=== PATIENT | male | born 1950 | race Caucasian/White ===

== ENCOUNTER 2019-04-15 11:25 | Emergency (ER) | payer OTHER, MEDICARE ==
--- NOTE | 2019-04-15 12:22 | RAD REPORT ---
EXAM DESCRIPTION: RAD - Chest Single View - 04/15/2019 12:14 pm CLINICAL HISTORY: Dyspnea, shortness of breath COMPARISON: August 2017 TECHNIQUE: AP portable chest image was obtained 1212 hours . FINDINGS: No focal lung parenchymal process. Interstitial pattern matches the comparison. No failure or volume overload. Heart and vasculature are normal. No measurable pleural effusion and no pneumoth orax. No acute bony abnormality seen. No acute aortic findings suspected. IMPRESSION: No acute cardiopulmonary process. No significant interval change.
[2019-04-15 12:37] LABS: Absolute Lymphocytes (CBC) 2.1 K/uL (0.7-4.9); Absolute Monocytes 0.7 K/uL (0.1-1.3); Absolute Neutrophil 4.1 K/uL (1.8-8.0); Basophils % 0.4 % (0-1.3); Eosinophils % 0.9 % (0-4.4); Hematocrit 43.1 % (39.6-49.0); Lymphocytes % 30.1 % (15.3-44.8); MPV 8.1 fL (7.6-11.3); Monocytes % 9.6 % (3.3-12.3); RBC Red Blood Cell Count 4.88 M/uL (4.33-5.43)
[2019-04-15 12:50] LABS: Bilirubin Direct 0.2 mg/dL (0-0.2); Bilirubin Total 0.7 mg/dL (0.2-1.0); Potassium 4.1 mmol/L (3.5-5.1); Protein, Total 7.5 g/dL (6.4-8.2)
--- OUTSIDE RECORDS SUMMARY | 2019-04-15 13:13 | XMS REPORT ---
:1950 [facility] Address [address] [place] [address] Dr. Lopez [address] [place] [address] Care Team Providers Name Role Phone Unavailable Unavailable Unavailable Problems This patient has no known problems. Allergies, Adverse Reactions, Alerts This patient has no known allergies or adverse reactions. Medications This patient has no known medications.
--- OUTSIDE RECORDS SUMMARY | 2019-04-15 13:13 | XMS REPORT | Clinical Summary ---
:1950 Author Organization [facility] Address [address] [place] [address] Care Team Providers Name Role Phone Pierre Shea DO Primary Care Provider Allergies No Known Allergies Medications Medication Sig Dispensed Refills Start Date End Date Status omeprazole Take 40 mg by 0 11/12/2017 Active (PriLOSEC) 40 MG mouth daily. capsule meloxicam (MOBIC) Take 15 mg by 0 12/07/2017 Active 15 mg tablet mouth as needed. fish oil-dha-epa Take 1 tablet 0 Active 1,200-144-216 mg by mouth capsule daily. aspirin (ECOTRIN) Take 1 tablet 90 tablet 3 12/31/2017 Active 81 MG enteric (81 mg total) coated tablet by mouth daily. metoprolol Take 1 tablet 180 tablet 3 12/03/2018 Active tartrate (50 mg total) (LOPRESSOR) 50 mg by mouth 2 tablet (two) times a day. losartan-hydrochlo Take 1 tablet 90 tablet 3 12/03/2018 Active rothiazide by mouth (HYZAAR) 50-12.5 daily. mg per tablet clopidogrel Take 1 tablet 90 tablet 3 12/03/2018 Active (PLAVIX) 75 mg (75 mg total) tablet by mouth daily. pravastatin Take 1 tablet 90 tablet 3 01/07/2019 Active (PRAVACHOL) 40 MG (40 mg total) tabletIndications: by mouth Coronary artery daily. disease involving [place] heart with angina pectoris, unspecified vessel or lesion type (HCC), Carotid artery disease, unspecified laterality, unspecified type (HCC) pravastatin Take 40 mg by 0 12/16/2017 09/23/2018 Discontinued (PRAVACHOL) 40 MG mouth daily. tablet metoprolol Take 1 tablet 180 tablet 3 12/31/2017 12/03/2018 Discontinued tartrate (50 mg total) (LOPRESSOR) 50 mg by mouth 2 tablet (two) times a day. losartan-hydrochlo Take 1 tablet 90 tablet 3 12/31/2017 12/03/2018 Discontinued rothiazide by mouth (HYZAAR) 50-12.5 daily. mg per tablet clopidogrel Take 1 tablet 90 tablet 3 12/31/2017 12/03/2018 Discontinued (PLAVIX) 75 mg (75 mg total) tablet by mouth daily. pravastatin Take 1 tablet 90 tablet 3 09/23/2018 01/07/2019 Discontinued (PRAVACHOL) 40 MG (40 mg total) tabletIndications: by mouth Coronary artery daily. disease involving [place] heart with angina pectoris, unspecified vessel or lesion type (HCC), Carotid artery disease, unspecified laterality, unspecified type (HCC) pravastatin Take 1 tablet 90 tablet 3 01/07/2019 01/07/2019 Discontinued (PRAVACHOL) 40 MG (40 mg total) tabletIndications: by mouth Coronary artery daily. disease involving [place] heart with angina pectoris, unspecified vessel or lesion type (HCC), Carotid artery disease, unspecified laterality, unspecified type (HCC) Active Problems Problem Noted Date Coronary artery disease involving [place] coronary artery of [place] heart 09/23 without angina pectoris Abnormal stress test 02/18/2018 Essential hypertension 12/31/2017 SOB (shortness of breath) 12/31/2017 Abnormal ECG 12/31/2017 Carotid artery disease 12/31/2017 Transient cerebral ischemia 12/31/2017 Encounters Date Type Specialty Care Team Description 03/06/2019 Telephone Cardiology Gilmar Valle MA cardiac clearance question 02/20/2019 Office Visit Cardiology Carlos Kemp MD Occlusion of left carotid artery (Primary Dx); Essential hypertension; Transient cerebral ischemia, unspecified type; Coronary artery disease involving [place] coronary artery of [place] heart without angina pectoris 01/07/2019 Refill Cardiology Catie Johnson MA Med Refill 01/07/2019 Orders Only Cardiology Gilmar Valle MA 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 with angina pectoris, unspecified vessel or lesion type ( HCC); Carotid artery disease, unspecified laterality, unspecified type (HCC) 12/03/2018 Orders Only Cardiology Gilmar Valle MA 09/23/2018 Office Visit Cardiology Carlos Kemp MD 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 with angina pectoris, unspecified vessel or lesion type (HCC) (Primary Dx); Carotid artery disease, unspecified laterality, unspecified type (HCC) 05/08/2018 Orders Only Cardiology Gilmar Valle MA after 04/14/2018 Family History Medical History Relation Name Comments Hyperlipidemia Brother Heart attack Father Hyperlipidemia Father Hyperlipidemia Mother Relation Name Status Comments Brother Father Mother Social History Tobacco Use Types Packs/Day Years Used Date Former Smoker Smokeless Tobacco: Former User Alcohol Use Drinks/Week oz/Week Comments Yes Occasional Sex Assigned at Date Recorded Not on file Job Start Date Occupation Industry Not on file Not on file Not on file Travel History Travel Start Travel End No recent travel history available. Last Filed Vital Signs Vital Sign Reading Time Taken Blood Pressure 137/81 02/20/2019 9:54 AM CDT Pulse 62 02/20/2019 9:54 AM CDT Temperature - - Respiratory Rate - - Oxygen Saturation - - Inhaled Oxygen Concentration - - Weight 93.9 kg (207 lb) 02/20/2019 9:52 AM CDT Height 180.3 cm (5' 11") 02/20/2019 9:52 AM CDT Body Mass Index 28.87 02/20/2019 9:52 AM CDT Plan of Treatment Health Maintenance Due Date Last Done Comments COLON CANCER SCREENING 1999 SHINGLES VACCINES (#1) 1999 65+ PNEUMOCOCCAL VACCINE (1 of 2 - PCV13) 2014 PNEUMOCOCCAL POLYSACCHARIDE VACCINE AGE 65 AND OVER 2014 INFLUENZA VACCINE 06/25/2019 Procedures Procedure Name Priority Date/Time Associated Diagnosis Comments COPY RECEIVED FROM: Routine 02/25/2019 7:19 Results for this AM CDT procedure are in the results section. NON HDL CHOLESTEROL Routine 02/25/2019 7:19 Results for this ([facility]) AM CDT procedure are in the results section. CHOL/HDLC RATIO Routine 02/25/2019 7:19 Results for this ([facility]) AM CDT procedure are in the results section. LDL-CHOLESTEROL Routine 02/25/2019 7:19 Results for this ([facility]) AM CDT procedure are in the results section. TRIGLYCERIDES Routine 02/25/2019 7:19 Results for this AM CDT procedure are in the results section. HDL CHOLESTEROL Routine 02/25/2019 7:19 Results for this AM CDT procedure are in the results section. CHOLESTEROL Routine 02/25/2019 7:19 Results for this AM CDT procedure are in the results section. COPY(IES) SENT TO: Routine 02/25/2019 7:19 Results for this AM CDT procedure are in the results section. AST (SGOT) Routine 02/25/2019 7:19 Coronary artery Results for this AM CDT disease involving procedure are in [place] heart with the results angina pectoris, section. unspecified vessel or lesion type (HCC) Carotid artery disease, unspecified laterality, unspecified type (HCC) LIPID PANEL Routine 02/25/2019 7:19 Coronary artery Results for this AM CDT disease involving procedure are in [place] heart with the results angina pectoris, section. unspecified vessel or lesion type (HCC) Carotid artery disease, unspecified laterality, unspecified type (HCC) ECG 12-LEAD Routine 02/20/2019 9:48 Essential Results for this AM CDT hypertension procedure are in the results section. after 04/14/2018 Results NON HDL CHOLESTEROL ([facility]) (02/25/2019 7:19 AM CDT) Non-HDL cholesterol 134 (H) <130 mg/dL [facility] Comment: (calc) [facility] For patients with diabetes plus 1 major ASCVD risk factor, treating to a non-HDL-C goal of <100 mg/dL (LDL-C of <70 mg/dL) is considered a therapeutic option. Specimen Narrative Performed At FASTING:YES [facility] FASTING: YES Resulting Agency Comment Performing Organization Information: Site ID: [id number] Name: [facility] Address: [address] [place] [phone] Director: Renetta Flores Performing Organization Address City/State/[facility] [place] Phone Number [facility] [address] [address] CHOL/HDLC RATIO ([facility]LEX [facility]) (02/25/2019 7:19 AM CDT) Cholesterol/HDL ratio 3.1 <5.0 (calc) [facility] Specimen Narrative Performed At FASTING:YES [facility] FASTING: YES Resulting Agency Comment Performing Organization Information: Site ID: [id number] Name: [facility] Address: [address] [place] [phone] Director: Renetta Flores Performing Organization Address City/[facility]/Zipcode Phone Number [facility] [address] [place] [address] COPY RECEIVED FROM: (02/25/2019 7:19 AM CDT) Copy received from: [facility] Comment: [facility] [place] [address] Specimen Narrative Performed At FASTING:YES [facility] FASTING: YES Performing Organization Address [facility] Phone Number [facility] LDL-CHOLESTEROL ([facility]) (02/25/2019 7:19 AM CDT) LDL cholesterol 110 (H) mg/dL (calc) [facility] calculated Comment: SILVIS Reference range: <100 Desirable range <100 mg/dL for primary prevention; <70 mg/dL for patients with CHD or diabetic patients with > or=2 CHD risk factors. LDL-C is now calculated using the Suhas calculation, which is a validated novel method providing better accuracy than the Friedewald equation in the estimation of LDL-C. Tony SS et al. LIZBETH. 2013;310(19): 1934-5084 (http://education.[employer]/faq/JYO453) Specimen Narrative Performed At FASTING:YES [facility] FASTING: YES Resulting Agency Comment Performing Organization Information: Site ID: [id number] Name: [facility] Address: [address] [place] [address] Director: Renetta Flores Performing Organization Address [facility] Phone Number [facility] [address] [place] [address] COPY(IES) SENT TO: (02/25/2019 7:19 AM CDT) Copies/mL [facility] Comment: ERIN [facility]OW[facility] [facility] [address] [place] [address] Specimen Narrative Performed At FASTING:YES [facility] FASTING: YES Performing Organization Address City/[facility] Phone Number [facility] Triglycerides (02/25/2019 7:19 AM CDT) Triglycerides 129 <150 mg/dL [facility] Specimen Narrative Performed At FASTING:YES [facility] FASTING: YES Resulting Agency Comment Performing Organization Information: Site ID: [id number] Name: [facility] Address: [address] [place] [phone] Director: Renetta Flores Performing Organization Address City/[facility] Phone Number [facility] [place] [phone] AST (SGOT) (02/25/2019 7:19 AM CDT) AST 17 10 - 35 U/L [facility] Specimen Blood Narrative Performed At FASTING:YES [facility] FASTING: YES Resulting Agency Comment Performing Organization Information: Site ID: [id number] Name: [facility] Address: [address] [place] [phone] Director: Renetta Flores Performing Organization Address City/[facility] [place] [address] HDL cholesterol (02/25/2019 7:19 AM CDT) Pathologist [facility] HDL cholesterol 64 >40 mg/dL [facility] Specimen Narrative Performed At FASTING:YES [facility] FASTING: YES Resulting Agency Comment Performing Organization Information: Site ID: [id number] Name: [facility] Address: [address] [place] [phone] Director: Renetta Flores Performing Organization Address [facility] [place] [address] Cholesterol (02/25/2019 7:19 AM CDT) Cholesterol, total 198 <200 mg/dL [facility] Specimen Narrative Performed At FASTING:YES [facility] FASTING: YES Resulting Agency Comment Performing Organization Information: Site ID: [id number] Name: [facility] Address: [address] [place] [phone] Director: Renetta Flores Performing Organization Address [facility] Phone Number [facility] [address] [address] Lipid panel (02/25/2019 7:19 AM CDT) Cholesterol, total 198 <200 mg/dL [facility] HDL cholesterol 64 >40 mg/dL [facility] Triglycerides 129 <150 mg/dL [facility] LDL cholesterol 110 (H) mg/dL (calc) [facility] calculated Comment: SILVIS Reference range: <100 Desirable range <100 mg/dL for primary prevention; <70 mg/dL for patients with CHD or diabetic patients with > or=2 CHD risk factors. LDL-C is now calculated using the Suhas calculation, which is a validated novel method providing better accuracy than the Friedewald equation in the estimation of LDL-C. Tony TERNA et al. LIZBETH. 2013;310(19): 5846-1412 (http://education.[employer]/faq/VZV135) Cholesterol/HDL 3.1 <5.0 (calc) [facility] Non-HDL cholesterol 134 (H) <130 mg/dL [facility] Comment: (calc) [facility] For patients with diabetes plus 1 major ASCVD risk factor, treating to a non-HDL-C goal of <100 mg/dL (LDL-C of <70 mg/dL) is considered a therapeutic option. Specimen Blood Narrative Performed At FASTING:YES [facility] FASTING: YES Resulting Agency Comment Performing Organization Information: Site ID: [id number] Name: [facility] Address: [address] [place] [phone] Director: Renetta Flores Performing Organization Address City/State/[facility] [place] [address] ECG 12 lead (02/20/2019 9:48 AM CDT) Ventricular rate 63 [facility] Atrial rate 63 [facility] CA interval 180 [facility] QRSD interval 128 [facility] QT interval 434 [facility] QTC interval 444 [facility] P axis 1 58 [facility] QRS axis 1 -44 [facility] T wave axis 44 [facility] EKG impression Normal sinus rhythm-Left axis deviation-Left ventricular hypertrophy with QRS widening-T wave abnormality, consider lateral ischemia- Abnormal ECG-In automated comparison with ECG of 20-FEB-2018 11:03,-N [facility] onspecific T wave abnormality has replaced inverted T waves in Inferior leads-T wave inversion now evident in Lateral leads- Specimen Narrative Performed At Performing Organization Address City/State/Zipcode Phone Number [facility] [address] [place] [address] after 04/14/2018 Insurance Payer Benefit Plan / Subscriber ID Effective Dates Phone Address Type Group UHC MEDICARE [employer] xxxxxxxxx 2018-Present [facility] [place] AARP AARP SUPPLEMENT xxxxxxxxx-xx 2014-[employer] t Advance Directives Patient has advance care planning documents on file. For more information, please contact:Marty [address] [place] [address]
[2019-04-15 13:49] LABS: Urine Bacteria NONE SEEN /HPF (NONE SEEN); Urine RBC <5 /HPF (NONE SEEN)
[2019-04-15 13:50] LABS: Urine Culture Reflex Order NOT NEEDED
[2019-04-15 14:12] LABS: Urine Blood NEGATIVE (NEG); Urine Glucose NEGATIVE (NEG); Urine Protein NEGATIVE (NEG)
--- NOTE | 2019-04-15 14:26 | RAD REPORT ---
EXAM DESCRIPTION: CT - Abdomen Pelvis W Contrast - 04/15/2019 2:02 pm CLINICAL HISTORY: Epigastric pain, weight loss, anorexia, patient detailed history of urinary urgenc y and frequency COMPARISON: None. TECHNIQUE: Biphasic, helical CT imaging of the abdomen and pelvis was performed following 100 ml non -ionic IV contrast. Oral contrast was given. All CT scans are performed using dose optimization technique as appropriate and may include automated exposure control or mA/KV adjustment according to patient size. FINDINGS: No suspicious findings in the lung bases. No pericardial thickening or effusion. The liver, spleen, and pancreas show no suspicious findings. Gallbladder and biliary tree are also wi thout suspicious finding. Symmetric renal function is seen with no hydronephrosis or suspicious renal mass. No pyelonephritis o r acute parenchymal process. Cortical and peripelvic cysts are present in the kidneys. No suspicious characteristics. No perinephric stranding seen. No adrenal abnormality identified. Urinary bladder sh ows no suspicious finding. Prostate gland and seminal vesicles within normal limits. No gastric dilatation or wall thickening. A moderate hiatal hernia is present. No acute large or smal l bowel finding seen. No appendicitis. Minimal diverticulosis without diverticulitis. No free air, free fluid or inflammatory stranding. No mass or bulky lymphadenopathy. Bilateral fat filled inguinal hernias are present. Small fat only umbilical hernia is present. Disc and bony degenerative changes are present. No acute or destructive bone process. IMPRESSION: Contrast enhanced CT abdomen and pelvis showing no acute or emergent finding. Nonacute findings detailed in the body of the report.
--- NOTE | 2019-04-15 14:53 | EKG ---
Test Date: 2019-04-15 Test Time: 12:28:55 [facility] Executive Director: YOEL MEASUREMENT RESULTS: Intervals: Rate: 72 DC: 168 QRSD: 116 QT: 416 QTc: 455 [place]: P: 64 DC: 168 QRS: -17 T: 59 INTERPRETIVE STATEMENTS: Normal sinus rhythm Left ventricular hypertrophy with QRS widening Abnormal ECG Compared to ECG 08/25/2017 23:03:43 Sinus bradycardia no longer present Electronically Signed On 04-15-19 14:52:51 CDT by Ovsaldo Galdamez
--- NOTE | 2019-04-15 15:03 | ER ---
Nurse's Notes [facility] Name: Solis Gagnon Age: 68 yrs Sex: Male : 1950 Arrival Date: 04/15/2019 Time: 11:28 Bed 18 Private MD: Pierre Shea H Diagnosis: Adjustment disorder with depressed mood Presentation: 04/15 11:37 Presenting complaint: SOB, nausea, and urinary urgency and frequency x 2-3 days. Pt hb stated "I just don't feel right." Denies cough/fever. Pt had right knee replacement 5 weeks ago, site is reddened and hot to touch. Transition of care: patient was not received from another setting of care. Onset of symptoms was April 13, 2019. Risk Assessment: Do you want to hurt yourself or someone else? Patient reports no desire to harm self or others. Care prior to arrival: None. 11:37 Method Of Arrival: Ambulatory hb 11:37 Acuity: LALO 3 hb 15:38 Initial Sepsis Screen: Does the patient meet any 2 criteria? No. Patient's initial aj1 sepsis screen is negative. Does the patient have a suspected source of infection? No. Patient's initial sepsis screen is negative. Historical: - Allergies: 11:40 No Known Allergies; hb - Home Meds: 11:40 aspirin 81 mg Oral TbEC 1 tab once daily [Active]; meloxicam Oral [Active]; Metoprolol hb Tartrate Oral [Active]; omeprazole 40 mg Oral cpDR 1 cap once daily [Active]; pravastatin Oral [Active]; - PMHx: 11:40 Hyperlipidemia; Hypertension; TIA; hb - Immunization history:: Adult Immunizations. - Social history:: Smoking status: Patient/guardian denies using tobacco. - Family history:: not pertinent. - Ebola Screening: : Patient denies travel to an Ebola-affected area in the 21 days before illness onset. - Hospitalizations: : No recent hospitalization is reported. Screenin:54 Abuse screen: Denies threats or abuse. Denies injuries from another. Nutritional aj1 screening: No deficits noted. Tuberculosis screening: No symptoms or risk factors identified. 15:38 Fall Risk None identified. aj1 Assessment: 11:54 General: Appears in no apparent distress. uncomfortable, Behavior is calm, cooperative, aj1 appropriate for age. Pain: Complains of pain in abdomen Pain currently is 2 out of 10 on a pain scale. Quality of pain is described as Patient describes as "discomfort" rather than pain, "Just doesn't feel right". Neuro: Level of Consciousness is awake, alert, obeys commands. Cardiovascular: Heart tones S1 S2 present Patient's skin is warm and dry. Rhythm is regular. Respiratory: Reports shortness of breath at rest Airway is patent Respiratory effort is even, unlabored, Respiratory pattern is regular, symmetrical, Breath sounds are clear bilaterally. GI: Abdomen is non-distended, Bowel sounds present X 4 quads. Abd is soft and non tender X 4 quads. Reports nausea, poor appetite, weight loss Patient currently denies diarrhea, vomiting. : No signs and/or symptoms were reported regarding the genitourinary system. EENT: No signs and/or symptoms were reported regarding the EENT system. Derm: No signs and/or symptoms reported regarding the dermatologic system. Skin is pale. Musculoskeletal: No signs and/or symptoms reported regarding the musculoskeletal system. Circulation, motion, and sensation intact. 12:25 Reassessment: Notified CT that patient has finished his contrast. aj1 13:05 Reassessment: Patient appears in no apparent distress at this time. No changes from aj1 previously documented assessment. Patient and/or family updated on plan of care and expected duration. Pain level reassessed. Patient is alert, oriented x 3, equal unlabored respirations, skin warm/dry/pink. 14:05 Reassessment: Patient appears in no apparent distress at this time. No changes from aj1 previously documented assessment. Patient and/or family updated on plan of care and expected duration. Pain level reassessed. Patient is alert, oriented x 3, equal unlabored respirations, skin warm/dry/pink. 14:42 Reassessment: Dr. Gomez at bedside. aj1 15:38 Reassessment: Patient appears in no apparent distress at this time. No changes from aj1 previously documented assessment. Patient and/or family updated on plan of care and expected duration. Pain level reassessed. Patient is alert, oriented x 3, equal unlabored respirations, skin warm/dry/pink. Vital Signs: 11:36 BP 140 / 96; Pulse 69; Resp 20; Temp 97.3(TE); Pain 3/10; hb 11:42 Weight 83.91 kg; Height 5 ft. 10 in. (177.80 cm); hb 12:28 BP 123 / 89; Pulse 74; Resp 18; Temp 97.8(TE); Pulse Ox 100% ; mh5 13:25 BP 132 / 86; Pulse 62; Resp 20; Pulse Ox 98% ; mh5 14:21 BP 118 / 80; Pulse 67; Resp 18; Temp 97.8(TE); Pulse Ox 96% on R/A; mh5 11:42 Body Mass Index 26.54 (83.91 kg, 177.80 cm) hb ED Course: 11:28 Patient arrived in ED. mr 11:28 Pierre Shea DO is Private Physician. mr 11:38 Francis Gomez MD is Attending Physician. rn 11:39 Triage completed. hb 11:40 Mary Jane Irizarry, RN is Primary Nurse. aj1 11:41 Arm band placed on. hb 11:54 Patient has correct armband on for positive identification. Bed in low position. Call aj1 light in reach. Side rails up X 1. 11:54 No provider procedures requiring assistance completed. aj1 12:14 XRAY Chest (1 view) In Process Unspecified. EDMS 12:22 Initial lab(s) drawn, by la, sent to lab. Inserted saline lock: 18 gauge in right aj1 antecubital area, using aseptic technique. Blood collected. 13:32 EKG done, by optical coating technician. reviewed by Francis Gomez MD. at1 13:33 Urine collected: clean catch specimen, clear. mh5 13:34 Urine Culture Sent. mh5 13:34 Urine Microscopic Only Sent. mh5 14:02 CT Abd/Pelvis - W/Contrast In Process Unspecified. EDMS 15:38 IV discontinued, intact, bleeding controlled, No redness/swelling at site. Pressure aj1 dressing applied. Administered Medications: No medications were administered Outcome: 15:02 Discharge ordered by . rn 15:38 Discharged to home ambulatory, with walker aj1 15:38 Condition: good 15:38 Discharge instructions given to patient, Instructed on discharge instructions, follow up and referral plans. Demonstrated understanding of instructions, follow-up care. 15:39 Patient left the ED. aj1 Signatures: Dispatcher [employer] EDMS Mary Jane Irizarry, RN RN aj1 Omid, Valerie Sims, RosemarieFrancis Forrester MD MD rn Litzy Boss, accounting analyst EKG Tat1 Erica Couch, NICOLETTE RN Mary Nance [facility] Corrections: (The following items were deleted from the chart) 12:55 12:55 Radiology exam delayed due to lab results not completed at this time. sj (BUN/Creatinine) IV insertion attempt and/or patient not having appropriate IV at this time. sj
--- NOTE | 2019-04-15 15:03 | EDPHYS ---
Physician Documentation [facility] Name: Solis Gagnon Age: 68 yrs Sex: Male : 1950 Arrival Date: 04/15/2019 Time: 11:28 Bed 18 Private MD: Pierre Shea H ED Physician Francis Gomez HPI: 04/15 14:54 This 68 yrs old Male presents to ER via Ambulatory with complaints of rn Breathing Difficulty, fatigue, Urinary Problem. 14:54 REports generalized weakness, vague abd discomfort, weight loss, decreased appetite, rn increased urination, all happening and getting worse over last 5 weeks or so. Had knee replacement 5 weeks ago, has been staying indoors, was previously active and strong, now using walker. . Onset: The symptoms/episode began/occurred 5 week(s) ago. Severity of symptoms: At their worst the symptoms were moderate in the emergency department the symptoms are unchanged. The patient has not experienced similar symptoms in the past. The patient has not recently seen a physician. Historical: - Allergies: 11:40 No Known Allergies; hb - Home Meds: 11:40 aspirin 81 mg Oral TbEC 1 tab once daily [Active]; meloxicam Oral [Active]; Metoprolol hb Tartrate Oral [Active]; omeprazole 40 mg Oral cpDR 1 cap once daily [Active]; pravastatin Oral [Active]; - PMHx: 11:40 Hyperlipidemia; Hypertension; TIA; hb - Immunization history:: Adult Immunizations. - Social history:: Smoking status: Patient/guardian denies using tobacco. - Family history:: not pertinent. - Ebola Screening: : Patient denies travel to an Ebola-affected area in the 21 days before illness onset. - Hospitalizations: : No recent hospitalization is reported. ROS: 14:54 Constitutional: Negative for fever, chills, + weight loss Eyes: Negative for injury, rn pain, redness, and discharge, ENT: Negative for injury, pain, and discharge, Neck: Negative for injury, pain, and swelling, Cardiovascular: Negative for chest pain, palpitations, and edema, Respiratory: Negative for cough, wheezing, and pleuritic chest pain, Abdomen/GI: Negative for vomiting, diarrhea, and constipation, Back: Negative for injury and pain, : Negative for injury, bleeding, discharge, and swelling, MS/Extremity: Negative for injury and deformity, Skin: Negative for injury, rash, and discoloration, Neuro: Negative for headache, numbness, tingling, and seizure. Exam: 14:54 Constitutional: This is a well developed, well nourished patient who is awake, alert, rn and in no acute distress. Flat affect. Head/Face: Normocephalic, atraumatic. ENT: MMM Cardiovascular: Regular rate and rhythm with a normal S1 and S2. No gallops, murmurs, or rubs. Normal PMI, no JVD. No pulse deficits. Respiratory: Lungs have equal breath sounds bilaterally, clear to auscultation and percussion. No rales, rhonchi or wheezes noted. No increased work of breathing, no retractions or nasal flaring. Abdomen/GI: soft, non-tender, no masses Skin: Warm, dry with normal turgor. Normal color with no rashes, no lesions, and no evidence of cellulitis. MS/ Extremity: Pulses equal, no cyanosis. Neurovascular intact. Full, normal range of motion. Equal circumference. Left knee wound c/d/i, mild erythema but no warmth or tenderness Neuro: Awake and alert, GCS 15, oriented to person, place, time, and situation. Cranial nerves II-XII grossly intact. Motor strength 5/5 in all extremities. Sensory grossly intact. Vital Signs: 11:36 BP 140 / 96; Pulse 69; Resp 20; Temp 97.3(TE); Pain 3/10; hb 11:42 Weight 83.91 kg; Height 5 ft. 10 in. (177.80 cm); hb 12:28 BP 123 / 89; Pulse 74; Resp 18; Temp 97.8(TE); Pulse Ox 100% ; mh5 13:25 BP 132 / 86; Pulse 62; Resp 20; Pulse Ox 98% ; mh5 14:21 BP 118 / 80; Pulse 67; Resp 18; Temp 97.8(TE); Pulse Ox 96% on R/A; mh5 11:42 Body Mass Index 26.54 (83.91 kg, 177.80 cm) hb MDM: 11:38 Patient medically screened. rn 14:54 Differential Diagnosis blood work/cxr/ct abd all normal, no acute findings, normal rn vitals, spoke at length with patient, I feel like vague constellation of symptoms and change in physical ability has resulted in depressive episode. Will dc home with pcp and psychiatric f/u/eval. Data reviewed: vital signs, nurses notes, lab test result(s), EKG, radiologic studies, CT scan, plain films, and as a result, I will discharge patient. Counseling: I had a detailed discussion with the patient and/or guardian regarding: the historical points, exam findings, and any diagnostic results supporting the discharge/admit diagnosis, lab results, radiology results, the need for outpatient follow up, to return to the emergency department if symptoms worsen or persist or if there are any questions or concerns that arise at home. Special discussion: I discussed with the patient/guardian in detail that at this point there is no indication for admission to the hospital. It is understood, however, that if the symptoms persist or worsen the patient needs to return immediately for re-evaluation. Based on the history and exam findings, there is no indication for further emergent testing or inpatient evaluation. I discussed with the patient/guardian the need to see the primary care provider for further evaluation of the symptoms. I discussed with the patient/guardian the need to see the psychiatrist for further evaluation of the symptoms. 04/15 11:54 Order name: Basic Metabolic Panel; Complete Time: 13:04/15 11:54 Order name: CBC with Diff; Complete Time: 13:04/15 11:54 Order name: Hepatic Function; Complete Time: 13:04/15 11:54 Order name: Lipase; Complete Time: 13:04/15 11:59 Order name: Troponin (emerg Dept Use Only); Complete Time: 13:04/15 11:59 Order name: Urine Culture 04/15 11:54 Order name: IV Saline Lock; Complete Time: 12:04/15 11:54 Order name: Labs collected and sent; Complete Time: 12:04/15 11:59 Order name: EKG; Complete Time: 12:00 04/15 11:59 Order name: EKG - Nurse/Tech; Complete Time: 13:10 rn 04/15 11:59 Order name: XRAY Chest (1 view); Complete Time: 13:04/15 11:59 Order name: CT Abd/Pelvis - W/Contrast; Complete Time: 14:37 rn 04/15 11:59 Order name: Urine Microscopic Only; Complete Time: 14:37 rn 04/15 13:50 Order name: Urine Dipstick--Ancillary (enter results); Complete Time: 14:37 em1 04/15 11:59 Order name: Urine Dipstick-Ancillary (obtain specimen); Complete Time: 13:31 rn Administered Medications: No medications were administered Disposition: 04/15/19 15:02 Discharged to Home. Impression: Adjustment disorder with depressed mood. - Condition is Stable. - Discharge Instructions: Adjustment Disorder, Adult, Major Depressive Disorder. - Medication Reconciliation Form, Thank You Letter, Antibiotic Education, Prescription Opioid Use form. - Follow up: Private Physician; When: As needed; Reason: Recheck today's complaints, Re-evaluation by your physician. - Problem is an ongoing problem. - Symptoms are unchanged. Signatures: Dispatcher [employer] EDMary Jane Cook RN RN aj1 Francis Gomez MD MD rn Baxter, Heather, RN RN Corrections: (The following items were deleted from the chart) 15:39 15:02 04/15/2019 15:02 Discharged to Home. Impression: Adjustment disorder with aj1 depressed mood. Condition is Stable. Forms are Medication Reconciliation Form, Thank You Letter, Antibiotic Education, Prescription Opioid Use. Follow up: Private Physician; When: As needed; Reason: Recheck today's complaints, Re-evaluation by your physician. Problem is an ongoing problem. Symptoms are unchanged. rn
[2019-04-15 17:58] VITALS: TEMP 97.8
[2019-04-15 18:00] VITALS: BP 118/80; O2SAT 96
== END 2019-04-15 15:39 | disposition home or self-care (01) ==
LOC: ER 11:25
DX: F43.21 Adjustment disorder with depressed mood (principal); I10 Essential (primary) hypertension; E78.5 Hyperlipidemia, unspecified; Z79.82 Long term (current) use of aspirin
CPT/HCPCS: 93005; 87088; 85025; 87086; 80048; 36415; 80076; 84484; 83690; 74177; 71045; Q9967; 81003; 81015; 99284

== ENCOUNTER 2021-03-14 21:20 | Emergency (ER) | payer OTHER ==
--- OUTSIDE RECORDS SUMMARY | 2021-03-14 21:22 | XMS REPORT | Continuity of Care Document ---
:1950 Author Organization [facility] t Address [address] [place] [address] Dr. [address] [place] [address] Care Team Providers Name Role Phone Braxton Shea DO Primary Care Physician Justino AHUJA, R. Attending Clinician Lab, Fam Pob I Attending Clinician Unavailable Alex MARRERO Attending Clinician Unavailable Tori MARRERO Attending Clinician Unavailable Doctor Unassigned, Name Attending Clinician Unavailable Mechelle AHUJA, L Attending Clinician Payers Payer Name Policy Type Policy Effective Date Expiration Date Sour ce Number UHC MEDICAREUHC [id number] 2018 [place] MEDICARE 00:00:00 [facility] [id number]/[id number] O Problems Condition Condition Condition Status Onset Resolution Last Treating Co mments Source Name Details Category Date Date Treatment Clinician Date CAD in CAD in Disease Active 2017-11 [facility] 0-30 [facility] artery artery 00:00: st 00 Abnormal Abnormal Disease Active [place] stress stress 3-27 [facility] test test 00:00: st 00 Essential Essential Disease Active [facility] hypertensi hypertensi 2-06 [facility]: st 00 SOB SOB Disease Active [employer] (shortness (shortness 2-06 [facility] of breath) of breath) 00:00: st 00 Abnormal Abnormal Disease Active [place] ECG ECG 2-06 [facility] 00:00: st 00 Carotid Carotid Disease Active [employer] artery artery 12-31 [facility] disease disease 00:00: st 00 Transient Transient Disease Active [facility] charltonn cerebral cerebral 12-31 [facility] i ischemia ischemia 00:00: st 00 Allergies, Adverse Reactions, Alerts Allergy Allergy Status Severity Reaction(s) Onset Inactive Treating Comm ents Source Name Type Date Date Clinician Dionte Diego Active Other (See "SILK Ho ashkan ty to Comments) 4-18 TAPE" - Metho di adverse 00:00: SKIN st reaction 00 PEELING s to drug Family History Family Member Diagnosis Comments Start Date Stop Date Source Natural brother Hyperlipidemia [place] [facility] Natural father Heart attack [facility] Natural father Hyperlipidemia [place] [facility] Natural mother Hyperlipidemia [place] [facility] Social History Social Habit Start Date Stop Date Quantity Comments Source History of tobacco Current smoker Alex luther use [facility] Cigarettes smoked 2020-12-06 2020-12-06 [employer] current (pack per 00:00:00 00:00:00 [facility] ) - Reported Cigarette 2020-12-06 2020-12-06 [employer] pack-years 00:00:00 00:00:00 [facility] Tobacco use and 2020-12-06 2020-12-06 Never used [facility] exposure 00:00:00 00:00:00 [facility] Alcohol intake 2020-12-06 2020-12-06 Current drinker Annelise on 00:00:00 00:00:00 of alcohol [facility] (finding) Alcohol Comment 2017-12-31 2017-12-31 Occasional [employer] 00:00:00 00:00:00 [facility] Sex [birth year] [employer] 00:00:00 00:00:00 [facility] Smoking Status Start Date Stop Date Source Former smoker 2020-12-06 00:00:00 2020-12-06 00:00:00 [employer] [facility] Medications Ordered Filled Start Stop Current Ordering Indication Dosage Frequency Signature Comments Components Source Medication Medication Date Date Medication? Clinician (SIG) Name Name fish Yes 1{tbl} QD Take 1 [facility] oil-dha-epa 1-12 tablet by Met alejandre 1,200-144-2 14:17: mouth st 16 mg 47 daily. capsule pravastatin Yes Carotid 40mg QD Take 1 [place] (PRAVACHOL) 1-12 artery tablet (40 [facility] 40 mg 00:00: disease, mg total) st tablet 00 unspecified by mouth laterality, daily. unspecified type (HCC) metoprolol Yes 50mg Q.5D Take 1 [place] tartrate 1-12 tablet (50 Metho di (LOPRESSOR) 00:00: mg total) s t 50 mg 00 by mouth 2 tablet (two) times a day. losartan- Yes 1{tbl} QD Take 1 [place] drochloroth 1-12 tablet by Met hodi iazide 00:00: mouth st (HYZAAR) 00 daily. 50-12.5 mg per tablet clopidogreL Yes 75mg QD Take 1 [place] (PLAVIX) 75 1-12 tablet (75 [facility] mg tablet 00:00: mg total) st 00 by mouth daily. pravastatin 2019-11 Yes Carotid TAKE 1 [place] (PRAVACHOL) 2-22 artery TABLET BY M ethodi 40 mg 00:00: disease, MOUTH st tablet 00 unspecified DAILY laterality, unspecified type (HCC) metoprolol 2019-11- No TAKE 1 [place] tartrate 2-02 -12 TABLET BY Metho di (LOPRESSOR) 00:00: 00:[address] 50 mg 00 :00 TIMES tablet DAILY clopidogreL 2019-11- No TAKE 1 [facility] (PLAVIX) 75 2-02 -12 TABLET BY Me [facility] mg tablet 00:00: 00:[address] 00 :00 DAILY losartan- 2019-11- No 1{tbl} QD Take 1 [place] drochloroth 0-21 01-12 tablet by Me [facility] iazide 00:00: 00:[address] (HYZAAR) 00 :00 daily. 50-12.5 mg per tablet losartan- 2019-11 2020- No 1{tbl} QD Take 1 [place] drochloroth 0-20 10-21 tablet by Me th[facility] iazide 00:00: 00:[address] (HYZAAR) 00 :00 daily. 50-12.5 mg per tablet losartan- 2019-11- No 1{tbl} QD Take 1 [place] drochloroth 0-15 10-20 tablet by Me th[facility] iazide 00:00: 00:[address] (HYZAAR) 00 :00 daily. 50-12.5 mg per tablet pravastatin 2018-11- Carotid TAKE 1 [employer] (PRAVACHOL) 12-31 artery TABLET BY [facility] 40 MG 00:00: 00:00 disease, MOUTH st tablet 00 :00 unspecified DAILY laterality, unspecified type (HCC) metoprolol 2018-11- No TAKE 1 [place] tartrate 12-31 TABLET BY Metho di (LOPRESSOR) 00:00: 00:[address] 50 mg 00 :00 TIMES tablet DAILY clopidogrel 2018-11- No TAKE 1 [facility] (PLAVIX) 75 12-31 TABLET BY Tx thodi mg tablet 00:00: 00:[address] 00 :00 DAILY losartan-hy 2018-11 1{tbl} QD Take 1 [place] drochloroth 0-21 10-15 tablet by Tx thodi iazide 00:00: 00:[address] (HYZAAR) 00 :00 daily. 50-12.5 mg per tablet pravastatin 2020- No Carotid 40mg QD Take 1 [employer] (PRAVACHOL) 01-07 artery tablet (40 [facility] 40 MG 00:00: 00:00 disease, mg total) st tablet 00 :00 unspecified by mouth laterality, daily. unspecified type (HCC) aspirin Yes 81mg QD Take 1 [employer] (ECOTRIN) 12-31 tablet (81 Meth mickey 81 MG 00:00: mg total) st enteric 00 by mouth coated daily. tablet omeprazole 2016-11 Yes 40mg QD Take 40 mg [facility] (PriLOSEC) 2- by mouth Metho di 40 MG 00:00: daily. st capsule 00 Vital Signs Vital Name Observation Time Observation Value Comments Source Systolic blood 2020-05-31 15:20:00 125 mm[Hg] Leonardo stevenson [facility] pressure Diastolic blood 2020-05-31 15:20:00 75 mm[Hg] Annelise nguyen [facility] pressure Heart rate 2020-05-31 15:20:00 53 /min [facility] Card Body height 2020-05-31 15:20:00 180.3 cm [facility] Body weight 2020-05-31 15:20:00 97.07 kg Marty Card BMI 2020-05-31 15:20:00 29.85 kg/m2 [facility] Procedures Procedure Date / Time Performed Performing Clinician Sourc e US CAROTID DUPLEX 2020-12-06 14:50:59 Franklyn Kemp [facility] BILATERAL US CAROTID DUPLEX 2020-05-31 15:02:43 Franklyn Kemp [facility] BILATERAL ECG 12-LEAD 2020-05-31 14:15:59 Franklyn Kemp Meth odist Plan of Care Planned Activity Planned Date Details Comments Source Future Scheduled 2021-06-25 INFLUENZA VACCINE [place] [facility] Test 00:00:00 [code = INFLUENZA VACCINE] Future Scheduled 1999 COLONOSCOPY SCREENING [place] [facility] Test 00:00:00 [code = COLONOSCOPY SCREENING] Future Scheduled 1999 SHINGLES VACCINES (#1) [place] [facility] Test 00:00:00 [code = SHINGLES VACCINES (#1)] Future Scheduled 1967 Hepatitis C screening [place] [facility] Test 00:00:00 (procedure) [code = 269774450] Future Scheduled 1965 COVID-19 VACCINE (1) [facility] Test 00:00:00 [code = COVID-19 VACCINE (1)] Future Scheduled 1955 65+ PNEUMOCOCCAL [facility] Test 00:00:00 VACCINE (1 of 2 - PPSV23) [code = 65+ PNEUMOCOCCAL VACCINE (1 of 2 - PPSV23)] Encounters Start End Encounter Admission Attending Care Care Encounter Source Date/Time Date/Time Type Type Clinicians Facility Department ID 2020-12-06 2020-12-06 Outpatient [facility] [id number] 00:00:00 00:00:00 [place] [address] 2020-12-06 2020-12-06 Outpatient [facility] [id number] [facility] 00:00:00 00:00:00 [place] [address] 2020-10-15 2020-10-15 Laboratory Lab, Adc [facility] [id number] 11:27:35 11:47:35 Only Fam Pob I Health [id number] [place] [id number] Professio [phone] nal [address] 2020-08-18 2020-08-18 Orders Doctor MICHELLE [id number] 00:00:00 00:00:00 Only Unassigned, CRISTOFER [id number] [facility] [id number] 009 2020-08-09 2020-08-09 Orders Doctor MICHELLE [id number] 00:00:00 00:00:00 Only Unassigned, CRISTOFER [id number] [facility] [id number] [id number] 2020-07-29 2020-07-29 Orders Doctor MICHELLE [id number] 00:00:00 00:00:00 Only Unassigned, CRISTOFER [id number] [facility] [id number] [id number] 2020-07-14 2020-07-14 Orders Doctor MARTINEZ [id number] 00:00:00 00:00:00 Only Unassigned, CRISTOFER [id number] [place] [facility] [id number] 009 2020-07-07 2020-07-07 Telephone [facility] [id number] 00:00:00 00:00:00 Denis Kruger [facility] [id number] Surgical [id number] Specialti [phone] es 198 [place] 2020-07-04 2020-07-04 Telephone [facility] [id number] 00:00:00 00:00:00 Denis [facility] [id number] Surgical [id number] Specialti [id number] es 198 [place] 2020-06-27 2020-06-27 [facility] [id number] 15:11:28 23:59:00 Encounter Denis [facility] [id number] Surgical [id number] Specialti [id number] es 809 [place] 2020-06-27 2020-06-27 [facility] [id number] 14:33:33 15:19:44 Visit [facility] [id number] Surgical [id number] Specialti [id number] es 198 [place] 2020-06-27 2020-06-27 [facility] 1.2.840.114 [id number] 14:47:25 15:10:00 Encounter [facility] [id number] Surgical [id number] Specialti [id number] es 809 [place] 2020-05-31 2020-05-31 Outpatient [facility] [id number] [employer] 00:00:00 00:00:[address] 2020-05-31 2020-05-31 Outpatient JUSTINO [facility] [id number] [employer] 00:00:00 00:00:00 [place] [address] Results Test Description Test Time Test Comments Results Result Comments Source ECG 12 lead 2020-05-31 15:31:51 Test Item Value Reference Range Interpretation Comme nts Ventricular rate (test code = 253) 52 Atrial rate (test code = 255) 52 WI interval (test code = 266) 180 QRSD interval (test code = 260) 114 QT interval (test code = 264) 442 QTC interval (test code = 265) 411 P axis 1 (test code = 267) 70 QRS axis 1 (test code = 268) -34 T wave axis (test code = 270) -9 EKG impression (test code = 273) Sinus bradycardia-Left axis deviation-Nonspecific T wave abnormality-Abnormal ECG-In automated comparison with ECG of 20-FEB-2019 09:48,-Inverted T waves have replaced nonspecific T wave abnormality in Inferior leads-T wave inversion no longer evident in Lateral leads- Marty Card
[2021-03-15 00:50] LABS: Urine Blood Negative (Negative); Urine Glucose Negative (Negative); Urine Protein Negative (Negative); Urine Specific Gravity 1.025 (1.005-1.030); Urine pH 5.5 (5.0-7.0)
[2021-03-15 01:04] LABS: ALT/SGPT 24 U/L (12-78); AST/SGOT 18 U/L (15-37); Albumin 3.9 g/dL (3.4-5.0); Alkaline Phosphatase 68 U/L (45-117); BUN Blood Urea Nitrogen 10 mg/dL (7-18); Bicarbonate 27 mmol/L (21-32); Bilirubin Direct < 0.1 mg/dL (0-0.2); Bilirubin Total 0.3 mg/dL (0.2-1.0); Glucose Level 128 mg/dL (74-106); Lipase 119 U/L (73-393); Potassium 3.7 mmol/L (3.5-5.1); Protein, Total 7.3 g/dL (6.4-8.2); Sodium Level 140 mmol/L (136-145)
[2021-03-15] MEDS ORDERED: MORPHINE 4 MG/ML SYR ONE (01:13)
[2021-03-15] MEDS ORDERED: ONDANSETRON 4 MG/2 ML VIAL ONE (01:14)
--- NOTE | 2021-03-15 02:58 | EDPHYS ---
Physician Documentation [facility] Name: Solis Gagnon Age: 70 yrs Sex: Male : 1950 Arrival Date: 03/14/2021 Time: 21:22 Bed 15 Private MD: ED Physician Mario Delgado HPI: 03/15 00:32 This 70 yrs old Male presents to ER via Ambulatory with complaints of Back manish Pain. 00:32 The patient presents with pain that is acute, with no known mechanism of injury. The manish symptoms are located in the right mid back and right low back. Onset: The symptoms/episode began/occurred 6 day(s) ago. The pain does not radiate. Associated signs and symptoms: The patient has no apparent associated signs or symptoms. The problem was sustained from unknown cause. Modifying factors: The patient symptoms are alleviated by nothing, the patient symptoms are aggravated by nothing. Severity of symptoms: At their worst the symptoms were moderate, in the emergency department the symptoms are unchanged. The patient has not experienced similar symptoms in the past. Historical: - Allergies: 03/14 21:50 No Known Allergies; bb - Home Meds: 21:50 aspirin 81 mg Oral TbEC 1 tab once daily [Active]; metoprolol tartrate 50 mg oral tab 1 bb tab 2 times per day [Active]; clopidogrel 75 mg oral tab 1 tab once daily [Active]; pantoprazole 40 mg oral TbEC 1 tab once daily [Active]; losartan-hydrochlorothiazide 50-12.5 mg oral tab 1 tab once daily [Active]; pravastatin 40 mg oral tab 1 tab once daily [Active]; zolpidem 10 mg Oral tab 1 tab once daily [Active]; Iron CR 65 mg daily Oral [Active]; - PMHx: 21:50 Hyperlipidemia; Hypertension; TIA; bb - PSHx: 21:50 Knee surgery; bb - Immunization history:: Adult Immunizations up to date, Client reports receiving the 1st dose of the Covid vaccine. - Social history:: Smoking status: Patient denies any tobacco usage or history of. - Family history:: not pertinent. ROS: 03/15 00:32 Constitutional: Negative for fever, chills, and weight loss, Eyes: Negative for injury, manish pain, redness, and discharge, ENT: Negative for injury, pain, and discharge, Neck: Negative for injury, pain, and swelling, Cardiovascular: Negative for chest pain, palpitations, and edema, Respiratory: Negative for shortness of breath, cough, wheezing, and pleuritic chest pain, Abdomen/GI: Negative for abdominal pain, nausea, vomiting, diarrhea, and constipation, : Negative for injury, bleeding, discharge, and swelling, MS/Extremity: Negative for injury and deformity, Skin: Negative for injury, rash, and discoloration, Neuro: Negative for headache, weakness, numbness, tingling, and seizure, Psych: Negative for depression, anxiety, suicide ideation, homicidal ideation, and hallucinations, Allergy/Immunology: Negative for hives, rash, and allergies, Endocrine: Negative for neck swelling, polydipsia, polyuria, polyphagia, and marked weight changes, Hematologic/Lymphatic: Negative for swollen nodes, abnormal bleeding, and unusual bruising. Back: Positive for flank pain, on the right. Exam: 00:32 Constitutional: This is a well developed, well nourished patient who is awake, alert, manish and in no acute distress. Head/Face: Normocephalic, atraumatic. Eyes: Pupils equal round and reactive to light, extra-ocular motions intact. Lids and lashes normal. Conjunctiva and sclera are non-icteric and not injected. Cornea within normal limits. Periorbital areas with no swelling, redness, or edema. ENT: Nares patent. No nasal discharge, no septal abnormalities noted. Tympanic membranes are normal and external auditory canals are clear. Oropharynx with no redness, swelling, or masses, exudates, or evidence of obstruction, uvula midline. Mucous membranes moist. Neck: Trachea midline, no thyromegaly or masses palpated, and no cervical lymphadenopathy. Supple, full range of motion without nuchal rigidity, or vertebral point tenderness. No Meningismus. Chest/axilla: Normal chest wall appearance and motion. Nontender with no deformity. No lesions are appreciated. Cardiovascular: Regular rate and rhythm with a normal S1 and S2. No gallops, murmurs, or rubs. Normal PMI, no JVD. No pulse deficits. Respiratory: Lungs have equal breath sounds bilaterally, clear to auscultation and percussion. No rales, rhonchi or wheezes noted. No increased work of breathing, no retractions or nasal flaring. Abdomen/GI: Soft, non-tender, with normal bowel sounds. No distension or tympany. No guarding or rebound. No evidence of tenderness throughout. Back: No spinal tenderness. No costovertebral tenderness. Full range of motion. Male : Normal genitalia with no discharge or lesions. Skin: Warm, dry with normal turgor. Normal color with no rashes, no lesions, and no evidence of cellulitis. MS/ Extremity: Pulses equal, no cyanosis. Neurovascular intact. Full, normal range of motion. Neuro: Awake and alert, GCS 15, oriented to person, place, time, and situation. Cranial nerves II-XII grossly intact. Motor strength 5/5 in all extremities. Sensory grossly intact. Cerebellar exam normal. Normal gait. Psych: Awake, alert, with orientation to person, place and time. Behavior, mood, and affect are within normal limits. Vital Signs: 03/14 21:45 BP 122 / 86; Pulse 68; Resp 16 S; Temp 98.2(O); Pulse Ox 96% on R/A; Weight 89.81 kg bb (R); Height 5 ft. 11 in. (180.34 cm) (R); Pain 7/10; 03/15 00:02 BP 127 / 92 Sitting (/reg); Pulse 65; Resp 14; Temp 97.5; Pulse Ox 94% ; Pain 6/10; jb5 01:21 BP 121 / 78; Pulse 58; Resp 16 S; Pulse Ox 96% on R/A; Pain 3/10; bb 02:31 BP 111 / 65; Pulse 58; Resp 14 S; Pulse Ox 92% on R/A; bb 03:12 BP 135 / 95; Pulse 62; Resp 16 S; Temp 98.3(O); Pulse Ox 96% on R/A; bb 03/14 21:45 Body Mass Index 27.62 (89.81 kg, 180.34 cm) MDM: 00:16 Patient medically screened. manish 00:34 Differential diagnosis: Abdominal Aortic Aneurysm Cholelithiasis Pyelonephritis manish ruptured disc, sprain, Ureterolithiasis. Data reviewed: vital signs, nurses notes, lab test result(s), radiologic studies, CT scan. Data interpreted: resource management planner: rate is 66 beats/min, rhythm is regular, Pulse oximetry: on room air is 94 %. Test interpretation: by ED physician or midlevel provider: plain radiologic studies. Counseling: I had a detailed discussion with the patient and/or guardian regarding: the historical points, exam findings, and any diagnostic results supporting the discharge/admit diagnosis, lab results, radiology results, the need for outpatient follow up. 03/15 00:31 Order name: Basic Metabolic Panel; Complete Time: 01:25 [facility] 03/15 00:31 Order name: CBC with Diff [facility] 03/15 00: Order name: Hepatic Function; Complete Time: : [facility] 03/15 00:31 Order name: Lipase; Complete Time: : [facility] 03/15 00:31 Order name: Urine Culture [facility] 03/15 00:50 Order name: Urine Dipstick-Ancillary; Complete Time: : [facility] 03/15 00:31 Order name: IV Saline Lock; Complete Time: 00:51 [facility] 03/15 00:31 Order name: Chest Single View XRAY [facility] 03/15 00:31 Order name: CT Abd/Pelvis - IV Contrast Only [facility] 03/15 00:31 Order name: Labs collected and sent; Complete Time: 00:51 [facility] 03/15 00:31 Order name: Urine Dipstick-Ancillary (obtain specimen); Complete Time: 01:20 [facility] Administered Medications: 01:05 Drug: morphine 4 mg Route: IVP; Site: left antecubital; 01:20 Follow up: Response: No adverse reaction; Pain is decreased; RASS: Alert and Calm (0) 01:06 Drug: Zofran (Ondansetron) 4 mg Route: IVP; Site: left antecubital; bb 01:20 Follow up: Response: No adverse reaction bb 02:52 CANCELLED (Duplicate Order): Rocephin - (cefTRIAXone) 1 grams IVPB once over 30 mins; manish (mix in 50 mL NS) 02:55 CANCELLED (Duplicate Order): Rocephin - (cefTRIAXone) 1 grams IVPB once over 30 mins; manish (mix in 50 mL NS) 03:04 Drug: Rocephin (cefTRIAXone) 1 grams Route: IV; Rate: per protocol; Site: left bb antecubital; 03:10 Follow up: IV Status: Completed infusion; IV Intake: 10ml bb Disposition: 03/15/21 02:56 Discharged to Home. Impression: Congenital multiple renal cysts, Strain of muscle and tendon of back wall of thorax. - Condition is Stable. - Discharge Instructions: Back Pain, Adult, Back Pain, Adult, [id number]. - Prescriptions for Tylenol- Codeine #3 300-30 mg Oral Tablet - take 2 tablets by ORAL route every 4-6 hours As needed; 24 tablet. Cipro 500 mg Oral Tablet - take 1 tablet by ORAL route every 12 hours for 7 days; 14 tablet. - Medication Reconciliation Form, Thank You Letter, Antibiotic Education, Prescription Opioid Use form. - Follow up: Private Physician; When: 2 - 3 days; Reason: Recheck today's complaints, Re-evaluation by your physician. Follow up: Lseter Raymond MD; When: 2 - 3 days; Reason: Recheck today's complaints, Re-evaluation by your physician. - Problem is new. - Symptoms have improved. Signatures: Dispatcher [employer] EDMario Golden MD MD cha Ballard, Brenda RN RN bb Corrections: (The following items were deleted from the chart) 02:52 02:49 Rocephin - (cefTRIAXone) 1 grams IVPB once over 30 mins; (mix in 50 mL NS) manish ordered. manish 02:55 02:52 Rocephin - (cefTRIAXone) 1 grams IVPB once over 30 mins; (mix in 50 mL NS) manish ordered. manish 03:13 02:56 03/15/2021 02:56 Discharged to Home. Impression: Congenital multiple renal cysts; bb Strain of muscle and tendon of back wall of thorax. Condition is Stable. Forms are Medication Reconciliation Form, Thank You Letter, Antibiotic Education, Prescription Opioid Use. Follow up: Private Physician; When: 2 - 3 days; Reason: Recheck today's complaints, Re-evaluation by your physician. Follow up: Lester Raymond; When: 2 - 3 days; Reason: Recheck today's complaints, Re-evaluation by your physician. Problem is new. Symptoms have improved. manish
--- NOTE | 2021-03-15 02:58 | ER ---
Nurse's Notes [facility] Name: Solis Gagnon Age: 70 yrs Sex: Male : 1950 Arrival Date: 03/14/2021 Time: 21:22 Bed 15 Private MD: Diagnosis: Congenital multiple renal cysts;Strain of muscle and tendon of back wall of thorax Presentation: 03/14 21:45 Chief complaint: Patient states: he started having right sided mid-back pain bb or Saturday the pain does not radiate and is constant the pain is getting worse currently 06/03. Pt states he received the [employer] COVID vaccine 2 weeks ago. Coronavirus screen: At this time, the client does not indicate any symptoms associated with coronavirus-19. Ebola Screen: No symptoms or risks identified at this time. Initial Sepsis Screen: Does the patient meet any 2 criteria? No. Patient's initial sepsis screen is negative. Does the patient have a suspected source of infection? No. Patient's initial sepsis screen is negative. Risk Assessment: Do you want to hurt yourself or someone else? Patient reports no desire to harm self or others. Onset of symptoms was March 10, 2021. 21:45 Method Of Arrival: Ambulatory bb 21:45 Acuity: LALO 3 bb Triage Assessment: 21:50 General: Appears in no apparent distress. uncomfortable, Behavior is calm, cooperative. bb Pain: Complains of pain in back Pain does not radiate. Pain currently is 7 out of 10 on a pain scale. Is continuous. Neuro: Level of Consciousness is awake, alert, obeys commands, Oriented to person, place, time, situation. Respiratory: Respiratory effort is even, unlabored, Respiratory pattern is regular. Musculoskeletal: Circulation, motion, and sensation intact. Reports pain in back. Historical: - Allergies: 21:50 No Known Allergies; bb - Home Meds: 21:50 aspirin 81 mg Oral TbEC 1 tab once daily [Active]; metoprolol tartrate 50 mg oral tab 1 bb tab 2 times per day [Active]; clopidogrel 75 mg oral tab 1 tab once daily [Active]; pantoprazole 40 mg oral TbEC 1 tab once daily [Active]; losartan-hydrochlorothiazide 50-12.5 mg oral tab 1 tab once daily [Active]; pravastatin 40 mg oral tab 1 tab once daily [Active]; zolpidem 10 mg Oral tab 1 tab once daily [Active]; Iron CR 65 mg daily Oral [Active]; - PMHx: 21:50 Hyperlipidemia; Hypertension; TIA; bb - PSHx: 21:50 Knee surgery; bb - Immunization history:: Adult Immunizations up to date, Client reports receiving the 1st dose of the Covid vaccine. - Social history:: Smoking status: Patient denies any tobacco usage or history of. - Family history:: not pertinent. Screenin/21 00:00 Abuse screen: Denies threats or abuse. Nutritional screening: No deficits noted. bb Tuberculosis screening: No symptoms or risk factors identified. Fall Risk None identified. Assessment: 00:00 Reassessment: No changes from previously documented assessment. Patient is alert, bb oriented x 3, equal unlabored respirations, skin warm/dry/pink. see triage assessment. 01:07 Reassessment: Patient is alert, oriented x 3, equal unlabored respirations, skin bb warm/dry/pink. Patient states feeling better. 01:20 Reassessment: Patient is alert, oriented x 3, equal unlabored respirations, skin bb warm/dry/pink. pt states pain has improved now 3/10 Patient states feeling better. 02:30 Reassessment: Patient is alert, oriented x 3, equal unlabored respirations, skin bb warm/dry/pink. pt resting quietly, awaiting results of CT scan. 03:11 Reassessment: Dr Delgado at bedside for discussion of findings and recommendations pt bb verbalized understanding of and agrees to plan of care discharge instructions given pt ambulated with steady gait to exit. Vital Signs: 03/14 21:45 BP 122 / 86; Pulse 68; Resp 16 S; Temp 98.2(O); Pulse Ox 96% on R/A; Weight 89.81 kg bb (R); Height 5 ft. 11 in. (180.34 cm) (R); Pain 7/10; 03/15 00:02 BP 127 / 92 Sitting (/reg); Pulse 65; Resp 14; Temp 97.5; Pulse Ox 94% ; Pain 6/10; jb5 01:21 BP 121 / 78; Pulse 58; Resp 16 S; Pulse Ox 96% on R/A; Pain 3/10; bb 02:31 BP 111 / 65; Pulse 58; Resp 14 S; Pulse Ox 92% on R/A; bb 03:12 BP 135 / 95; Pulse 62; Resp 16 S; Temp 98.3(O); Pulse Ox 96% on R/A; bb 03/14 21:45 Body Mass Index 27.62 (89.81 kg, 180.34 cm) bb ED Course: 03/14 21:22 Patient arrived in ED. cl3 21:47 Triage completed. bb 21:50 Arm band placed on Patient placed in waiting room, Patient notified of wait time. bb 03/15 00:00 Patient has correct armband on for positive identification. Placed in gown. Bed in low bb position. Pulse ox on. NIBP on. 00:15 Mario Delgado MD is Attending Physician. manish 00:49 Inserted saline lock: 20 gauge in left antecubital area, using aseptic technique. Blood jb5 collected. 00:50 Chest Single View XRAY In Process Unspecified. EDMS 00:51 Urine Culture Sent. jb5 00:51 Basic Metabolic Panel Sent. jb5 00:51 CBC with Diff Sent. jb5 00:51 Hepatic Function Sent. jb5 00:51 Lipase Sent. jb5 01:05 Esperanza Jackson, RN is Primary Nurse. bb 02:55 Lester Raymond MD is Referral Physician. manish 03:12 IV discontinued, intact, bleeding controlled, No redness/swelling at site. Pressure bb dressing applied. 03:12 No provider procedures requiring assistance completed. bb 05:48 CT Abd/Pelvis - IV Contrast Only In Process Unspecified. EDMS Administered Medications: 01:05 Drug: morphine 4 mg Route: IVP; Site: left antecubital; bb 01:20 Follow up: Response: No adverse reaction; Pain is decreased; RASS: Alert and Calm (0) bb 01:06 Drug: Zofran (Ondansetron) 4 mg Route: IVP; Site: left antecubital; bb 01:20 Follow up: Response: No adverse reaction bb 02:52 CANCELLED (Duplicate Order): Rocephin - (cefTRIAXone) 1 grams IVPB once over 30 mins; manish (mix in 50 mL NS) 02:55 CANCELLED (Duplicate Order): Rocephin - (cefTRIAXone) 1 grams IVPB once over 30 mins; manish (mix in 50 mL NS) 03:04 Drug: Rocephin (cefTRIAXone) 1 grams Route: IV; Rate: per protocol; Site: left bb antecubital; 03:10 Follow up: IV Status: Completed infusion; IV Intake: 10ml bb Intake: 03:10 IV: 10ml; Total: 10ml. bb Outcome: 02:56 Discharge ordered by . manish 03:13 Discharged to home ambulatory. bb 03:13 Condition: stable 03:13 Discharge instructions given to patient, Instructed on discharge instructions, follow up and referral plans. no driving heavy equipment, medication usage, Demonstrated understanding of instructions, follow-up care, medications, Prescriptions given X 2. 03:13 Patient left the ED. bb Signatures: Dispatcher [employer] EDMS Mario Delgado MD MD cha Ballard, Brenda, RN RN Latoya Lau Charde cl3
[2021-03-15] MEDS ORDERED: CEFTRIAXONE/SWI 1gm 1 GM/10 ML SYR ONE (03:14)
[2021-03-15 05:19] LABS: Basophils % 0.5 % (0-1.3); Lymphocytes % 42.5 % (15.3-44.8); MPV 8.7 fL (7.6-11.3); RBC Red Blood Cell Count 5.02 M/uL (4.33-5.43)
[2021-03-15 05:32] VITALS: BP 135/95; TEMP 98.3; O2SAT 96
--- NOTE | 2021-03-15 08:40 | RAD REPORT ---
EXAM DESCRIPTION: RAD - Chest Single View - 03/15/2021 12:50 am CLINICAL HISTORY: COUGH Chest pain. COMPARISON: Chest Single View dated 04/15/2019; Chest Single View dated 08/25/2017; Chest Single View dated 11/12/2016; CHEST SINGLE VIEW dated 06/18/2010 FINDINGS: Portable technique limits examination quality. The lungs are grossly clear. The heart is normal in size. No displaced fractures.Tortuous thoracic ao rta. IMPRESSION: No acute intrathoracic process suspected.
--- NOTE | 2021-03-15 11:49 | RAD REPORT ---
EXAM DESCRIPTION: CT Abdomen and Pelvis With Intravenous Contrast CLINICAL HISTORY: The patient is 70 years old and is Male; ABDOMEN PAIN; FLANK PAIN TECHNIQUE: Axial computed tomography images of the abdomen and pelvis with intravenous contrast. S agittal and coronal reformatted images were created and reviewed. This CT exam was performed using one or more of the following dose reduction techniques: automated exposure control, adjustment of t he mA and/or kV according to patient size, and/or use of iterative reconstruction technique. COMPARISON: CT abdomen and pelvis 04/15/2019. FINDINGS: Lung bases: Unremarkable. No mass. No consolidation. Mediastinum: 5 cm hiatal hernia. ABDOMEN: Liver: Unremarkable. No mass. Gallbladder and bile ducts: Unremarkable. No calcified stones. No ductal dilation. Pancreas: Unremarkable. No mass. No ductal dilation. Spleen: Unremarkable. No splenomegaly. Adrenals: Unremarkable. No mass. Kidneys and ureters: Multiple renal cysts bilaterally measuring up to 3.7 cm in the right kidney . ACR White Paper guidelines (Hershelby, et al. JACR 2018; 15(2):264-273) suggest no follow-up is necessa ry. No hydronephrosis. Stomach and bowel: There are a few scattered colonic diverticula without evidence of diverticuli tis. No obstruction. PELVIS: Appendix: No findings to suggest acute appendicitis. Bladder: Unremarkable. No mass. Reproductive: Unremarkable as visualized. ABDOMEN and PELVIS: Intraperitoneal space: Unremarkable. No free air. No significant fluid collection. Bones/joints: Circumferential disc bulge L3-4. Disc bulge at L4-5. Disc osteophyte complex at L5 -S1. Multilevel disc space narrowing. No acute fracture. No dislocation. Soft tissues: Unremarkable. Vasculature: Unremarkable. No abdominal aortic aneurysm. Lymph nodes: Prominent left inguinal lymph node. IMPRESSION: 1. No acute finding. 2. 5 cm hiatal hernia. Electronically signed by: King Perez MD 03/15/2021 2:40 AM CDT Due to temporary technical issues with the PACS/Fluency reporting system, reports are being signed by the in house radiologist without review as a courtesy to ensure prompt reporting. The interpreting r adiologist is fully responsible for the content of the report.
== END 2021-03-15 03:13 | disposition home or self-care (01) ==
LOC: ER 21:20
DX: S29.012A Strain of muscle and tendon of back wall of thorax, initial encounter (principal); Q61.02 Congenital multiple renal cysts; I10 Essential (primary) hypertension; E78.5 Hyperlipidemia, unspecified; Z79.82 Long term (current) use of aspirin
CPT/HCPCS: 87088; 85025; 87086; 80048; 36415; 80076; 81003; 83690; 74177; 71045; Q9967; J0696; J2405; 96374; 96375; 99284

== ENCOUNTER 2023-01-10 07:44 | Emergency (ER) | payer OTHER ==
--- OUTSIDE RECORDS SUMMARY | 2023-01-10 07:57 | XMS REPORT | Continuity of Care Document ---
:[address] [facility] Address [address] [place] [address] Dr. Steven. [address] [place] [address] Care Team Providers Name Role Phone Pierre Shea DO Primary Care Physician Pierre Shea Attending Clinician Unavailable TREMAINE COWAN Attending Clinician Unavailable Nikki Mejia Attending Clinician Tolu Bello Attending Clinician Gilmar Valle MA Attending Clinician Unavailable Carlos Badillo MD Attending Clinician Ayaka Coronado MA Attending Clinician Unavailable Mario Olmos RN Attending Clinician Unavailable Only, Ang Db Test Attending Clinician Unavailable Dwain Hernandez Attending Clinician DWAIN GARCIA Attending Clinician Unavailable Doctor Unassigned, S[place] Attending Clinician Unavailable Mariel Hernandez RN Attending Clinician Unavailable Sharan 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 Attending Clinician BRIANNA GATICA Attending Clinician Unavailable Genny Kenney RN Attending Clinician Unavailable Unknown, Attending Attending Clinician Unavailable UNKNOWN, ATTENDING Attending Clinician Unavailable Nurse, Adc Fam Pob I Attending Clinician Unavailable Jonathan AHUJA, Lester Palomino Attending Clinician Lab, Adc Fam Pob I Attending Clinician Unavailable Yas Evans Attending Clinician YAS WAGNER Attending Clinician Unavailable Tremaine Cowan MD Attending Clinician Foreign [place] CRNA Attending Clinician Fatimah Love MD Attending Clinician [phone] Only, Adc Test Attending Clinician Unavailable Pob, Adc Lab Main Attending Clinician Unavailable Geni Ho Attending Clinician KOBI GARZA Attending Clinician Unavailable Kobi Torres Attending Clinician TREMAINE COWAN Admitting Clinician Unavailable Tremaine Cowan MD Admitting Clinician Payers Payer Name Policy Type Policy Number Effective Date Expiration Date S herminio [place] [id number] 2018 HEALTHCARE 00:00:00 [place]ICARE [place] [id number] Common HEALTHCARE [place] [id number] [place] [id number] [facility] Problems Condition Condition Condition Status Onset Resolution Last Treating Co mments Source Name Details Category Date Date Treatment Clinician Date Hyperlipid Hyperlipid Disease Active M ethodi emia emia 06-12 st 00:00: Hospita 00 l Status Status Disease Active Univers post total post total 7-20 it y [place] right t of right 00 Me dical hip hip Branch Total knee Total knee Disease Active U nivers replacemen replacemen 4-16 it y of t status t status 00:00: [place] 00 Medical Branch CAD in CAD in Disease Active 2017-11 Methodi pokagon pokagon 0-30 st artery artery 00:00: Hospita 00 l Abnormal Abnormal Disease Active Metho di stress stress 3-27 st test test 00:00: Hospita 00 l Primary Primary Disease Active Methodi hypertensi hypertensi 2-06 st on on 00:00: Hospita 00 l SOB SOB Disease Active Methodi (shortness (shortness 2-06 st of breath) of breath) 00:00: Ho spita 00 l Abnormal Abnormal Disease Active Metho di ECG ECG 2-06 st 00:00: Hospita 00 l Carotid Carotid Disease Active Methodi artery artery 2-06 st disease disease 00:00: Hospita 00 l Transient Transient Disease Active Met hodi cerebral cerebral 2 st ischemia ischemia 00:00: Hospit a 00 l 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: [place] psoriasis psoriasis [address] [place] [address] Psoriatic Psoriatic Disease Active Uni vers arthritis arthritis 08-10 ity of 00:00: [address] Therapeuti Therapeuti Disease Active U nivers c drug c drug 08-10 [place] [address] [place] [address] [id number] Primary Problem Active Comm on osteoarthr Spirit itis of - [facility] right knee [facility] [id number] Primary Problem Active Comm on osteoarthr Spirit itis of - [facility] left knee [facility] [id number] Sciatica, Problem Active Comm on left side [facility] [id number] Acute Problem Active Common right Spirit flank pain [facility] [id number] Primary Problem Active Commo n osteoarthr Spirit itis of - [facility] both knees [facility] [id number] Pain, Problem Active Common joint, Spirit knee, left - [facility] [id number] Complex Problem Active Commo n renal cyst [facility] [id number] Lower Problem Active Common urinary [facility] tract - 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 00:40:17 l s s Singh (disorder) (disorder) Active Problem 12/08/2022 [facility] Cyst of Cyst of Problem Active 2022-12-08 Me moria kidney kidney 00:40:17 l (disorder) (disorder) He rmann Active Problem 12/08/2022 [facility] Hypertensi Hypertens Problem Active 2022-12-08 Memoria ve harmony 00:40:17 l disorder, disorder, Herm lisa systemic systemic arterial arterial (disorder) (disorder) Active Problem 12/08/2022 controlled with medication [facility] Lumbar Lumbar Problem Active 2022-12-08 Jann nelson spondylosi spondylosi 00:40:17 l s s Yeoman (disorder) (disorder) Active Problem 12/08/2022 [facility] Osteoarthr Problem Active 2022-12-08 M emoria itis Osteoarthr 00:40:17 l (disorder) itis Juan Carlos n (disorder) Active Problem 12/08/2022 [facility] 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 00:40:17 l thy thy Singh (disorder) (disorder) Active Problem 12/08/2022 [facility] 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 00:40:17 l (disorder) (disorder) He rmann Active Problem 12/08/2022 [facility] Peripheral Periphera Problem Active 2022-12-08 Memoria nerve l nerve 00:40:17 l disease disease Yeoman (disorder) (disorder) Active Problem 12/08/2022 [facility] Lumbar Lumbar Problem Active 2022-12-08 Mem oria radiculopa radiculopa 00:40:17 l thy thy Singh (disorder) (disorder) Active Problem 12/08/2022 [facility] 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 nelson stenosis stenosis 00:40:17 l of lumbar of lumbar Herm lisa region region (disorder) (disorder) Active Problem 12/08/2022 [facility] Allergies, Adverse Reactions, Alerts Allergy Allergy Status Severity Reaction(s) Onset Inactive Treating Comm ents Source Name Type Date Date Clinician Adhesive Propensi Active Other (See "SILK Me thodi ty to Comments) 4-18 TAPE" - st adverse 00:00: SKIN Hospita reaction 00 PEELING l s to drug Adhesive Propensi Active Other (See "SILK Me thodi ty to Comments) 4-18 TAPE" - st adverse 00:00: SKIN Hospita reaction 00 PEELING l s to drug ADHESIVE Drug Active High Other-Cmnt Univ ers Class 4-18 ity of 00:00: [address] Branch Adhesive Drug Active Other - See "SILK Uni vers Allergy comments 4-18 TAPE" ?- ity o f 00:00: SKIN [place] 00 PEELING"S Medical ILK TAPE" Branch ?- SKIN PEELING Adhesive Drug Active Other - See "SILK Uni vers Allergy comments 4-18 TAPE" ?- ity o f 00:00: SKIN [place] 00 PEELING"S Medical ILK TAPE" Branch ?- SKIN PEELING Adhesive Drug Active Other - See "SILK Uni vers Allergy comments 4-18 TAPE" ?- ity o f 00:00: SKIN [place] 00 PEELING"S Medical ILK TAPE" Branch ?- SKIN PEELING codeine codeine Active Tylor Winters Family History Family Member Diagnosis Comments Start Date Stop Date Source Natural father [facility] Natural mother Hyperlipidemia Method t [facility] Natural brother Hyperlipidemia Metho dist [facility] Social History Social Habit Start Date Stop Date Quantity Comments Source History of Tobacco [facility] - Use [facility] History SDOH Zoroastrianism Alcohol Frequency Hospita l History SDRI Zoroastrianism Alcohol Std Drinks Hospit al History [facility] Zoroastrianism Alcohol [facility] Tobacco use and 2023-01-10 2023-01-10 Smokeless tobacco Un iversity of exposure 00:00:00 00:00:00 non-user [facility] Exposure to 2022-04-14 2022-04-24 Not sure [facility] SARS-CoV-2 (event) 00:00:00 13:14:00 [facility] Alcohol intake 2020-12-06 2020-12-06 Current drinker Metho dist 00:00:00 00:00:00 of alcohol [facility] (finding) Cigarettes smoked 2019-12-01 2019-12-[address] current (pack per 00:00:00 00:00:00 Hospita l day) - Reported Cigarette 2019-12-01 2019-12-01 Zoroastrianism pack-years 00:00:00 00:00:00 Hospital Alcohol Comment 2017-12-31 2017-12-31 Occasional Zoroastrianism 00:00:00 00:00:00 Hospital Sex Ass[birth year] At [birth year] Zoroastrianism 00:00:00 00:00:00 Hospital Smoking Status Start Date Stop Date Source Tobacco smoking status Roberta Winters Former Smoker 2021-03-29 00:00:00 2021-03-29 00:00:00 Common S pirit - [facility] Ce nter Medications Ordered Filled Start Stop Current Ordering Indication Dosage Frequency Signature Comments Components Source Medication Medication Date Date Medication? Clinician (SIG) Name Name gabapentin 2021-11 Yes = 2 cap, Mem oria 300 mg oral 2-29 PO, BID, # l capsule 14:32: 400 [place] 00 unknown unit, 2 Refill(s), Pharmacy: [facility] ([facility]), 172.72, cm, 10/02/22 14:55:00 RN TELEPHONE TRIAGE, Height, 97.273, kg, 10/02/22 14:55:00 RN TELEPHONE TRIAGE, Weight gabapentin 2021-11 Yes 600 mg = 2 M emoria 300 mg oral 0-21 cap, PO, l capsule 18:29: BID, # 360 Herm lisa 00 cap, 1 Refill(s), [facility] ([facility]), 177.8, cm, 08/01/22 11:12:00 CDT, Height, 95.682, kg, 08/01/22 11:12:00 CDT, Weight losartan-hy Yes 1{tbl} QD Take 1 Me thodi drochloroth 9-[address] iazide 00:00: mouth Hospita (HYZAAR) 00 daily. l 50-12.5 mg per tablet clopidogreL Yes TAKE 1 Meth mickey (PLAVIX) 75 8-[address] mg tablet 00:00: MOUTH Hospita 00 DAILY l metoprolol Yes TAKE 1 Metho di tartrate 8-[address] (LOPRESSOR) 00:00: MOUTH Hospi ta 50 mg 00 TWICE l tablet DAILY pravastatin 0 2022- No 80mg QD Take 1 Met hodi (PravachoL) 7-29 07-30 tablet (80 s t 80 MG 00:00: 04:59 mg total) Hospit a tablet 00 :00 by mouth l nightly. fish Yes 1{tbl} QD Take 1 Methodi oil-dha-epa 7-[address] 1,200-144-2 13:34: mouth Hospi ta 16 mg 21 daily. l capsule gabapentin Yes 300 mg = 1 M emoria 300 mg oral 6-09 cap, PO, l capsule 19:25: BID, # 180 Herm lisa 00 cap, 1 Refill(s), Pharmacy: [facility] ([facility]), 176.53, cm, 05/03/22 13:36:00 CDT, Height, 97.869, kg, 05/03/22 13:36:00 CDT, Weight Vitamin B12 2021-0 Yes 1,000 Memor ia 1000 mcg/mL 5-23 microgram, l injectable 17:25: IM, qWeek, H ermann solution 00 # 10 mL, 2 Refill(s), Pharmacy: [id number], 177.8, cm, 04/09/22 9:58:00 CDT, Height, 96.818, kg, 04/09/22 9:58:00 CDT, Weight baclofen 10 0 Yes 10 mg = 1 M emoria mg oral 5-16 tab, PO, l tablet 15:23: Bedtime, # Romi nn 00 30 tab, 2 Refill(s), Pharmacy: [id number], 177.8, cm, 04/09/22 9:58:00 CDT, Height, 96.818, kg, 04/09/22 9:58:00 CDT, Weight pantoprazol 2021-0 Yes 40 mg = 1 M emoria e 40 mg 5-16 tab, PO, l oral 14:28: Daily, # Yeoman enteric 00 30 tab, 0 coated Refill(s) tablet losartan 50 2021-0 Yes 50 mg = 1 M emoria mg oral 5-16 tab, PO, l tablet 14:28: Daily, 0 Singh 00 Refill(s) pravastatin 2021-0 Yes 40 mg = 1 M emoria 40 mg oral 5-16 tab, PO, l tablet 14:28: Daily, 0 Singh 00 Refill(s) metoprolol 2021-0 Yes 50 mg = 1 Me moria tartrate 50 5-16 tab, PO, l mg oral 14:27: BID, # 180 Herm lisa tablet 00 tab, 0 Refill(s) clopidogrel 2021-0 Yes 75 mg = 1 M emoria 75 mg oral 5-16 tab, PO, l tablet 14:27: Daily, # Singh 00 30 tab, 0 Refill(s) aspirin 81 Yes 324 mg = 4 M emoria mg oral 5-16 cap, PO, l capsule 14:26: Q4H, 0 Yeoman 00 Refill(s) losartan-hy Yes 1{tbl} QD TAKE 1 Me thodi drochloroth 1-[address] iazide 00:00: MOUTH Hospita (HYZAAR) 00 DAILY l 50-12.5 mg per tablet losartan-hy 2021- No 1{tbl} QD TAKE 1 M ethodi drochloroth 1-12 09-[address] iazide 00:00: 00:00 MOUTH Hospita (HYZAAR) 00 :00 DAILY l 50-12.5 mg per tablet fish Yes 1{tbl} QD Take 1 Methodi oil-dha-epa 1-[address] 1,200144-2 13:41: mouth Hospi ta 16 mg 23 daily. l capsule pravastatin 2020-11 Yes [id number] TAKE 1 Methodi (PRAVACHOL) 2-[address] 40 mg 00:00: MOUTH Hospita tablet 00 DAILY l metoprolol 2020-11 Yes TAKE 1 Metho di tartrate 2-[address] (LOPRESSOR) 00:00: MOUTH Hospi ta 50 mg 00 TWICE l tablet DAILY pravastatin 2020-11 Yes [id number] TAKE 1 Methodi (PRAVACHOL) 2-[address] 40 mg 00:00: MOUTH Hospita tablet 00 DAILY l clopidogreL 2020-11 Yes TAKE 1 Meth mickey (PLAVIX) 75 2-[address] mg tablet 00:00: MOUTH Hospita 00 DAILY l metoprolol 2020-11- No TAKE 1 Meth mickey tartrate 2-10 08-[address] (LOPRESSOR) 00:00: 00:00 MOUTH Hosp joaquin 50 mg 00 :00 TWICE l tablet DAILY clopidogreL 2020-11- No TAKE 1 Met hodi (PLAVIX) 75 2-10 08-[address] mg tablet 00:00: 00:00 MOUTH Hospit a 00 :00 DAILY l Xanax 0.25 Xanax 0.25 2021-0 No 1{table Xanax 0.25 MG MG 9-13 t} MG 00:00: 00 losartan-hy 2021- No 1{tbl} QD Take 1 M ethodi drochloroth 12-[address] iazide 00:00: 00:00 mouth Hospita (HYZAAR) 00 :00 daily. l 50-12.5 mg per tablet pravastatin 2020- No [id number] 40mg QD Take 1 Methodi (PRAVACHOL) 12-06-10 tablet (40 s t 40 mg 00:00: 00:00 mg total) Hospit a tablet 00 :00 by mouth l daily. metoprolol 2020- No 50mg Q.5D Take 1 Meth mickey tartrate 12-06-10 tablet (50 st (LOPRESSOR) 00:00: 00:00 mg total) Hospita 50 mg 00 :00 by mouth 2 l tablet (two) times a day. clopidogreL 2020- No 75mg QD Take 1 Met hodi (PLAVIX) 75 12-06-10 tablet (75 s t mg tablet 00:00: 00:00 mg total) Ho spita 00 :00 by mouth l daily. pravastatin 2019-11 Yes [id number] TAKE 1 Methodi (PRAVACHOL) 2-[address] 40 mg 00:00: MOUTH Hospita tablet 00 DAILY l pravastatin 2019-11 Yes [id number] TAKE 1 Methodi (PRAVACHOL) 2-[address] 40 mg 00:00: MOUTH Hospita tablet 00 DAILY l ASCORBATE 2019-0 Yes Take by [facility] [place] [facility] rs CALCIUM 7-22 mouth. ity of (VITAMIN C 15:40: [place] ORAL) 14 Medical Branch OMEPRAZOLE 2019-0 Yes Take by [facility] ers ORAL 7-22 mouth. ity of 15:40: [place] 14 Medical Branch pravastatin 2019-0 Yes 40mg Take 40 mg Univers (PRAVACHOL) 7-22 by mouth ity of 40 mg 15:40: at [place] tablet 14 bedtime. Medical Branch Fish 2020-0 Yes 1{tbl} Take 1 Univers Oil-DHA-EPA 7-22 tablet by ity of 1,200-144-2 15:40: [place] 16 mg Cap 14 Medical Branch ASCORBATE 2019-0 Yes Take by Unive rs CALCIUM 7-22 mouth. ity of (VITAMIN C 15:40: [place] ORAL) 14 Medical Branch OMEPRAZOLE 2020-0 Yes Take by Univ ers ORAL 7-22 mouth. ity of 15:40: 14 Medical Branch pravastatin 2020-0 Yes 40mg Take 40 mg Univers (PRAVACHOL) 7-22 by mouth ity of 40 mg 15:40: at [place] tablet 14 bedtime. Medical Branch Fish 2020-0 Yes 1{tbl} Take 1 Univers Oil-DHA-EPA 7-22 tablet by ity of 1,200-144-2 15:40: [place] 16 mg Cap 14 Medical [facility] ASCORBATE 2020-0 Yes Take by Unive rs CALCIUM 7-22 mouth. ity of (VITAMIN C 15:40: [place] ORAL) 14 Medical Branch OMEPRAZOLE 2020-0 Yes Take by Univ ers ORAL 7-22 mouth. ity of 15:40: 14 Medical Branch ASCORBATE 2020-0 Yes Take by Unive rs CALCIUM 7-22 mouth. ity of (VITAMIN C 15:40: [place] ORAL) 14 Medical Branch pravastatin 2020-0 Yes 40mg Take 40 mg Univers (PRAVACHOL) 7-22 by mouth ity of 40 mg 15:40: at [place] tablet 14 bedtime. Medical Branch Fish 2020-0 Yes 1{tbl} Take 1 Univers Oil-DHA-EPA 7-22 tablet by ity of 1,200-144-2 15:40: [place] 16 mg Cap 14 Medical Branch ASCORBATE 2020-0 Yes Take by Unive rs CALCIUM 7-22 mouth. ity of (VITAMIN C 15:40: [place] ORAL) 14 Medical Branch OMEPRAZOLE 2020-0 Yes Take by Univ ers ORAL 7-22 mouth. ity of 15:40: 14 Medical Branch pravastatin 2020-0 Yes 40mg Take 40 mg Univers (PRAVACHOL) 7-22 by mouth ity of 40 mg 15:40: at [place] tablet 14 bedtime. Medical Branch Fish 2020-0 Yes 1{tbl} Take 1 Univers Oil-DHA-EPA 7-22 tablet by ity of 1,200-144-2 15:40: [place] 16 mg Cap 14 Medical Branch OMEPRAZOLE 2020-0 Yes Take by Univ ers ORAL 7-22 mouth. ity of 15:40: [place] 14 Medical Branch pravastatin 2020-0 Yes 40mg Take 40 mg Univers (PRAVACHOL) 7-22 by mouth ity of 40 mg 15:40: at [place] tablet 14 bedtime. Medical Branch Fish 2020-0 Yes 1{tbl} Take 1 Univers Oil-DHA-EPA 7-22 tablet by ity of 1,200-144-2 15:40: [place] 16 mg Cap 14 Medical Branch ASCORBATE 2020-0 Yes Take by Unive rs CALCIUM 7-22 mouth. ity of (VITAMIN C 15:40: [place] ORAL) 14 Medical Branch OMEPRAZOLE 2020-0 Yes Take by Univ ers ORAL 7-22 mouth. ity of 15:40: [place] 14 Medical Branch pravastatin 2020-0 Yes 40mg Take 40 mg Univers (PRAVACHOL) 7-22 by mouth ity of 40 mg 15:40: at [place] tablet 14 bedtime. Medical Branch Fish 2020-0 Yes 1{tbl} Take 1 Univers Oil-DHA-EPA 7-22 tablet by ity of 1,200-144-2 15:40: [place] 16 mg Cap 14 Medical Branch ASCORBATE 2020-0 Yes Take by Unive rs CALCIUM 7-22 mouth. ity of (VITAMIN C 15:40: [place] ORAL) 14 Medical Branch OMEPRAZOLE 2020-0 Yes Take by Univ ers ORAL 7-22 mouth. ity of 15:40: [place] 14 Medical Branch pravastatin 2020-0 Yes 40mg Take 40 mg Univers (PRAVACHOL) 7-22 by mouth ity of 40 mg 15:40: at [place] tablet 14 bedtime. Medical Branch Fish 2020-0 Yes 1{tbl} Take 1 Univers Oil-DHA-EPA 7-22 tablet by ity of 1,200-144-2 15:40: [place] 16 mg Cap 14 Medical Branch ASCORBATE 2020-0 Yes Take by Unive rs CALCIUM 7-22 mouth. ity of (VITAMIN C 15:40: [place] ORAL) 14 Medical Branch OMEPRAZOLE 2020-0 Yes Take by Univ ers ORAL 7-22 mouth. ity of 15:40: [place] 14 Medical Branch pravastatin 2020-0 Yes 40mg Take 40 mg Univers (PRAVACHOL) 7-22 by mouth ity of 40 mg 15:40: at [place] tablet 14 bedtime. Medical Branch ASCORBATE 2020-0 Yes Take by Unive rs CALCIUM 7-22 mouth. ity of (VITAMIN C 15:40: [place] ORAL) 14 Medical Branch OMEPRAZOLE 2020-0 Yes Take by Univ ers ORAL 7-22 mouth. ity of 15:40: [place] 14 Medical Branch pravastatin 2020-0 Yes 40mg Take 40 mg Univers (PRAVACHOL) 7-22 by mouth ity of 40 mg 15:40: at [place] tablet 14 bedtime. Medical Branch Fish 2020-0 Yes 1{tbl} Take 1 Univers Oil-DHA-EPA 7-22 tablet by ity of 1,200-144-2 15:40: [place]. [place] 16 mg Cap 14 Medical [facility] Fish 2020-0 Yes 1{tbl} Take 1 Univers Oil-DHA-EPA 7-22 tablet by ity of 1,200-144-2 15:40: [place]. [place] 16 mg Cap 14 Medical Branch ASCORBATE 2020-0 Yes Take by Unive rs CALCIUM 7-22 mouth. ity of (VITAMIN C 15:40: [place] ORAL) 14 Medical Branch OMEPRAZOLE 2020-0 Yes Take by Univ ers ORAL 7-22 mouth. ity of 15:40: 14 Medical Branch pravastatin 2020-0 Yes 40mg Take 40 mg Univers (PRAVACHOL) 7-22 by mouth ity of 40 mg 15:40: at [place] tablet 14 bedtime. Medical Branch Fish 2020-0 Yes 1{tbl} Take 1 Univers Oil-DHA-EPA 7-22 tablet by ity of 1,200-144-2 15:40: [place]. [place] 16 mg Cap 14 Medical Branch ASCORBATE 2020-0 Yes Take by Unive rs CALCIUM 7-22 mouth. ity of (VITAMIN C 15:40: [place] ORAL) 14 Medical Branch OMEPRAZOLE 2020-0 Yes Take by Univ ers ORAL 7-22 mouth. ity of 15:40: 14 Medical Branch pravastatin 2020-0 Yes 40mg Take 40 mg Univers (PRAVACHOL) 7-22 by mouth ity of 40 mg 15:40: at [place] tablet 14 bedtime. Medical Branch Fish 2020-0 Yes 1{tbl} Take 1 Univers Oil-DHA-EPA 7-22 tablet by ity of 1,200-144-2 15:40: [place]. [place] 16 mg Cap 14 [facility] ASCORBATE 2020-0 Yes Take by Unive rs CALCIUM 7-22 mouth. ity of (VITAMIN C 15:40: [place] ORAL) 14 Medical Branch OMEPRAZOLE 2020-0 Yes Take by Univ ers ORAL 7-22 mouth. ity of 15:40: 14 Medical Branch pravastatin 2020-0 Yes 40mg Take 40 mg Univers (PRAVACHOL) 7-22 by mouth ity of 40 mg 15:40: at [place] tablet 14 bedtime. Medical Branch Fish 2020-0 Yes 1{tbl} Take 1 Univers Oil-DHA-EPA 7-22 tablet by ity of 1,200-144-2 15:40: [place]. [place] 16 mg Cap 14 [facility] ASCORBATE 2020-0 Yes Take by Unive rs CALCIUM 7-22 mouth. ity of (VITAMIN C 15:40: [place] ORAL) 14 Medical Branch OMEPRAZOLE 2020-0 Yes Take by Univ ers ORAL 7-22 mouth. ity of 15:40: Medical Branch pravastatin 2020-0 Yes 40mg Take 40 mg Univers (PRAVACHOL) 7-22 by mouth ity of 40 mg 15:40: at [place] tablet 14 bedtime. Medical Branch Fish 2020-0 Yes 1{tbl} Take 1 Univers Oil-DHA-EPA 7-22 tablet by ity of 1,200-144-2 15:40: [place]. [place] 16 mg Cap 14 [facility] ASCORBATE 2020-0 Yes Take by Unive rs CALCIUM 7-22 mouth. ity of (VITAMIN C 15:40: [place] ORAL) 14 Medical Branch OMEPRAZOLE 2020-0 Yes Take by Univ ers ORAL 7-22 mouth. ity of 15:40: 14 Medical Branch pravastatin 2020-0 Yes 40mg Take 40 mg Univers (PRAVACHOL) 7-22 by mouth ity of 40 mg 15:40: at [place] tablet 14 bedtime. Medical Branch Fish 2020-0 Yes 1{tbl} Take 1 Univers Oil-DHA-EPA 7-22 tablet by ity of 1,200-144-2 15:40: [place]. [place] 16 mg Cap 14 [facility] ASCORBATE 2020-0 Yes Take by Unive rs CALCIUM 7-22 mouth. ity of (VITAMIN C 15:40: [place] ORAL) 14 Medical Branch OMEPRAZOLE 2020-0 Yes Take by Univ ers ORAL 7-22 mouth. ity of 15:40: 14 Medical Branch pravastatin 2020-0 Yes 40mg Take 40 mg Univers (PRAVACHOL) 7-22 by mouth ity of 40 mg 15:40: at [place] tablet 14 bedtime. Medical Branch Fish 2020-0 Yes 1{tbl} Take 1 Univers Oil-DHA-EPA 7-22 tablet by ity of 1,200-144-2 15:40: [place]. [place] 16 mg Cap 14 [facility] ASCORBATE 2020-0 Yes Take by Unive rs CALCIUM 7-22 mouth. ity of (VITAMIN C 15:40: [place] ORAL) 14 Medical Branch OMEPRAZOLE 2020-0 Yes Take by Univ ers ORAL 7-22 mouth. ity of 15:40: 14 Medical Branch pravastatin 2020-0 Yes 40mg Take 40 mg Univers (PRAVACHOL) 7-22 by mouth ity of 40 mg 15:40: at [place] tablet 14 bedtime. Medical Branch Fish 2020-0 Yes 1{tbl} Take 1 Univers Oil-DHA-EPA 7-22 tablet by ity of 1,200-144-2 15:40: [place]. [place] 16 mg Cap 14 [facility] ASCORBATE 2020-0 Yes Take by Unive rs CALCIUM 7-22 mouth. ity of (VITAMIN C 15:40: [place] ORAL) 14 Medical Branch ASCORBATE 2020-0 Yes Take by Unive rs CALCIUM 7-22 mouth. ity of (VITAMIN C 15:40: [place] ORAL) 14 Medical Branch OMEPRAZOLE 2020-0 Yes Take by Univ ers ORAL 7-22 mouth. ity of 15:40: [place] [address] Medical Branch pravastatin 2020-0 Yes 40mg Take 40 mg Univers (PRAVACHOL) 7-22 by mouth ity of 40 mg 15:40: at [place] tablet 14 bedtime. Medical Branch Fish 2020-0 Yes 1{tbl} Take 1 Univers Oil-DHA-EPA 7-22 tablet by ity of 1,200-144-2 15:40: [place]. [place] 16 mg Cap 14 [facility] Branch ASCORBATE 2020-0 Yes Take by Unive rs CALCIUM 7-22 mouth. ity of (VITAMIN C 15:40: [place] ORAL) 14 Medical Branch OMEPRAZOLE 2020-0 Yes Take by Univ ers ORAL 7-22 mouth. ity of 15:40: 14 Medical Branch pravastatin 2020-0 Yes 40mg Take 40 mg Univers (PRAVACHOL) 7-22 by mouth ity of 40 mg 15:40: at [place] tablet 14 bedtime. Medical Branch OMEPRAZOLE 2020-0 Yes Take by Univ ers ORAL 7-22 mouth. ity of 15:40: [place] 14 Medical Branch Fish 2020-0 Yes 1{tbl} Take 1 Univers Oil-DHA-EPA 7-22 tablet by ity of 1,200-144-2 15:40: [place]. [place] 16 mg Cap 14 [facility] Branch pravastatin 2020-0 Yes 40mg Take 40 mg Univers (PRAVACHOL) 7-22 by mouth ity of 40 mg 15:40: at [place] tablet 14 bedtime. Medical Branch Fish 2020-0 Yes 1{tbl} Take 1 Univers Oil-DHA-EPA 7-22 tablet by ity of 1,200-144-2 15:40: [place]. [place] 16 mg Cap 14 [facility] Branch ASCORBATE 2020-0 Yes Take by Unive rs CALCIUM 7-22 mouth. ity of (VITAMIN C 15:40: [place] ORAL) 14 Medical Branch OMEPRAZOLE 2020-0 Yes Take by Univ ers ORAL 7-22 mouth. ity of 15:40: [place] [address] Medical Branch pravastatin 2020-0 Yes 40mg Take 40 mg Univers (PRAVACHOL) 7-22 by mouth ity of 40 mg 15:40: at [place] tablet 14 bedtime. Medical Branch Fish 2020-0 Yes 1{tbl} Take 1 Univers Oil-DHA-EPA 7-22 tablet by ity of 1,200-144-2 15:40: [place]. [place] 16 mg Cap 14 [facility] Branch ASCORBATE 2020-0 Yes Take by Unive rs CALCIUM 7-22 mouth. ity of (VITAMIN C 15:40: [place] ORAL) 14 Medical Branch OMEPRAZOLE 2020-0 Yes Take by Univ ers ORAL 7-22 mouth. ity of 15:40: [place] [address] Medical Branch pravastatin 2020-0 Yes 40mg Take 40 mg Univers (PRAVACHOL) 7-22 by mouth ity of 40 mg 15:40: at [place] tablet 14 bedtime. Medical Branch Fish 2020-0 Yes 1{tbl} Take 1 [facility] Oil-DHA-EPA 7-22 tablet by [facility] of 1,200-144-2 15:40: [place] 14 [facility] ASCORBATE 2020-0 Yes Take by [facility] rs CALCIUM 7-22 mouth. ity of (VITAMIN C 15:40: [place] ORAL) 14 [facility] OMEPRAZOLE 2020-0 Yes Take by [facility] ORAL 7-22 mouth. ity of 15:40: [place] [address] [facility] pravastatin 2020-0 Yes 40mg Take 40 mg [facility] (PRAVACHOL) 7-22 by mouth ity of 40 mg 15:40: at [place] tablet 14 bedtime. [facility] Fish 2020-0 Yes 1{tbl} Take 1 [facility] Oil-DHA-EPA 7-22 tablet by it[facility] of 1,200-144-2 15:40: [place] 16 [place] Cap 14 [facility] ASCORBATE 2020-0 Yes Take by [facility] CALCIUM 7-22 mouth. ity of (VITAMIN C 15:40: [place] ORAL) 14 [facility] OMEPRAZOLE 2020-0 Yes Take by [facility] ORAL 7-22 mouth. ity of 15:40: [place] 14 [facility] pravastatin 2020-0 Yes 40mg Take 40 mg [facility] (PRAVACHOL) 7-22 by mouth ity of 40 mg 15:40: at [place] tablet 14 bedtime. [facility] Fish 2020-0 Yes 1{tbl} Take 1 [facility] Oil-DHA-EPA 7-22 tablet by [facility] of 1,200-144-2 15:40: [place] 16 [place] Cap 14 [facility] ASCORBATE 2020-0 Yes Take by [facility] rs CALCIUM 7-22 mouth. it[facility] of (VITAMIN C 15:40: [place] ORAL) 14 [facility] OMEPRAZOLE 2020-0 Yes Take by [facility] ORAL 7-22 mouth. ity of 15:40: 14 [facility] pravastatin 2020-0 Yes 40mg Take 40 mg [facility] (PRAVACHOL) 7-22 by mouth ity of 40 mg 15:40: at [place] tablet 14 bedtime. [facility] Fish 2020-0 Yes 1{tbl} Take 1 [facility] Oil-DHA-EPA 7-22 tablet by ity of 1,200-144-2 15:40: [place]. [place] 16 [place] Cap 14 [facility] ASCORBATE 2020-0 Yes Take by [facility] rs CALCIUM 7-22 mouth. it[facility] of (VITAMIN C 15:40: [place] ORAL) 14 [facility] OMEPRAZOLE 2020-0 Yes Take by [facility] ORAL 7-22 mouth. ity of 15:40: 14 [facility] pravastatin 2020-0 Yes 40mg Take 40 mg [facility] (PRAVACHOL) 7-22 by mouth ity of 40 mg 15:40: at [place] tablet 14 bedtime. [facility] Fish 2020-0 Yes 1{tbl} Take 1 [facility] Oil-DHA-EPA 7-22 tablet by ity of 1,200-144-2 15:40: [place]. [place] 16 [place] Cap 14 [facility] ASCORBATE 2020-0 Yes Take by [facility] rs CALCIUM 7-22 mouth. ity of (VITAMIN C 15:40: [place] ORAL) 14 [facility] OMEPRAZOLE 2020-0 Yes Take by [facility] ORAL 7-22 mouth. ity of 15:40: 14 [facility] pravastatin 2020-0 Yes 40mg Take 40 mg [facility] (PRAVACHOL) 7-22 by mouth ity of 40 mg 15:40: at [place] tablet 14 bedtime. [facility] Fish 2020-0 Yes 1{tbl} Take 1 [facility] Oil-DHA-EPA 7-22 tablet by [facility] of 1,200-144-2 15:40: [place]. [place] 16 [place] Cap 14 [facility] ASCORBATE 2020-0 Yes Take by [facility] rs CALCIUM 7-22 mouth. ity of (VITAMIN C 10:40: [place] ORAL) 14 [facility] OMEPRAZOLE 2020-0 Yes Take by [facility] ORAL 7-22 mouth. ity of 10:40: 14 [facility] pravastatin 2020-0 Yes 40mg Take 40 mg [facility] (PRAVACHOL) 7-22 by mouth ity of 40 mg 10:40: at [place] tablet 14 bedtime. [facility] Fish 2020-0 Yes 1{tbl} Take 1 [facility] Oil-DHA-EPA 7-22 tablet by [facility]y of 1,200-144-2 10:40: [place]. [place] 16 [place] Cap 14 [facility] ASCORBATE 2020-0 Yes Take by [facility] rs CALCIUM 7-22 mouth. ity of (VITAMIN C 10:40: [place] ORAL) 14 [facility] OMEPRAZOLE 2020-0 Yes Take by [facility] ORAL 7-22 mouth. ity of 10:40: 14 [facility] pravastatin 2020-0 Yes 40mg Take 40 mg [facility] (PRAVACHOL) 7-22 by mouth ity of 40 mg 10:40: at [place] tablet 14 bedtime. [facility] Fish 2020-0 Yes 1{tbl} Take 1 [facility] Oil-DHA-EPA 7-22 tablet by ity of 1,200-144-2 10:40: [place]. [place] 16 [place] Cap 14 [facility] ASCORBATE 2020-0 Yes Take by [facility] rs CALCIUM 7-22 mouth. ity of (VITAMIN C 10:40: [place] ORAL) 14 [facility] OMEPRAZOLE 2020-0 Yes Take by [facility] ORAL 7-22 mouth. ity of 10:40: [facility] pravastatin 2020-0 Yes 40mg Take 40 mg [facility] (PRAVACHOL) 7-22 by mouth ity of 40 mg 10:40: at [place] tablet 14 bedtime. [facility] Fish 2020-0 Yes 1{tbl} Take 1 [facility] Oil-DHA-EPA 7-22 tablet by it[facility] of 1,200-144-2 10:40: [place]. [place] 16 [place] Cap 14 [facility] ASCORBATE 2020-0 Yes Take by [facility] rs CALCIUM 7-22 mouth. ity of (VITAMIN C 10:40: [place] ORAL) 14 [facility] OMEPRAZOLE 2020-0 Yes Take by [facility] ORAL 7-22 mouth. ity of 10:40: [facility] pravastatin 2020-0 Yes 40mg Take 40 mg [facility] (PRAVACHOL) 7-22 by mouth ity of 40 mg 10:40: at [place] tablet 14 bedtime. [facility] Fish 2020-0 Yes 1{tbl} Take 1 [facility] Oil-DHA-EPA 7-22 tablet by ity of 1,200-144-2 10:40: [place]. [place] 16 mg Cap 14 [facility] ASCORBATE 2020-0 Yes Take by [facility] rs CALCIUM 7-22 mouth. ity of (VITAMIN C 10:40: [place] ORAL) 14 [facility] OMEPRAZOLE 2020-0 Yes Take by [facility] ORAL 7-22 mouth. ity of 10:40: [facility] pravastatin 2020-0 Yes 40mg Take 40 mg [facility] (PRAVACHOL) 7-22 by mouth ity of 40 mg 10:40: at [place] tablet 14 bedtime. [facility] Fish 2020-0 Yes 1{tbl} Take 1 [facility] Oil-DHA-EPA 7-22 tablet by ity of 1,200-144-2 10:40: [place]. [place] 16 [place] Cap 14 [facility] ASCORBATE 2020-0 Yes Take by [facility] rs CALCIUM 7-22 mouth. ity of (VITAMIN C 10:40: [place] ORAL) 14 [facility] OMEPRAZOLE 2020-0 Yes Take by [facility] ORAL 7-22 mouth. ity of 10:40: [facility] pravastatin 2020-0 Yes 40mg Take 40 mg [facility] (PRAVACHOL) 7-22 by mouth ity of 40 mg 10:40: at [place] tablet 14 bedtime. [facility] Fish 2020-0 Yes 1{tbl} Take 1 [facility] Oil-DHA-EPA 7-22 tablet by ity of 1,200-144-2 10:40: [place]. [place] 16 [place] Cap 14 [facility] ASCORBATE 2020-0 Yes Take by [facility] rs CALCIUM 7-22 mouth. ity of (VITAMIN C 10:40: [place] ORAL) 14 [facility] OMEPRAZOLE 2020-0 Yes Take by [facility] ORAL 7-22 mouth. ity of 10:40: [facility] pravastatin 2020-0 Yes 40mg Take 40 mg [facility] (PRAVACHOL) 7-22 by mouth ity of 40 mg 10:40: at [place] tablet 14 bedtime. [facility] Fish 2020-0 Yes 1{tbl} Take 1 [facility] Oil-DHA-EPA 7-22 tablet by ity of 1,200-144-2 10:40: [place]. [place] 16 [place] Cap 14 [facility] ASCORBATE 2020-0 Yes Take by [facility] rs CALCIUM 7-22 mouth. ity of (VITAMIN C 10:40: [place] ORAL) 14 [facility] OMEPRAZOLE 2020-0 Yes Take by [facility] ORAL 7-22 mouth. ity of 10:40: [facility] pravastatin 2020-0 Yes 40mg Take 40 mg [facility] (PRAVACHOL) 7-22 by mouth ity of 40 mg 10:40: at [place] tablet 14 bedtime. [facility] Fish 2020-0 Yes 1{tbl} Take 1 [facility] Oil-DHA-EPA 7-22 tablet by ity of 1,200-144-2 10:40: [place]. [place] 16 [place] Cap 14 [facility] ASCORBATE 2020-0 Yes Take by [facility] rs CALCIUM 7-22 mouth. ity of (VITAMIN C 10:40: [place] ORAL) 14 [facility] OMEPRAZOLE 2020-0 Yes Take by [facility] ORAL 7-22 mouth. ity of 10:40: [facility] pravastatin 2020-0 Yes 40mg Take 40 mg [facility] (PRAVACHOL) 7-22 by mouth ity of 40 mg 10:40: at [place] tablet 14 bedtime. [facility] Fish 2020-0 Yes 1{tbl} Take 1 [facility] Oil-DHA-EPA 7-22 tablet by ity of 1,200-144-2 10:40: [place]. [place] 16 [place] Cap 14 [facility] ASCORBATE 2020-0 Yes Take by [facility] rs CALCIUM 7-22 mouth. ity of (VITAMIN C 10:40: [place] ORAL) 14 [facility] OMEPRAZOLE 2020-0 Yes Take by [facility] ORAL 7-22 mouth. ity of 10:40: [place] 14 [facility] pravastatin 2020-0 Yes 40mg Take 40 mg [facility] (PRAVACHOL) 7-22 by mouth ity of 40 mg 10:40: at [place] tablet 14 bedtime. [facility] Fish 2020-0 Yes 1{tbl} Take 1 [facility] Oil-DHA-EPA 7-22 tablet by ity of 1,200-144-2 10:40: [place]. [place] 16 mg Cap 14 [facility] rivaroxaban 2020-0 Yes 1481 10mg Take 1 [facility] (XARELTO) 7-22 tablet by ity o f tablet 00:00: mouth [place] 00 daily. Medical Indication Branch s: deep vein thrombosis prevention in knee replacemen t ondansetron 2020-0 Yes [id number] 4mg Take 1 [facility] (ZOFRAN 7-22 05 tablet by ity of ODT) 4 mg 00:00: mouth [place] disintegrat 00 every 6 Medic al ing tablet (six) Branch hours as needed for Nausea and Vomiting (N/V). HYDROcodone 2020-0 Yes 4647 1{tbl} Take 1 [facility] -acetaminop 7-22 tablet by ity of hen 10-325 00:00: mouth [place] mg tablet 00 every 6 Medical (six) Branch hours as needed for Pain (scale 7-10). Indication s: acute pain rivaroxaban 2020-0 Yes 1481 10mg Take 1 [facility] ers (XARELTO) 7-22 tablet by ity o f tablet 00:00: mouth [place] 00 daily. Medical Indication Branch s: deep vein thrombosis prevention in knee replacemen t ondansetron 2020-0 Yes [id number] 4mg Take 1 [facility] (ZOFRAN 7-22 05 tablet by ity of ODT) 4 mg 00:00: mouth [place] disintegrat 00 every 6 Medic al ing tablet (six) Branch hours as needed for Nausea and Vomiting (N/V). HYDROcodone 2020-0 Yes 4647 1{tbl} Take 1 [facility]ree -acetaminop 7-22 tablet by ity of hen 10-325 00:00: mouth [place] mg tablet 00 every 6 Medical (six) Branch hours as needed for Pain (scale 7-10). Indication s: acute pain rivaroxaban 2020-0 Yes 1481 10mg Take 1 [facility] ers (XARELTO) 7-22 tablet by ity o f tablet 00:00: mouth [place] 00 daily. Medical Indication Branch s: deep vein thrombosis prevention in knee replacemen t ondansetron 2020-0 Yes [id number] 4mg Take 1 [facility] (ZOFRAN 7-22 05 tablet by ity of ODT) 4 mg 00:00: mouth [place] disintegrat 00 every 6 Medic al ing tablet (six) Branch hours as needed for Nausea and Vomiting (N/V). HYDROcodone 2020-0 Yes 4647 1{tbl} Take 1 [facility] kyree -acetaminop 7-22 tablet by ity of hen 10-325 00:00: mouth [place] mg tablet 00 every 6 Medical (six) Branch hours as needed for Pain (scale 7-10). Indication s: acute pain rivaroxaban 2020-0 Yes 1481 10mg Take 1 [facility] ers (XARELTO) 7-22 tablet by ity o f tablet 00:00: mouth [place] 00 daily. Medical Indication Branch s: deep vein thrombosis prevention in knee replacemen t ondansetron 2020-0 Yes [id number] 4mg Take 1 [facility] (ZOFRAN 7-22 05 tablet by ity of ODT) 4 mg 00:00: mouth [place] disintegrat 00 every 6 Medic al ing tablet (six) Branch hours as needed for Nausea and Vomiting (N/V). HYDROcodone 2020-0 Yes 4647 1{tbl} Take 1 [facility] kyree -acetaminop 7-22 tablet by ity of hen 10-325 00:00: mouth [place] mg tablet 00 every 6 Medical (six) Branch hours as needed for Pain (scale 7-10). Indication s: acute pain rivaroxaban 2020-0 Yes 1481 10mg Take 1 [facility] ers (XARELTO) 7-22 tablet by ity o f tablet 00:00: mouth [place] 00 daily. Medical Indication Branch s: deep vein thrombosis prevention in knee replacemen t ondansetron 2020-0 Yes [id number] 4mg Take 1 [facility] (ZOFRAN 7-22 05 tablet by ity of ODT) 4 mg 00:00: mouth [place] disintegrat 00 every 6 Medic al ing tablet (six) Branch hours as needed for Nausea and Vomiting (N/V). HYDROcodone 2020-0 Yes 4647 1{tbl} Take 1 [facility]ree -acetaminop 7-22 tablet by ity of hen 10-325 00:00: mouth [place] mg tablet 00 every 6 Medical (six) Branch hours as needed for Pain (scale 7-10). Indication s: acute pain rivaroxaban 2020-0 Yes 1481 10mg Take 1 [facility] (XARELTO) 7-22 tablet by ity o f tablet 00:00: mouth [place] 00 daily. Medical Indication Branch s: deep vein thrombosis prevention in knee replacemen t ondansetron 2020-0 Yes [id number] 4mg Take 1 [facility] (ZOFRAN 7-22 05 tablet by ity of ODT) 4 mg 00:00: mouth [place] disintegrat 00 every 6 Medic al ing tablet (six) Branch hours as needed for Nausea and Vomiting (N/V). HYDROcodone 2020-0 Yes 4647 1{tbl} Take 1 [facility] kyree -acetaminop 7-22 tablet by ity of hen 10-325 00:00: mouth [place] mg tablet 00 every 6 Medical (six) Branch hours as needed for Pain (scale 7-10). Indication s: acute pain rivaroxaban 2020-0 Yes 1481 10mg Take 1 [facility] ers (XARELTO) 7-22 tablet by ity o f tablet 00:00: mouth [place] 00 daily. Medical Indication Branch s: deep vein thrombosis prevention in knee replacemen t rivaroxaban 2020-0 Yes 1481 10mg Take 1 [facility] (XARELTO) 7-22 tablet by ity o f tablet 00:00: mouth [place] 00 daily. Medical Indication Branch s: deep vein thrombosis prevention in knee replacemen t ondansetron 2020-0 Yes [id number] 4mg Take 1 [facility] (ZOFRAN 7-22 05 tablet by ity of ODT) 4 mg 00:00: mouth [place] disintegrat 00 every 6 Medic al ing tablet (six) Branch hours as needed for Nausea and Vomiting (N/V). HYDROcodone 2020-0 Yes 4647 1{tbl} Take 1 [facility] kyree -acetaminop 7-22 tablet by ity of hen 10-325 00:00: mouth [place] mg tablet 00 every 6 Medical (six) Branch hours as needed for Pain (scale 7-10). Indication s: acute pain ondansetron 2020-0 Yes [id number] 4mg Take 1 [facility] (ZOFRAN 7-22 05 tablet by ity of ODT) 4 mg 00:00: mouth [place] disintegrat 00 every 6 Medic al ing tablet (six) Branch hours as needed for Nausea and Vomiting (N/V). HYDROcodone 2020-0 Yes 4647 1{tbl} Take 1 [facility] kyree -acetaminop 7-22 tablet by ity of hen 10-325 00:00: mouth [place] mg tablet 00 every 6 Medical (six) Branch hours as needed for Pain (scale 7-10). Indication s: acute pain rivaroxaban 2020-0 Yes 1481 10mg Take 1 [facility] (XARELTO) 7-22 tablet by ity o f tablet 00:00: mouth [place] 00 daily. Medical Indication Branch s: deep vein thrombosis prevention in knee replacemen t ondansetron 2020-0 Yes [id number] 4mg Take 1 [facility] (ZOFRAN 7-22 05 tablet by ity of ODT) 4 mg 00:00: mouth [place] disintegrat 00 every 6 Medic al ing tablet (six) Branch hours as needed for Nausea and Vomiting (N/V). HYDROcodone 2020-0 Yes 4647 1{tbl} Take 1 [facility] kyree -acetaminop 7-22 tablet by ity of hen 10-325 00:00: mouth [place] mg tablet 00 every 6 Medical (six) Branch hours as needed for Pain (scale 7-10). Indication s: acute pain rivaroxaban 2020-0 Yes 1481 10mg Take 1 [facility] ers (XARELTO) 7-22 tablet by ity o f tablet 00:00: mouth [place] 00 daily. Medical Indication Branch s: deep vein thrombosis prevention in knee replacemen t ondansetron 2020-0 Yes [id number] 4mg Take 1 [facility] (ZOFRAN 7-22 05 tablet by ity of ODT) 4 mg 00:00: mouth [place] disintegrat 00 every 6 Medic al ing tablet (six) Branch hours as needed for Nausea and Vomiting (N/V). HYDROcodone 2020-0 Yes 4647 1{tbl} Take 1 [facility] kyree -acetaminop 7-22 tablet by ity of hen 10-325 00:00: mouth [place] mg tablet 00 every 6 Medical (six) Branch hours as needed for Pain (scale 7-10). Indication s: acute pain rivaroxaban 2020-0 Yes 1481 10mg Take 1 [facility] (XARELTO) 7-22 tablet by ity o f tablet 00:00: mouth [place] 00 daily. Medical Indication Branch s: deep vein thrombosis prevention in knee replacemen t ondansetron 2020-0 Yes [id number] 4mg Take 1 [facility] (ZOFRAN 7-22 05 tablet by ity of ODT) 4 mg 00:00: mouth [place] disintegrat 00 every 6 Medic al ing tablet (six) Branch hours as needed for Nausea and Vomiting (N/V). HYDROcodone 2020-0 Yes 4647 1{tbl} Take 1 [facility] kyree -acetaminop 7-22 tablet by ity of hen 10-325 00:00: mouth [place] mg tablet 00 every 6 Medical (six) Branch hours as needed for Pain (scale 7-10). Indication s: acute pain rivaroxaban 2020-0 Yes 1481 10mg Take 1 [facility] (XARELTO) 7-22 tablet by ity o f tablet 00:00: mouth [place] 00 daily. Medical Indication Branch s: deep vein thrombosis prevention in knee replacemen t ondansetron 2020-0 Yes [id number] 4mg Take 1 [facility] (ZOFRAN 7-22 05 tablet by ity of ODT) 4 mg 00:00: mouth [place] disintegrat 00 every 6 Medic al ing tablet (six) Branch hours as needed for Nausea and Vomiting (N/V). HYDROcodone 2020-0 Yes 4647 1{tbl} Take 1 [facility] kyree -acetaminop 7-22 tablet by ity of hen 10-325 00:00: mouth [place] mg tablet 00 every 6 Medical (six) Branch hours as needed for Pain (scale 7-10). Indication s: acute pain rivaroxaban 2020-0 Yes 1481 10mg Take 1 [facility] ers (XARELTO) 7-22 tablet by ity o f tablet 00:00: mouth [place] 00 daily. Medical Indication Branch s: deep vein thrombosis prevention in knee replacemen t ondansetron 2020-0 Yes [id number] 4mg Take 1 [facility] (ZOFRAN 7-22 05 tablet by ity of ODT) 4 mg 00:00: mouth [place] disintegrat 00 every 6 Medic al ing tablet (six) Branch hours as needed for Nausea and Vomiting (N/V). HYDROcodone 2020-0 Yes 4647 1{tbl} Take 1 [facility] kyree -acetaminop 7-22 tablet by ity of hen 10-325 00:00: mouth [place] mg tablet 00 every 6 Medical (six) Branch hours as needed for Pain (scale 7-10). Indication s: acute pain rivaroxaban 2020-0 Yes 1481 10mg Take 1 [facility] (XARELTO) 7-22 tablet by ity o f tablet 00:00: mouth [place] 00 daily. Medical Indication Branch s: deep vein thrombosis prevention in knee replacemen t ondansetron 2020-0 Yes [id number] 4mg Take 1 [facility] (ZOFRAN 7-22 05 tablet by ity of ODT) 4 mg 00:00: mouth [place] disintegrat 00 every 6 Medic al ing tablet (six) Branch hours as needed for Nausea and Vomiting (N/V). HYDROcodone 2020-0 Yes 4647 1{tbl} Take 1 [facility] kyree -acetaminop 7-22 tablet by ity of hen 10-325 00:00: mouth [place] mg tablet 00 every 6 Medical (six) Branch hours as needed for Pain (scale 7-10). Indication s: acute pain rivaroxaban 2020-0 Yes 1481 10mg Take 1 [facility] ers (XARELTO) 7-22 tablet by ity o f tablet 00:00: mouth [place] 00 daily. Medical Indication Branch s: deep vein thrombosis prevention in knee replacemen t ondansetron 2020-0 Yes [id number] 4mg Take 1 [facility] (ZOFRAN 7-22 05 tablet by ity of ODT) 4 mg 00:00: mouth [place] disintegrat 00 every 6 Medic al ing tablet (six) Branch hours as needed for Nausea and Vomiting (N/V). HYDROcodone 2020-0 Yes 4647 1{tbl} Take 1 [facility] kyree -acetaminop 7-22 tablet by ity of hen 10-325 00:00: mouth [place] mg tablet 00 every 6 Medical (six) Branch hours as needed for Pain (scale 7-10). Indication s: acute pain rivaroxaban 2020-0 Yes 1481 10mg Take 1 [facility] (XARELTO) 7-22 tablet by ity o f tablet 00:00: mouth [place] 00 daily. Medical Indication Branch s: deep vein thrombosis prevention in knee replacemen t ondansetron 2020-0 Yes [id number] 4mg Take 1 [facility] (ZOFRAN 7-22 05 tablet by ity of ODT) 4 mg 00:00: mouth [place] disintegrat 00 every 6 Medic al ing tablet (six) Branch hours as needed for Nausea and Vomiting (N/V). HYDROcodone 2020-0 Yes 4647 1{tbl} Take 1 [facility] kyree -acetaminop 7-22 tablet by ity of hen 10-325 00:00: mouth [place] mg tablet 00 every 6 Medical (six) Branch hours as needed for Pain (scale 7-10). Indication s: acute pain rivaroxaban 2020-0 Yes 1481 10mg Take 1 [facility] (XARELTO) 7-22 tablet by ity o f tablet 00:00: mouth [place] 00 daily. Medical Indication Branch s: deep vein thrombosis prevention in knee replacemen t ondansetron 2020-0 Yes [id number] 4mg Take 1 [facility] (ZOFRAN 7-22 05 tablet by ity of ODT) 4 mg 00:00: mouth [place] disintegrat 00 every 6 Medic al ing tablet (six) Branch hours as needed for Nausea and Vomiting (N/V). HYDROcodone 2020-0 Yes 4647 1{tbl} Take 1 [facility] kyree -acetaminop 7-22 tablet by ity of hen 10-325 00:00: mouth [place] mg tablet 00 every 6 Medical (six) Branch hours as needed for Pain (scale 7-10). Indication s: acute pain rivaroxaban 2020-0 Yes 1481 10mg Take 1 [facility] (XARELTO) 7-22 tablet by ity o f tablet 00:00: mouth [place] 00 daily. Medical Indication Branch s: deep vein thrombosis prevention in knee replacemen t ondansetron 2020-0 Yes [id number] 4mg Take 1 [facility] (ZOFRAN 7-22 05 tablet by ity of ODT) 4 mg 00:00: mouth [place] disintegrat 00 every 6 Medic al ing tablet (six) Branch hours as needed for Nausea and Vomiting (N/V). HYDROcodone 2020-0 Yes 4647 1{tbl} Take 1 [facility] kyree -acetaminop 7-22 tablet by ity of hen 10-325 00:00: mouth [place] mg tablet 00 every 6 Medical (six) Branch hours as needed for Pain (scale 7-10). Indication s: acute pain rivaroxaban 2020-0 Yes 1481 10mg Take 1 [facility] (XARELTO) 7-22 tablet by ity o f tablet 00:00: mouth [place] 00 daily. Medical Indication Branch s: deep vein thrombosis prevention in knee replacemen t ondansetron 2020-0 Yes [id number] 4mg Take 1 [facility] (ZOFRAN 7-22 05 tablet by ity of ODT) 4 mg 00:00: mouth [place] disintegrat 00 every 6 Medic al ing tablet (six) Branch hours as needed for Nausea and Vomiting (N/V). HYDROcodone 2020-0 Yes 4647 1{tbl} Take 1 [facility] kyree -acetaminop 7-22 tablet by ity of hen 10-325 00:00: mouth [place] mg tablet 00 every 6 Medical (six) Branch hours as needed for Pain (scale 7-10). Indication s: acute pain rivaroxaban 2020-0 Yes 1481 10mg Take 1 [facility] (XARELTO) 7-22 tablet by ity o f tablet 00:00: mouth [place] 00 daily. Medical Indication Branch s: deep vein thrombosis prevention in knee replacemen t ondansetron 2020-0 Yes [id number] 4mg Take 1 [facility] (ZOFRAN 7-22 05 tablet by ity of ODT) 4 mg 00:00: mouth [place] disintegrat 00 every 6 Medic al ing tablet (six) Branch hours as needed for Nausea and Vomiting (N/V). rivaroxaban 2020-0 Yes 1481 10mg Take 1 [facility] (XARELTO) 7-22 tablet by ity o f tablet 00:00: mouth [place] 00 daily. Medical Indication Branch s: deep vein thrombosis prevention in knee replacemen t HYDROcodone 2020-0 Yes 4647 1{tbl} Take 1 [facility] kyree -acetaminop 7-22 tablet by ity of hen 10-325 00:00: mouth [place] mg tablet 00 every 6 Medical (six) Branch hours as needed for Pain (scale 7-10). Indication s: acute pain ondansetron 2020-0 Yes [id number] 4mg Take 1 [facility] (ZOFRAN 7-22 05 tablet by ity of ODT) 4 mg 00:00: mouth [place] disintegrat 00 every 6 Medic al ing tablet (six) Branch hours as needed for Nausea and Vomiting (N/V). HYDROcodone 2020-0 Yes 4647 1{tbl} Take 1 [facility] -acetaminop 7-22 tablet by ity of hen 10-325 00:00: mouth [place] mg tablet 00 every 6 Medical (six) Branch hours as needed for Pain (scale 7-10). Indication s: acute pain rivaroxaban 2020-0 Yes 1481 10mg Take 1 [facility] (XARELTO) 7-22 tablet by ity o f tablet 00:00: mouth [place] 00 daily. Medical Indication Branch s: deep vein thrombosis prevention in knee replacemen t ondansetron 2020-0 Yes [id number] 4mg Take 1 [facility] (ZOFRAN 7-22 05 tablet by ity of ODT) 4 mg 00:00: mouth [place] disintegrat 00 every 6 Medic al ing tablet (six) Branch hours as needed for Nausea and Vomiting (N/V). HYDROcodone 2020-0 Yes 4647 1{tbl} Take 1 [facility] kyree -acetaminop 7-22 tablet by ity of hen 10-325 00:00: mouth [place] mg tablet 00 every 6 Medical (six) Branch hours as needed for Pain (scale 7-10). Indication s: acute pain rivaroxaban 2020-0 Yes 1481 10mg Take 1 [facility] (XARELTO) 7-22 tablet by ity o f tablet 00:00: mouth [place] 00 daily. Medical Indication Branch s: deep vein thrombosis prevention in knee replacemen t ondansetron 2020-0 Yes [id number] 4mg Take 1 [facility] (ZOFRAN 7-22 05 tablet by ity of ODT) 4 mg 00:00: mouth [place] disintegrat 00 every 6 Medic al ing tablet (six) Branch hours as needed for Nausea and Vomiting (N/V). HYDROcodone 2020-0 Yes 4647 1{tbl} Take 1 [facility] kyree -acetaminop 7-22 tablet by ity of hen 10-325 00:00: mouth [place] mg tablet 00 every 6 Medical (six) Branch hours as needed for Pain (scale 7-10). Indication s: acute pain rivaroxaban 2020-0 Yes 1481 10mg Take 1 [facility] (XARELTO) 7-22 tablet by ity o f tablet 00:00: mouth [place] 00 daily. Medical Indication Branch s: deep vein thrombosis prevention in knee replacemen t ondansetron 2020-0 Yes [id number] 4mg Take 1 [facility] (ZOFRAN 7-22 05 tablet by ity of ODT) 4 mg 00:00: mouth [place] disintegrat 00 every 6 Medic al ing tablet (six) Branch hours as needed for Nausea and Vomiting (N/V). HYDROcodone 2020-0 Yes 4647 1{tbl} Take 1 [facility] ky[facility] -acetaminop 7-22 tablet by ity of hen 10-325 00:00: mouth [place] mg tablet 00 every 6 Medical (six) Branch hours as needed for Pain (scale 7-10). Indication s: acute pain rivaroxaban 2020-0 Yes 1481 10mg Take 1 [facility] (XARELTO) 7-22 tablet by ity o f tablet 00:00: mouth [place] 00 daily. Medical Indication Branch s: deep vein thrombosis prevention in knee replacemen t ondansetron 2020-0 Yes [id number] 4mg Take 1 [facility] (ZOFRAN 7-22 05 tablet by ity of ODT) 4 mg 00:00: mouth [place] disintegrat 00 every 6 Medic al ing tablet (six) Branch hours as needed for Nausea and Vomiting (N/V). HYDROcodone 2020-0 Yes 4647 1{tbl} Take 1 [facility]ree -acetaminop 7-22 tablet by ity of hen 10-325 00:00: mouth [place] mg tablet 00 every 6 Medical (six) Branch hours as needed for Pain (scale 7-10). Indication s: acute pain rivaroxaban 2020-0 Yes 1481 10mg Take 1 [facility] (XARELTO) 7-22 tablet by ity o f tablet 00:00: mouth [place] 00 daily. Medical Indication Branch s: deep vein thrombosis prevention in knee replacemen t ondansetron 2020-0 Yes [id number] 4mg Take 1 [facility] (ZOFRAN 7-22 05 tablet by ity of ODT) 4 mg 00:00: mouth [place] disintegrat 00 every 6 Medic al ing tablet (six) Branch hours as needed for Nausea and Vomiting (N/V). HYDROcodone 2020-0 Yes 4647 1{tbl} Take 1 [facility] kyree -acetaminop 7-22 tablet by ity of hen 10-325 00:00: mouth [place] mg tablet 00 every 6 Medical (six) Branch hours as needed for Pain (scale 7-10). Indication s: acute pain rivaroxaban 2020-0 Yes 1481 10mg Take 1 [facility] (XARELTO) 7-22 tablet by ity o f tablet 00:00: mouth [place] 00 daily. Medical Indication Branch s: deep vein thrombosis prevention in knee replacemen t ondansetron 2020-0 Yes [id number] 4mg Take 1 [facility] (ZOFRAN 7-22 05 tablet by ity of ODT) 4 mg 00:00: mouth [place] disintegrat 00 every 6 Medic al ing tablet (six) Branch hours as needed for Nausea and Vomiting (N/V). HYDROcodone 2020-0 Yes 4647 1{tbl} Take 1 Un kyree -acetaminop 7-22 tablet by ity of hen 10-325 00:00: mouth [place] mg tablet 00 every 6 Medical (six) Branch hours as needed for Pain (scale 7-10). Indication s: acute pain rivaroxaban 2020-0 Yes 1481 10mg Take 1 Univ ers (XARELTO) 7-22 tablet by ity o f tablet 00:00: mouth [place] 00 daily. Medical Indication Branch s: deep vein thrombosis prevention in knee replacemen t ondansetron 2020-0 Yes [id number] 4mg Take 1 [facility] (ZOFRAN 7-22 05 tablet by ity of ODT) 4 mg 00:00: mouth [place] disintegrat 00 every 6 Medic al ing tablet (six) Branch hours as needed for Nausea and Vomiting (N/V). HYDROcodone 2020-0 Yes 4647 1{tbl} Take 1 Un kyree -acetaminop 7-22 tablet by ity of hen 10-325 00:00: mouth [place] mg tablet 00 every 6 Medical (six) Branch hours as needed for Pain (scale 7-10). Indication s: acute pain rivaroxaban 2020-0 Yes 1481 10mg Take 1 Univ ers (XARELTO) 7-22 tablet by ity o f tablet 00:00: mouth [place] 00 daily. Medical Indication Branch s: deep vein thrombosis prevention in knee replacemen t ondansetron 2020-0 Yes [id number] 4mg Take 1 [facility] (ZOFRAN 7-22 05 tablet by ity of ODT) 4 mg 00:00: mouth [place] disintegrat 00 every 6 Medic al ing tablet (six) Branch hours as needed for Nausea and Vomiting (N/V). HYDROcodone 2020-0 Yes 4647 1{tbl} Take 1 Un kyree -acetaminop 7-22 tablet by ity of hen 10-325 00:00: mouth [place] mg tablet 00 every 6 Medical (six) Branch hours as needed for Pain (scale 7-10). Indication s: acute pain rivaroxaban 2020-0 Yes 1481 10mg Take 1 Univ ers (XARELTO) 7-22 tablet by ity o f tablet 00:00: mouth [place] 00 daily. Medical Indication Branch s: deep vein thrombosis prevention in knee replacemen t ondansetron 2020-0 Yes [id number] 4mg Take 1 [facility] (ZOFRAN 7-22 05 tablet by ity of ODT) 4 mg 00:00: mouth [place] disintegrat 00 every 6 Medic al ing tablet (six) Branch hours as needed for Nausea and Vomiting (N/V). HYDROcodone 2020-0 Yes 4647 1{tbl} Take 1 Un [facility]ree -acetaminop 7-22 tablet by ity of hen 10-325 00:00: mouth [place] mg tablet 00 every 6 Medical (six) Branch hours as needed for Pain (scale 7-10). Indication s: acute pain rivaroxaban 2020-0 Yes 1481 10mg Take 1 Univ ers (XARELTO) 7-22 tablet by ity o f tablet 00:00: mouth [place] 00 daily. Medical Indication Branch s: deep vein thrombosis prevention in knee replacemen t ondansetron 2020-0 Yes [id number] 4mg Take 1 [facility] (ZOFRAN 7-22 05 tablet by ity of ODT) 4 mg 00:00: mouth [place] disintegrat 00 every 6 Medic al ing tablet (six) Branch hours as needed for Nausea and Vomiting (N/V). HYDROcodone 2020-0 Yes 4647 1{tbl} Take 1 Un kyree -acetaminop 7-22 tablet by ity of hen 10-325 00:00: mouth [place] mg tablet 00 every 6 Medical (six) Branch hours as needed for Pain (scale 7-10). Indication s: acute pain rivaroxaban 2020-0 Yes 1481 10mg Take 1 Univ ers (XARELTO) 7-22 tablet by ity o f tablet 00:00: mouth [place] 00 daily. Medical Indication Branch s: deep vein thrombosis prevention in knee replacemen t ondansetron 2020-0 Yes [id number] 4mg Take 1 [facility] (ZOFRAN 7-22 05 tablet by ity of ODT) 4 mg 00:00: mouth [place] disintegrat 00 every 6 Medic al ing tablet (six) Branch hours as needed for Nausea and Vomiting (N/V). rivaroxaban 2020-0 Yes 1481 10mg Take 1 Univ ers (XARELTO) 7-22 tablet by ity o f tablet 00:00: mouth [place] 00 daily. Medical Indication Branch s: deep vein thrombosis prevention in knee replacemen t ondansetron 2020-0 Yes [id number] 4mg Take 1 [facility] (ZOFRAN 7-22 05 tablet by ity of ODT) 4 mg 00:00: mouth [place] disintegrat 00 every 6 Medic al ing tablet (six) Branch hours as needed for Nausea and Vomiting (N/V). HYDROcodone 2020-0 Yes 4647 1{tbl} Take 1 Un kyree -acetaminop 7-22 tablet by ity of hen 10-325 00:00: mouth [place] mg tablet 00 every 6 Medical (six) Branch hours as needed for Pain (scale 7-10). Indication s: acute pain HYDROcodone 2020-0 Yes 4647 1{tbl} Take 1 Un kyree -acetaminop 7-22 tablet by ity of hen 10-325 00:00: mouth [place] mg tablet 00 every 6 Medical (six) Branch hours as needed for Pain (scale 7-10). Indication s: acute pain rivaroxaban 2020-0 Yes 1481 10mg Take 1 Univ ers (XARELTO) 7-22 tablet by ity o f tablet 00:00: mouth [place] 00 daily. Medical Indication Branch s: deep vein thrombosis prevention in knee replacemen t ondansetron 2020-0 Yes [id number] 4mg Take 1 [facility] (ZOFRAN 7-22 05 tablet by ity of ODT) 4 mg 00:00: mouth [place] disintegrat 00 every 6 Medic al ing tablet (six) Branch hours as needed for Nausea and Vomiting (N/V). HYDROcodone 2020-0 Yes 4647 1{tbl} Take 1 Un kyree -acetaminop 7-22 tablet by ity of hen 10-325 00:00: mouth [place] mg tablet 00 every 6 Medical (six) Branch hours as needed for Pain (scale 7-10). Indication s: acute pain acetaminoph 2020-0 2020- No 4647 1{tbl} Take 1 U nivers en-codeine 06-15 tablet by ity of (TYLENOL-CO 00:00: 00:00 mouth [place] DEINE #3) 00 :00 every 4 Medical 300-30 mg (four) Branch tablet hours as needed for Pain (scale 4-6) or Pain (scale 7-10). Indication s: acute pain enoxaparin 2019-0 Yes 30mg 30 mg, Unive rs (LOVENOX) 06-14 Subcutaneo ity of injection 13:00: us, Q12H, [place] 30 mg 00 First dose Medical on Sat Branch 06/14/20 at 0800, Until Discontinu ed, Routine omeprazole 2019-0 Yes 20mg 20 mg, Unive rs (PRILOSEC) 06-14 Oral, ity of capsule 20 03:15: DAILY, [place] mg 00 First dose Medical on Sat [place] 06/13/20 at 2215, Until Discontinu ed, Routine docusate 2019-0 Yes 100mg 100 mg, Unive rs (COLACE) 06-14 Oral, ity of capsule 100 01:00: Q12H, [place] mg 00 First dose Medical on Sat Branch 06/13/20 at 2000, Until Discontinu ed, Routine rivaroxaban 2019- No 1481 10mg Take 1 Uni vers (XARELTO) 06-14 tablet by ity of tablet 00:00: 00:00 mouth [place] 00 :00 daily for Medical 10 days. Branch Indication s: deep vein thrombosis prevention in knee replacemen t acetaminoph 2019- No 4647 1{tbl} Take 1 U nivers en-codeine 06-14 tablet by ity of (TYLENOL-CO 00:00: 00:00 mouth [place] DEINE #3) 00 :00 every 4 Medical 300-30 mg (four) Branch tablet hours as needed for Pain (scale 4-6) or Pain (scale 7-10). Indication s: acute pain ceFAZolin 2020- No 1g 1 g, IV Univ ers (ANCEF) 1 g 06-13 Piggyback, i ty of in NaCl 23:15: 07:16 Q8H ABX, 2 [place] 0.9% (NS) 00 :00 doses, Medical 50 mL First dose Branch MINI-BAG on Sat06/13/20 at 1815, Last dose on Sat06/14/20 at 0215, 50 mL
Reas on for Anti-Infec tive: Surgical Prophylaxi s
Surgi guy Prophylaxi s: Orthopaedi c
Durat ion of therapy: within 24 hours of surgery acetaminoph 2019- No 1000mg 1,000 mg, Univers en ADULT 06-13 IV ity of (OFIRMEV) 18:45: 17:51 Infusion, [place] injection 00 :00 Administer Medi guy 1,000 mg over 15 Branch Minutes, ONCE, 1 dose, Sat06/13/20 at 1345, Routine, PACU
Indicatio n: Perioperat harmony Patient HYDROmorpho 2019- No .2mg 0.2 mg, Un kyree ne 06-13 Slow IV ity of (DILAUDID) 17:34: 19:09 Push, [place] injection 09 :14 Q5MIN PRN, Medi guy 0.2 mg 10 doses, Branch Starting Sat06/13/20 at 1234, Until Sat06/13/20 at 1409, Routine, Pain (scale 7-10), PACU
Us e approved by (Faculty): PACU USE -ANESTHESI A SERVICE-HY DROMORPHON E INJECTIONS lactated Yes 1000mL at 75 Univer s ringers IV 7-20 mL/hr, ity of infusion 17:00: 1,000 mL, [place] 1,000 mL 00 IV Medical Infusion, Branch CONTINUOUS , Starting Sat06/13/20 at 1200, Until Discontinu ed, Routine, PACU FENTanyl PF 2019-2019- No 25ug 25 mcg, Un [facility] (SUBLIMAZE 06-13 Slow IV ity o f (PF)) 16:52: 17:38 Push, [place] injection 12 :00 Q5MIN PRN, Medi guy 25 mcg 4 doses, Branch Starting Sat06/13/20 at 1152, Until Sat06/13/20 at 1238, Routine, Pain (scale 7-10), PACU sugammadex 2020- No IV Push, Un [place] (BRIDION) 06-13 ONCE INTRA ity of injection 16:18: 16:34 PROCEDURE, [place] 00 :05 Starting Medical Mon Branch 06/13/20 at 1118, Until 06/13/20 at 1134, Routine, Intra-op ondansetron 2019- 2020- No Slow IV Un kyree (ZOFRAN 06-13 Push, ONCE ity o f (PF)) 16:09: 16:34 INTRA [place] injection 00 :05 PROCEDURE, [facility] Starting Branch 06/13/20 at 1109, Until 06/13/20 at 1134, Routine, Intra-op morpHINE 30 2019-0 Yes Univer s mg/30 mL 7-20 ity of (fixed 16:02: dose) 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 Branch dexamethaso 0 2020- No IV Push, U nivers ne 06-1320 ONCE INTRA ity of (DECADRON 15:55: 16:34 PROCEDURE, [place] PHOSPHATE) 00 :05 Starting Medic al injection Mon Branch 06/13/20 at 1055, Until 06/13/20 at 1134, Routine, Intra-op tranexamic 0 2020- No CONTINUOUS Univers acid 06-13 PRN, ity of (CYKLOKAPRO 15:21: 16:34 Starting [place] N) 1,000 mg 00 :05 Mon Medical in NaCl 06/13/20 at Branch 0.9% (NS) 1021, 250 mL Until Mon infusion 06/13/20 at 1134, Routine, Intra-op glycopyrrol 2019-0 2020- No Intravenou Univers ate 06-13 s, ONCE ity of (ROBINUL) 15:11: 16:34 INTRA [place] injection 00 :05 PROCEDURE, [facility] Starting Branch 06/13/20 at 1011, Until 06/13/20 at 1134, Routine, Intra-op ePHEDrine 2019-0 2020- No ONCE INTRA U nivers 25 mg/5 mL 06-13 PROCEDURE, it y of (5 mg/mL) 15:08: 16:34 Starting [place] syringe 00 :05 Mon Medical 06/13/20 at Branch 1008, Until 06/13/20 at 1134, Routine, Intra-op PHENYLephri 2020-0 2020- No ONCE INTRA Univers ne 1000 7-20 07-20 PROCEDURE, ity o f mcg/10 mL 15:06: 16:34 Starting [place] in 0.9% 00 :05 Mon [facility] NaCl 06/13/20 at [place] syringe 1006, Until 06/13/20 at 1134, Routine, Intra-op ASCORBATE 2020-0 Yes Take by [facility] [place] [facility] rs CALCIUM 7-20 mouth. ity of (VITAMIN C 15:05: [place] ORAL) [address] [place] [address] OMEPRAZOLE 2020-0 Yes Take by [facility] ers ORAL 7-20 mouth. ity of 15:05: [place] [address] [place] [address] pravastatin 2020-0 Yes 40mg Take 40 mg Univers (PRAVACHOL) 7-20 by mouth ity of 40 mg 15:05: at [place] tablet 33 bedtime. [facility] Fish 2020-0 Yes 1{tbl} Take 1 [facility] Oil-DHA-EPA 7-20 tablet by ity of 1,200-144-2 15:05: mouth. [place] 16 mg Cap [address] [place] [address] naloxone 2020-0 Yes .4mg 0.4 mg, Univer s (NARCAN) 7-20 Slow IV ity of injection 15:02: Push, [place] 0.4 mg 31 [facility] at 1002, Until Discontinu ed, Routine HYDROcodone 2020-0 Yes 1{tbl} 1 tablet, Univers -acetaminop 7-20 Oral, ity of hen (NORCO) 15:02: Q4HPRN, [place] 10-325 mg 25 Starting Medica l tablet 1 [facility] tablet 06/13/20 at 1002, Until Discontinu ed, Routine, Pain (scale 7-10) HYDROcodone 2020-0 Yes 1{tbl} 1 tablet, Univers -acetaminop 7-20 Oral, ity of hen (NORCO 15:02: Q6HPRN, [place] 5) 5-325 mg 22 Starting Medi guy tablet 1 [facility] tablet 06/13/20 at 1002, Until Discontinu ed, Routine, Pain (scale 4-6) ondansetron 2020-0 Yes 4mg 4 mg, Slow [facility] (ZOFRAN 7-20 IV Push, ity of (PF)) 15:02: Q6HPRN, [place] injection 4 07 Starting Medi guy mg [facility] 06/13/20 at 1002, Until Discontinu ed, Routine, Nausea and Vomiting (N/V) rocuronium 2020-0 2020- No ONCE INTRA Univers (ZEMURON) 06-13 PROCEDURE, ity of injection 14:59: 16:34 Starting [place] 00 :05 [facility] 06/13/20 at Branch 0959, Until [facility] 06/13/20 at 1134, Routine, Intra-op propofol IV 2020-0 2020- No Intravenou Univers infusion 06-13 07-20 s, ONCE ity of 14:59: 16:34 INTRA [place] 00 :05 PROCEDURE, [facility] 06/13/20 at 0959, Until [facility] 06/13/20 at 1134, Routine, Intra-op FENTanyl PF 2020-0 2020- No Intravenou Univers (SUBLIMAZE 06-13 s, ONCE ity o f (PF)) 14:59: 16:34 INTRA [place] injection 00 :05 PROCEDURE, Medi guy Starting [facility] 06/13/20 at 0959, Until [facility] 06/13/20 at 1134, Routine, Intra-op lidocaine 2020-0 2020- No Topical, Uni vers (XYLOCAINE) 06-13 ONCE INTRA i ty of 2 % mucosal 14:57: 16:34 PROCEDURE, [place] jelly 00 :05 [facility] 06/13/20 at 0957, Until [facility] 06/13/20 at 1134, Routine, Intra-op ceFAZolin 2020-0 2020- No Intravenou U nivers (ANCEF) 06-13 07- s, ONCE ity of injection 14:54: 16:34 INTRA [place] 00 :05 PROCEDURE, [facility] 06/13/20 at 0954, Until [facility] 06/13/20 at 1134, STEPHEN, Intra-op lactated 2020-0 2020- No IV Univers ringers IV 06-13 Infusion, ity of infusion 14:52: 16:37 CONTINUOUS [place] 00 :32 PRN, [facility] 06/13/20 at 0952, Until [facility] 06/13/20 at 1137, Routine, Intra-op midazolam 2020-0 2020- No IV Push, Uni vers (VERSED) 06-13 ONCE INTRA ity of injection 14:52: 16:34 PROCEDURE, [place] 00 :05 Starting [facility] Branch 06/13/20 at 0952, Until [facility] 06/13/20 at 1134, Routine, Intra-op bupivacaine 2020-0 2020- No ONCE INTRA Univers (preserv 06-13 PROCEDURE, ity of free) 0.5% 14:00: 18:23 Starting [place] (SENSORCAIN 00 :26 [facility] Medical E MPF) 0.5 06/13/20 at Bra nch % (5 mg/mL) 0900, injection Until [facility] 06/13/20 at 1323, Routine, Intra-op oxyCODONE-a 2019-0 2020- No 2{tbl} 2 tablet, Univers cetaminophe 06-13 Oral, ity of n 13:30: 13:56 ONCE, 1 [place] (PERCOCET) 00 :00 dose, Mon Medi guy 5-325 mg 06/13/20 at Branc h per tablet 0830, 2 tablet Routine celecoxib 2020- No 400mg 400 mg, Uni vers (CELEBREX) 06-13 Oral, ity of capsule 400 13:30: 13:56 ONCE, 1 [place] mg 00 :00 dose, [facility] 06/13/20 at Branch 0830, Routine gabapentin 2020- No 300mg 300 mg, Un kyree (NEURONTIN) 06-13 Oral, ity of capsule 300 13:30: 13:56 ONCE, 1 [place] mg 00 :00 dose, [facility] 06/13/20 at Branch 0830, Routine lactated 2019-0 2020- No 1000mL at 20 [facility] [place] [facility] rs ringers IV 06-13 mL/hr, ity of infusion 12:15: 13:56 1,000 mL, [place] 1,000 mL 00 :00 IV Medical Infusion, Branch ONCE, 1 dose, [facility] 06/13/20 at 0715, Routine, DSU Pre-op OMEPRAZOLE 2019-0 Yes Take by [facility] ers ORAL 7-16 mouth. ity of 19:06: [place] 19 Medical Branch pravastatin 2020-0 Yes 40mg Take 40 mg Univers (PRAVACHOL) 7-16 by mouth ity of 40 mg 19:06: at [place] tablet 19 bedtime. Medical Branch OMEPRAZOLE 2019-0 Yes Take by [facility] ers ORAL 7-16 mouth. ity of 19:06: [place] 19 Medical Branch pravastatin 2020-0 Yes 40mg Take 40 mg Univers (PRAVACHOL) 7-16 by mouth ity of 40 mg 19:06: at [place] tablet 19 bedtime. Medical Branch OMEPRAZOLE 2020-0 Yes Take by Univ ers ORAL 7-16 mouth. ity of 19:06: Medical Branch pravastatin 2020-0 Yes 40mg Take 40 mg Univers (PRAVACHOL) 7-16 by mouth ity of 40 mg 19:06: at [place] tablet 19 bedtime. Medical Branch ASCORBATE 2020-0 Yes Take by Unive rs CALCIUM 7-16 mouth. ity of (VITAMIN C 19:05: [place] ORAL) 29 Medical Branch Fish 2020-0 Yes 1{tbl} Take 1 Univers Oil-DHA-EPA 7-16 tablet by ity of 1,200-144-2 19:05: mouth. [place] 16 mg Cap 29 Medical Branch ASCORBATE 2020-0 Yes Take by Unive rs CALCIUM 7-16 mouth. ity of (VITAMIN C 19:05: [place] ORAL) 29 Medical Branch Fish 2020-0 Yes 1{tbl} Take 1 [facility] Oil-DHA-EPA 7-16 tablet by ity of 1,200-144-2 19:05: mouth. [place] 16 mg Cap 29 Medical Branch ASCORBATE 2020-0 Yes Take by Unive rs CALCIUM 7-16 mouth. ity of (VITAMIN C 19:05: [place] ORAL) 29 Medical Branch Fish 2020-0 Yes 1{tbl} Take 1 [facility] Oil-DHA-EPA 7-16 tablet by ity of 1,200-144-2 19:05: mouth. [place] 16 mg Cap 29 Medical Branch OMEPRAZOLE 2020-0 Yes Take by Univ ers ORAL 7-09 mouth. ity of 18:39: [place] Medical Branch pravastatin 2020-0 Yes 40mg Take 40 mg Univers (PRAVACHOL) 7-09 by mouth ity of 40 mg 18:39: at [place] tablet 59 bedtime. Medical Branch OMEPRAZOLE 2020-0 Yes Take by Univ ers ORAL 7-09 mouth. ity of 18:39: [place] Medical Branch pravastatin 2020-0 Yes 40mg Take 40 mg Univers (PRAVACHOL) 7-09 by mouth ity of 40 mg 18:39: at [place] tablet 59 bedtime. Medical Branch Diclofenac 2019- Yes [id number] Apply Univers Sodium 0-16 05 2mg-4mg to ity of (VOLTAREN) 00:00: affected [place] 1 % gel 00 area 4 Medical times Branch daily Diclofenac 2018-11 Yes [id number] Apply Univers Sodium 0-16 05 2mg-4mg to ity of (VOLTAREN) 00:00: affected [place] 1 % gel 00 area 4 Medical times Branch daily Diclofenac 2018-11 Yes [id number] Apply Univers Sodium 0-16 05 2mg-4mg to ity of (VOLTAREN) 00:00: affected [place] 1 % gel 00 area 4 Medical times Branch daily Diclofenac 2018-11 Yes [id number] Apply Univers Sodium 0-16 05 2mg-4mg to ity of (VOLTAREN) 00:00: affected [place] 1 % gel 00 area 4 Medical times Branch daily Diclofenac 2018-11 Yes [id number] Apply Univers Sodium 0-16 05 2mg-4mg to ity of (VOLTAREN) 00:00: affected [place] 1 % gel 00 area 4 Medical times Branch daily Diclofenac 2018-11 Yes [id number] Apply Univers Sodium 0-16 05 2mg-4mg to ity of (VOLTAREN) 00:00: affected [place] 1 % gel 00 area 4 Medical times Branch daily Diclofenac 2018-11 Yes [id number] Apply Univers Sodium 0-16 05 2mg-4mg to ity of (VOLTAREN) 00:00: affected [place] 1 % gel 00 area 4 Medical times Branch daily Diclofenac 2018-11 Yes [id number] Apply Univers Sodium 0-16 05 2mg-4mg to ity of (VOLTAREN) 00:00: affected [place] 1 % gel 00 area 4 Medical times Branch daily Diclofenac 2018-11 Yes [id number] Apply Univers Sodium 0-16 05 2mg-4mg to ity of (VOLTAREN) 00:00: affected [place] 1 % gel 00 area 4 Medical times Branch daily Diclofenac 2018-11 Yes [id number] Apply Univers Sodium 0-16 05 2mg-4mg to ity of (VOLTAREN) 00:00: affected [place] 1 % gel 00 area 4 Medical times Branch daily Diclofenac 2018-11 Yes [id number] Apply Univers Sodium 0-16 05 2mg-4mg to ity of (VOLTAREN) 00:00: affected [place] 1 % gel 00 area 4 Medical times Branch daily Diclofenac 2018-11 Yes [id number] Apply Univers Sodium 0-16 05 2mg-4mg to ity of (VOLTAREN) 00:00: affected [place] 1 % gel 00 area 4 Medical times Branch daily Diclofenac 2018-11 Yes [id number] Apply Univers Sodium 0-16 05 2mg-4mg to ity of (VOLTAREN) 00:00: affected [place] 1 % gel 00 area 4 Medical times Branch daily Diclofenac 2018-11 Yes [id number] Apply Univers Sodium 0-16 05 2mg-4mg to ity of (VOLTAREN) 00:00: affected [place] 1 % gel 00 area 4 Medical times Branch daily Diclofenac 2018-11 Yes [id number] Apply [facility] Sodium 0-16 05 2mg-4mg to ity of (VOLTAREN) 00:00: affected [place] 1 % gel 00 area 4 Medical times Branch daily Diclofenac 2018-11 2020- No [id number] Apply [facility] Sodium 0-16 07-21 05 2mg-4mg to ity of (VOLTAREN) 00:00: 00:00 affected [place] 1 % gel 00 :00 area 4 Medical times Branch daily Diclofenac 2018-11 2020- No [id number] Apply [facility] Sodium 0-16 07-21 05 2mg-4mg to ity of (VOLTAREN) 00:00: 00:00 affected [place] 1 % gel 00 :00 area 4 Medical times Branch daily methylPREDN 2018-11 Yes [id number] Take by Univers ISolone 0-10 05 mouth ity of (MEDROL, 00:00: SEE-INSTRU [place] OLEKSANDR,) 4 mg 00 CTIONS. Medica l tablets follow Branch package directions methylPREDN 2018-11 Yes [id number] Take by Univers ISolone 0-10 05 mouth ity of (MEDROL, 00:00: SEE-INSTRU [place] OLEKSANDR,) 4 mg 00 CTIONS. Medica l tablets follow Branch package directions methylPREDN 2018-11 Yes [id number] Take by Univers ISolone 0-10 05 mouth ity of (MEDROL, 00:00: SEE-INSTRU [place] OLEKSANDR,) 4 mg 00 CTIONS. Medica l tablets follow Branch package directions methylPREDN 2018-11 Yes [id number] Take by Univers ISolone 0-10 05 mouth ity of (MEDROL, 00:00: SEE-INSTRU [place] OLEKSANDR,) 4 mg 00 CTIONS. Medica l tablets follow Branch package directions methylPREDN 2018-11 Yes [id number] Take by Univers ISolone 0-10 05 mouth ity of (MEDROL, 00:00: SEE-INSTRU [place] OLEKSANDR,) 4 mg 00 CTIONS. Medica l tablets follow Branch package directions methylPREDN 2018-11 Yes [id number] Take by Univers ISolone 0-10 05 mouth ity of (MEDROL, 00:00: SEE-INSTRU [place] OLEKSANDR,) 4 mg 00 CTIONS. Medica l tablets follow Branch package directions methylPREDN 2018-11 Yes [id number] Take by Univers ISolone 0-10 05 mouth ity of (MEDROL, 00:00: SEE-INSTRU [place] OLEKSANDR,) 4 mg 00 CTIONS. Medica l tablets follow Branch package directions methylPREDN 2018-11 Yes [id number] Take by Univers ISolone 0-10 05 mouth ity of (MEDROL, 00:00: SEE-INSTRU [place] OLEKSANDR,) 4 mg 00 CTIONS. Medica l tablets follow Branch package directions methylPREDN 2018-11 Yes [id number] Take by Univers ISolone 0-10 05 mouth ity of (MEDROL, 00:00: SEE-INSTRU [place] OLEKSANDR,) 4 mg 00 CTIONS. Medica l tablets follow Branch package directions methylPREDN 2018-11 Yes [id number] Take by Univers ISolone 0-10 05 mouth ity of (MEDROL, 00:00: SEE-INSTRU [place] OLEKSANDR,) 4 mg 00 CTIONS. Medica l tablets follow Branch package directions methylPREDN 2018-11 Yes [id number] Take by Univers ISolone 0-10 05 mouth ity of (MEDROL, 00:00: SEE-INSTRU [place] OLEKSANDR,) 4 mg 00 CTIONS. Medica l tablets follow Branch package directions methylPREDN 2018-11 Yes [id number] Take by Univers ISolone 0-10 05 mouth ity of (MEDROL, 00:00: SEE-INSTRU [place] OLEKSANDR,) 4 mg 00 CTIONS. Medica l tablets follow Branch package directions methylPREDN 2018-11 Yes [id number] Take by Univers ISolone 0-10 05 mouth ity of (MEDROL, 00:00: SEE-INSTRU [place] OLEKSANDR,) 4 mg 00 CTIONS. Medica l tablets follow Branch package directions methylPREDN 2018-11 Yes [id number] Take by Univers ISolone 0-10 05 mouth ity of (MEDROL, 00:00: SEE-INSTRU [place] OLEKSANDR,) 4 mg 00 CTIONS. Medica l tablets follow Branch package directions methylPREDN 2018-11 Yes [id number] Take by Univers ISolone 0-10 05 mouth ity of (MEDROL, 00:00: SEE-INSTRU [place] OLEKSANDR,) 4 mg 00 CTIONS. Medica l tablets follow Branch package directions methylPREDN 2018-11 Yes [id number] Take by Univers ISolone 0-10 05 mouth ity of (MEDROL, 00:00: SEE-INSTRU [place] OLEKSANDR,) 4 mg 00 CTIONS. Medica l tablets follow Branch package directions methylPREDN 2018-11 Yes [id number] Take by Univers ISolone 0-10 05 mouth ity of (MEDROL, 00:00: SEE-INSTRU [place] OLEKSANDR,) 4 mg 00 CTIONS. Medica l tablets follow Branch package directions methylPREDN 2018-11 Yes [id number] Take by Univers ISolone 0-10 05 mouth ity of (MEDROL, 00:00: SEE-INSTRU [place] OLEKSANDR,) 4 mg 00 CTIONS. Medica l tablets follow Branch package directions methylPREDN 2018-11 Yes [id number] Take by Univers ISolone 0-10 05 mouth ity of (MEDROL, 00:00: SEE-INSTRU [place] OLESKANDR,) 4 mg 00 CTIONS. Medica l tablets follow Branch package directions methylPREDN 2018-11 Yes [id number] Take by Univers ISolone 0-10 05 mouth ity of (MEDROL, 00:00: SEE-INSTRU [place] OLEKSANDR,) 4 mg 00 CTIONS. Medica l tablets follow Branch package directions methylPREDN 2018-11 Yes [id number] Take by Univers ISolone 0-10 05 mouth ity of (MEDROL, 00:00: SEE-INSTRU [place] OLEKSANDR,) 4 mg 00 CTIONS. Medica l tablets follow Branch package directions methylPREDN 2018-11 Yes [id number] Take by Univers ISolone 0-10 05 mouth ity of (MEDROL, 00:00: SEE-INSTRU [place] OLEKSANDR,) 4 mg 00 CTIONS. Medica l tablets follow Branch package directions methylPREDN 2018-11 Yes [id number] Take by Univers ISolone 0-10 05 mouth ity of (MEDROL, 00:00: SEE-INSTRU [place] OLEKSANDR,) 4 mg 00 CTIONS. Medica l tablets follow Branch package directions methylPREDN 2018-11 Yes [id number] Take by Univers ISolone 0-10 05 mouth ity of (MEDROL, 00:00: SEE-INSTRU [place] OLEKSANDR,) 4 mg 00 CTIONS. Medica l tablets follow Branch package directions methylPREDN 2018-11 Yes [id number] Take by Univers ISolone 0-10 05 mouth ity of (MEDROL, 00:00: SEE-INSTRU [place] OLEKSANDR,) 4 mg 00 CTIONS. Medica l tablets follow Branch package directions methylPREDN 2018-11 Yes [id number] Take by Univers ISolone 0-10 05 mouth ity of (MEDROL, 00:00: SEE-INSTRU [place] OLEKSANDR,) 4 mg 00 CTIONS. Medica l tablets follow Branch package directions methylPREDN 2018-11 Yes [id number] Take by [facility] ISolone 0-10 05 mouth ity of (MEDROL, 00:00: SEE-INSTRU Javi as OLEKSANDR,) 4 mg 00 CTIONS. Medica l tablets follow Branch package directions methylPREDN 2018-11 Yes [id number] Take by [facility] ISolone 0-10 05 mouth ity of (MEDROL, 00:00: SEE-INSTRU [facility] as OLEKSANDR,) 4 mg 00 CTIONS. Medica l tablets follow Branch package directions methylPREDN 2018-11 Yes [id number] Take by [facility] ISolone 0-10 05 mouth ity of (MEDROL, 00:00: SEE-INSTRU [place] as OLEKSANDR,) 4 mg 00 CTIONS. Medica l tablets follow Branch package directions methylPREDN 2018-11 Yes [id number] Take by [facility] ISolone 0-10 05 mouth ity of (MEDROL, 00:00: SEE-INSTRU [place] as OLEKSANDR,) 4 mg 00 CTIONS. Medica l tablets follow Branch package directions methylPREDN 2018-11 Yes [id number] Take by [facility] ISolone 0-10 05 mouth ity of (MEDROL, 00:00: SEE-INSTRU [facility] as OLEKSANDR,) 4 mg 00 CTIONS. Medica l tablets follow Branch package directions methylPREDN 2018-11 Yes [id number] Take by [facility] ISolone 0-10 05 mouth ity of (MEDROL, 00:00: SEE-INSTRU [facility] as OLEKSANDR,) 4 mg 00 CTIONS. Medica l tablets follow Branch package directions methylPREDN 2018-11 Yes [id number] Take by [facility] ISolone 0-10 05 mouth ity of (MEDROL, 00:00: SEE-INSTRU Javi as OLEKSANDR,) 4 mg 00 CTIONS. Medica l tablets follow Branch package directions methylPREDN 2018-11 Yes [id number] Take by [facility] ISolone 0-10 05 mouth ity of (MEDROL, 00:00: SEE-INSTRU J[place] as OLEKSANDR,) 4 mg 00 CTIONS. Medica l tablets follow Branch package directions methylPREDN 2018-11 Yes [id number] Take by [facility] ISolone 0-10 05 mouth ity of (MEDROL, 00:00: SEE-INSTRU Javi as OLEKSANDR,) 4 mg 00 CTIONS. Medica l tablets follow Branch package directions methylPREDN 2018-11 Yes [id number] Take by [facility] ISolone 0-10 05 mouth ity of (MEDROL, 00:00: SEE-INSTRU Javi as OLEKSANDR,) 4 mg 00 CTIONS. Medica l tablets follow Branch package directions methylPREDN 2018-11 Yes [id number] Take by [facility] ISolone 0-10 05 mouth ity of (MEDROL, 00:00: SEE-INSTRU Javi as OLEKSANDR,) 4 mg 00 CTIONS. Medica l tablets follow Branch package directions methylPREDN 2018-11 Yes [id number] Take by [facility] ISolone 0-10 05 mouth ity of (MEDROL, 00:00: SEE-INSTRU Javi as OLEKSANDR,) 4 mg 00 CTIONS. Medica l tablets follow Branch package directions methylPREDN 2018-11 Yes [id number] Take by [facility] ISolone 0-10 05 mouth ity of (MEDROL, 00:00: SEE-INSTRU Javi as OLEKSANDR,) 4 mg 00 CTIONS. Medica l tablets follow Branch package directions methylPREDN 2018-11 Yes [id number] Take by [facility] ISolone 0-10 05 mouth ity of (MEDROL, 00:00: SEE-INSTRU Javi as OLEKSANDR,) 4 mg 00 CTIONS. Medica l tablets follow Branch package directions methylPREDN 2018-11 Yes [id number] Take by [facility] ISolone 0-10 05 mouth ity of (MEDROL, 00:00: SEE-INSTRU Javi as OLEKSANDR,) 4 mg 00 CTIONS. Medica l tablets follow Branch package directions methylPREDN 2018-11 Yes [id number] Take by [facility] ISolone 0-10 05 mouth ity of (MEDROL, 00:00: SEE-INSTRU Javi as OLEKSANDR,) 4 mg 00 CTIONS. Medica l tablets follow Branch package directions methylPREDN 2018-11 Yes [id number] Take by [facility] ISolone 0-10 05 mouth ity of (MEDROL, 00:00: SEE-INSTRU Javi as OLEKSANDR,) 4 mg 00 CTIONS. Medica l tablets follow Branch package directions methylPREDN 2018-11 Yes [id number] Take by [facility] ISolone 0-10 05 mouth ity of (MEDROL, 00:00: SEE-INSTRU Javi as OLEKSANDR,) 4 mg 00 CTIONS. Medica l tablets follow Branch package directions methylPREDN 2018-11 Yes [id number] Take by [facility] ISolone 0-10 05 mouth ity of (MEDROL, 00:00: SEE-INSTRU Javi as OLEKSANDR,) 4 mg 00 CTIONS. Medica l tablets follow Branch package directions methylPREDN 2018-11 Yes [id number] Take by [facility] ISolone 0-10 05 mouth ity of (MEDROL, 00:00: SEE-INSTRU Javi as OLEKSANDR,) 4 mg 00 CTIONS. Medica l tablets follow Branch package directions methylPREDN 2018-11 Yes [id number] Take by [facility] ISolone 0-10 05 mouth ity of (MEDROL, 00:00: SEE-INSTRU Javi as OLEKSANDR,) 4 mg 00 CTIONS. Medica l tablets follow Branch package directions methylPREDN 2018-11 Yes [id number] Take by [facility] ISolone 0-10 05 mouth ity of (MEDROL, 00:00: SEE-INSTRU Javi as OLEKSANDR,) 4 mg 00 CTIONS. Medica l tablets follow Branch package directions methylPREDN 2018-11 Yes [id number] Take by [facility] ISolone 0-10 05 mouth ity of (MEDROL, 00:00: SEE-INSTRU Javi as OLEKSANDR,) 4 mg 00 CTIONS. Medica l tablets follow Branch package directions methylPREDN 2018-11 Yes [id number] Take by [facility] ISolone 0-10 05 mouth ity of (MEDROL, 00:00: SEE-INSTRU Javi as OLEKSANDR,) 4 mg 00 CTIONS. Medica l tablets follow Branch package directions methylPREDN 2018-11 Yes [id number] Take by [facility] ISolone 0-10 05 mouth ity of (MEDROL, 00:00: SEE-INSTRU Javi as OLEKSANDR,) 4 mg 00 CTIONS. Medica l tablets follow Branch package directions pentazocine Yes 1{tbl} Take 1 [facility] -naloxone 4-23 tablet by ity o f 50-0.5 mg 00:00: mouth [place] tablet 00 every 6 Medical (six) Branch hours as needed for Pain. pentazocine Yes 1{tbl} Take 1 [facility] -naloxone 4-23 tablet by ity o f 50-0.5 mg 00:00: mouth [place] tablet 00 every 6 Medical (six) Branch hours as needed for Pain. pentazocine Yes 1{tbl} Take 1 [facility] -naloxone 4-23 tablet by ity o f 50-0.5 mg 00:00: mouth [place] tablet 00 every 6 Medical (six) Branch hours as needed for Pain. pentazocine Yes 1{tbl} Take 1 [facility] -naloxone 4-23 tablet by ity o f 50-0.5 mg 00:00: mouth [place] tablet 00 every 6 Medical (six) Branch hours as needed for Pain. pentazocine Yes 1{tbl} Take 1 [facility] -naloxone 4-23 tablet by ity o f 50-0.5 mg 00:00: mouth [place] tablet 00 every 6 Medical (six) Branch hours as needed for Pain. pentazocine Yes 1{tbl} Take 1 [facility] -naloxone 4-23 tablet by ity o f 50-0.5 mg 00:00: mouth [place] tablet 00 every 6 Medical (six) Branch hours as needed for Pain. pentazocine Yes 1{tbl} Take 1 [facility] -naloxone 4-23 tablet by ity o f 50-0.5 mg 00:00: mouth [place] tablet 00 every 6 Medical (six) Branch hours as needed for Pain. pentazocine 2019-0 Yes 1{tbl} Take 1 [facility] -naloxone 4-23 tablet by ity o f 50-0.5 mg 00:00: mouth [place] tablet 00 every 6 Medical (six) Branch hours as needed for Pain. pentazocine 2019-0 Yes 1{tbl} Take 1 [facility] -naloxone 4-23 tablet by ity o f 50-0.5 mg 00:00: mouth [place] tablet 00 every 6 Medical (six) Branch hours as needed for Pain. pentazocine 2019-0 Yes 1{tbl} Take 1 [facility] -naloxone 4-23 tablet by ity o f 50-0.5 mg 00:00: mouth [place] tablet 00 every 6 Medical (six) Branch hours as needed for Pain. pentazocine 0 Yes 1{tbl} Take 1 [facility] -naloxone 4-23 tablet by ity o f 50-0.5 mg 00:00: mouth [place] tablet 00 every 6 Medical (six) Branch hours as needed for Pain. pentazocine 2018-0 Yes 1{tbl} Take 1 [facility] -naloxone 4-23 tablet by ity o f 50-0.5 mg 00:00: mouth [place] tablet 00 every 6 Medical (six) Branch hours as needed for Pain. pentazocine 2018-0 Yes 1{tbl} Take 1 [facility] -naloxone 4-23 tablet by ity o f 50-0.5 mg 00:00: mouth [place] tablet 00 every 6 Medical (six) Branch hours as needed for Pain. pentazocine 2018-0 Yes 1{tbl} Take 1 [facility] -naloxone 4-23 tablet by ity o f 50-0.5 mg 00:00: mouth [place] tablet 00 every 6 Medical (six) Branch hours as needed for Pain. pentazocine 2019-0 Yes 1{tbl} Take 1 [facility] -naloxone 4-23 tablet by ity o f 50-0.5 mg 00:00: mouth [place] tablet 00 every 6 Medical (six) Branch hours as needed for Pain. pentazocine 2019-0 Yes 1{tbl} Take 1 [facility] -naloxone 4-23 tablet by ity o f 50-0.5 mg 00:00: mouth [place] tablet 00 every 6 Medical (six) Branch hours as needed for Pain. pentazocine 2019-0 Yes 1{tbl} Take 1 [facility] -naloxone 4-23 tablet by ity o f 50-0.5 mg 00:00: mouth [place] tablet 00 every 6 Medical (six) Branch hours as needed for Pain. pentazocine 2019-0 Yes 1{tbl} Take 1 [facility] -naloxone 4-23 tablet by ity o f 50-0.5 mg 00:00: mouth [place] tablet 00 every 6 Medical (six) Branch hours as needed for Pain. pentazocine 2019-0 Yes 1{tbl} Take 1 [facility] -naloxone 4-23 tablet by ity o f 50-0.5 mg 00:00: mouth [place] tablet 00 every 6 Medical (six) Branch hours as needed for Pain. pentazocine 2019-0 Yes 1{tbl} Take 1 [facility] -naloxone 4-23 tablet by ity o f 50-0.5 mg 00:00: mouth [place] tablet 00 every 6 Medical (six) Branch hours as needed for Pain. pentazocine 2018-0 Yes 1{tbl} Take 1 [facility] -naloxone 4-23 tablet by ity o f 50-0.5 mg 00:00: mouth [place] tablet 00 every 6 Medical (six) Branch hours as needed for Pain. pentazocine 2019-0 Yes 1{tbl} Take 1 [facility] -naloxone 4-23 tablet by ity o f 50-0.5 mg 00:00: mouth [place] tablet 00 every 6 Medical (six) Branch hours as needed for Pain. pentazocine 2018-0 Yes 1{tbl} Take 1 [facility]ree -naloxone 4-23 tablet by ity o f 50-0.5 mg 00:00: mouth [place] tablet 00 every 6 Medical (six) Branch hours as needed for Pain. pentazocine 2019-0 Yes 1{tbl} Take 1 [facility] -naloxone 4-23 tablet by ity o f 50-0.5 mg 00:00: mouth [place] tablet 00 every 6 Medical (six) Branch hours as needed for Pain. pentazocine 2019-0 Yes 1{tbl} Take 1 [facility] -naloxone 4-23 tablet by ity o f 50-0.5 mg 00:00: mouth [place] tablet 00 every 6 Medical (six) Branch hours as needed for Pain. pentazocine 2019-0 Yes 1{tbl} Take 1 [facility] -naloxone 4-23 tablet by ity o f 50-0.5 mg 00:00: mouth [place] tablet 00 every 6 Medical (six) Branch hours as needed for Pain. pentazocine 2019-0 Yes 1{tbl} Take 1 [facility] -naloxone 4-23 tablet by ity o f 50-0.5 mg 00:00: mouth [place] tablet 00 every 6 Medical (six) Branch hours as needed for Pain. pentazocine 2019-0 Yes 1{tbl} Take 1 [facility] -naloxone 4-23 tablet by ity o f 50-0.5 mg 00:00: mouth [place] tablet 00 every 6 Medical (six) Branch hours as needed for Pain. pentazocine 2019-0 Yes 1{tbl} Take 1 [facility] -naloxone 4-23 tablet by ity o f 50-0.5 mg 00:00: mouth [place] tablet 00 every 6 Medical (six) Branch hours as needed for Pain. pentazocine 2019-0 Yes 1{tbl} Take 1 [facility] -naloxone 4-23 tablet by ity o f 50-0.5 mg 00:00: mouth [place] tablet 00 every 6 Medical (six) Branch hours as needed for Pain. pentazocine 2019-0 Yes 1{tbl} Take 1 [facility] -naloxone 4-23 tablet by ity o f 50-0.5 mg 00:00: mouth [place] tablet 00 every 6 Medical (six) Branch hours as needed for Pain. pentazocine 2019-0 Yes 1{tbl} Take 1 [facility]ree -naloxone 4-23 tablet by ity o f 50-0.5 mg 00:00: mouth [place] tablet 00 every 6 Medical (six) Branch hours as needed for Pain. pentazocine 2019-0 Yes 1{tbl} Take 1 [facility] -naloxone 4-23 tablet by ity o f 50-0.5 mg 00:00: mouth [place] tablet 00 every 6 Medical (six) Branch hours as needed for Pain. pentazocine 2019-0 Yes 1{tbl} Take 1 [facility] -naloxone 4-23 tablet by ity o f 50-0.5 mg 00:00: mouth [place] tablet 00 every 6 Medical (six) Branch hours as needed for Pain. pentazocine 2019-0 Yes 1{tbl} Take 1 [facility] kyree -naloxone 4-23 tablet by ity o f 50-0.5 mg 00:00: mouth [place] tablet 00 every 6 Medical (six) Branch hours as needed for Pain. pentazocine 2019-0 Yes 1{tbl} Take 1 Un kyree -naloxone 4-23 tablet by ity o f 50-0.5 mg 00:00: mouth [place] tablet 00 every 6 Medical (six) Branch hours as needed for Pain. pentazocine 2019-0 Yes 1{tbl} Take 1 [facility] kyree -naloxone 4-23 tablet by ity o f 50-0.5 mg 00:00: mouth [place] tablet 00 every 6 Medical (six) Branch hours as needed for Pain. pentazocine 2019-0 Yes 1{tbl} Take 1 Un kyree -naloxone 4-23 tablet by ity o f 50-0.5 mg 00:00: mouth [place] tablet 00 every 6 Medical (six) Branch hours as needed for Pain. pentazocine 2019-0 Yes 1{tbl} Take 1 Un kyree -naloxone 4-23 tablet by ity o f 50-0.5 mg 00:00: mouth [place] tablet 00 every 6 Medical (six) Branch hours as needed for Pain. pentazocine 2018-0 Yes 1{tbl} Take 1 [facility]ree -naloxone 4-23 tablet by ity o f 50-0.5 mg 00:00: mouth [place] tablet 00 every 6 Medical (six) Branch hours as needed for Pain. pentazocine 2019-0 Yes 1{tbl} Take 1 Un kyree -naloxone 4-23 tablet by ity o f 50-0.5 mg 00:00: mouth [place] tablet 00 every 6 Medical (six) Branch hours as needed for Pain. pentazocine 2019-0 Yes 1{tbl} Take 1 [facility]ree -naloxone 4-23 tablet by ity o f 50-0.5 mg 00:00: mouth [place] tablet 00 every 6 Medical (six) Branch hours as needed for Pain. pentazocine 2019-0 Yes 1{tbl} Take 1 [facility]ree -naloxone 4-23 tablet by ity o f 50-0.5 mg 00:00: mouth [place] tablet 00 every 6 Medical (six) Branch hours as needed for Pain. pentazocine 2019-0 Yes 1{tbl} Take 1 Un [facility]ree -naloxone 4-23 tablet by ity o f 50-0.5 mg 00:00: mouth [place] tablet 00 every 6 Medical (six) Branch hours as needed for Pain. pentazocine 2018- Yes 1{tbl} Take 1 Un kyree -naloxone 4-23 tablet by ity o f 50-0.5 mg 00:00: mouth [place] tablet 00 every 6 Medical (six) Branch hours as needed for Pain. pentazocine 2018- Yes 1{tbl} Take 1 Un kyree -naloxone 4-23 tablet by ity o f 50-0.5 mg 00:00: mouth [place] tablet 00 every 6 Medical (six) Branch hours as needed for Pain. pentazocine 2018- Yes 1{tbl} Take 1 Un [facility]ree -naloxone 4-23 tablet by ity o f 50-0.5 mg 00:00: mouth [place] tablet 00 every 6 Medical (six) Branch hours as needed for Pain. pentazocine 2018- Yes 1{tbl} Take 1 [facility] -naloxone 4-23 tablet by ity o f 50-0.5 mg 00:00: mouth [place] tablet 00 every 6 Medical (six) Branch hours as needed for Pain. pentazocine 2018- Yes 1{tbl} Take 1 [facility]ree -naloxone 4-23 tablet by ity o f 50-0.5 mg 00:00: mouth [place] tablet 00 every 6 Medical (six) Branch hours as needed for Pain. pentazocine Yes 1{tbl} Take 1 Un kyree -naloxone 4-23 tablet by ity o f 50-0.5 mg 00:00: mouth [place] tablet 00 every 6 Medical (six) Branch hours as needed for Pain. pentazocine 2018- Yes 1{tbl} Take 1 Un kyree -naloxone 4-23 tablet by ity o f 50-0.5 mg 00:00: mouth [place] tablet 00 every 6 Medical (six) Branch hours as needed for Pain. ASCORBATE 2018- Yes Take by [facility] [place] [facility] rs CALCIUM 4-17 mouth. ity of (VITAMIN C 21:30: [place] ORAL) 49 Medical Branch OMEPRAZOLE 2019-0 Yes Take by [facility] ers ORAL 4-17 mouth. ity of 21:30: [place] 49 Medical Branch pravastatin 2018-0 Yes 40mg Take 40 mg [facility] (PRAVACHOL) 4-17 by mouth ity of 40 mg 21:30: at [place] tablet 49 bedtime. Medical Branch Fish Yes 1{tbl} Take 1 [facility] Oil-DHA-EPA 4-17 tablet by ity of 1,200-144-2 21:30: [place] 16 [place] 49 [facility] Branch ASCORBATE 0 Yes Take by Unive rs CALCIUM 4-17 mouth. ity of (VITAMIN C 21:30: [place] ORAL) 49 Medical Branch OMEPRAZOLE 0 Yes Take by Univ ers ORAL 4-17 mouth. ity of 21:30: [place] [address] Medical Branch pravastatin 0 Yes 40mg Take 40 mg [facility] (PRAVACHOL) 4-17 by mouth ity of 40 mg 21:30: at [place] tablet 49 bedtime. Medical Branch Fish Yes 1{tbl} Take 1 [facility] Oil-DHA-EPA 4-17 tablet by ity of 1,200-144-2 21:30: [place] 16 mg Cap 49 [facility] Branch ASCORBATE Yes Take by [facility] rs CALCIUM 4-17 mouth. ity of (VITAMIN C 21:30: [place] ORAL) 49 Medical Branch OMEPRAZOLE 0 Yes Take by [facility] ers ORAL 4-17 mouth. ity of 21:30: [place] [address] Medical Branch pravastatin 0 Yes 40mg Take 40 mg [facility] (PRAVACHOL) 4-17 by mouth ity of 40 mg 21:30: at [place] tablet 49 bedtime. Medical Branch Fish Yes 1{tbl} Take 1 [facility] Oil-DHA-EPA 4-17 tablet by ity of 1,200-144-2 21:30: [place] 16 mg Cap 49 [facility] Branch ASCORBATE 0 Yes Take by [facility] rs CALCIUM 4-17 mouth. ity of (VITAMIN C 21:30: [place] ORAL) 49 Medical Branch OMEPRAZOLE 0 Yes Take by [facility] ers ORAL 4-17 mouth. ity of 21:30: [place] [address] Medical Branch pravastatin 0 Yes 40mg Take 40 mg [facility] (PRAVACHOL) 4-17 by mouth ity of 40 mg 21:30: at [place] tablet 49 bedtime. Medical Branch Fish Yes 1{tbl} Take 1 [facility] Oil-DHA-EPA 4-17 tablet by ity of 1,200-144-2 21:30: [place]. [place] 16 mg Cap 49 [facility] Branch ASCORBATE 0 Yes Take by [facility] ers CALCIUM 4-17 mouth. ity of (VITAMIN C 21:30: [place] ORAL) 49 Medical Branch OMEPRAZOLE 0 Yes Take by Univ ers ORAL 4-17 mouth. ity of 21:30: [place] [address] Medical Branch pravastatin 0 Yes 40mg Take 40 mg [facility] (PRAVACHOL) 4-17 by mouth ity of 40 mg 21:30: at [place] tablet 49 bedtime. Medical Branch Fish Yes 1{tbl} Take 1 [facility] Oil-DHA-EPA 4-17 tablet by ity of 1,200-144-2 21:30: [place]. [place] 16 mg Cap 49 [facility] Branch ASCORBATE 0 Yes Take by [facility] rs CALCIUM 4-17 mouth. ity of (VITAMIN C 21:30: [place] ORAL) 49 Medical Branch OMEPRAZOLE Yes Take by [facility] ers ORAL 4-17 mouth. ity of 21:30: [place] [address] Medical Branch pravastatin Yes 40mg Take 40 mg [facility] (PRAVACHOL) 4-17 by mouth ity of 40 mg 21:30: at [place] tablet 49 bedtime. Medical Branch Fish Yes 1{tbl} Take 1 [facility] Oil-DHA-EPA 4-17 tablet by ity of 1,200-144-2 21:30: [place]. [place] 16 mg Cap 49 [facility] Branch ASCORBATE 0 Yes Take by [facility] rs CALCIUM 4-17 mouth. ity of (VITAMIN C 21:30: [place] ORAL) 49 Medical Branch OMEPRAZOLE 0 Yes Take by [facility] ers ORAL 4-17 mouth. ity of 21:30: [place] [address] Medical Branch pravastatin 0 Yes 40mg Take 40 mg [facility] (PRAVACHOL) 4-17 by mouth ity of 40 mg 21:30: at [place] tablet 49 bedtime. Medical Branch Fish Yes 1{tbl} Take 1 [facility] Oil-DHA-EPA 4-17 tablet by ity of 1,200-144-2 21:30: [place]. [place] 16 mg Cap 49 Medical Branch ASCORBATE 0 Yes Take by [facility] rs CALCIUM 4-17 mouth. ity of (VITAMIN C 21:30: [place] ORAL) 49 Medical Branch OMEPRAZOLE 0 Yes Take by Univ ers ORAL 4-17 mouth. ity of 21:30: [place] [address] Medical Branch pravastatin 0 Yes 40mg Take 40 mg [facility] (PRAVACHOL) 4-17 by mouth ity of 40 mg 21:30: at [place] tablet 49 bedtime. Medical Branch Fish Yes 1{tbl} Take 1 [facility] Oil-DHA-EPA 4-17 tablet by ity of 1,200-144-2 21:30: [place]. [place] 16 mg Cap 49 Medical Branch ASCORBATE 0 Yes Take by [facility]ive rs CALCIUM 4-17 mouth. ity of (VITAMIN C 21:30: [place] ORAL) Medical Branch OMEPRAZOLE 0 Yes Take by Univ ers ORAL 4-17 mouth. ity of 21:30: [place] [address] Medical Branch pravastatin Yes 40mg Take 40 mg [facility] (PRAVACHOL) 4-17 by mouth ity of 40 mg 21:30: at [place] tablet 49 bedtime. Medical Branch Fish Yes 1{tbl} Take 1 [facility] Oil-DHA-EPA 4-17 tablet by ity of 1,200-144-2 21:30: [place]. [place] 16 mg Cap 49 Medical Branch ASCORBATE 0 Yes Take by [facility] rs CALCIUM 4-17 mouth. ity of (VITAMIN C 21:30: [place] ORAL) 49 Medical Branch Fish Yes 1{tbl} Take 1 [facility] Oil-DHA-EPA 4-17 tablet by ity of 1,200-144-2 21:30: mouth. [place] 16 mg Cap 49 Medical Branch ASCORBATE 0 Yes Take by [facility] rs CALCIUM 4-17 mouth. ity of (VITAMIN C 21:30: [place] ORAL) 49 Medical Branch Fish Yes 1{tbl} Take 1 [facility] Oil-DHA-EPA 4-17 tablet by ity of 1,200-144-2 21:30: [place]. [place] 16 mg Cap 49 Medical Branch acetaminoph Yes [id number] 1{tbl} Take 1 [facility] en-codeine 4-17 05 tablet by ity of (TYLENOL-CO 00:00: mouth [place] DEINE #3) 00 every 4 Medical 300-30 mg (four) Branch tablet hours as needed for Pain (scale 4-6) or Pain (scale 7-10). acetaminoph Yes [id number] 1{tbl} Take 1 [facility] en-codeine 4-17 05 tablet by ity of (TYLENOL-CO 00:00: mouth [place] DEINE #3) 00 every 4 Medical 300-30 mg (four) Branch tablet hours as needed for Pain (scale 4-6) or Pain (scale 7-10). acetaminoph Yes [id number] 1{tbl} Take 1 [facility] en-codeine 4-17 05 tablet by ity of (TYLENOL-CO 00:00: mouth [place] DEINE #3) 00 every 4 Medical 300-30 mg (four) Branch tablet hours as needed for Pain (scale 4-6) or Pain (scale 7-10). acetaminoph Yes [id number] 1{tbl} Take 1 [facility] en-codeine 4-17 05 tablet by ity of (TYLENOL-CO 00:00: mouth [place] DEINE #3) 00 every 4 Medical 300-30 mg (four) Branch tablet hours as needed for Pain (scale 4-6) or Pain (scale 7-10). acetaminoph Yes [id number] 1{tbl} Take 1 [facility] en-codeine 4-17 05 tablet by ity of (TYLENOL-CO 00:00: mouth [place] DEINE #3) 00 every 4 Medical 300-30 mg (four) Branch tablet hours as needed for Pain (scale 4-6) or Pain (scale 7-10). acetaminoph Yes [id number] 1{tbl} Take 1 [facility] en-codeine 4-17 05 tablet by ity of (TYLENOL-CO 00:00: mouth [place] DEINE #3) 00 every 4 Medical 300-30 mg (four) Branch tablet hours as needed for Pain (scale 4-6) or Pain (scale 7-10). acetaminoph Yes [id number] 1{tbl} Take 1 [facility] en-codeine 4-17 05 tablet by ity of (TYLENOL-CO 00:00: mouth [place] DEINE #3) 00 every 4 Medical 300-30 mg (four) Branch tablet hours as needed for Pain (scale 4-6) or Pain (scale 7-10). acetaminoph Yes [id number] 1{tbl} Take 1 [facility] en-codeine 4-17 05 tablet by ity of (TYLENOL-CO 00:00: mouth [place] DEINE #3) 00 every 4 Medical 300-30 mg (four) Branch tablet hours as needed for Pain (scale 4-6) or Pain (scale 7-10). acetaminoph Yes [id number] 1{tbl} Take 1 [facility] en-codeine 4-17 05 tablet by ity of (TYLENOL-CO 00:00: mouth [place] DEINE #3) 00 every 4 Medical 300-30 mg (four) Branch tablet hours as needed for Pain (scale 4-6) or Pain (scale 7-10). acetaminoph Yes [id number] 1{tbl} Take 1 [facility] en-codeine 4-17 05 tablet by ity of (TYLENOL-CO 00:00: mouth [place] DEINE #3) 00 every 4 Medical 300-30 mg (four) Branch tablet hours as needed for Pain (scale 4-6) or Pain (scale 7-10). acetaminoph Yes [id number] 1{tbl} Take 1 [facility] en-codeine 4-17 05 tablet by ity of (TYLENOL-CO 00:00: mouth [place] DEINE #3) 00 every 4 Medical 300-30 mg (four) Branch tablet hours as needed for Pain (scale 4-6) or Pain (scale 7-10). acetaminoph Yes [id number] 1{tbl} Take 1 [facility] en-codeine 4-17 05 tablet by ity of (TYLENOL-CO 00:00: mouth [place] DEINE #3) 00 every 4 Medical 300-30 mg (four) Branch tablet hours as needed for Pain (scale 4-6) or Pain (scale 7-10). acetaminoph Yes [id number] 1{tbl} Take 1 [facility] en-codeine 4-17 05 tablet by ity of (TYLENOL-CO 00:00: mouth [place] DEINE #3) 00 every 4 Medical 300-30 mg (four) Branch tablet hours as needed for Pain (scale 4-6) or Pain (scale 7-10). acetaminoph Yes [id number] 1{tbl} Take 1 [facility] en-codeine 4-17 05 tablet by ity of (TYLENOL-CO 00:00: mouth [place] DEINE #3) 00 every 4 Medical 300-30 mg (four) Branch tablet hours as needed for Pain (scale 4-6) or Pain (scale 7-10). acetaminoph Yes [id number] 1{tbl} Take 1 [facility] en-codeine 4-17 05 tablet by ity of (TYLENOL-CO 00:00: mouth [place] DEINE #3) 00 every 4 Medical 300-30 mg (four) Branch tablet hours as needed for Pain (scale 4-6) or Pain (scale 7-10). acetaminoph Yes [id number] 1{tbl} Take 1 [facility] en-codeine 4-17 05 tablet by ity of (TYLENOL-CO 00:00: mouth [place] DEINE #3) 00 every 4 Medical 300-30 mg (four) Branch tablet hours as needed for Pain (scale 4-6) or Pain (scale 7-10). acetaminoph Yes [id number] 1{tbl} Take 1 [facility] en-codeine 4-17 05 tablet by ity of (TYLENOL-CO 00:00: mouth [place] DEINE #3) 00 every 4 Medical 300-30 mg (four) Branch tablet hours as needed for Pain (scale 4-6) or Pain (scale 7-10). acetaminoph Yes [id number] 1{tbl} Take 1 [facility] en-codeine 4-17 05 tablet by ity of (TYLENOL-CO 00:00: mouth [place] DEINE #3) 00 every 4 Medical 300-30 mg (four) Branch tablet hours as needed for Pain (scale 4-6) or Pain (scale 7-10). acetaminoph Yes [id number] 1{tbl} Take 1 [facility] en-codeine 4-17 05 tablet by ity of (TYLENOL-CO 00:00: mouth [place] DEINE #3) 00 every 4 Medical 300-30 mg (four) Branch tablet hours as needed for Pain (scale 4-6) or Pain (scale 7-10). acetaminoph Yes [id number] 1{tbl} Take 1 [facility] en-codeine 4-17 05 tablet by ity of (TYLENOL-CO 00:00: mouth [place] DEINE #3) 00 every 4 Medical 300-30 mg (four) Branch tablet hours as needed for Pain (scale 4-6) or Pain (scale 7-10). acetaminoph Yes [id number] 1{tbl} Take 1 [facility] en-codeine 4-17 05 tablet by ity of (TYLENOL-CO 00:00: mouth [place] DEINE #3) 00 every 4 Medical 300-30 mg (four) Branch tablet hours as needed for Pain (scale 4-6) or Pain (scale 7-10). acetaminoph Yes [id number] 1{tbl} Take 1 [facility] en-codeine 4-17 05 tablet by ity of (TYLENOL-CO 00:00: mouth [place] DEINE #3) 00 every 4 Medical 300-30 mg (four) Branch tablet hours as needed for Pain (scale 4-6) or Pain (scale 7-10). acetaminoph Yes [id number] 1{tbl} Take 1 [facility] en-codeine 4-17 05 tablet by ity of (TYLENOL-CO 00:00: mouth [place] DEINE #3) 00 every 4 Medical 300-30 mg (four) Branch tablet hours as needed for Pain (scale 4-6) or Pain (scale 7-10). acetaminoph Yes [id number] 1{tbl} Take 1 [facility] en-codeine 4-17 05 tablet by ity of (TYLENOL-CO 00:00: mouth [place] DEINE #3) 00 every 4 Medical 300-30 mg (four) Branch tablet hours as needed for Pain (scale 4-6) or Pain (scale 7-10). acetaminoph Yes [id number] 1{tbl} Take 1 [facility] en-codeine 4-17 05 tablet by [facility] of (TYLENOL-CO 00:00: mouth [place] DEINE #3) 00 every 4 [facility] 300-30 mg (four) Branch tablet hours as needed for Pain (scale 4-6) or Pain (scale 7-10). acetaminoph Yes [id number] 1{tbl} Take 1 [facility] en-codeine 4-17 05 tablet by ity of (TYLENOL-CO 00:00: mouth [place] DEINE #3) 00 every 4 [facility] 300-30 mg (four) Branch tablet hours as needed for Pain (scale 4-6) or Pain (scale 7-10). acetaminoph Yes [id number] 1{tbl} Take 1 [facility] en-codeine 4-17 05 tablet by ity of (TYLENOL-CO 00:00: mouth [place] DEINE #3) 00 every 4 [facility] 300-30 mg (four) Branch tablet hours as needed for Pain (scale 4-6) or Pain (scale 7-10). acetaminoph Yes [id number] 1{tbl} Take 1 [facility] en-codeine 4-17 05 tablet by ity of (TYLENOL-CO 00:00: mouth [place] DEINE #3) 00 every 4 [facility] 300-30 mg (four) Branch tablet hours as needed for Pain (scale 4-6) or Pain (scale 7-10). acetaminoph Yes [id number] 1{tbl} Take 1 [facility] en-codeine 4-17 05 tablet by ity of (TYLENOL-CO 00:00: mouth [place] DEINE #3) 00 every 4 [facility] 300-30 mg (four) Branch tablet hours as needed for Pain (scale 4-6) or Pain (scale 7-10). acetaminoph Yes [id number] 1{tbl} Take 1 [facility] en-codeine 4-17 05 tablet by ity of (TYLENOL-CO 00:00: mouth [place] DEINE #3) 00 every 4 [facility] 300-30 mg (four) Branch tablet hours as needed for Pain (scale 4-6) or Pain (scale 7-10). acetaminoph Yes [id number] 1{tbl} Take 1 [facility] en-codeine 4-17 05 tablet by ity of (TYLENOL-CO 00:00: mouth [place] DEINE #3) 00 every 4 [facility] 300-30 mg (four) Branch tablet hours as needed for Pain (scale 4-6) or Pain (scale 7-10). acetaminoph Yes [id number] 1{tbl} Take 1 [facility] en-codeine 4-17 05 tablet by ity of (TYLENOL-CO 00:00: mouth [place] DEINE #3) 00 every 4 [facility] 300-30 mg (four) Branch tablet hours as needed for Pain (scale 4-6) or Pain (scale 7-10). acetaminoph Yes [id number] 1{tbl} Take 1 [facility] en-codeine 4-17 05 tablet by ity of (TYLENOL-CO 00:00: mouth [place] DEINE #3) 00 every 4 [facility] 300-30 mg (four) Branch tablet hours as needed for Pain (scale 4-6) or Pain (scale 7-10). acetaminoph Yes [id number] 1{tbl} Take 1 [facility] en-codeine 4-17 05 tablet by ity of (TYLENOL-CO 00:00: mouth [place] DEINE #3) 00 every 4 [facility] 300-30 mg (four) Branch tablet hours as needed for Pain (scale 4-6) or Pain (scale 7-10). acetaminoph Yes [id number] 1{tbl} Take 1 [facility] en-codeine 4-17 05 tablet by ity of (TYLENOL-CO 00:00: mouth [place] DEINE #3) 00 every 4 [facility] 300-30 mg (four) Branch tablet hours as needed for Pain (scale 4-6) or Pain (scale 7-10). acetaminoph Yes [id number] 1{tbl} Take 1 [facility] en-codeine 4-17 05 tablet by ity of (TYLENOL-CO 00:00: mouth [place] DEINE #3) 00 every 4 [facility] 300-30 mg (four) Branch tablet hours as needed for Pain (scale 4-6) or Pain (scale 7-10). acetaminoph Yes [id number] 1{tbl} Take 1 [facility] en-codeine 4-17 05 tablet by ity of (TYLENOL-CO 00:00: mouth [place] DEINE #3) 00 every 4 [facility] 300-30 mg (four) Branch tablet hours as needed for Pain (scale 4-6) or Pain (scale 7-10). acetaminoph Yes [id number] 1{tbl} Take 1 [facility] en-codeine 4-17 05 tablet by ity of (TYLENOL-CO 00:00: mouth [place] DEINE #3) 00 every 4 [facility] 300-30 mg (four) Branch tablet hours as needed for Pain (scale 4-6) or Pain (scale 7-10). acetaminoph Yes [id number] 1{tbl} Take 1 [facility] en-codeine 4-17 05 tablet by ity of (TYLENOL-CO 00:00: mouth [place] DEINE #3) 00 every 4 [facility] 300-30 mg (four) Branch tablet hours as needed for Pain (scale 4-6) or Pain (scale 7-10). acetaminoph Yes [id number] 1{tbl} Take 1 [facility] en-codeine 4-17 05 tablet by ity of (TYLENOL-CO 00:00: mouth [place] DEINE #3) 00 every 4 [facility] 300-30 mg (four) Branch tablet hours as needed for Pain (scale 4-6) or Pain (scale 7-10). acetaminoph Yes [id number] 1{tbl} Take 1 [facility] en-codeine 4-17 05 tablet by ity of (TYLENOL-CO 00:00: mouth [place] DEINE #3) 00 every 4 [facility] 300-30 mg (four) Branch tablet hours as needed for Pain (scale 4-6) or Pain (scale 7-10). acetaminoph Yes [id number] 1{tbl} Take 1 [facility] en-codeine 4-17 05 tablet by ity of (TYLENOL-CO 00:00: mouth [place] DEINE #3) 00 every 4 [facility] 300-30 mg (four) Branch tablet hours as needed for Pain (scale 4-6) or Pain (scale 7-10). acetaminoph Yes [id number] 1{tbl} Take 1 [facility] en-codeine 4-17 05 tablet by ity of (TYLENOL-CO 00:00: mouth [place] DEINE #3) 00 every 4 [facility] 300-30 mg (four) Branch tablet hours as needed for Pain (scale 4-6) or Pain (scale 7-10). acetaminoph Yes [id number] 1{tbl} Take 1 [facility] en-codeine 4-17 05 tablet by ity of (TYLENOL-CO 00:00: mouth [place] DEINE #3) 00 every 4 [facility] 300-30 mg (four) Branch tablet hours as needed for Pain (scale 4-6) or Pain (scale 7-10). acetaminoph Yes [id number] 1{tbl} Take 1 [facility] en-codeine 4-17 05 tablet by ity of (TYLENOL-CO 00:00: mouth [place] DEINE #3) 00 every 4 [facility] 300-30 mg (four) Branch tablet hours as needed for Pain (scale 4-6) or Pain (scale 7-10). acetaminoph Yes [id number] 1{tbl} Take 1 [facility] en-codeine 4-17 05 tablet by ity of (TYLENOL-CO 00:00: mouth [place] DEINE #3) 00 every 4 [facility] 300-30 mg (four) Branch tablet hours as needed for Pain (scale 4-6) or Pain (scale 7-10). acetaminoph Yes [id number] 1{tbl} Take 1 [facility] en-codeine 4-17 05 tablet by ity of (TYLENOL-CO 00:00: mouth [place] DEINE #3) 00 every 4 [facility] 300-30 mg (four) Branch tablet hours as needed for Pain (scale 4-6) or Pain (scale 7-10). acetaminoph Yes [id number] 1{tbl} Take 1 [facility] en-codeine 4-17 05 tablet by ity of (TYLENOL-CO 00:00: mouth [place] DEINE #3) 00 every 4 [facility] 300-30 mg (four) Branch tablet hours as needed for Pain (scale 4-6) or Pain (scale 7-10). acetaminoph Yes [id number] 1{tbl} Take 1 [facility] en-codeine 4-17 05 tablet by ity of (TYLENOL-CO 00:00: mouth [place] DEINE #3) 00 every 4 [facility] 300-30 mg (four) Branch tablet hours as needed for Pain (scale 4-6) or Pain (scale 7-10). acetaminoph Yes [id number] 1{tbl} Take 1 [facility] en-codeine 4-17 05 tablet by ity of (TYLENOL-CO 00:00: mouth [place] DEINE #3) 00 every 4 Medical 300-30 mg (four) Branch tablet hours as needed for Pain (scale 4-6) or Pain (scale 7-10). acetaminoph Yes [id number] 1{tbl} Take 1 [facility] en-codeine 4-17 05 tablet by ity of (TYLENOL-CO 00:00: mouth [place] DEINE #3) 00 every 4 Medical 300-30 mg (four) Branch tablet hours as needed for Pain (scale 4-6) or Pain (scale 7-10). pravastatin 2019-0 Yes 40mg Take 40 mg [facility] 40 mg 2-13 by mouth. ity of tablet 00:00: [address] pravastatin 2019-0 Yes 40mg Take 40 mg [facility] 40 mg 2-13 by mouth. ity of tablet 00:00: [address] pravastatin 2019-0 Yes 40mg Take 40 mg [facility] 40 mg 2-13 by mouth. ity of tablet 00:00: [address] pravastatin 2019-0 Yes 40mg Take 40 mg [facility] 40 mg 2-13 by mouth. ity of tablet 00:00: [address] pravastatin 2019-0 Yes 40mg Take 40 mg [facility] 40 mg 2-13 by mouth. ity of tablet 00:00: [address] pravastatin 2019-0 Yes 40mg Take 40 mg [facility] 40 mg 2-13 by mouth. ity of tablet 00:00: [address] pravastatin 2019-0 Yes 40mg Take 40 mg [facility] 40 mg 2-13 by mouth. ity of tablet 00:00: [address] pravastatin 2019-0 Yes 40mg Take 40 mg [facility] 40 mg 2-13 by mouth. ity of tablet 00:00: [address] pravastatin 2019-0 Yes 40mg Take 40 mg [facility] 40 mg 2-13 by mouth. ity of tablet 00:00: [address] pravastatin 2019-0 Yes 40mg Take 40 mg [facility] 40 mg 2-13 by mouth. ity of tablet 00:00: [address] pravastatin 2019-0 Yes 40mg Take 40 mg [facility] 40 mg 2-13 by mouth. ity of tablet 00:00: [address] pravastatin 2019-0 Yes 40mg Take 40 mg [facility] 40 mg 2-13 by mouth. ity of tablet 00:00: [address] pravastatin 2019-0 Yes 40mg Take 40 mg [facility] 40 mg 2-13 by mouth. ity of tablet 00:00: [address] pravastatin 2019-0 Yes 40mg Take 40 mg [facility] 40 mg 2-13 by mouth. ity of tablet 00:00: [address] pravastatin 2019-0 Yes 40mg Take 40 mg [facility] 40 mg 2-13 by mouth. ity of tablet 00:00: [place] [facility] pravastatin 2019-0 Yes 40mg Take 40 mg [facility] 40 mg 2-13 by mouth. ity of tablet 00:00: [place] [facility] pravastatin 2019-0 Yes 40mg Take 40 mg [facility] 40 mg 2-13 by mouth. ity of tablet 00:00: [place] [facility] pravastatin 2019-0 Yes 40mg Take 40 mg [facility] 40 mg 2-13 by mouth. ity of tablet 00:00: [place] [facility] pravastatin 2019-0 Yes 40mg Take 40 mg [facility] 40 mg 2-13 by mouth. ity of tablet 00:00: [place] [facility] pravastatin 2019-0 Yes 40mg Take 40 mg [facility] 40 mg 2-13 by mouth. ity of tablet 00:00: [place] [facility] pravastatin 2019-0 Yes 40mg Take 40 mg [facility] 40 mg 2-13 by mouth. ity of tablet 00:00: [address] pravastatin 2019-0 Yes 40mg Take 40 mg [facility] 40 mg 2-13 by mouth. ity of tablet 00:00: [place] [facility] pravastatin 2019-0 Yes 40mg Take 40 mg [facility] 40 mg 2-13 by mouth. ity of tablet 00:00: [address] pravastatin 2019-0 Yes 40mg Take 40 mg [facility] 40 mg 2-13 by mouth. ity of tablet 00:00: [place] [facility] pravastatin 2019-0 Yes 40mg Take 40 mg [facility] 40 mg 2-13 by mouth. ity of tablet 00:00: [place] [facility] pravastatin 2019-0 Yes 40mg Take 40 mg [facility] 40 mg 2-13 by mouth. ity of tablet 00:00: [place] [facility] pravastatin 2019-0 Yes 40mg Take 40 mg [facility] 40 mg 2-13 by mouth. ity of tablet 00:00: [address] pravastatin 2019-0 Yes 40mg Take 40 mg [facility] 40 mg 2-13 by mouth. ity of tablet 00:00: [address] pravastatin 2019-0 Yes 40mg Take 40 mg [facility] 40 mg 2-13 by mouth. ity of tablet 00:00: [address] pravastatin 2019-0 Yes 40mg Take 40 mg [facility] 40 mg 2-13 by mouth. ity of tablet 00:00: [address] pravastatin 2019-0 Yes 40mg Take 40 mg [facility] 40 mg 2-13 by mouth. ity of tablet 00:00: [place] [facility] pravastatin 2019-0 Yes 40mg Take 40 mg [facility] 40 mg 2-13 by mouth. ity of tablet 00:00: [place] [facility] pravastatin 2019-0 Yes 40mg Take 40 mg [facility] 40 mg 2-13 by mouth. ity of tablet 00:00: [place] [facility] pravastatin 2019-0 Yes 40mg Take 40 mg [facility] 40 mg 2-13 by mouth. ity of tablet 00:00: [place] [facility] pravastatin 2019-0 Yes 40mg Take 40 mg [facility] 40 mg 2-13 by mouth. ity of tablet 00:00: [address] pravastatin 2019-0 Yes 40mg Take 40 mg [facility] 40 mg 2-13 by mouth. ity of tablet 00:00: [address] pravastatin 2019-0 Yes 40mg Take 40 mg [facility] 40 mg 2-13 by mouth. ity of tablet 00:00: [address] pravastatin 2019-0 Yes 40mg Take 40 mg [facility] 40 mg 2-13 by mouth. ity of tablet 00:00: [address] pravastatin 2019-0 Yes 40mg Take 40 mg [facility] 40 mg 2-13 by mouth. ity of tablet 00:00: [address] pravastatin 2019-0 Yes 40mg Take 40 mg [facility] 40 mg 2-13 by mouth. ity of tablet 00:00: [address] pravastatin 2019-0 Yes 40mg Take 40 mg [facility] 40 mg 2-13 by mouth. ity of tablet 00:00: [address] pravastatin 2019-0 Yes 40mg Take 40 mg [facility] 40 mg 2-13 by mouth. ity of tablet 00:00: [address] pravastatin 2019-0 Yes 40mg Take 40 mg [facility] 40 mg 2-13 by mouth. ity of tablet 00:00: [address] pravastatin 2019-0 Yes 40mg Take 40 mg [facility] 40 mg 2-13 by mouth. ity of tablet 00:00: [address] pravastatin 2019-0 Yes 40mg Take 40 mg [facility] 40 mg 2-13 by mouth. ity of tablet 00:00: [address] pravastatin 2019-0 Yes 40mg Take 40 mg [facility] 40 mg 2-13 by mouth. ity of tablet 00:00: [place] 00 [facility] pravastatin 2019-0 Yes 40mg Take 40 mg [facility] 40 mg 2-13 by mouth. ity of tablet 00:00: [place] [facility] pravastatin 2019-0 Yes 40mg Take 40 mg [facility] 40 mg 2-13 by mouth. ity of tablet 00:00: [place] 00 [facility] pravastatin 2019-0 Yes 40mg Take 40 mg [facility] 40 mg 2-13 by mouth. ity of tablet 00:00: [place] [facility] pravastatin 2019-0 Yes 40mg Take 40 mg [facility] 40 mg 2-13 by mouth. ity of tablet 00:00: [place] [facility] pravastatin 2019-0 Yes 40mg Take 40 mg [facility] 40 mg 2-13 by mouth. ity of tablet 00:00: [place] 00 [facility] metoprolol 2019-0 Yes 50mg 50 mg 2 Univ ers tartrate 50 1-09 (two) ity of mg tablet 00:00: times [place] 00 daily. Medical Branch losartan-hy 2019-0 Yes Univer s drochloroth 1-09 ity of iazide 00:00: [place] 50-12.5 mg 00 Medical per tablet Branch clopidogrel 2019-0 Yes 75mg Take 75 mg [facility] 75 mg 1-09 by mouth. ity of tablet 00:00: [place] [facility] metoprolol 2019-0 Yes 50mg 50 mg 2 [facility] ers tartrate 50 1-09 (two) ity of mg tablet 00:00: times [place] 00 daily. Medical Branch losartan-hy 2019-0 Yes Univer s drochloroth 1-09 ity of iazide 00:00: [place] 50-12.5 mg 00 Medical per tablet Branch clopidogrel 2019-0 Yes 75mg Take 75 mg [facility] 75 mg 1-09 by mouth. ity of tablet 00:00: [place] 00 [facility] metoprolol 2019-0 Yes 50mg 50 mg 2 [facility] ers tartrate 50 1-09 (two) ity of mg tablet 00:00: times [place] 00 daily. Medical Branch losartan-hy 2019-0 Yes Univer s drochloroth 1-09 ity of iazide 00:00: [place] 50-12.5 mg 00 Medical per tablet Branch clopidogrel 2019-0 Yes 75mg Take 75 mg [facility] 75 mg 1-09 by mouth. ity of tablet 00:00: [place] [facility] metoprolol 2019-0 Yes 50mg 50 mg 2 [facility] ers tartrate 50 -09 (two) ity of mg tablet 00:00: times [place] 00 daily. Medical Branch losartan-hy 2019-0 Yes Univer s drochloroth 1-09 ity of iazide 00:00: [place] 50-12.5 mg 00 Medical per tablet Branch clopidogrel 2019-0 Yes 75mg Take 75 mg [facility] 75 mg -09 by mouth. ity of tablet 00:00: [place] 00 [facility] metoprolol 2019-0 Yes 50mg 50 mg 2 [facility] ers tartrate 50 -09 (two) ity of mg tablet 00:00: times [place] 00 daily. Medical Branch losartan-hy 2018-0 Yes Univer s drochloroth -09 ity of iazide 00:00: [place] 50-12.5 mg 00 Medical per tablet Branch clopidogrel 2019-0 Yes 75mg Take 75 mg [facility] 75 mg 09 by mouth. ity of tablet 00:00: [place] 00 [facility] metoprolol 2019-0 Yes 50mg 50 mg 2 [facility] ers tartrate 50 -09 (two) ity of mg tablet 00:00: times [place] 00 daily. Medical Branch losartan-hy 2018-0 Yes Univer s drochloroth -09 ity of iazide 00:00: [place] 50-12.5 mg 00 Medical per tablet Branch clopidogrel 2019-0 Yes 75mg Take 75 mg [facility] 75 mg 09 by mouth. ity of tablet 00:00: [place] 00 [facility] metoprolol 2019-0 Yes 50mg 50 mg 2 [facility] ers tartrate 50 -09 (two) ity of mg tablet 00:00: times [place] 00 daily. Medical Branch losartan-hy 2019-0 Yes Univer s drochloroth -09 ity of iazide 00:00: [place] 50-12.5 mg 00 Medical per tablet Branch clopidogrel 2019-0 Yes 75mg Take 75 mg [facility] 75 mg -09 by mouth. ity of tablet 00:00: [place] 00 [facility] metoprolol 2019-0 Yes 50mg 50 mg 2 [facility] ers tartrate 50 -09 (two) ity of mg tablet 00:00: times [place] 00 daily. Medical Branch losartan-hy 2019-0 Yes Univer s drochloroth 1-09 ity of iazide 00:00: [place] 50-12.5 mg 00 Medical per tablet Branch clopidogrel 2019-0 Yes 75mg Take 75 mg [facility] 75 mg -09 by mouth. ity of tablet 00:00: [place] 00 [facility] metoprolol 2019-0 Yes 50mg 50 mg 2 [facility] ers tartrate 50 -09 (two) ity of mg tablet 00:00: times [place] 00 daily. Medical Branch losartan- 2019-0 Yes Univer s drochloroth -09 ity of iazide 00:00: [place] 50-12.5 mg 00 Medical per tablet Branch clopidogrel 2019-0 Yes 75mg Take 75 mg [facility] 75 mg -09 by mouth. ity of tablet 00:00: [place] 00 [facility] metoprolol 2019-0 Yes 50mg 50 mg 2 [facility] ers tartrate 50 -09 (two) ity of mg tablet 00:00: times [place] 00 daily. Medical Branch losartan- 2018-0 Yes Univer s drochloroth 12-03 ity of iazide 00:00: [place] 50-12.5 mg 00 Medical per tablet Branch clopidogrel 2019-0 Yes 75mg Take 75 mg [facility] 75 mg 09 by mouth. ity of tablet 00:00: [place] 00 [facility] metoprolol 2019-0 Yes 50mg 50 mg 2 [facility] ers tartrate 50 -09 (two) ity of mg tablet 00:00: times [place] 00 daily. Medical Branch losartan- 2018-0 Yes Univer s drochloroth -09 ity of iazide 00:00: [place] 50-12.5 mg 00 Medical per tablet Branch clopidogrel 2019-0 Yes 75mg Take 75 mg [facility] 75 mg 09 by mouth. ity of tablet 00:00: [place] 00 [facility] metoprolol 2019-0 Yes 50mg 50 mg 2 [facility] ers tartrate 50 -09 (two) ity of mg tablet 00:00: times [place] 00 daily. Medical Branch losartan- 2019-0 Yes Univer s drochloroth -09 ity of iazide 00:00: [place] 50-12.5 mg 00 Medical per tablet Branch clopidogrel 2019-0 Yes 75mg Take 75 mg [facility] 75 mg -09 by mouth. ity of tablet 00:00: [place] 00 [facility] metoprolol 2019-0 Yes 50mg 50 mg 2 [facility] ers tartrate 50 -09 (two) ity of mg tablet 00:00: times [place] 00 daily. Medical Branch losartan-hy 2019-0 Yes Univer s drochloroth 1-09 ity of iazide 00:00: [place] 50-12.5 mg 00 Medical per tablet Branch clopidogrel 2019-0 Yes 75mg Take 75 mg [facility] 75 mg -09 by mouth. ity of tablet 00:00: [place] 00 [facility] metoprolol 2019-0 Yes 50mg 50 mg 2 [facility] ers tartrate 50 1-09 (two) ity of mg tablet 00:00: times [place] 00 daily. Medical Branch losartan-hy 2019-0 Yes Univer s drochloroth 1-09 ity of iazide 00:00: [place] 50-12.5 mg 00 Medical per tablet Branch clopidogrel 2019-0 Yes 75mg Take 75 mg [facility] 75 mg 09 by mouth. ity of tablet 00:00: [place] 00 [facility] metoprolol 2019-0 Yes [facility] tartrate 50 -09 ity of mg tablet 00:00: [place] 00 [facility] metoprolol 2019-0 Yes 50mg 50 mg 2 Univ ers tartrate 50 -09 (two) ity of mg tablet 00:00: times [place] 00 daily. Medical Branch losartan-hy 2018-0 Yes Univer s drochloroth 1-09 ity of iazide 00:00: [place] 50-12.5 mg 00 Medical per tablet Branch clopidogrel 2019-0 Yes 75mg Take 75 mg [facility] 75 mg 09 by mouth. ity of tablet 00:00: [place] 00 [facility] losartan-hy 2019-0 Yes Univer s drochloroth -09 ity of iazide 00:00: [place] 50-12.5 mg 00 Medical per tablet Branch clopidogrel 2019-0 Yes 75mg Take 75 mg [facility] 75 mg -09 by mouth. ity of tablet 00:00: [place] 00 [facility] metoprolol 2019-0 Yes [facility] tartrate 50 1-09 ity of mg tablet 00:00: [place] 00 [facility] losartan-hy 2019-0 Yes Univer s drochloroth 1-09 ity of iazide 00:00: [place] 50-12.5 mg 00 Medical per tablet Branch clopidogrel 2019-0 Yes 75mg Take 75 mg [facility] 75 mg 1-09 by mouth. ity of tablet 00:00: [place] 00 [facility] metoprolol 2019-0 Yes [facility] tartrate 50 1-09 ity of mg tablet 00:00: [place] 00 [facility] losartanhy 2019-0 Yes Univer s drochloroth 1-09 ity of iazide 00:00: [place] 50-12.5 mg 00 Medical per tablet Branch clopidogrel 2019-0 Yes 75mg Take 75 mg [facility] 75 mg 1-09 by mouth. ity of tablet 00:00: [place] [facility] metoprolol 2019-0 Yes [facility] tartrate 50 1-09 ity of mg tablet 00:00: [place] [facility] losartanhy 2019-0 Yes Univer s drochloroth 1-09 ity of iazide 00:00: [place] 50-12.5 mg 00 Medical per tablet Branch clopidogrel 2019-0 Yes 75mg Take 75 mg [facility] 75 mg 1-09 by mouth. ity of tablet 00:00: [place] [facility] metoprolol 2019-0 Yes [facility] tartrate 50 1-09 ity of mg tablet 00:00: [place] [facility] 2018-0 Yes Univer s drochloroth 1-09 ity of iazide 00:00: [place] 50-12.5 mg 00 Medical per tablet Branch clopidogrel 2019-0 Yes 75mg Take 75 mg [facility] 75 mg 1-09 by mouth. ity of tablet 00:00: [address] metoprolol 2019-0 Yes [facility] tartrate 50 1-09 ity of mg tablet 00:00: [place] [facility] 2018-0 Yes Univer s drochloroth 1-09 ity of iazide 00:00: [place] 50-12.5 mg 00 Medical per tablet Branch clopidogrel 2019-0 Yes 75mg Take 75 mg [facility] 75 mg 1-09 by mouth. ity of tablet 00:00: [address] metoprolol 2019-0 Yes [facility] tartrate 50 1-09 ity of mg tablet 00:00: [address] losartanhy 2019-0 Yes Univer s drochloroth 1-09 ity of iazide 00:00: [place] 50-12.5 mg 00 Medical per tablet Branch clopidogrel 2019-0 Yes 75mg Take 75 mg [facility] 75 mg 1-09 by mouth. ity of tablet 00:00: [address] metoprolol 2019-0 Yes [facility] tartrate 50 1-09 ity of mg tablet 00:00: [address] losartanhy 2019-0 Yes Univer s drochloroth 1-09 ity of iazide 00:00: [place] 50-12.5 mg 00 Medical per tablet Branch clopidogrel 2019-0 Yes 75mg Take 75 mg [facility] 75 mg 1-09 by mouth. ity of tablet 00:00: [place] 00 [facility] metoprolol 2019-0 Yes [facility] tartrate 50 1-09 ity of mg tablet 00:00: [place] 00 [facility] losartan-hy 2019-0 Yes Univer s drochloroth 1-09 ity of iazide 00:00: [place] 50-12.5 mg 00 Medical per tablet Branch clopidogrel 2019-0 Yes 75mg Take 75 mg [facility] 75 mg 1-09 by mouth. ity of tablet 00:00: [place] 00 [facility] metoprolol 2019-0 Yes 50mg 50 mg 2 [facility] ers tartrate 50 1-09 (two) ity of mg tablet 00:00: times [place] 00 daily. Medical Branch metoprolol 2019-0 Yes [facility] tartrate 50 1-09 ity of mg tablet 00:00: [place] 00 [facility] losartan-hy 2019-0 Yes Univer s drochloroth 1-09 ity of iazide 00:00: [place] 50-12.5 mg 00 Medical per tablet Branch clopidogrel 2019-0 Yes 75mg Take 75 mg [facility] 75 mg 109 by mouth. ity of tablet 00:00: [place] 00 [facility] losartan-hy 2019-0 Yes Univer s drochloroth -09 ity of iazide 00:00: [place] 50-12.5 mg 00 Medical per tablet Branch clopidogrel 2019-0 Yes 75mg Take 75 mg [facility] 75 mg -09 by mouth. ity of tablet 00:00: [place] [facility] metoprolol 2019-0 Yes [facility] tartrate 50 1-09 ity of mg tablet 00:00: [place] 00 [facility] losartan-hy 2019-0 Yes Univer s drochloroth 1-09 ity of iazide 00:00: [place] 50-12.5 mg 00 Medical per tablet Branch clopidogrel 2019-0 Yes 75mg Take 75 mg [facility] 75 mg 1-09 by mouth. ity of tablet 00:00: [place] [facility] metoprolol 2019-0 Yes 50mg 50 mg 2 [facility] ers tartrate 50 1-09 (two) ity of mg tablet 00:00: times [place] 00 daily. Medical Branch losartan-hy 2019-0 Yes Univer s drochloroth 1-09 ity of iazide 00:00: [place] 50-12.5 mg 00 Medical per tablet Branch clopidogrel 2019-0 Yes 75mg Take 75 mg [facility] 75 mg -09 by mouth. ity of tablet 00:00: [place] 00 [facility] metoprolol 2019-0 Yes 50mg 50 mg 2 [facility] ers tartrate 50 -09 (two) ity of mg tablet 00:00: times [place] 00 daily. Medical Branch losartan-hy 2019-0 Yes Univer s drochloroth -09 ity of iazide 00:00: [place] 50-12.5 mg 00 Medical per tablet Branch clopidogrel 2019-0 Yes 75mg Take 75 mg [facility] 75 mg -09 by mouth. ity of tablet 00:00: [place] 00 [facility] metoprolol 2019-0 Yes 50mg 50 mg 2 [facility] ers tartrate 50 -09 (two) ity of mg tablet 00:00: times [place] 00 daily. Medical Branch losartan-hy 2019-0 Yes Univer s drochloroth 12-03 ity of iazide 00:00: [place] 50-12.5 mg 00 Medical per tablet Branch clopidogrel 2019-0 Yes 75mg Take 75 mg [facility] 75 mg 09 by mouth. ity of tablet 00:00: [place] 00 [facility] metoprolol 2019-0 Yes 50mg 50 mg 2 [facility] ers tartrate 50 - (two) ity of mg tablet 00:00: times [place] 00 daily. Medical Branch losartan-hy 2019-0 Yes Univer s drochloroth 12-03 ity of iazide 00:00: [place] 50-12.5 mg 00 Medical per tablet Branch clopidogrel 2019-0 Yes 75mg Take 75 mg [facility] 75 mg -09 by mouth. ity of tablet 00:00: [place] 00 [facility] metoprolol 2019-0 Yes 50mg 50 mg 2 [facility] ers tartrate 50 -09 (two) ity of mg tablet 00:00: times [place] 00 daily. Medical Branch losartan-hy 2019-0 Yes Univer s drochloroth -09 ity of iazide 00:00: [place] 50-12.5 mg 00 Medical per tablet Branch clopidogrel 2019-0 Yes 75mg Take 75 mg [facility] 75 mg 1-09 by mouth. ity of tablet 00:00: [place] 00 [facility] metoprolol 2019-0 Yes 50mg 50 mg 2 [facility] ers tartrate 50 -09 (two) ity of mg tablet 00:00: times [place] 00 daily. Medical Branch losartan-hy 2019-0 Yes Univer s drochloroth -09 ity of iazide 00:00: [place] 50-12.5 mg 00 Medical per tablet Branch clopidogrel 2019-0 Yes 75mg Take 75 mg [facility] 75 mg -09 by mouth. ity of tablet 00:00: [place] 00 [facility] metoprolol 2019-0 Yes 50mg 50 mg 2 [facility] tartrate 50 -09 (two) [facility] of mg tablet 00:00: times [place] 00 daily. [facility] losartan-hy 2019-0 Yes [facility] drochloroth -09 it[facility] of iazide 00:00: [place] 50-12.5 mg 00 Medical per tablet Branch metoprolol 2019-0 Yes 50mg 50 mg 2 [facility] tartrate 50 -09 (two) ity of mg tablet 00:00: times [place] 00 daily. [facility] clopidogrel 2019-0 Yes 75mg Take 75 mg [facility] 75 mg 09 by mouth. ity of tablet 00:00: [place] 00 [facility] losartan-hy 2019-0 Yes [facility] drochloroth -09 ity of iazide 00:00: [place] 50-12.5 mg 00 Medical per tablet Branch clopidogrel 2019-0 Yes 75mg Take 75 mg [facility] 75 mg 09 by mouth. ity of tablet 00:00: [place] 00 [facility] metoprolol 2019-0 Yes 50mg 50 mg 2 [facility] tartrate 50 -09 (two) ity of mg tablet 00:00: times [place] 00 daily. [facility] losartan-hy 2019-0 Yes [facility] drochloroth -09 ity of iazide 00:00: [place] 50-12.5 mg 00 Medical per tablet Branch clopidogrel 2019-0 Yes 75mg Take 75 mg [facility] 75 mg -09 by mouth. ity of tablet 00:00: [place] 00 [facility] metoprolol 2019-0 Yes 50mg 50 mg 2 [facility] tartrate 50 -09 (two) ity of mg tablet 00:00: times [place] 00 daily. [facility] losartan-hy 2019-0 Yes [facility] drochloroth 1-09 ity of iazide 00:00: [place] 50-12.5 mg 00 Medical per tablet Branch clopidogrel 2019-0 Yes 75mg Take 75 mg [facility] 75 mg -09 by mouth. ity of tablet 00:00: [place] 00 [facility] metoprolol 2019-0 Yes 50mg 50 mg 2 [facility] tartrate 50 -09 (two) ity of mg tablet 00:00: times [place] 00 daily. [facility] losartan- 2019-0 Yes [facility] drochloroth -09 ity of iazide 00:00: [place] 50-12.5 mg 00 Medical per tablet Branch clopidogrel 2019-0 Yes 75mg Take 75 mg [facility] 75 mg -09 by mouth. ity of tablet 00:00: [place] 00 [facility] metoprolol 2019-0 Yes 50mg 50 mg 2 [facility] tartrate 50 -09 (two) ity of mg tablet 00:00: times [place] 00 daily. [facility] losartan- 2018-0 Yes [facility] drochloroth 12-03 ity of iazide 00:00: [place] 50-12.5 mg 00 [facility] per tablet Branch clopidogrel 2019-0 Yes 75mg Take 75 mg [facility] 75 mg 09 by mouth. ity of tablet 00:00: [place] 00 [facility] metoprolol 2019-0 Yes 50mg 50 mg 2 [facility] tartrate 50 -09 (two) ity of mg tablet 00:00: times [place] 00 daily. [facility] losartan- 2018-0 Yes [facility] drochloroth -09 ity of iazide 00:00: [place] 50-12.5 mg 00 Medical per tablet Branch clopidogrel 2019-0 Yes 75mg Take 75 mg [facility] 75 mg 09 by mouth. ity of tablet 00:00: [place] 00 [facility] metoprolol 2019-0 Yes 50mg 50 mg 2 [facility] tartrate 50 -09 (two) ity of mg tablet 00:00: times [place] 00 daily. [facility] losartan- 2019-0 Yes [facility] drochloroth -09 ity of iazide 00:00: [place] 50-12.5 mg 00 Medical per tablet Branch clopidogrel 2019-0 Yes 75mg Take 75 mg [facility] 75 mg -09 by mouth. ity of tablet 00:00: [place] 00 [facility] metoprolol 2019-0 Yes 50mg 50 mg 2 [facility] tartrate 50 -09 (two) ity of mg tablet 00:00: times [place] 00 daily. [facility] losartan-hy 2019-0 Yes [facility] drochloroth 1-09 ity of iazide 00:00: [place] 50-12.5 mg 00 Medical per tablet Branch clopidogrel 2019-0 Yes 75mg Take 75 mg [facility] 75 mg 1-09 by mouth. ity of tablet 00:00: [place] 00 [facility] metoprolol 2019-0 Yes 50mg 50 mg 2 [facility] tartrate 50 1-09 (two) ity of mg tablet 00:00: times [place] 00 daily. [facility] losartan-hy 2019-0 Yes [facility] drochloroth 1-09 ity of iazide 00:00: [place] 50-12.5 mg 00 Medical per tablet Branch clopidogrel 2019-0 Yes 75mg Take 75 mg [facility] 75 mg 09 by mouth. ity of tablet 00:00: [place] 00 [facility] metoprolol 2019-0 Yes 50mg 50 mg 2 [facility] tartrate 50 -09 (two) ity of mg tablet 00:00: times [place] 00 daily. [facility] losartan-hy 2019-0 Yes [facility] drochloroth -09 ity of iazide 00:00: [place] 50-12.5 mg 00 Medical per tablet Branch clopidogrel 2019-0 Yes 75mg Take 75 mg [facility] 75 mg 09 by mouth. ity of tablet 00:00: [place] 00 [facility] metoprolol 2019-0 Yes 50mg 50 mg 2 [facility] tartrate 50 -09 (two) ity of mg tablet 00:00: times [place] 00 daily. [facility] losartan-hy 2019-0 Yes [facility] drochloroth -09 ity of iazide 00:00: [place] 50-12.5 mg 00 Medical per tablet Branch metoprolol 2019-0 Yes 50mg 50 mg 2 [facility] tartrate 50 -09 (two) ity of mg tablet 00:00: times [place] 00 daily. [facility] losartan-hy 2019-0 Yes [facility] drochloroth -09 ity of iazide 00:00: [place] 50-12.5 mg 00 Medical per tablet Branch clopidogrel 2019-0 Yes 75mg Take 75 mg [facility] 75 mg 1-09 by mouth. ity of tablet 00:00: [place] 00 [facility] clopidogrel 2019-0 Yes 75mg Take 75 mg [facility] 75 mg 1-09 by mouth. ity of tablet 00:00: [place] 00 [facility] metoprolol 2019-0 Yes 50mg 50 mg 2 [facility] tartrate 50 -09 (two) ity of mg tablet 00:00: times [place] 00 daily. [facility] losartan-hy 2019-0 Yes [facility] drochloroth 1-09 ity of iazide 00:00: [place] 50-12.5 mg 00 Medical per tablet Branch clopidogrel 2019-0 Yes 75mg Take 75 mg [facility] 75 mg -09 by mouth. ity of tablet 00:00: [place] 00 [facility] metoprolol 2019-0 Yes 50mg 50 mg 2 [facility] tartrate 50 -09 (two) ity of mg tablet 00:00: times [place] 00 daily. [facility] losartan-hy 2019-0 Yes [facility] drochloroth -09 ity of iazide 00:00: [place] 50-12.5 mg 00 Medical per tablet Branch clopidogrel 2019-0 Yes 75mg Take 75 mg [facility] 75 mg 09 by mouth. ity of tablet 00:00: [place] 00 [facility] metoprolol 2019-0 Yes 50mg 50 mg 2 [facility] tartrate 50 -09 (two) ity of mg tablet 00:00: times [place] 00 daily. [facility] losartan-hy 2019-0 Yes [facility] drochloroth -09 ity of iazide 00:00: [place] 50-12.5 mg 00 Medical per tablet Branch clopidogrel 2019-0 Yes 75mg Take 75 mg [facility] 75 mg 09 by mouth. ity of tablet 00:00: [place] 00 [facility] metoprolol 2019-0 Yes 50mg 50 mg 2 [facility] tartrate 50 -09 (two) ity of mg tablet 00:00: times [place] 00 daily. [facility] losartan-hy 2019-0 Yes [facility] drochloroth -09 ity of iazide 00:00: [place] 50-12.5 mg 00 Medical per tablet Branch clopidogrel 2019-0 Yes 75mg Take 75 mg [facility] 75 mg 1-09 by mouth. ity of tablet 00:00: [place] 00 [facility] metoprolol 2019-0 Yes 50mg 50 mg 2 [facility] tartrate 50 -09 (two) ity of mg tablet 00:00: times [place] 00 daily. [facility] losartan-hy 2019-0 Yes [facility] drochloroth 1-09 ity of iazide 00:00: [place] 50-12.5 mg 00 Medical per tablet Branch clopidogrel 2019-0 Yes 75mg Take 75 mg [facility] 75 mg 1-09 by mouth. ity of tablet 00:00: [place] [address] [facility] aspirin 81 2018-0 Yes 81mg Take 81 mg U n[facility] mg EC 2-06 by mouth. ity of tablet 00:00: [place] [address] [facility] aspirin 81 2018-0 Yes 81mg Take 81 mg U nivers mg EC 2-06 by mouth. ity of tablet 00:00: [place] [address] [facility] aspirin 81 2018-0 Yes 81mg Take 81 mg U nivers mg EC 2-06 by mouth. ity of tablet 00:00: [place] [address] [facility] aspirin 81 2018-0 Yes 81mg Take 81 mg U nivers mg EC 2-06 by mouth. ity of tablet 00:00: [place] [address] [facility] aspirin 81 2018-0 Yes 81mg Take 81 mg U nivers mg EC 2-06 by mouth. ity of tablet 00:00: [place] [address] [facility] aspirin 81 2018-0 Yes 81mg Take 81 mg U nivers mg EC 2-06 by mouth. ity of tablet 00:00: [place] [address] [facility] aspirin 81 2018-0 Yes 81mg Take 81 mg U nivers mg EC 2-06 by mouth. ity of tablet 00:00: [place] [address] [facility] aspirin 81 2018-0 Yes 81mg Take 81 mg U nivers mg EC 2-06 by mouth. ity of tablet 00:00: [place] [address] [facility] aspirin 81 2018-0 Yes 81mg Take 81 mg U nivers mg EC 2-06 by mouth. ity of tablet 00:00: [place] [address] [facility] aspirin 81 2018-0 Yes 81mg Take 81 mg U nivers mg EC 2-06 by mouth. ity of tablet 00:00: [place] [address] [facility] aspirin 81 2018-0 Yes 81mg Take 81 mg U nivers mg EC 2-06 by mouth. ity of tablet 00:00: [place] [address] [facility] aspirin 81 2018-0 Yes 81mg Take 81 mg U nivers mg EC 2-06 by mouth. ity of tablet 00:00: [place] [address] [facility] aspirin 81 2018-0 Yes 81mg Take 81 mg U nivers mg EC 2-06 by mouth. ity of tablet 00:00: [place] [address] [facility] aspirin 81 2018-0 Yes 81mg Take 81 mg U nivers mg EC 2-06 by mouth. ity of tablet 00:00: [place] [facility] aspirin 81 2018-0 Yes 81mg Take 81 mg U nivers mg EC 2-06 by mouth. ity of tablet 00:00: [place] [facility] aspirin 81 2018-0 Yes 81mg Take 81 mg U nivers mg EC 2-06 by mouth. ity of tablet 00:00: [place] [facility] aspirin 81 2018-0 Yes 81mg Take 81 mg U nivers mg EC 2-06 by mouth. ity of tablet 00:00: [place] [facility] aspirin 81 2018-0 Yes 81mg Take 81 mg U nivers mg EC 2-06 by mouth. ity of tablet 00:00: [place] [facility] aspirin 81 2018-0 Yes 81mg Take 81 mg U nivers mg EC 2-06 by mouth. ity of tablet 00:00: [place] [facility] aspirin 81 2018-0 Yes 81mg Take 81 mg U nivers mg EC 2-06 by mouth. ity of tablet 00:00: [place] [facility] aspirin 81 2018-0 Yes 81mg Take 81 mg U nivers mg EC 2-06 by mouth. ity of tablet 00:00: [place] [facility] aspirin 81 2018-0 Yes 81mg Take 81 mg U nivers mg EC 2-06 by mouth. ity of tablet 00:00: [place] [facility] aspirin 81 2018-0 Yes 81mg Take 81 mg U nivers mg EC 2-06 by mouth. ity of tablet 00:00: [place] [facility] aspirin 81 2018-0 Yes 81mg Take 81 mg U nivers mg EC 2-06 by mouth. ity of tablet 00:00: [place] [facility] aspirin 81 2018-0 Yes 81mg Take 81 mg U nivers mg EC 2-06 by mouth. ity of tablet 00:00: [address] aspirin 81 2018-0 Yes 81mg Take 81 mg U nivers mg EC 2-06 by mouth. ity of tablet 00:00: [place] [facility] aspirin 81 2018-0 Yes 81mg Take 81 mg U nivers mg EC 2-06 by mouth. ity of tablet 00:00: [address] aspirin 81 2018-0 Yes 81mg Take 81 mg U nivers mg EC 2-06 by mouth. ity of tablet 00:00: [address] aspirin 81 2018-0 Yes 81mg Take 81 mg U nivers mg EC 2-06 by mouth. ity of tablet 00:00: [place] [facility] aspirin 81 2018-0 Yes 81mg Take 81 mg U nivers mg EC 2-06 by mouth. ity of tablet 00:00: [place] [facility] aspirin 81 2018-0 Yes 81mg Take 81 mg U nivers mg EC 2-06 by mouth. ity of tablet 00:00: [place] [facility] aspirin 81 2018-0 Yes 81mg Take 81 mg U nivers mg EC 2-06 by mouth. ity of tablet 00:00: [place] [facility] aspirin 81 2018-0 Yes 81mg Take 81 mg U nivers mg EC 2-06 by mouth. ity of tablet 00:00: [place] [facility] aspirin 81 2018-0 Yes 81mg Take 81 mg U nivers mg EC 2-06 by mouth. ity of tablet 00:00: [place] [facility] aspirin 81 2018-0 Yes 81mg Take 81 mg U nivers mg EC 2-06 by mouth. ity of tablet 00:00: [place] [facility] aspirin 81 2018-0 Yes 81mg Take 81 mg U nivers mg EC 2-06 by mouth. ity of tablet 00:00: [place] [facility] aspirin 81 2018-0 Yes 81mg Take 81 mg U nivers mg EC 2-06 by mouth. ity of tablet 00:00: [place] [facility] aspirin 81 2018-0 Yes 81mg Take 81 mg U nivers mg EC 2-06 by mouth. ity of tablet 00:00: [place] [facility] aspirin 81 2018-0 Yes 81mg Take 81 mg U nivers mg EC 2-06 by mouth. ity of tablet 00:00: [place] [facility] aspirin 81 2018-0 Yes 81mg Take 81 mg U nivers mg EC 2-06 by mouth. ity of tablet 00:00: [place] [facility] aspirin 81 2018-0 Yes 81mg Take 81 mg U nivers mg EC 2-06 by mouth. ity of tablet 00:00: [address] aspirin 81 2018-0 Yes 81mg Take 81 mg U nivers mg EC 2-06 by mouth. ity of tablet 00:00: [place] [facility] aspirin 81 2018-0 Yes 81mg Take 81 mg U nivers mg EC 2-06 by mouth. ity of tablet 00:00: [address] aspirin 81 2018-0 Yes 81mg Take 81 mg U nivers mg EC 2-06 by mouth. ity of tablet 00:00: [facility] aspirin 81 2018-0 Yes 81mg Take 81 mg U nivers mg EC 2-06 by mouth. ity of tablet 00:00: [facility] aspirin 81 2018-0 Yes 81mg Take 81 mg U nivers mg EC 2-06 by mouth. ity of tablet 00:00: [facility] aspirin 81 2018-0 Yes 81mg Take 81 mg U nivers mg EC 2-06 by mouth. ity of tablet 00:00: [facility] aspirin 81 2018-0 Yes 81mg Take 81 mg U nivers mg EC 2-06 by mouth. ity of tablet 00:00: [place] [facility] aspirin 81 2018-0 Yes 81mg Take 81 mg U nivers mg EC 2-06 by mouth. ity of tablet 00:00: [place] [facility] aspirin 81 2018-0 Yes 81mg Take 81 mg U nivers mg EC 2-06 by mouth. ity of tablet 00:00: [place] [facility] aspirin 81 2018-0 Yes 81mg Take 81 mg U nivers mg EC 2-06 by mouth. ity of tablet 00:00: [place] [facility] aspirin 2018-0 Yes 81mg QD Take 1 [facility] (ECOTRIN) 2-06 tablet (81 st 81 MG 00:00: mg total) [facility] enteric 00 by mouth l coated daily. tablet aspirin 2018-0 Yes 81mg QD Take 1 [facility] (ECOTRIN) 2-06 tablet (81 st 81 MG 00:00: mg total) [facility] enteric 00 by mouth l coated daily. tablet omeprazole 2017-1 Yes 40mg Take 40 mg U nivers 40 mg 2-19 by mouth. ity of capsule 00:00: [place] [facility] omeprazole 2017-1 Yes 40mg Take 40 mg U nivers 40 mg 2-19 by mouth. ity of capsule 00:00: [place] [facility] omeprazole 2017-1 Yes 40mg Take 40 mg U nivers 40 mg 2-19 by mouth. ity of capsule 00:00: [place] [facility] omeprazole 2017-1 Yes 40mg Take 40 mg U nivers 40 mg 2-19 by mouth. ity of capsule 00:00: [place] [facility] omeprazole 2017-1 Yes 40mg Take 40 mg U nivers 40 mg 2-19 by mouth. ity of capsule 00:00: [place] [facility] omeprazole 2017- Yes 40mg Take 40 mg U nivers 40 mg 2-19 by mouth. ity of capsule 00:00: [place] [facility] omeprazole 2017 Yes 40mg Take 40 mg U nivers 40 mg 2-19 by mouth. ity of capsule 00:00: [place] [facility] omeprazole 2017- Yes 40mg Take 40 mg U nivers 40 mg 2-19 by mouth. ity of capsule 00:00: [place] [facility] omeprazole 2017 Yes 40mg Take 40 mg U nivers 40 mg 2-19 by mouth. ity of capsule 00:00: [place] [facility] omeprazole 2017 Yes 40mg Take 40 mg U nivers 40 mg 2-19 by mouth. ity of capsule 00:00: [place] [facility] omeprazole 2017- Yes 40mg Take 40 mg U nivers 40 mg 2-19 by mouth. ity of capsule 00:00: [place] [facility] omeprazole 2016-11 Yes 40mg Take 40 mg U nivers 40 mg 2-19 by mouth. ity of capsule 00:00: [place] [facility] omeprazole 2016-11 Yes 40mg Take 40 mg U nivers 40 mg 2-19 by mouth. ity of capsule 00:00: [place] [facility] omeprazole 2017 Yes 40mg Take 40 mg U nivers 40 mg 2-19 by mouth. ity of capsule 00:00: [place] [facility] omeprazole 2017 Yes 40mg Take 40 mg U nivers 40 mg 2-19 by mouth. ity of capsule 00:00: [place] [facility] omeprazole 2017 Yes 40mg Take 40 mg U nivers 40 mg 2-19 by mouth. ity of capsule 00:00: [place] [facility] omeprazole 2017- Yes 40mg Take 40 mg U nivers 40 mg 2-19 by mouth. ity of capsule 00:00: [place] [facility] omeprazole 2017 Yes 40mg Take 40 mg U nivers 40 mg 2-19 by mouth. ity of capsule 00:00: [place] [facility] omeprazole 2017- Yes 40mg Take 40 mg U nivers 40 mg 2-19 by mouth. ity of capsule 00:00: [place] [address] [facility] omeprazole 2017 Yes 40mg Take 40 mg U nivers 40 mg 2-19 by mouth. ity of capsule 00:00: [place] [facility] omeprazole 2017 Yes 40mg Take 40 mg U nivers 40 mg 2-19 by mouth. ity of capsule 00:00: [place] [facility] omeprazole 2016-11 Yes 40mg Take 40 mg U nivers 40 mg 2-19 by mouth. ity of capsule 00:00: [place] [facility] omeprazole 2017 Yes 40mg Take 40 mg U nivers 40 mg 2-19 by mouth. ity of capsule 00:00: [place] [facility] omeprazole 2016-11 Yes 40mg Take 40 mg U nivers 40 mg 2-19 by mouth. ity of capsule 00:00: [place] [facility] omeprazole 2016-11 Yes 40mg Take 40 mg U nivers 40 mg 2-19 by mouth. ity of capsule 00:00: [place] [facility] omeprazole 2016-11 Yes 40mg Take 40 mg U nivers 40 mg 2-19 by mouth. ity of capsule 00:00: [place] [facility] omeprazole 2016-11 Yes 40mg Take 40 mg U nivers 40 mg 2-19 by mouth. ity of capsule 00:00: [place] [facility] omeprazole 2016-11 Yes 40mg Take 40 mg U nivers 40 mg 2-19 by mouth. ity of capsule 00:00: [place] [facility] omeprazole 2016-11 Yes 40mg Take 40 mg U nivers 40 mg 2-19 by mouth. ity of capsule 00:00: [place] [facility] omeprazole 2017 Yes 40mg Take 40 mg U nivers 40 mg 2-19 by mouth. ity of capsule 00:00: [place] [facility] omeprazole 2016-11 Yes 40mg Take 40 mg U nivers 40 mg 2-19 by mouth. ity of capsule 00:00: [place] [facility] omeprazole 2017 Yes 40mg Take 40 mg U nivers 40 mg 2-19 by mouth. ity of capsule 00:00: [place] [facility] omeprazole 2016-11 Yes 40mg Take 40 mg U nivers 40 mg 2-19 by mouth. ity of capsule 00:00: [address] omeprazole 2017 Yes 40mg Take 40 mg U nivers 40 mg 2-19 by mouth. ity of capsule 00:00: [place] [facility] omeprazole 2017- Yes 40mg Take 40 mg U nivers 40 mg 2-19 by mouth. ity of capsule 00:00: [place] [facility] omeprazole 2017 Yes 40mg Take 40 mg U nivers 40 mg 2-19 by mouth. ity of capsule 00:00: [place] [facility] omeprazole 2017 Yes 40mg Take 40 mg U nivers 40 mg 2-19 by mouth. ity of capsule 00:00: [place] [facility] omeprazole 2017 Yes 40mg Take 40 mg U nivers 40 mg 2-19 by mouth. ity of capsule 00:00: [place] [facility] omeprazole 2017 Yes 40mg Take 40 mg U nivers 40 mg 2-19 by mouth. ity of capsule 00:00: [address] omeprazole 2016-11 Yes 40mg Take 40 mg U nivers 40 mg 2-19 by mouth. ity of capsule 00:00: [place] [facility] omeprazole 2017- Yes 40mg Take 40 mg U nivers 40 mg 2-19 by mouth. ity of capsule 00:00: [address] omeprazole 2016-11 Yes 40mg Take 40 mg U nivers 40 mg 2-19 by mouth. ity of capsule 00:00: [address] omeprazole 2017 Yes 40mg Take 40 mg U nivers 40 mg 2-19 by mouth. ity of capsule 00:00: [address] omeprazole 2016-11 Yes 40mg Take 40 mg U nivers 40 mg 2-19 by mouth. ity of capsule 00:00: [place] [facility] omeprazole 2017- Yes 40mg Take 40 mg U nivers 40 mg 2-19 by mouth. ity of capsule 00:00: [address] omeprazole 2017 Yes 40mg Take 40 mg U nivers 40 mg 2-19 by mouth. ity of capsule 00:00: [address] omeprazole 2017- Yes 40mg Take 40 mg U nivers 40 mg 2-19 by mouth. ity of capsule 00:00: [address] omeprazole 2017- Yes 40mg Take 40 mg U nivers 40 mg 2-19 by mouth. ity of capsule 00:00: [address] omeprazole 2017- Yes 40mg Take 40 mg U nivers 40 mg 2-19 by mouth. ity of capsule 00:00: [facility] omeprazole 2016-11 Yes 40mg Take 40 mg U nivers 40 mg 2-19 by mouth. ity of capsule 00:00: [place] [facility] omeprazole 2016-11 Yes 40mg Take 40 mg U nivers 40 mg 2-19 by mouth. ity of capsule 00:00: [place] [facility] omeprazole 2016-11 Yes 40mg QD Take 40 mg [facility] (PriLOSEC) 2-[address] 40 MG 00:00: daily. [facility] capsule 00 l omeprazole 2016-11 Yes 40mg QD Take 40 mg [facility] (PriLOSEC) 2-[address] 40 MG 00:00: daily. [facility] capsule 00 l urea Yes [id number] Apply to [facility] (CARMOL 40) 8-04 area(s) ity o f 40 % cream 00:00: daily. [facility] desoximetas Yes [id number] Apply to [facility] one 8-04 area(s) 2 ity of (TOPICORT 00:00: (two) [place] [facility]) 0.05 % 00 times Medical Oint daily. Branch urea Yes [id number] Apply to [facility] (CARMOL 40) 8-04 area(s) ity o f 40 % cream 00:00: daily. [facility] desoximetas Yes [id number] Apply to [facility] one 8-04 area(s) 2 ity of (TOPICORT 00:00: (two) [place] [facility]) 0.05 % 00 times Medical Oint daily. Branch urea Yes [id number] Apply to [facility] (CARMOL 40) 8-04 area(s) ity o f 40 % cream 00:00: daily. [facility] desoximetas Yes [id number] Apply to [facility] one 8-04 area(s) 2 ity of (TOPICORT 00:00: (two) [place] LP) 0.05 % 00 times Medical Oint daily. Branch urea Yes [id number] Apply to [facility] (CARMOL 40) 8-04 area(s) ity o f 40 % cream 00:00: daily. [facility] urea Yes [id number] Apply to [facility] (CARMOL 40) 8-04 area(s) ity o f 40 % cream 00:00: daily. [facility] desoximetas Yes [id number] Apply to [facility] one 8-04 area(s) 2 ity of (TOPICORT 00:00: (two) [place] [facility]) 0.05 % 00 times Medical Oint daily. Branch desoximetas Yes [id number] Apply to [facility] one 8-04 area(s) 2 ity of (TOPICORT 00:00: (two) [place] [facility]) 0.05 % 00 times Medical Oint daily. Branch urea Yes [id number] Apply to [facility] (CARMOL 40) 8-04 area(s) ity o f 40 % cream 00:00: daily. [facility] desoximetas Yes [id number] Apply to [facility] one 8-04 area(s) 2 ity of (TOPICORT 00:00: (two) [place] [facility]) 0.05 % 00 times Medical Oint daily. Branch urea Yes [id number] Apply to [facility] (CARMOL 40) 8-04 area(s) ity o f 40 % cream 00:00: daily. [facility] desoximetas Yes [id number] Apply to [facility] one 8-04 area(s) 2 ity of (TOPICORT 00:00: (two) [place] [facility]) 0.05 % 00 times Medical Oint daily. Branch urea Yes [id number] Apply to [facility] (CARMOL 40) 8-04 area(s) ity o f 40 % cream 00:00: daily. [facility] desoximetas Yes [id number] Apply to [facility] one 8-04 area(s) 2 ity of (TOPICORT 00:00: (two) [place] [facility]) 0.05 % 00 times Medical Oint daily. Branch urea Yes [id number] Apply to [facility] (CARMOL 40) 8-04 area(s) ity o f 40 % cream 00:00: daily. [facility] desoximetas Yes [id number] Apply to [facility] one 8-04 area(s) 2 ity of (TOPICORT 00:00: (two) [place] LP) 0.05 % 00 times Medical Oint daily. Branch urea Yes [id number] Apply to [facility] (CARMOL 40) 8-04 area(s) ity o f 40 % cream 00:00: daily. [facility] desoximetas Yes [id number] Apply to [facility] one 8-04 area(s) 2 ity of (TOPICORT 00:00: (two) [place] LP) 0.05 % 00 times Medical Oint daily. Branch urea Yes [id number] Apply to [facility] (CARMOL 40) 8-04 area(s) ity o f 40 % cream 00:00: daily. [facility] desoximetas Yes [id number] Apply to [facility] one 8-04 area(s) 2 ity of (TOPICORT 00:00: (two) [place] LP) 0.05 % 00 times Medical Oint daily. Branch urea Yes [id number] Apply to [facility] (CARMOL 40) 8-04 area(s) ity o f 40 % cream 00:00: daily. [facility] desoximetas Yes [id number] Apply to [facility] one 8-04 area(s) 2 ity of (TOPICORT 00:00: (two) [place] LP) 0.05 % 00 times Medical Oint daily. Branch urea Yes [id number] Apply to [facility] (CARMOL 40) 8-04 area(s) ity o f 40 % cream 00:00: daily. [facility] urea Yes [id number] Apply to [facility] (CARMOL 40) 8-04 area(s) ity o f 40 % cream 00:00: daily. [facility] desoximetas Yes [id number] Apply to [facility] one 8-04 area(s) 2 ity of (TOPICORT 00:00: (two) [place] LP) 0.05 % 00 times Medical Oint daily. Branch desoximetas Yes [id number] Apply to [facility] one 8-04 area(s) 2 ity of (TOPICORT 00:00: (two) [place] LP) 0.05 % 00 times Medical Oint daily. Branch urea Yes [id number] Apply to [facility] (CARMOL 40) 8-04 area(s) ity o f 40 % cream 00:00: daily. [facility] desoximetas Yes [id number] Apply to [facility] one 8-04 area(s) 2 ity of (TOPICORT 00:00: (two) [place] LP) 0.05 % 00 times Medical Oint daily. Branch urea Yes [id number] Apply to [facility] (CARMOL 40) 8-04 area(s) ity o f 40 % cream 00:00: daily. [facility] desoximetas Yes [id number] Apply to [facility] one 8-04 area(s) 2 ity of (TOPICORT 00:00: (two) [place] LP) 0.05 % 00 times Medical Oint daily. Branch urea Yes [id number] Apply to [facility] (CARMOL 40) 8-04 area(s) ity o f 40 % cream 00:00: daily. [facility] desoximetas Yes [id number] Apply to [facility] one 8-04 area(s) 2 ity of (TOPICORT 00:00: (two) [place] LP) 0.05 % 00 times Medical Oint daily. Branch urea Yes [id number] Apply to [facility] (CARMOL 40) 8-04 area(s) ity o f 40 % cream 00:00: daily. [facility] desoximetas Yes [id number] Apply to [facility] 8-04 area(s) 2 ity of (TOPICORT 00:00: (two) [place] [facility]) 0.05 % 00 times Medical Oint daily. Branch urea Yes [id number] Apply to [facility] (CARMOL 40) 8-04 area(s) ity o f 40 % cream 00:00: daily. [facility] desoximetas Yes [id number] Apply to [facility] 8-04 area(s) 2 ity of (TOPICORT 00:00: (two) [place] [facility]) 0.05 % 00 times Medical Oint daily. Branch urea Yes [id number] Apply to [facility] (CARMOL 40) 8-04 area(s) ity o f 40 % cream 00:00: daily. [facility] desoximetas Yes [id number] Apply to [facility] 8-04 area(s) 2 ity of (TOPICORT 00:00: (two) [place] [facility]) 0.05 % 00 times Medical Oint daily. Branch urea Yes [id number] Apply to [facility] (CARMOL 40) 8-04 area(s) ity o f 40 % cream 00:00: daily. [facility] desoximetas Yes [id number] Apply to [facility] 8-04 area(s) 2 ity of (TOPICORT 00:00: (two) [place] [facility]) 0.05 % 00 times Medical Oint daily. Branch urea Yes [id number] Apply to [facility] (CARMOL 40) 8-04 area(s) ity o f 40 % cream 00:00: daily. [facility] desoximetas Yes [id number] Apply to [facility] 8-04 area(s) 2 ity of (TOPICORT 00:00: (two) [place] [facility]) 0.05 % 00 times Medical Oint daily. Branch urea Yes [id number] Apply to [facility] (CARMOL 40) 8-04 area(s) ity o f 40 % cream 00:00: daily. [facility] urea Yes [id number] Apply to [facility] (CARMOL 40) 8-04 area(s) ity o f 40 % cream 00:00: daily. [facility] desoximetas Yes [id number] Apply to [facility] 8-04 area(s) 2 ity of (TOPICORT 00:00: (two) [place] [facility]) 0.05 % 00 times Medical Oint daily. Branch desoximetas Yes [id number] Apply to [facility] 8-04 area(s) 2 ity of (TOPICORT 00:00: (two) [place] [facility]) 0.05 % 00 times Medical Oint daily. Branch urea Yes [id number] Apply to [facility] (CARMOL 40) 8-04 area(s) ity o f 40 % cream 00:00: daily. [facility] desoximetas Yes [id number] Apply to [facility] 8-04 area(s) 2 ity of (TOPICORT 00:00: (two) [place] [facility]) 0.05 % 00 times Medical Oint daily. Branch urea Yes [id number] Apply to [facility] (CARMOL 40) 8-04 area(s) ity o f 40 % cream 00:00: daily. [facility] desoximetas Yes [id number] Apply to [facility] 8-04 area(s) 2 ity of (TOPICORT 00:00: (two) [place] [facility]) 0.05 % 00 times Medical Oint daily. Branch urea Yes [id number] Apply to [facility] (CARMOL 40) 8-04 area(s) ity o f 40 % cream 00:00: daily. [facility] desoximetas Yes [id number] Apply to [facility] 8-04 area(s) 2 ity of (TOPICORT 00:00: (two) [place] [facility]) 0.05 % 00 times Medical Oint daily. Branch urea Yes [id number] Apply to [facility] (CARMOL 40) 8-04 area(s) ity o f 40 % cream 00:00: daily. [facility] desoximetas Yes [id number] Apply to [facility] 8-04 area(s) 2 ity of (TOPICORT 00:00: (two) [place] [facility]) 0.05 % 00 times Medical Oint daily. Branch urea Yes [id number] Apply to [facility] (CARMOL 40) 8-04 area(s) ity o f 40 % cream 00:00: daily. [facility] desoximetas Yes [id number] Apply to [facility] 8-04 area(s) 2 ity of (TOPICORT 00:00: (two) [place] [facility]) 0.05 % 00 times Medical Oint daily. Branch urea Yes [id number] Apply to [facility] (CARMOL 40) 8-04 area(s) ity o f 40 % cream 00:00: daily. [facility] desoximetas Yes [id number] Apply to [facility] 8-04 area(s) 2 ity of (TOPICORT 00:00: (two) [place] [facility]) 0.05 % 00 times Medical Oint daily. Branch urea Yes [id number] Apply to [facility] (CARMOL 40) 8-04 area(s) ity o f 40 % cream 00:00: daily. [facility] desoximetas Yes [id number] Apply to [facility] 8-04 area(s) 2 ity of (TOPICORT 00:00: (two) [place] [facility]) 0.05 % 00 times Medical Oint daily. Branch urea Yes [id number] Apply to [facility] (CARMOL 40) 8-04 area(s) ity o f 40 % cream 00:00: daily. [facility] desoximetas Yes [id number] Apply to [facility] 8-04 area(s) 2 ity of (TOPICORT 00:00: (two) [place] [facility]) 0.05 % 00 times Medical Oint daily. Branch urea Yes [id number] Apply to [facility] (CARMOL 40) 8-04 area(s) ity o f 40 % cream 00:00: daily. [facility] desoximetas Yes [id number] Apply to [facility] 8-04 area(s) 2 ity of (TOPICORT 00:00: (two) [place] [facility]) 0.05 % 00 times Medical Oint daily. Branch urea Yes [id number] Apply to [facility] (CARMOL 40) 8-04 area(s) ity o f 40 % cream 00:00: daily. [facility] desoximetas Yes [id number] Apply to [facility] 8-04 area(s) 2 ity of (TOPICORT 00:00: (two) [place] [facility]) 0.05 % 00 times Medical Oint daily. Branch urea Yes [id number] Apply to [facility] (CARMOL 40) 8-04 area(s) ity o f 40 % cream 00:00: daily. [facility] desoximetas Yes [id number] Apply to [facility] 8-04 area(s) 2 ity of (TOPICORT 00:00: (two) [place] [facility]) 0.05 % 00 times Medical Oint daily. Branch urea Yes [id number] Apply to [facility] (CARMOL 40) 8-04 area(s) ity o f 40 % cream 00:00: daily. [facility] desoximetas Yes [id number] Apply to [facility] 8-04 area(s) 2 ity of (TOPICORT 00:00: (two) [place] [facility]) 0.05 % 00 times Medical Oint daily. Branch urea Yes [id number] Apply to [facility] (CARMOL 40) 8-04 area(s) ity o f 40 % cream 00:00: daily. [facility] desoximetas Yes [id number] Apply to [facility] 8-04 area(s) 2 ity of (TOPICORT 00:00: (two) [place] [facility]) 0.05 % 00 times Medical Oint daily. Branch urea Yes [id number] Apply to [facility] (CARMOL 40) 8-04 area(s) ity o f 40 % cream 00:00: daily. [facility] desoximetas Yes [id number] Apply to [facility] 8-04 area(s) 2 ity of (TOPICORT 00:00: (two) [place] [facility]) 0.05 % 00 times Medical Oint daily. Branch urea Yes [id number] Apply to [facility] (CARMOL 40) 8-04 area(s) ity o f 40 % cream 00:00: daily. [facility] desoximetas Yes [id number] Apply to [facility] 8-04 area(s) 2 ity of (TOPICORT 00:00: (two) [place] [facility]) 0.05 % 00 times Medical Oint daily. Branch urea Yes [id number] Apply to [facility] (CARMOL 40) 8-04 area(s) ity o f 40 % cream 00:00: daily. [facility] desoximetas Yes [id number] Apply to [facility] 8-04 area(s) 2 ity of (TOPICORT 00:00: (two) [place] [facility]) 0.05 % 00 times Medical Oint daily. Branch urea Yes [id number] Apply to [facility] (CARMOL 40) 8-04 area(s) ity o f 40 % cream 00:00: daily. [facility] desoximetas Yes [id number] Apply to [facility] 8-04 area(s) 2 ity of (TOPICORT 00:00: (two) [place] [facility]) 0.05 % 00 times Medical Oint daily. Branch urea Yes [id number] Apply to [facility] (CARMOL 40) 8-04 area(s) ity o f 40 % cream 00:00: daily. [facility] desoximetas Yes [id number] Apply to [facility] 8-04 area(s) 2 ity of (TOPICORT 00:00: (two) [place] [facility]) 0.05 % 00 times Medical Oint daily. Branch urea Yes [id number] Apply to [facility] (CARMOL 40) 8-04 area(s) ity o f 40 % cream 00:00: daily. [facility] desoximetas Yes [id number] Apply to [facility] 8-04 area(s) 2 ity of (TOPICORT 00:00: (two) [place] [facility]) 0.05 % 00 times Medical Oint daily. Branch urea Yes [id number] Apply to [facility] (CARMOL 40) 8-04 area(s) ity o f 40 % cream 00:00: daily. [facility] desoximetas Yes [id number] Apply to [facility] 8-04 area(s) 2 ity of (TOPICORT 00:00: (two) [place] [facility]) 0.05 % 00 times Medical Oint daily. Branch urea Yes [id number] Apply to [facility] (CARMOL 40) 8-04 area(s) ity o f 40 % cream 00:00: daily. [facility] desoximetas Yes [id number] Apply to [facility] 8-04 area(s) 2 ity of (TOPICORT 00:00: (two) [place] [facility]) 0.05 % 00 times Medical Oint daily. Branch urea Yes [id number] Apply to [facility] (CARMOL 40) 8-04 area(s) ity o f 40 % cream 00:00: daily. [facility] desoximetas Yes [id number] Apply to [facility] 8-04 area(s) 2 ity of (TOPICORT 00:00: (two) [place] [facility]) 0.05 % 00 times Medical Oint daily. Branch urea Yes [id number] Apply to [facility] (CARMOL 40) 8-04 area(s) ity o f 40 % cream 00:00: daily. [facility] desoximetas Yes [id number] Apply to [facility] 8-04 area(s) 2 ity of (TOPICORT 00:00: (two) [place] [facility]) 0.05 % 00 times Medical Oint daily. Branch urea Yes [id number] Apply to [facility] (CARMOL 40) 8-04 area(s) ity o f 40 % cream 00:00: daily. [facility] desoximetas Yes [id number] Apply to [facility] 8-04 area(s) 2 ity of (TOPICORT 00:00: (two) [place] [facility]) 0.05 % 00 times Medical Oint daily. Branch urea Yes [id number] Apply to [facility] (CARMOL 40) 8-04 area(s) ity o f 40 % cream 00:00: daily. [facility] desoximetas Yes [id number] Apply to [facility] 8-04 area(s) 2 ity of (TOPICORT 00:00: (two) [place] [facility]) 0.05 % 00 times Medical Oint daily. Branch urea Yes [id number] Apply to [facility] (CARMOL 40) 8-04 area(s) ity o f 40 % cream 00:00: daily. [facility] desoximetas Yes [id number] Apply to [facility] 8-04 area(s) 2 ity of (TOPICORT 00:00: (two) [place] [facility]) 0.05 % 00 times Medical Oint daily. Branch urea Yes [id number] Apply to [facility] (CARMOL 40) 8-04 area(s) ity o f 40 % cream 00:00: daily. [facility] desoximetas Yes [id number] Apply to [facility] 8-04 area(s) 2 ity of (TOPICORT 00:00: (two) [place] [facility]) 0.05 % 00 times Medical Oint daily. [facility] metoprolol Yes 2 (two) [facility] tartrate 5-13 times ity of (LOPRESSOR) 00:00: [place]. [place] 25 mg 00 [facility] tablet [facility] simvastatin Yes [facility] (ZOCOR) 40 5-13 ity of mg tablet 00:00: [facility] metoprolol Yes 2 (two) [facility] tartrate 5-13 times ity of (LOPRESSOR) 00:00: daily. [place] 25 mg 00 [facility] tablet [facility] simvastatin Yes [facility] (ZOCOR) 40 5-13 ity of mg tablet 00:00: [facility] metoprolol Yes 2 (two) [facility] tartrate 5-13 times ity of (LOPRESSOR) 00:00: daily. [place] 25 mg 00 [facility] tablet [facility] simvastatin Yes [facility] (ZOCOR) 40 5-13 ity of mg tablet 00:00: [facility] metoprolol Yes 2 (two) [facility] tartrate 5-13 times ity of (LOPRESSOR) 00:00: daily. [place] 25 mg 00 [facility] tablet [facility] simvastatin Yes [facility] (ZOCOR) 40 5-13 ity of mg tablet 00:00: [facility] metoprolol Yes 2 (two) [facility] tartrate 5-13 times ity of (LOPRESSOR) 00:00: daily. [place] 25 mg 00 [facility] tablet [facility] simvastatin Yes [facility] (ZOCOR) 40 5-13 ity of mg tablet 00:00: [facility] metoprolol Yes 2 (two) [facility] tartrate 5-13 times ity of (LOPRESSOR) 00:00: daily. [place] 25 mg 00 [facility] tablet [facility] simvastatin Yes [facility] (ZOCOR) 40 5-13 ity of mg tablet 00:00: [facility] metoprolol Yes 2 (two) [facility] tartrate 5-13 times ity of (LOPRESSOR) 00:00: daily. [place] 25 mg 00 [facility] tablet [facility] simvastatin Yes [facility] (ZOCOR) 40 5-13 ity of mg tablet 00:00: [place] 00 [facility] metoprolol Yes 2 (two) [facility] tartrate 5-13 times ity of (LOPRESSOR) 00:00: daily. [place] 25 mg 00 [facility] tablet [facility] simvastatin Yes [facility] (ZOCOR) 40 5-13 ity of mg tablet 00:00: [facility] metoprolol Yes 2 (two) [facility] tartrate 5-13 times ity of (LOPRESSOR) 00:00: daily. [place] 25 mg 00 [facility] tablet [facility] simvastatin Yes [facility] (ZOCOR) 40 5-13 ity of mg tablet 00:00: [facility] metoprolol Yes 2 (two) [facility] tartrate 5-13 times ity of (LOPRESSOR) 00:00: daily. [place] 25 mg 00 [facility] tablet [facility] simvastatin Yes [facility] (ZOCOR) 40 5-13 ity of mg tablet 00:00: [facility] metoprolol Yes 2 (two) [facility] tartrate 5-13 times ity of (LOPRESSOR) 00:00: daily. [place] 25 mg 00 [facility] tablet [facility] simvastatin Yes [facility] (ZOCOR) 40 5-13 ity of mg tablet 00:00: [facility] metoprolol Yes [facility] tartrate 5-13 ity of (LOPRESSOR) 00:00: [place] 25 mg 00 Medical tablet Branch simvastatin Yes [facility] (ZOCOR) 40 5-13 ity of mg tablet 00:00: [facility] metoprolol Yes 2 (two) [facility] tartrate 5-13 times ity of (LOPRESSOR) 00:00: daily. [place] 25 mg 00 [facility] tablet [facility] simvastatin Yes [facility] (ZOCOR) 40 5-13 ity of mg tablet 00:00: [facility] metoprolol Yes 2 (two) [facility] tartrate 5-13 times ity of (LOPRESSOR) 00:00: daily. [place] 25 mg 00 [facility] tablet [facility] simvastatin Yes [facility] (ZOCOR) 40 5-13 ity of mg tablet 00:00: [place] 00 [facility] metoprolol Yes 2 (two) [facility] tartrate 5-13 times ity of (LOPRESSOR) 00:00: daily. [place] 25 mg 00 [facility] tablet [facility] simvastatin Yes [facility] (ZOCOR) 40 5-13 ity of mg tablet 00:00: [place] 00 [facility] metoprolol Yes 2 (two) [facility] tartrate 5-13 times ity of (LOPRESSOR) 00:00: daily. [place] 25 mg 00 [facility] tablet [facility] simvastatin Yes [facility] (ZOCOR) 40 5-13 ity of mg tablet 00:00: [place] 00 [facility] metoprolol Yes [facility] tartrate 5-13 ity of (LOPRESSOR) 00:00: [place] 25 mg 00 Medical tablet Branch simvastatin Yes [facility] (ZOCOR) 40 5-13 ity of mg tablet 00:00: [place] 00 [facility] metoprolol Yes [facility] tartrate 5-13 ity of (LOPRESSOR) 00:00: [place] 25 mg 00 Medical tablet Branch simvastatin Yes [facility] (ZOCOR) 40 5-13 ity of mg tablet 00:00: [place] 00 [facility] metoprolol 0 Yes [facility] tartrate 5-13 ity of (LOPRESSOR) 00:00: [place] 25 mg 00 Medical tablet Branch simvastatin Yes [facility] (ZOCOR) 40 5-13 ity of mg tablet 00:00: [place] 00 [facility] metoprolol 0 Yes [facility] tartrate 5-13 ity of (LOPRESSOR) 00:00: [place] 25 mg 00 Medical tablet Branch simvastatin 0 Yes [facility] (ZOCOR) 40 5-13 ity of mg tablet 00:00: [place] 00 [facility] metoprolol 0 Yes [facility] tartrate 5-13 ity of (LOPRESSOR) 00:00: [place] 25 mg 00 Medical tablet Branch simvastatin 0 Yes [facility] (ZOCOR) 40 5-13 ity of mg tablet 00:00: [place] 00 [facility] metoprolol 0 Yes 2 (two) [facility] tartrate 5-13 times ity of (LOPRESSOR) 00:00: daily. [place] 25 mg 00 [facility] tablet [facility] metoprolol Yes [facility] tartrate 5-13 ity of (LOPRESSOR) 00:00: [place] 25 mg 00 Medical tablet Branch simvastatin Yes [facility] (ZOCOR) 40 5-13 ity of mg tablet 00:00: [place] [facility] [place] simvastatin Yes [facility] (ZOCOR) 40 5-13 ity of mg tablet 00:00: [place] 00 Medical [place] metoprolol Yes [facility] tartrate 5-13 ity of (LOPRESSOR) 00:00: [place] 25 mg 00 Medical tablet Branch simvastatin Yes [facility] (ZOCOR) 40 5-13 ity of mg tablet 00:00: [place] 00 Medical [place] metoprolol Yes [facility] tartrate 5-13 ity of (LOPRESSOR) 00:00: [place] 25 mg 00 Medical tablet Branch simvastatin Yes [facility] (ZOCOR) 40 5-13 ity of mg tablet 00:00: [place] 00 [facility] metoprolol Yes [facility] tartrate 5-13 ity of (LOPRESSOR) 00:00: [place] 25 mg 00 Medical tablet Branch simvastatin Yes [facility] (ZOCOR) 40 5-13 ity of mg tablet 00:00: [place] 00 Medical [place] metoprolol Yes [facility] tartrate 5-13 ity of (LOPRESSOR) 00:00: [place] 25 mg 00 Medical tablet Branch simvastatin Yes [facility] (ZOCOR) 40 5-13 ity of mg tablet 00:00: [place] 00 [facility] metoprolol Yes 2 (two) [facility] tartrate 5-13 times ity of (LOPRESSOR) 00:00: daily. [place] 25 mg Medical tablet Branch simvastatin Yes [facility] (ZOCOR) 40 5-13 ity of mg tablet 00:00: [place] 00 Medical [place] metoprolol Yes 2 (two) [facility] tartrate 5-13 times ity of (LOPRESSOR) 00:00: daily. [place] 25 mg Medical tablet Branch simvastatin Yes [facility] (ZOCOR) 40 5-13 ity of mg tablet 00:00: [place] 00 Medical [place] metoprolol Yes 2 (two) [facility] tartrate 5-13 times ity of (LOPRESSOR) 00:00: daily. [place] 25 mg 00 [facility] tablet Branch simvastatin Yes [facility] (ZOCOR) 40 5-13 ity of mg tablet 00:00: [facility] metoprolol Yes 2 (two) [facility] tartrate 5-13 times ity of (LOPRESSOR) 00:00: daily. [place] 25 mg 00 [facility] tablet Branch simvastatin Yes [facility] (ZOCOR) 40 5-13 ity of mg tablet 00:00: [facility] metoprolol Yes 2 (two) [facility] tartrate 5-13 times ity of (LOPRESSOR) 00:00: daily. [place] 25 mg 00 [facility] tablet [facility] simvastatin Yes [facility] (ZOCOR) 40 5-13 ity of mg tablet 00:00: [facility] metoprolol Yes 2 (two) [facility] tartrate 5-13 times ity of (LOPRESSOR) 00:00: daily. [place] 25 mg 00 [facility] tablet Branch simvastatin Yes [facility] (ZOCOR) 40 5-13 ity of mg tablet 00:00: [facility] metoprolol Yes 2 (two) [facility] tartrate 5-13 times ity of (LOPRESSOR) 00:00: daily. [place] 25 mg 00 [facility] tablet [facility] simvastatin Yes [facility] (ZOCOR) 40 5-13 ity of mg tablet 00:00: [facility] metoprolol Yes 2 (two) [facility] tartrate 5-13 times ity of (LOPRESSOR) 00:00: daily. [place] 25 mg 00 [facility] tablet [facility] simvastatin Yes [facility] (ZOCOR) 40 5-13 ity of mg tablet 00:00: [facility] metoprolol Yes 2 (two) [facility] tartrate 5-13 times ity of (LOPRESSOR) 00:00: daily. [place] 25 mg 00 [facility] tablet [facility] simvastatin Yes [facility] (ZOCOR) 40 5-13 ity of mg tablet 00:00: [facility] metoprolol Yes 2 (two) [facility] tartrate 5-13 times ity of (LOPRESSOR) 00:00: daily. [place] 25 mg 00 [facility] tablet [facility] simvastatin Yes [facility] (ZOCOR) 40 5-13 ity of mg tablet 00:00: [place] [facility] metoprolol Yes 2 (two) [facility] tartrate 5-13 times ity of (LOPRESSOR) 00:00: daily. [place] 25 mg 00 [facility] tablet [facility] simvastatin Yes [facility] (ZOCOR) 40 5-13 ity of mg tablet 00:00: [facility] metoprolol Yes 2 (two) [facility] tartrate 5-13 times ity of (LOPRESSOR) 00:00: daily. [place] 25 mg 00 [facility] tablet [facility] simvastatin Yes [facility] (ZOCOR) 40 5-13 ity of mg tablet 00:00: [facility] metoprolol Yes 2 (two) [facility] tartrate 5-13 times ity of (LOPRESSOR) 00:00: daily. [place] 25 mg 00 [facility] tablet Branch simvastatin Yes [facility] (ZOCOR) 40 5-13 ity of mg tablet 00:00: [place] [facility] metoprolol Yes 2 (two) [facility] tartrate 5-13 times ity of (LOPRESSOR) 00:00: daily. [place] 25 mg 00 [facility] tablet [facility] simvastatin Yes [facility] (ZOCOR) 40 5-13 ity of mg tablet 00:00: [facility] metoprolol Yes 2 (two) [facility] tartrate 5-13 times ity of (LOPRESSOR) 00:00: daily. [place] 25 mg 00 Medical tablet Branch simvastatin Yes [facility] (ZOCOR) 40 5-13 ity of mg tablet 00:00: [facility] metoprolol Yes 2 (two) [facility] tartrate 5-13 times ity of (LOPRESSOR) 00:00: daily. [place] 25 mg 00 Medical tablet Branch simvastatin Yes [facility] (ZOCOR) 40 5-13 ity of mg tablet 00:00: [facility] Branch metoprolol Yes 2 (two) [facility] tartrate 5-13 times ity of (LOPRESSOR) 00:00: daily. [place] 25 mg 00 Medical tablet Branch simvastatin Yes [facility] (ZOCOR) 40 5-13 ity of mg tablet 00:00: [facility] metoprolol Yes 2 (two) [facility] tartrate 5-13 times ity of (LOPRESSOR) 00:00: daily. [place] 25 mg 00 Medical tablet Branch simvastatin Yes [facility] (ZOCOR) 40 5-13 ity of mg tablet 00:00: [facility] metoprolol Yes 2 (two) [facility] tartrate 5-13 times ity of (LOPRESSOR) 00:00: daily. [place] 25 mg 00 Medical tablet Branch simvastatin Yes [facility] (ZOCOR) 40 5-13 ity of mg tablet 00:00: [facility] metoprolol Yes 2 (two) [facility] tartrate 5-13 times ity of (LOPRESSOR) 00:00: daily. [place] 25 mg 00 Medical tablet Branch simvastatin Yes [facility] (ZOCOR) 40 5-13 ity of mg tablet 00:00: [facility] Branch metoprolol Yes 2 (two) [facility] tartrate 5-13 times ity of (LOPRESSOR) 00:00: daily. [place] 25 mg 00 Medical tablet Branch simvastatin Yes [facility] (ZOCOR) 40 5-13 ity of mg tablet 00:00: [facility] Branch metoprolol Yes 2 (two) [facility] tartrate 5-13 times ity of (LOPRESSOR) 00:00: daily. [place] 25 mg 00 Medical tablet Branch simvastatin Yes [facility] (ZOCOR) 40 5-13 ity of mg tablet 00:00: Medical Branch metoprolol Yes 2 (two) [facility] tartrate 5-13 times ity of (LOPRESSOR) 00:00: daily. [place] 25 mg 00 Medical tablet Branch simvastatin Yes [facility] (ZOCOR) 40 5-13 ity of mg tablet 00:00: [facility] Branch metoprolol Yes 2 (two) [facility] tartrate 5-13 times ity of (LOPRESSOR) 00:00: daily. [place] 25 mg 00 Medical tablet Branch simvastatin Yes [facility] (ZOCOR) 40 5-13 ity of mg tablet 00:00: [place] 00 Medical Branch Hydrocodone Yes [facility] -Acetaminop 5-08 ity of hen (XODOL 00:00: [place] 300) 00 Medical 5-300 mg Branch Tab Hydrocodone Yes [facility] -Acetaminop 5-08 ity of hen (XODOL 00:00: [place] ) 00 Medical 5-300 mg Branch Tab Hydrocodone Yes [facility] -Acetaminop 5-08 ity of hen (XODOL 00:00: [place] ) 00 Medical 5-300 mg Branch Tab Hydrocodone Yes [facility] -Acetaminop 5-08 ity of hen (XODOL 00:00: [place] ) 00 Medical 5-300 mg Branch Tab Hydrocodone Yes [facility] -Acetaminop 5-08 ity of hen (XODOL 00:00: [place] ) 00 Medical 5-300 mg Branch Tab Hydrocodone Yes [facility] -Acetaminop 5-08 ity of hen (XODOL 00:00: [place] ) 00 Medical 5-300 mg Branch Tab Hydrocodone Yes [facility] -Acetaminop 5-08 ity of hen (XODOL 00:00: [place] 300) 00 Medical 5-300 mg Branch Tab Hydrocodone Yes [facility] -Acetaminop 5-08 ity of hen (XODOL 00:00: [place] ) 00 Medical 5-300 mg Branch Tab Hydrocodone Yes [facility] -Acetaminop 5-08 ity of hen (XODOL 00:00: [place] 5300) 00 Medical 5-300 mg Branch Tab Hydrocodone 0 Yes [facility] -Acetaminop 5-08 ity of hen (XODOL 00:00: [place] ) 00 Medical 5-300 mg Branch Tab Hydrocodone 0 Yes [facility] -Acetaminop 5-08 ity of hen (XODOL 00:00: [place] 300) 00 Medical 5-300 mg Branch Tab Hydrocodone 0 Yes [facility] -Acetaminop 5-08 ity of hen (XODOL 00:00: [place] 5/300) 00 Medical 5-300 mg Branch Tab Hydrocodone Yes [facility] -Acetaminop 5-08 ity of hen (XODOL 00:00: [place] 5/300) 00 Medical 5-300 mg Branch Tab Hydrocodone Yes [facility] -Acetaminop 5-08 ity of hen (XODOL 00:00: [place] 5/300) 00 Medical 5-300 mg Branch Tab Hydrocodone Yes [facility] -Acetaminop 5-08 ity of hen (XODOL 00:00: [place] 5/300) 00 Medical 5-300 mg Branch Tab Hydrocodone 2020- No [facility] -Acetaminop 5-08 07-21 ity of hen (XODOL 00:00: 00:00 [place] 5/300) 00 :00 Medical 5-300 mg Branch Tab Hydrocodone 2020- No [facility] -Acetaminop 5-08 07-21 ity of hen (XODOL 00:00: 00:00 [place] 5/300) 00 :00 Medical 5-300 mg Branch Tab jun 2014 Yes [facility] betamethaso 4-24 ity of ne 00:00: [place] dipropionat 00 Medical e Branch (DIPROLENE) 0.05 % ointment jun 2014 Yes [facility] betamethaso 4-24 ity of ne 00:00: [place] dipropionat 00 Medical e Branch (DIPROLENE) 0.05 % ointment jun 2014 Yes [facility] betamethaso 4-24 ity of ne 00:00: [place] dipropionat 00 Medical e Branch (DIPROLENE) 0.05 % ointment jun 2014 Yes [facility] betamethaso 4-24 ity of ne 00:00: [place] dipropionat 00 Medical e Branch (DIPROLENE) 0.05 % ointment jun 2014 Yes [facility] betamethaso 4-24 ity of ne 00:00: [place] dipropionat 00 Medical e Branch (DIPROLENE) 0.05 % ointment jun 2014 Yes [facility] betamethaso 4-24 ity of ne 00:00: [place] dipropionat 00 Medical e Branch (DIPROLENE) 0.05 % ointment jun 2014 Yes [facility] betamethaso 4-24 ity of ne 00:00: [place] dipropionat 00 Medical e Branch (DIPROLENE) 0.05 % ointment jun 2014 Yes [facility] betamethaso 4-24 ity of ne 00:00: [place] dipropionat 00 Medical e Branch (DIPROLENE) 0.05 % ointment jun 2014 Yes [facility] betamethaso 4-24 ity of ne 00:00: [place] dipropionat 00 Medical e Branch (DIPROLENE) 0.05 % ointment jun 2014 Yes [facility] betamethaso 4-24 ity of ne 00:00: [place] dipropionat 00 Medical e Branch (DIPROLENE) 0.05 % ointment jun 2014 Yes [facility] betamethaso 4-24 ity of ne 00:00: [place] dipropionat 00 Medical e Branch (DIPROLENE) 0.05 % ointment jun 2014 Yes [facility] betamethaso 4-24 ity of ne 00:00: [place] dipropionat 00 Medical e Branch (DIPROLENE) 0.05 % ointment jun 2014 Yes [facility] betamethaso 4-24 ity of ne 00:00: [place] dipropionat 00 Medical e Branch (DIPROLENE) 0.05 % ointment jun 2014 Yes [facility] betamethaso 4-24 ity of ne 00:00: [place] dipropionat 00 Medical e Branch (DIPROLENE) 0.05 % ointment jun 2014 Yes [facility] betamethaso 4-24 ity of ne 00:00: [place] dipropionat 00 Medical e Branch (DIPROLENE) 0.05 % ointment jun 2014 Yes [facility] betamethaso 4-24 ity of ne 00:00: [place] dipropionat 00 Medical e Branch (DIPROLENE) 0.05 % ointment jun 2014 Yes [facility] betamethaso 4-24 ity of ne 00:00: [place] dipropionat 00 Medical e Branch (DIPROLENE) 0.05 % ointment jun 2014 Yes [facility] betamethaso 4-24 ity of ne 00:00: [place] dipropionat 00 Medical e Branch (DIPROLENE) 0.05 % ointment jun 2014 Yes [facility] betamethaso 4-24 ity of ne 00:00: [place] dipropionat 00 Medical e Branch (DIPROLENE) 0.05 % ointment jun 2014 Yes [facility] betamethaso 4-24 ity of ne 00:00: [place] dipropionat 00 Medical e Branch (DIPROLENE) 0.05 % ointment jun 2014 Yes [facility] betamethaso 4-24 ity of ne 00:00: [place] dipropionat 00 Medical e Branch (DIPROLENE) 0.05 % ointment jun 2014 Yes [facility] betamethaso 4-24 ity of ne 00:00: [place] dipropionat 00 [facility] (DIPROLENE) 0.05 % ointment jun 2014 Yes [facility] betamethaso 4-24 [facility] ne 00:00: [place] dipropionat 00 [facility] (DIPROLENE) 0.05 % ointment jun 2014 Yes [facility] betamethaso 4-24 [facility] of ne 00:00: [place] dipropionat 00 [facility] (DIPROLENE) 0.05 % ointment jun 2014 Yes [facility] betamethaso 4-24 [facility] ne 00:00: [place] dipropionat 00 [facility] (DIPROLENE) 0.05 % ointment jun 2014 Yes [facility] betamethaso 4-24 [facility] of ne 00:00: [place] dipropionat 00 [facility] (DIPROLENE) 0.05 % ointment jun 2014 Yes [facility] betamethaso 4-24 [facility] ne 00:00: [place] dipropionat 00 Medical e Branch (DIPROLENE) 0.05 % ointment jun 2014 Yes Univers betamethaso 4-24 ity of ne 00:00: [place] dipropionat 00 [facility] (DIPROLENE) 0.05 % ointment jun 2014 Yes Univers betamethaso 4-24 ity of ne 00:00: [place] dipropionat 00 [facility] e [facility] (DIPROLENE) 0.05 % ointment jun 2014 Yes Univers betamethaso 4-24 ity of ne 00:00: [place] dipropionat 00 [facility] e [facility] (DIPROLENE) 0.05 % ointment jun 2014 Yes Univers betamethaso 4-24 ity of ne 00:00: [place] dipropionat 00 [facility] e [facility] (DIPROLENE) 0.05 % ointment jun 2014 Yes Univers betamethaso 4-24 ity of ne 00:00: [place] dipropionat 00 [facility] e [facility] (DIPROLENE) 0.05 % ointment jun 2014 Yes Univers betamethaso 4-24 ity of ne 00:00: [place] dipropionat 00 [facility] e [facility] (DIPROLENE) 0.05 % ointment jun 2014 Yes Univers betamethaso 4-24 ity of ne 00:00: [place] dipropionat 00 [facility] e [facility] (DIPROLENE) 0.05 % ointment jun 2014 Yes Univers betamethaso 4-24 ity of ne 00:00: [place] dipropionat 00 [facility] e [facility] (DIPROLENE) 0.05 % ointment jun 2014 Yes Univers betamethaso 4-24 ity of ne 00:00: [place] dipropionat 00 [facility] e [facility] (DIPROLENE) 0.05 % ointment jun 2014 Yes Univers betamethaso 4-24 ity of ne 00:00: [place] dipropionat 00 [facility] e [facility] (DIPROLENE) 0.05 % ointment jun 2014 Yes Univers betamethaso 4-24 ity of ne 00:00: [place] dipropionat 00 [facility] e [facility] (DIPROLENE) 0.05 % ointment jun 2014 Yes Univers betamethaso 4-24 ity of ne 00:00: [place] dipropionat 00 [facility] e [facility] (DIPROLENE) 0.05 % ointment jun 2014 Yes Univers betamethaso 4-24 ity of ne 00:00: [place] dipropionat 00 [facility] e [facility] (DIPROLENE) 0.05 % ointment jun 2014 Yes Univers betamethaso 4-24 ity of ne 00:00: [place] dipropionat 00 [facility] e [facility] (DIPROLENE) 0.05 % ointment jun 2014 Yes Univers betamethaso 4-24 ity of ne 00:00: [place] dipropionat 00 [facility] e [facility] (DIPROLENE) 0.05 % ointment jun 2014 Yes Univers betamethaso 4-24 ity of ne 00:00: [place] dipropionat 00 [facility] e [facility] (DIPROLENE) 0.05 % ointment jun 2014 Yes Univers betamethaso 4-24 ity of ne 00:00: [place] dipropionat 00 [facility] (DIPROLENE) 0.05 % ointment jun 2014 Yes [facility] betamethaso 4-24 ity of ne 00:00: [place] dipropionat 00 [facility] e [facility] (DIPROLENE) 0.05 % ointment jun 2014 Yes [facility] betamethaso 4-24 ity of ne 00:00: [place] dipropionat 00 [facility] e [facility] (DIPROLENE) 0.05 % ointment jun 2014 Yes Univers betamethaso 4-24 ity of ne 00:00: [place] dipropionat 00 [facility] e [facility] (DIPROLENE) 0.05 % ointment jun 2014 Yes [facility] betamethaso 4-24 ity of ne 00:00: [place] dipropionat 00 [facility] e Branch (DIPROLENE) 0.05 % ointment jun 2014 Yes Univers betamethaso 4-24 ity of ne 00:00: [place] dipropionat 00 [facility] e Branch (DIPROLENE) 0.05 % ointment jun 2014 Yes Univers betamethaso 4-24 ity of ne 00:00: [place] dipropionat 00 [facility] e Branch (DIPROLENE) 0.05 % ointment jun 2014 Yes Univers betamethaso 4-24 ity of ne 00:00: [place] dipropionat 00 Medical e Branch (DIPROLENE) 0.05 % ointment clobetasol Yes Univers (TEMOVATE) 4-09 ity of 0.05 % 00:00: [place] ointment Medical Branch clobetasol Yes Univers (TEMOVATE) 4-09 ity of 0.05 % 00:00: [place] ointment [facility] Branch clobetasol Yes Univers (TEMOVATE) 4-09 ity of 0.05 % 00:00: [place] ointment [facility] Branch clobetasol 2014-0 Yes Univers (TEMOVATE) 4-09 ity of 0.05 % 00:00: [place] ointment Medical Branch clobetasol Yes Univers (TEMOVATE) 4-09 ity of 0.05 % 00:00: [place] ointment [facility] Branch clobetasol Yes Univers (TEMOVATE) 4-09 ity of 0.05 % 00:00: [place] ointment [facility] Branch clobetasol Yes Univers (TEMOVATE) 4-09 ity of 0.05 % 00:00: [place] ointment [facility] Branch clobetasol Yes Univers (TEMOVATE) 4-09 ity of 0.05 % 00:00: [place] ointment [facility] Branch clobetasol Yes Univers (TEMOVATE) 4-09 ity of 0.05 % 00:00: [place] ointment [facility] Branch clobetasol Yes Univers (TEMOVATE) 4-09 ity of 0.05 % 00:00: [place] ointment [facility] Branch clobetasol Yes Univers (TEMOVATE) 4-09 ity of 0.05 % 00:00: [place] ointment [facility] Branch clobetasol Yes Univers (TEMOVATE) 4-09 ity of 0.05 % 00:00: [place] ointment [facility] Branch clobetasol Yes Univers (TEMOVATE) 4-09 ity of 0.05 % 00:00: [place] ointment [facility] Branch clobetasol Yes Univers (TEMOVATE) 4-09 ity of 0.05 % 00:00: [place] ointment [facility] Branch clobetasol Yes Univers (TEMOVATE) 4-09 ity of 0.05 % 00:00: [place] ointment [facility] clobetasol 0 Yes Univers (TEMOVATE) 4-09 ity of 0.05 % 00:00: [place] ointment [facility] Branch clobetasol Yes Univers (TEMOVATE) 4-09 ity of 0.05 % 00:00: [place] ointment [facility] Branch clobetasol Yes Univers (TEMOVATE) 4-09 ity of 0.05 % 00:00: [place] ointment [facility] Branch clobetasol Yes Univers (TEMOVATE) 4-09 ity of 0.05 % 00:00: [place] ointment [facility] Branch clobetasol Yes Univers (TEMOVATE) 4-09 ity of 0.05 % 00:00: [place] ointment [facility] Branch clobetasol Yes Univers (TEMOVATE) 4-09 ity of 0.05 % 00:00: [place] ointment [facility] Branch clobetasol Yes Univers (TEMOVATE) 4-09 ity of 0.05 % 00:00: [place] ointment [facility] Branch clobetasol Yes Univers (TEMOVATE) 4-09 ity of 0.05 % 00:00: [place] ointment [facility] clobetasol Yes Univers (TEMOVATE) 4-09 ity of 0.05 % 00:00: [place] ointment [facility] Branch clobetasol Yes Univers (TEMOVATE) 4-09 ity of 0.05 % 00:00: [place] ointment [facility] Branch clobetasol Yes Univers (TEMOVATE) 4-09 ity of 0.05 % 00:00: [place] ointment [facility] Branch clobetasol Yes Univers (TEMOVATE) 4-09 ity of 0.05 % 00:00: [place] ointment [facility] clobetasol Yes Univers (TEMOVATE) 4-09 ity of 0.05 % 00:00: [place] ointment [facility] Branch clobetasol Yes Univers (TEMOVATE) 4-09 ity of 0.05 % 00:00: [place] ointment [facility] clobetasol 0 Yes Univers (TEMOVATE) 4-09 ity of 0.05 % 00:00: [place] ointment [facility] Branch clobetasol Yes Univers (TEMOVATE) 4-09 ity of 0.05 % 00:00: [place] ointment [facility] clobetasol Yes Univers (TEMOVATE) 4-09 ity of 0.05 % 00:00: [place] ointment [facility] clobetasol 2014-0 Yes Univers (TEMOVATE) 4-09 ity of 0.05 % 00:00: [place] ointment [facility] clobetasol 2013-0 Yes Univers (TEMOVATE) 4-09 ity of 0.05 % 00:00: [place] ointment [facility] clobetasol 2013-0 Yes Univers (TEMOVATE) 4-09 ity of 0.05 % 00:00: [place] ointment [facility] clobetasol 2013-0 Yes Univers (TEMOVATE) 4-09 ity of 0.05 % 00:00: [place] ointment [facility] clobetasol 2013-0 Yes Univers (TEMOVATE) 4-09 ity of 0.05 % 00:00: [place] ointment [facility] clobetasol 0 Yes Univers (TEMOVATE) 4-09 ity of 0.05 % 00:00: [place] ointment [facility] clobetasol 2013-0 Yes Univers (TEMOVATE) 4-09 ity of 0.05 % 00:00: [place] ointment [facility] clobetasol 2013-0 Yes Univers (TEMOVATE) 4-09 ity of 0.05 % 00:00: [place] ointment [facility] clobetasol 2013-0 Yes Univers (TEMOVATE) 4-09 ity of 0.05 % 00:00: [place] ointment [facility] clobetasol 2013-0 Yes Univers (TEMOVATE) 4-09 ity of 0.05 % 00:00: [place] ointment [facility] clobetasol 2013-0 Yes Univers (TEMOVATE) 4-09 ity of 0.05 % 00:00: [place] ointment [facility] clobetasol 2013-0 Yes Univers (TEMOVATE) 4-09 ity of 0.05 % 00:00: [place] ointment [facility] clobetasol 2013-0 Yes Univers (TEMOVATE) 4-09 ity of 0.05 % 00:00: [place] ointment [facility] clobetasol 2013-0 Yes Univers (TEMOVATE) 4-09 ity of 0.05 % 00:00: [place] ointment [facility] clobetasol Yes Univers (TEMOVATE) 4-09 ity of 0.05 % 00:00: [place] ointment [facility] clobetasol Yes Univers (TEMOVATE) 4 ity of 0.05 % 00:00: [place] ointment [facility] clobetasol Yes Univers (TEMOVATE) 4- ity of 0.05 % 00:00: [place] ointment [facility] clobetasol Yes Univers (TEMOVATE) 4- ity of 0.05 % 00:00: [place] ointment [facility] Branch clobetasol Yes Univers (TEMOVATE) 4- ity of 0.05 % 00:00: [place] ointment [facility] Clopidogrel Clopidogrel No Clopidogre Bisulfate Bisulfate l 75 MG 75 MG Bisulfate 75 MG Aspirin EC Aspirin EC No Aspirin EC Low Dose 81 Low Dose 81 Low Dose MG MG 81 MG Fish Oil Fish Oil No 1{capsu QD Fish Oil 1000 MG 1000 MG le} 1000 MG Meloxicam Meloxicam No 1{table QD Meloxicam 15 MG 15 MG t} 15 MG Metoprolol Metoprolol No Metoprolol Tartrate 50 Tartrate 50 Tartrate MG MG 50 MG Losartan Losartan No Losartan Potassium-H Potassium-H Potassium- CTZ 50-12.5 CTZ 50-12.5 HCTZ MG MG 50-12.5 MG Pravastatin Pravastatin No 1{table QD Pravastati Sodium 10 Sodium 10 t} n Sodium MG MG 10 MG Omeprazole Omeprazole No 1{capsu QD Omeprazole 40 MG 40 MG le} 40 MG Clopidogrel Clopidogrel No Clopidogre Bisulfate Bisulfate l 75 MG 75 MG Bisulfate 75 MG Aspirin EC Aspirin EC No Aspirin EC Low Dose 81 Low Dose 81 Low Dose MG MG 81 MG Fish Oil Fish Oil No 1{capsu QD Fish Oil 1000 MG 1000 MG le} 1000 MG Meloxicam Meloxicam No 1{table QD Meloxicam 15 MG 15 MG t} 15 MG Metoprolol Metoprolol No Metoprolol Tartrate 50 Tartrate 50 Tartrate MG MG 50 MG Losartan Losartan No Losartan Potassium-H Potassium-H Potassium- CTZ 50-12.5 CTZ 50-12.5 HCTZ MG MG 50-12.5 MG Pravastatin Pravastatin No 1{table QD Pravastati Sodium 10 Sodium 10 t} n Sodium MG MG 10 MG Omeprazole Omeprazole No 1{capsu QD Omeprazole 40 MG 40 MG le} 40 MG Clopidogrel Clopidogrel No Clopidogre Bisulfate Bisulfate l 75 MG 75 MG Bisulfate 75 MG Meloxicam Meloxicam No 1{table QD Meloxicam 15 MG 15 MG t} 15 MG Fish Oil Fish Oil No 1{capsu QD Fish Oil 1000 MG 1000 MG le} 1000 MG Pravastatin Pravastatin No 1{table QD Pravastati Sodium 10 Sodium 10 t} n Sodium MG MG 10 MG Omeprazole Omeprazole No 1{capsu QD Omeprazole 40 MG 40 MG le} 40 MG Losartan Losartan No Losartan Potassium-H Potassium-H Potassium- CTZ 50-12.5 CTZ 50-12.5 HCTZ MG MG 50-12.5 MG Metoprolol Metoprolol No Metoprolol Tartrate 50 Tartrate 50 Tartrate MG MG 50 MG Aspirin EC Aspirin EC No Aspirin EC Low Dose 81 Low Dose 81 Low Dose MG MG 81 MG Immunizations Ordered Immunization Filled Immunization Date Status Commen ts Source Name Name [id number] 2021-10-17 Completed Jann rial [id number] 00:00:00 Aniceto gonzalez <sup>1</sup> [id number] 2021-03-03 Completed Jann rial [id number] 00:00:00 [facility] Bupivicaine [place] Bupivicaine [place] 2018-10-23 Completed [facility] 09:50:00 [facility] Bupivicaine [place] Bupivicaine [place] 2018-10-23 Completed [facility] - 09:50:00 [facility] Bupivicaine [place] Bupivicaine [place] 2018-10-23 Completed [facility] - 09:50:00 [facility] Bupivicaine [place] Bupivicaine [place] 2018-10-23 Completed [facility] - 09:48:00 [facility] Bupivicaine [place] Bupivicaine [place] 2018-10-23 Completed [facility] - 09:48:00 [facility] Bupivicaine [place] Bupivicaine [place] 2018-10-23 Completed [facility] - 09:48:00 [facility] Depo Medrol (40mg) Depo Medrol (40mg) 2018-10-23 Completed [facility] - 09:47:00 [facility] Depo Medrol (40mg) Depo Medrol (40mg) 2018-10-23 Completed [facility] - 09:47:00 [facility] Depo Medrol (40mg) Depo Medrol (40mg) 2018-10-23 Completed [facility] - 09:47:00 [facility] Depo Medrol (40mg) Depo Medrol (40mg) 2018-10-23 Completed [facility] - 09:43:00 [facility] Depo Medrol (40mg) Depo Medrol (40mg) 2018-10-23 Completed [facility] - 09:43:00 [facility] Depo Medrol (40mg) Depo Medrol (40mg) 2018-10-23 Completed [facility] - 09:43:00 [facility] Vital Signs Vital Name Observation Time Observation Value Comments Source Systolic blood 2023-01-10 13:31:00 116 mm[Hg] Univer sity of pressure [facility] Diastolic blood 2023-01-10 13:31:00 81 mm[Hg] Unive rsity of [facility] Heart rate 2023-01-10 13:31:00 64 /min Universi [facility] Oxygen saturation in 2023-01-10 13:31:00 96 /min [facility] blood by [facility] Pulse oximetry Branch height 2021-03-29 15:00:00 71 [in_i] [facility] weight 2021-03-29 15:00:00 212.2 [lb_av] [facility] bmi 2021-03-29 15:00:00 29.59 kg/m2 [facility] oximetry 2021-03-29 15:00:00 97 % [facility] blood pressure 2021-03-29 15:00:00 130 mm[Hg] [facility] - systolic [facility] blood pressure 2021-03-29 15:00:00 81 mm[Hg] [facility] - diastolic [facility] Systolic blood 2020-06-27 19:46:00 125 mm[Hg] Univer sity of pressure [facility] Diastolic blood 2020-06-27 19:46:00 79 mm[Hg] Unive rsity of pressure [facility] Heart rate 2020-06-27 19:46:00 71 /min Universi ty of [facility] Body weight 2020-06-27 19:46:00 105.235 kg Universi ty of [facility] BMI 2020-06-27 19:46:00 33.29 kg/m2 Universi ty of [facility] Systolic blood 2020-06-27 19:46:00 125 mm[Hg] Univer sity of pressure [facility] Diastolic blood 2020-06-27 19:46:00 79 mm[Hg] Unive rsity of pressure [facility] Heart rate 2020-06-27 19:46:00 71 /min Universi ty of [facility] Body weight 2020-06-27 19:46:00 105.235 kg Universi ty of [facility] BMI 2020-06-27 19:46:00 33.29 kg/m2 Universi ty of [facility] Systolic blood 2020-06-15 13:08:00 129 mm[Hg] Univer sity of pressure [facility] Diastolic blood 2020-06-15 13:08:00 80 mm[Hg] Unive rsity of pressure [facility] Heart rate 2020-06-15 13:08:00 104 /min Universi ty of [facility] Body temperature 2020-06-15 13:08:00 37.06 Ava Univ ersity [facility] Respiratory rate 2020-06-15 13:08:00 20 /min [facility] Oxygen saturation in 2020-06-15 13:08:00 93 /min [facility] Arterial blood by [facility] Pulse oximetry Branch Body weight 2020-06-15 08:55:00 105.461 kg Universi ty of [facility] BMI 2020-06-15 08:55:00 33.36 kg/m2 Universi ty of [facility] Body height 2020-06-13 19:24:00 177.8 cm Universi ty of [facility] Body weight 2020-05-24 15:52:00 89.812 kg Universi ty of [facility] BMI 2020-05-24 15:52:00 28.01 kg/m2 [facility] [place] [facility] Systolic blood 2020-05-23 18:27:00 135 mm[Hg] Univer sity of pressure [facility] Diastolic blood 2020-05-23 18:27:00 73 mm[Hg] Unive rsity of pressure [facility] Heart rate 2020-05-23 18:27:00 57 /min [facility] Body height 2020-05-23 18:27:00 179.1 cm [facility] Body weight 2020-05-23 18:27:00 89.812 kg [facility] BMI 2020-05-23 18:27:00 28.01 kg/m2 [facility] Systolic (mm Hg) 2022-10-02 20:48:00 Jann rial [facility] Diastolic (mm Hg) 2022-10-02 20:48:00 Mem orial [facility] Heart Rate 2022-10-02 20:48:00 [facility] Height 2022-10-02 20:48:00 5 [ft_i] [facility] Weight 2022-10-02 20:48:00 [facility] BMI Calculated 2022-10-02 20:48:00 Memori al [facility] Systolic (mm Hg) 2022-08-01 16:01:00 Jann rial Singh Diastolic (mm Hg) 2022-08-01 16:01:00 Mem orial Singh Heart Rate 2022-08-01 16:01:00 [facility] Respitory Rate 2022-08-01 16:01:00 [facility] Height 2022-08-01 16:01:00 177.8 cm [facility] Weight 2022-08-01 16:01:00 [facility] BMI Calculated 2022-08-01 16:01:00 Mem[facility] Systolic (mm Hg) 2022-06-14 15:47:00 Jann rial Singh Diastolic (mm Hg) 2022-06-14 15:47:00 Mem orial [facility] Heart Rate 2022-06-14 15:47:00 [facility] Respitory Rate 2022-06-14 15:47:00 [facility] Height 2022-06-14 15:47:00 175.26 cm [facility] Weight 2022-06-14 15:47:00 [facility] BMI Calculated 2022-06-14 15:47:00 Memori [facility] Systolic blood 2022-06-12 18:33:00 126 mm[Hg] [facility] Diastolic blood 2022-06-12 18:33:00 78 mm[Hg] [facility] pressure Heart rate 2022-06-12 18:33:00 70 /min [facility] Body height 2022-06-12 18:33:00 180.3 cm [facility] Body weight 2022-06-12 18:33:00 93.441 kg [facility] BMI 2022-06-12 18:33:00 28.73 [facility] Systolic (mm Hg) 2022-05-03 18:04:00 Jann rial Singh Diastolic (mm Hg) 2022-05-03 18:04:00 Mem orial [facility] Heart Rate 2022-05-03 18:04:00 [facility] Respitory Rate 2022-05-03 18:04:00 Memori al Singh Height 2022-05-03 18:04:00 176.53 cm [facility] Weight 2022-05-03 18:04:00 [facility] BMI Calculated 2022-05-03 18:04:00 Memori al [facility] Systolic (mm Hg) 2022-04-09 14:22:00 Jann rial Singh Diastolic (mm Hg) 2022-04-09 14:22:00 Mem orial Singh Heart Rate 2022-04-09 14:22:00 [facility] Height 2022-04-09 14:22:00 177.8 cm [facility] Weight 2022-04-09 14:22:00 [facility] BMI Calculated 2022-04-09 14:22:00 Memori al Singh Body height 2021-12-05 19:40:00 180.3 cm [facility] Body weight 2021-12-05 19:40:00 93.441 kg [facility] BMI 2021-12-05 19:40:00 28.73 kg/m2 [facility] Systolic blood 2021-06-06 19:05:00 131 mm[Hg] [facility] pressure Diastolic blood 2021-06-06 19:05:00 77 mm[Hg] [facility] pressure Heart rate 2021-06-06 19:05:00 76 /min [facility] Procedures Procedure Date / Time Performing Clinician Source Performed LIPID PANEL 2022-06-14 12:16:00 Carlos Badillo spital AST (SGOT) 2022-06-14 12:16:00 Carlos Badillo Ho spital US CAROTID DUPLEX 2022-06-05 19:59:27 [facility] BILATERAL ASSIGNMENT OF BENEFITS 2022-04-24 18:04:07 Doctor Unassigned, [facility] ECG 12-LEAD 2021-12-05 19:48:48 Carlos Badillo spital US CAROTID DUPLEX 2021-06-06 19:34:12 [facility] BILATERAL HOME HEALTH - OTHER 2020-08-18 05:01:00 Doctor Unassigned, [facility] REFERRAL- 2020-08-09 05:01:00 Doctor Unassigned, [facility] REQUEST/RESPONSE [facility] REFERRAL- 2020-07-29 05:01:00 Doctor Unassigned, [facility] REQUEST/RESPONSE [facility] REFERRAL- 2020-07-14 05:01:00 Doctor Unassigned, [facility] REQUEST/RESPONSE [facility] XR KNEE <3 VW RIGHT 2020-06-27 20:11:29 Tremaine Cowan [facility] [place] XR KNEE <3 VW RIGHT 2020-06-27 19:47:26 Tremaine Cowan [facility] [place] BASIC METABOLIC PANEL 2020-06-14 09:26:00 Tremaine Cowan [facility] (NA, K, CL, CO2, GLUCOSE, Medica l Branch BUN, CREATININE, CA) CBC WITH DIFF 2020-06-14 09:26:00 [facility] [place] NERVE BLOCK 2020-06-13 18:24:39 [facility] XR KNEE <3 VW RIGHT 2020-06-13 17:29:22 Tremaine Cowan [facility] Medical Branch INTUBATION 2020-06-13 15:26:59 Nathan Pryor [facility] TOTAL KNEE ARTHROPLASTY 2020-06-13 14:37:00 [facility] [place] HB ABO GROUPING 2020-06-13 12:45:00 Tremaine Cowan [facility] CBC WITH DIFF 2020-06-13 12:28:00 Tremaine Cowan [facility] CONSENT/REFUSAL FOR 2020-06-10 14:32:40 [facility] ASSIGNMENT OF BENEFITS 2020-06-10 14:32:20 [facility]if, [facility] NOTICE OF PRIVACY 2020-06-10 14:31:42 Doctor Nathan, [facility] PRACTICES [facility] CONSENT/REFUSAL FOR 2020-06-10 14:31:21 Doctor Nathan, [facility] ASSIGNMENT OF BENEFITS 2020-06-10 14:31:00 [facility], [facility] INSURANCE CORRESPONDENCE 2020-06-03 05:01:00 Doctor Nathan, [facility] DSU PRE-OP 2020-05-31 05:01:00 Doctor Nathan, [facility] XR KNEE 3 VW RIGHT 2020-05-23 17:45:10 Tremaine Cowan [facility] CONSENT/REFUSAL FOR 2020-05-23 17:30:15 Doctor Nathan, [facility] CONSENT/REFUSAL FOR 2020-05-23 17:19:23 Doctor [facility]igned, [facility] ASSIGNMENT OF BENEFITS 2020-05-23 17:19:04 Doctor Margothssclif, [facility] replacement<sup>1</sup> Plan of Care Planned Activity Planned Date Details Comments Source Future Scheduled 2022-11-23 COVID-19 VACCINE (#1) [facility] Test 10:16:07 [code = COVID-19 VACCINE (#1)] Future Scheduled 2022-11-23 65+ PNEUMOCOCCAL [facility] Test 10:16:07 VACCINE (1 - PCV) [code = 65+ PNEUMOCOCCAL VACCINE (1 - PCV)] Future Scheduled 2022-11-23 Hepatitis C screening [facility] Test 10:16:07 (procedure) [code = 771122079] Future Scheduled 2022-11-23 COLONOSCOPY SCREENING [facility] Test 10:16:07 [code = COLONOSCOPY SCREENING] Future Scheduled 2022-11-23 SHINGLES VACCINES (1 [facility] Test 10:16:07 of 2) [code = SHINGLES VACCINES (1 of 2)] Future Scheduled 2022-11-23 INFLUENZA VACCINE [facility] Test 10:16:07 [code = INFLUENZA VACCINE] Future Scheduled 2021-12-06 COLONOSCOPY SCREENING [facility] Test 07:52:03 [code = COLONOSCOPY SCREENING] Future Scheduled 2021-12-06 SHINGLES VACCINES (#1) [facility] Test 07:52:03 [code = SHINGLES VACCINES (#1)] Future Scheduled 2021-12-06 INFLUENZA VACCINE [facility] Test 07:52:03 [code = INFLUENZA VACCINE] Future Scheduled 2021-12-06 COVID-19 VACCINE (1) [facility] Test 07:52:03 [code = COVID-19 VACCINE (1)] Future Scheduled 2021-12-06 65+ P[facility]UMOCOCCAL [facility] Test 07:52:03 VACCINE (1 of 2 - PPSV23) [code = 65+ PNEUMOCOCCAL VACCINE (1 of 2 - PPSV23)] Future Scheduled 2021-12-06 Hepatitis C screening [facility] Test 07:52:03 (procedure) [code = 351017287] Encounters Start End Encounter Admission Attending Care Care Encounter Source Date/Time Date/Time Type Type Clinicians Facility Department ID 2021-12-20 Outpatient Shea, [facility] [id number] Common 12:55:19 [facility] [id number] [facility] 2021-09-22 Outpatient RENE NANCE IVETT [id number] Univers 06:43:28 TREMAINE pretty [facility] 2021-09-22 Outpatient RENE NANCE IVETT [id number] Univers 05:02:25 [facility] 2023-01-10 2023-01-10 [facility] Roberto [facility] [id number] Univers 00:00:00 00:00:00 Assessment [id number] [id number] Javi as JAKOB?BLEA [id number] Sd angelo [address] MEDICAL OFFICE [facility] 2022-12-05 2022-12-05 Ambulatory MHIE MNA [id number] Memoria 17:30:00 17:30:00 Pre-Reg Neurology 05 l [place] Singh 2022-12-05 2022-12-05 Outpatient MHIE MHIE [id number] Memoria 11:30:00 11:30:00 05 tamica Singh 2022-12-05 2022-12-05 Outpatient ALBINO BelloSCHER YUMISCHER [id number] 11:30:00 11:30:00 Tolu 05 Mo 2022-10-02 2022-10-03 Outpatient nullFlavo [place] [id number] Memoria 20:45:00 05:59:59 r Neurology 04 l Kylah Winters 2022-10-02 2022-10-02 Outpatient ALBINO BelloSCHJESSICA NICHOLASMISCHER [id number] 14:45:00 23:59:59 Tolu 04 Mo 2022-10-02 2022-10-02 Outpatient MHIE MHIE [id number] Memoria 14:45:00 14:45:00 04 tamica Singh 2022-08-06 2022-08-06 Gilmar Claudio 1.2.840.1 [id number] Methodi 00:00:00 00:00:[address] 3.430.2.7 Hospit a .3.235140 l .8 2022-08-01 2022-08-02 Outpatient nullFlavo MNA [id number] Memoria 16:00:00 04:59:59 r Neurology 03 l Kylah Winters 2022-08-01 2022-08-01 Outpatient ALBINO BelloSCHER MHMISCHER [id number] 11:00:00 23:59:59 Tolu 03 Mo 2022-08-01 2022-08-01 Outpatient MHIE MHIE [id number] Memoria 11:00:00 11:00:00 03 l Singh 2022-07-20 2022-07-20 Refill Justino, 1.2.840.1 [id number] 0459 Methodi 00:00:00 00:00:00 [address]58.1.[address] 3.430.2.7 Hospit a .3.711655 l .8 2022-06-22 2022-06-22 Telephone Ivonne, 1.2.840.1 [id number] Methodi 00:00:00 00:00:[address] 3.430.2.7 Hospit a .3.701931 l .8 2022-06-14 2022-06-15 Outpatient nullFlavo MNA [id number] Memoria 16:00:00 04:59:59 r Neurology 02 l Kylah Winters 2022-06-14 2022-06-14 Outpatient JESSICA Bello [facility] [id number] 11:00:00 23:59:59 Tolu 02 Mo 2022-06-14 2022-06-14 Outpatient KARL BARAJAS [id number] Memoria 11:00:00 11:00:00 02 tamica Singh 2022-06-12 2022-06-12 Office Justino 1.2.840.1 [id number] [id number] Methodi 12:15:00 14:18:12 Visit Carlos Vargas 68780.1.[address] 3.430.2.7 Hospit a .3.060593 l .8 2022-06-12 2022-06-12 Travel 1.2.840.1 1.2.201.824 9659 [id number] Methodi 00:00:00 00:00:[address] 3.430.2.7 0.2.7.3.698 Ho spita .3.747057 084.8 l .8 2022-06-12 2022-06-12 [facility] [id number] [address] [place] 00:00:00 00:00:00 CARLOS [address] 2022-06-05 2022-06-05 Travel 1.2.840.1 1.2.952.087 1664 147840 Methodi 00:00:00 00:00:00 30862.1.1 350.1.13.43 415 3.430.2.7 0.2.7.3.698 Ho spita .3.414083 084.8 l .8 2022-06-05 2022-06-05 Outpatient [facility] [id number] [address] [place] 00:00:00 00:00:00 CARLOS [address] 2022-05-03 2022-05-04 Outpatient nullFlavo MNA [id number] Memoria 18:00:00 04:59:59 r Neurology 01 l Kylah Winters 2022-05-03 2022-05-03 Outpatient YU BelloMIRITCHIE NICHOLASMIRITCHIE [id number] 13:00:00 23:59:59 Tolu 01 Mo 2022-05-03 2022-05-03 Outpatient YUIE KARL [id number] Memoria 13:00:00 13:00:00 01 tamica Winters 2022-04-25 2022-04-25 Telephone MICHELLE Olmos 1.2.840.114 [id number] Univers 00:00:00 00:00:00 Mario [place] 350.1.13.10 it y of [facility] 4.2.7.2.686 Javi as [phone] [address] 2022-04-24 2022-04-24 Laboratory Only, Ang Db Test [facility] 1.2.8 40.114 [id number] Univers 13:15:00 13:30:00 Only Latrice [facility] 350.1.13.10 ity [facility] 4.2.7.2.686 Javi as JAKOB?BLEA [phone] [address] MEDICAL OFFICE BUILDING 2022-04-24 2022-04-24 Outpatient R LATRICE [facility] [id number] Univers 13:15:00 13:15:00 DWAIN campbell o f [facility] 2022-04-24 2022-04-24 Orders Doctor MARTINEZ 1.2.840.114 [id number] Univers 00:00:00 00:00:00 Only Unassigned, CRISTOFER 350.1.13.10 ity of [facility] 4.2.7.2.686 Javi as [phone] [facility] [address] 2022-04-09 2022-04-10 Outpatient nullFlavo MNA [id number] Memoria 14:30:00 04:59:59 r Neurology 00 l Kylah Winters 2022-04-09 2022-04-09 Outpatient YU BelloMISCHER MISCHER [id number] 09:30:00 23:59:59 Tolu 00 Mo 2022-04-09 2022-04-09 Outpatient MHIE MHIE [id number] [facility] 09:30:00 09:30:00 00 l Singh 2021-12-06 2021-12-06 Refill Justino, 1.2.840.1 [id number] 3014 Methodi 00:00:00 00:00:[address] 3.430.2.7 Hospit a .3.900054 l .8 2021-12-05 2021-12-05 Office Justion, 1.2.840.1 [id number] 5303 Methodi 13:32:51 16:02:41 Visit Carlos Prabhakar50.1.[address] 3.430.2.7 Hospit a .3.535254 l .8 2021-12-05 2021-12-05 Travel 1.2.840.1 1.2.520.085 7630 778122 Methodi 00:00:00 00:00:[address] 3.430.2.7 0.2.7.3.698 Ho spita .3.460706 084.8 l .8 2021-11-12 2021-11-12 Telephone MICHELLE Hernandez 1.2.243.117 9317 3353 [facility] 00:00:00 00:00:00 Mariel [place] 350.1.13.10 i ty of HOSPITAL 4.2.7.2.686 Javi as [id number] [facility] [address] 2021-11-11 2021-11-11 Laboratory Only, Ang Db Test [facility] 1.2.8 40.114 [id number] Univers 09:45:00 10:00:00 Only Brianna Gatica [facility] 350.1.13.10 ity of [place] 4.2.7.2.686 Javi as JAKOB?BLEA [phone] [address] MEDICAL OFFICE BUILDING 2021-11-11 2021-11-11 Outpatient R SHARAN [facility] [id number] Univers 09:45:00 09:45:00 BRIANNA ity of [facility] 2021-11-11 2021-11-11 Letter Doctor MARTINEZ 1.2.840.114 [id number] Univers 00:00:00 00:00:00 (Out) Unassigned, CRISTOFER 350.1.13.10 ity of [facility] 4.2.7.2.686 Javi as [phone] [address] 2021-11-11 2021-11-11 Letter Doctor MARTINEZ 1.2.840.114 [id number] Univers 00:00:00 00:00:00 (Out) Unassigned, CRISTOFER 350.1.13.10 ity of [facility] 4.2.7.2.686 Javi as [phone] [address] 2021-11-02 2021-11-02 Osiris Badillo 1Jose Juan2.840.1 [id number] 4570 Methodi 00:00:00 00:00:[address] V[address]as 68993.1.[address] 3.430.2.7 Hospit a .3.952537 l .8 2021-08-04 2021-08-04 (TEL) STLC STLMLC [id number] Co mmon 00:00:00 00:00:00 [facility] 2021-07-21 2021-07-21 Letter MICHELLE Kenney 1.2.840.114 [id number] Univers 00:00:00 00:00:00 (Out) Genny [place] 350.1.13.10 it y of HOSPITAL 4.2.7.2.686 Javi as [phone] [address] 2021-07-20 2021-07-20 Laboratory Only, Ang Db Test [facility] 1.2.8 40.114 [id number] Univers 11:40:13 11:55:13 Only Unknown, Attending Health 350.1.13.10 ity of [place] 4.2.7.2.686 Javi as Jakob?Blea [phone] Sd dicnatalio ey [address] [facility] 2021-07-20 2021-07-20 Outpatient R UNKNOWN, [facility] [id number] Univers 11:40:00 11:40:00 ATTENDING ity of [facility] 2021-07-20 2021-07-20 Letter Doctor MICHELLE 1.2.840.114 [id number] Univers 00:00:00 00:00:00 (Out) Unassigned, CRISTOFER 350.1.13.10 ity of [facility] 4.2.7.2.686 Javi as [phone] [address] 2021-07-20 2021-07-20 Letter Doctor MICHELLE 1.2.840.114 [id number] Univers 00:00:00 00:00:00 (Out) Unassigned, CRISTOFER 350.1.13.10 ity of [facility] 4.2.7.2.686 Javi as [id number] [address] 2021-07-09 2021-07-09 Telephone Nurse, [facility] 1.2.840.114 [id number] Univers 00:00:00 00:00:00 Fam Pob I Health 350.1.13.10 ity of Surgical 4.2.7.2.686 Javi as Specialti [phone] Sd dicnatalio reed [address] [facility] 2021-07-09 2021-07-09 Telephone HurleyMICHELLE tyson 1.2.971.282 6622 9918 Univers 00:00:00 00:00:00 Lester CASTROY 350.1.13.10 i ty of HOSPITAL 4.2.7.2.686 Javi as [phone] [address] 2021-07-08 2021-07-08 Laboratory Lab, Adc Fam Pob I [facility] 1.2. 840.114 [id number] Univers 15:53:50 16:13:50 Only Ebrahim, Rania [facility] 350.1.13.10 ity of [place] 4.2.7.2.686 Javi as Professio [phone] [address] Office [facility] One 2021-07-08 2021-07-08 Outpatient R KRISTY [facility] [id number] Univers 16:00:00 16:00:00 YAS ity of [facility] 2021-07-08 2021-07-08 Letter Doctor MICHELLE 1.2.840.[id number] [place] [address] 00:00:00 00:00:00 (Out) Unassigned, CRISTOFER 350.1.13.10 [facility] 4.2.7.2.686 Javi as [phone] [address] 2021-06-06 2021-06-06 Office Justino 1.2.840.1 [id number] 8764 Methodi 13:38:23 15:52:43 Visit Carlos Vargas 07964.1.[address] 3.430.2.7 Hospit a .3.511071 l .8 2021-06-06 2021-06-06 Travel 1.2.840.1 1.2.224.108 7577 209055 Methodi 00:00:00 00:00:[address] 3.430.2.7 0.2.7.3.698 Ho spita .3.527040 084.8 l .8 2021-06-06 2021-06-06 Outpatient JUSTINO [facility] [id number] [address] [place] [address] 00:00:00 00:00:00 CARLOS Guidry [facility] 2021-05-23 2021-05-23 (TEL) STLMLC STLMLC [id number] Co mmon 00:00:00 00:00:00 [facility] 2021-03-29 2021-03-29 OFFICE STLMLC STLMLC [id number] Co mmon 00:00:00 00:00:00 VISIT NEW Spir it PT LEVEL 4 - [facility] 2020-12-06 2020-12-06 Outpatient JUSTINO [facility] [id number] [address] [place] 00:00:00 00:00:00 CARLOS [address] 2020-12-06 2020-12-06 Outpatient JUSTINO [facility] [id number] 786 [place] 00:00:00 00:00:00 CARLOS [address] 2020-10-15 2020-10-15 Laboratory Lab, [facility] 1.2.840.114 [id number] 11:27:35 11:47:35 Only Fam Pob I Health 350.1.13.10 [place] 4.2.7.2.686 Professio [phone] nal [facility] Office Building One 2020-10-15 2020-10-15 Laboratory Lab, [facility] Fam Pob I [facility] 1.2. 840.114 [id number] [facility] 11:27:35 11:47:35 Only Green, Bri[facility] 350.1.13.10 ity of [place] 4.2.7.2.686 Jaiv as Professio [phone] Sd dical [address] Office Building One 2020-10-15 2020-10-15 Outpatient R SHARAN [facility] [id number] 542 [facility] 11:40:00 11:40:00 BRIANNA ity of [facility] 2020-08-18 2020-08-18 Orders Doctor MICHELLE Samaniego.2.840.114 [id number] 00:00:00 00:00:00 Only Unassigned, CRISTOFER 350.1.13.10 [facility] 4.2.7.2.686 [id number] [facility] 2020-08-18 2020-08-18 Orders Doctor MARTINEZ 1.2.840.114 [id number] [facility] 00:00:00 00:00:00 Only Unassigned, CRISTOFER 350.1.13.10 ity of [facility] 4.2.7.2.686 Javi as [phone] [address] 2020-08-09 2020-08-09 Orders Doctor MICHELLE Samaniego.2.840.114 [id number] 00:00:00 00:00:00 Only Unassigned, CRISTOFER 350.1.13.10 [facility] [id number] [facility] 2020-08-09 2020-08-09 Orders Doctor MARTINEZ 1.2.840.114 [id number] Univers 00:00:00 00:00:00 Only Unassigned, CRISTOFER 350.1.13.10 ity of [facility] 4.2.7.2.686 Javi as [phone] [address] 2020-07-29 2020-07-29 Orders Doctor MICHELLE 1.2.840.114 [id number] 00:00:00 00:00:00 Only Unassigned, CRISTOFER 350.1.13.10 [facility] 4.2.7.2.686 [id number] [facility] 2020-07-29 2020-07-29 Orders Doctor MICHELLE 1.2.840.114 [id number] Univers 00:00:00 00:00:00 Only Unassigned, CRISTOFER 350.1.13.10 ity of [facility] 4.2.7.2.686 Javi as [phone] [address] 2020-07-14 2020-07-14 Orders Doctor MARTINEZ 1.2.840.114 [id number] 00:00:00 00:00:00 Only Unassigned, CRISTOFER 350.1.13.10 [facility] 4.2.7.2.686 [id number] [facility] 2020-07-14 2020-07-14 Orders Doctor MICHELLE 1.2.840.114 [id number] Univers 00:00:00 00:00:00 Only Unassigned, CRISTOFER 350.1.13.10 ity of [facility] 4.2.7.2.686 Javi as [phone] [address] 2020-07-07 2020-07-07 Telephone [facility] 1.2.840.114 [id number] 00:00:00 00:00:00 Tremaine iCurrent 350.1.13.10 Surgical 4.2.7.2.686 Specialti [phone] [address] 2020-07-07 2020-07-07 Telephone [facility] 1.2.840.114 [id number] Univers 00:00:00 00:00:00 Tremaine [facility] 350.1.13.10 it y of Surgical 4.2.7.2.686 Javi as Specialti [phone] Sd dical [address] 2020-07-04 2020-07-04 Telephone [facility] 1.2.840.114 [id number] 00:00:00 00:00:00 Tremaine [facility] 350.1.13.10 Surgical 4.2.7.2.686 Specialti [id number] es [address] [place] 2020-07-04 2020-07-04 Telephone [facility] 1.2.840.114 [id number] [facility] 00:00:00 00:00:00 Tremaine [facility] 350.1.13.10 it y of Surgical 4.2.7.2.686 Javi as Specialti [phone] Sd dical es [address] [facility] 2020-06-27 2020-06-27 [facility] 1.2.840.114 [id number] 10184 15:11:28 23:59:00 Encounter Tremaine [facility] 350.1.13.10 Surgical 4.2.7.2.686 Specialti [phone] es 809 [place] 2020-06-27 2020-06-27 [facility] 1.2.840.114 [id number] [id number] [facility] 15:11:28 23:59:00 Encounter Tremaine [facility] 350.1.13.10 ity of Surgical 4.2.7.2.686 Javi as Specialti [id number] Sd dical es [address] [facility] 2020-06-27 2020-06-27 Office [facility] 1.2.074.561 [id number] 3739 14:33:33 15:19:44 Visit Tremaine [facility] 350.1.13.10 Surgical 4.2.7.2.686 Specialti [id number] es [address] [place] 2020-06-27 2020-06-27 Office [facility] 1.2.743.912 9869 3739 [facility] 14:33:33 15:19:44 Visit Tremaine [facility] 350.1.13.10 it y of Surgical 4.2.7.2.686 Javi as Specialti [phone] Sd dical es [address] [facility] 2020-06-27 2020-06-27 [facility] 1.2.840.114 [id number] 14:47:25 15:10:00 Encounter Tremaine [facility] 350.1.13.10 Surgical 4.2.7.2.686 Specialti [id number] es [address] [place] [address] 2020-06-27 2020-06-27 [facility] 1.2.840.114 [id number] Univers 14:47:25 15:10:00 Encounter Tremaine [facility] 350.1.13.10 ity of Surgical 4.2.7.2.686 Javi as Specialti [phone] Sd dical es 9 [facility] 2020-06-27 2020-06-27 Outpatient R [facility] [id number] Univers 14:45:00 14:45:00 TREMAINE campbell [facility] 2020-06-13 2020-06-15 [facility] 1.2.840.114 [id number] Univers 06:56:00 09:44:00 Encounter Tremaine Patel 350.1.13.10 ity of [place].2.7.2.686 [place] [id number] [facility] [address] 2020-06-13 2020-06-13 Anesthesia Foreign [place] [facility] 1.2.840.11 [id number] Univers 09:52:00 11:36:00 IvanFatimah Amanda 350.1 .13.10 ity of [place] 4.2.7.2.686 [place] [id number] [facility] [address] 2020-06-10 2020-06-10 Outpatient R [facility] [id number] Univers 10:15:00 10:15:00 TREMAINE campbell [facility] 2020-06-10 2020-06-10 Laboratory Only, Adc Test [facility] 1.2.840. 114 [id number] Univers 09:27:10 09:42:10 Only Tremaine Cowan 350.1.13.10 ity of [place] 4.2.7.2.686 [place] [id number] [facility] [address] 2020-06-10 2020-06-10 Room Cooler Installer Jaimie, Adc Lab Main [facility] 1.2.8 40.114 [id number] Univers 09:25:26 09:40:26 Visit Tremaine Cow[place] 350.1.13.10 ity of [place] 4.2.7.2.686 [place] Professio [phone] Me dical nal 353 [facility] 2020-06-10 2020-06-10 Telephone Chapo [facility] 1.2.840.114 [id number] Univers 00:00:00 00:00:00 Tremaine [facility] 350.1.13.10 it y of Surgical 4.2.7.2.686 Javi as Specialti [id number] Me dical es [address] [facility] 2020-06-06 2020-06-06 Prep For Chapo [facility] 1.2.840.114 [id number] Univers 00:00:00 00:00:00 Surgery Tremaine [facility] 350.1.13.10 it y of Surgical 4.2.7.2.686 Javi as Specialti [id number] Sd dical es [address] [facility] 2020-06-03 2020-06-03 Laboratory Lab, Adc Fam Pob I [facility] 1.2. 840.114 [id number] Univers 10:07:20 10:27:20 Only Anene, [facility] 350.1.13.10 ity of [place] 4.2.7.2.686 Javi as Professio [phone] Sd dical nal [address] One 2020-06-03 2020-06-03 Outpatient R [facility] [id number] Univers 09:15:00 09:15:00 TREMAINE ity of [facility] 2020-06-03 2020-06-03 Letter Doctor MICHELLE 1.2.840.114 [id number] Univers 00:00:00 00:00:00 (Out) Unassigned, CRISTOFER 350.1.13.10 ity of [facility] 4.2.7.2.686 Javi as [id number] [address] 2020-06-03 2020-06-03 Orders Doctor MICHELLE 1.2.840.114 [id number] Univers 00:00:00 00:00:00 Only Unassigned, CRISTOFER 350.1.13.10 ity of [facility] 4.2.7.2.686 Javi as [id number] [address] 2020-05-31 2020-05-31 Outpatient [facility] [id number] [address] [place] 00:00:00 00:00:00 143 Method i 2020-05-31 2020-05-31 Outpatient BADILLO, [facility] [id number] [address] [place] 00:00:00 00:00:00 CARLOS 051 Method i 2020-05-31 2020-05-31 Orders Doctor MICHELLE 1.2.840.114 [id number] [facility] 00:00:00 00:00:00 Only Unassigned, CRISTOFER 350.1.13.10 ity of [place] [facility] 4.2.7.2.686 Javi as [id number] [address] 2020-05-24 2020-05-24 Telephone [facility] 1.2.840.114 [id number] Univers 00:00:00 00:00:00 Tremaine Stoll 350.1.13.10 it y of Surgical 4.2.7.2.686 Javi as Specialti [phone] Sd dical es 198 [facility] 2020-05-23 2020-05-23 [facility] 1.2.840.114 [id number] Univers 12:18:00 23:59:00 Encounter Tremaine Kruger [place] 350.1.13.10 ity [facility] 4.2.7.2.686 [place] [facility] [id number] [facility] [address] 2020-05-23 2020-05-23 Office [facility] 1.2.255.150 [id number] Univers 13:22:24 13:58:56 Visit Tremaine Stoll 350.1.13.10 it y of Surgical 4.2.7.2.686 Javi as Specialti [phone] Sd dical es [address] [facility] 2020-05-23 2020-05-23 Outpatient R [facility] [id number] Univers 13:30:00 13:30:00 TREMAINE ity of [facility] 2020-05-23 2020-05-23 Telephone [facility] 1.2.840.114 [id number] Univers 00:00:00 00:00:00 Tremaine Kruger [employer] 350.1.13.10 it y of Surgical 4.2.7.2.686 Javi as Specialti [phone] Me dical es [address] [facility] 2020-05-23 2020-05-23 Letter [facility] 1.2.049.330 [id number] 8213 Univers 00:00:00 00:00:00 (Out) Tremaine Stoll 350.1.13.10 it y of Surgical 4.2.7.2.686 Javi as Specialti [phone] Sd dical es [address] [facility] 2020-04-20 2020-04-20 Telephone [facility] 1.2.840.114 [id number] Univers 00:00:00 00:00:00 Tremaine Stoll 350.1.13.10 it y of Surgical 4.2.7.2.686 Javi as Specialti [phone] Sd dical es [address] [facility] 2020-03-10 2020-03-10 Outpatient R [facility] [id number] Univers 08:00:00 08:00:00 TREMAINE campbell [facility] 2020-02-16 2020-02-16 Out[facility] [id number] Univers 13:15:00 13:15:00 KOBI campbell [facility] 2020-02-16 2020-02-16 [facility] 1.2.840.114 [id number] Univers 07:49:12 08:04:12 ne Visit Kobi Stoll 350.1.13.10 i ty of Surgical 4.2.7.2.686 Javi as Specialti [phone] Sd dical es [address] [facility] Results Test Description Test Time Test Comments Results Result Comments Source Lipid panel 2022-06-15 03:46:00 Test Item Value Reference Range Interpretation Comme nts Cholesterol, total (test 180 mg/dL <=200 code = 2093-3) HDL cholesterol (test 66 mg/dL See_Comment [Auto mated message] code = 2085-9) The system [facility] generated this result transmitted ref erence range: > OR = 4 0. The reference range was not used to int erpret this result as normal/abnormal . Triglycerides (test code 71 mg/dL <=150 = 2571-8) LDL cholesterol 98 mg/dL (calc) Reference ra nge: <100 calculated (test code = Yudith khan range <100 37430-4) mg/dL for prima ry prevention; <70 mg/dL for patients wi th CHD or diabetic pat ients with > or = 2 C HD risk factors. LDL-C is now calculated garrett mcnamara the Suhas calculation, wh ich is a validated nov el method providin g better accuracy than the Friedewald equation in the estimation of L DL-C. Tony SS et al . LIZBETH. 2013;310(19): 7898-2440 (http://educati on.Ques tDiagnostics.co m/faq/F AQ164) Cholesterol/HDL ratio 2.7 See_Comment [Auto mated message] (test code = 9830-1) The [employer] tem which generated this result transmitted ref erence range: <5.0 (ca lc). The reference r carmen was not used to interpret this result as normal/abnor mal. Non-HDL cholesterol (test 114 See_Comment Fo r patients with code = 61246-3) diabetes plu s 1 major ASCVD risk fact or, treating to a non-HDL-C goal of <100 mg/dL (LDL-C of <70 mg/dL) is consi dered a therapeutic opt ion. [Automated mess age] The system ic h generated this result transmitted ref erence range: <130 mg/ dL (calc). The ref erence range was not u sed to interpret this result as normal/abnor mal. SINDY (test code = SINDY) FASTING:YES FASTING: YES RAC (test code = RAC) Performing Organization Information: Site ID: [facility] Name: [facility] Lab Address: [address] [place] [address] Director: Aly Hicks [facility] ([facility])2022-06-15 03:46:00 Test Item Value Reference Range Interpretation Comments AST (test code = 15 U/L 1920-06) SINDY (test code = FASTING:YES FASTING: YES SINDY) RAC (test code = Performing Organization RAC) Information: Site ID: [facility] Name: [facility] Lab Address: [address] [place] [id number] Director: Aly Hicks [facility] 12 [id number] 02:20:08 Test Item Value Reference Range Interpretation Comments Ventricular rate (test code = 253) Atrial rate (test code = 255) ME interval (test code = 266) QRSD interval (test code = 260) QT interval (test code = 264) QTC interval (test code = 265) P axis 1 (test code = 267) QRS axis 1 (test code = 268) T wave axis (test code = 270) EKG impression (test Sinus bradycardia-Left code = 273) axis deviation-Incomplete left bundle branch block-T wave abnormality, consider anterolateral ischemia-Abnormal ECG-In automated comparison with ECG of 31-MAY-2020 14:15,-Inverted T waves have replaced nonspecific T wave abnormality in Anterolateral leads[facility]3 VW [id number] 21:56:13Implant in good position, no signs of loosening or subsidence or otherwise failure prosthesis. Interval between implants is excellent with no evidence of wear.[facility] WITH [id number] 11:07:00 Test Item Value Reference Range Interpretation Comments WBC (test code = See_Comment H [Automated 4217-2) message] The sy stem which generated this result transmitted reference range : 4.20 - 10.70 10*3/?L. The reference range was not used to interpret this result as normal/abnormal . RBC (test code = See_Comment L [Automated 329-8) message] The sy stem which generated this result transmitted reference range : 4.26 - 5.52 10*6/?L. The reference range was not used to interpret this result as normal/abnormal . HGB (test code = 12.9 g/dL 12.2-16.4 718-7) HCT (test code = 36.4 % 38.4-49.3 L 4544-3) MCV (test code = 89.2 fL 81.7-95.6 787-2) MCH (test code = 31.6 pg 26.1-32.7 785-6) MCHC (test code = 35.4 g/dL 31.2-35 H 786-4) RDW-SD (test code = 46.4 fL 38.5-51.6 71087-6) RDW-CV (test code = 14.3 % 12.1-15.4 788-0) PLT (test code = See_Comment [Automated 777-3) message] The sy stem which generated this result transmitted reference range : 150 - 328 10*3/ ?L. The reference r carmen was not used to interpret this result as normal/abnormal . MPV (test code = 10.2 fL 9.8-13 69123-4) NRBC/100 WBC (test See_Comment [Automat ed code = [id number]) message] The system which generated this result transmitted reference range : 0.0 - 10.0 /100 WBCs. The refer ence range was not u sed to interpret th is result as normal/abnormal . NRBC x10^3 (test code <0.01 See_Comment [Auto mated = [id number]) message] The s ystem which generated this result transmitted reference range : 10*3/?L. The reference range was not used to interpret this result as normal/abnormal . GRAN MAT (NEUT) % 79.9 % (test code = 770-8) IMM GRAN % (test code 0.50 % = 2463958210) LYMPH % (test code = 12.7 % 736-9) MONO % (test code = 6.9 % 5905-5) EOS % (test code = 0.0 % 713-8) BASO % (test code = 0.0 % 706-2) GRAN MAT x10^3(ANC) 8.66 10*3/uL 1.99-6.95 H (test code = 7336436394) IMM GRAN x10^3 (test 0.05 10*3/uL 0-0.06 code = 5389573618) LYMPH x10^3 (test code 1.38 10*3/uL 1.09-3.23 = 731-0) MONO x10^3 (test code 0.75 10*3/uL 0.36-1.02 = 742-7) EOS x10^3 (test code = <0.03 0.06-0.53 L 711-2) BASO x10^3 (test code <0.03 0.01-0.09 = 704-7) Lab Interpretation Abnormal (test code = 89995-9) [facility] (NA, K, CL, CO2, GLUCOSE, BUN, CREATININE, CA)2020-06-14 11:01:00 Test Item Value Reference Range Interpretation Comments NA (test code = 133 mmol/L 135-145 L 0682547251) K (test code = 4.2 mmol/L 3.5-5 4144440710) CL (test code = 103 mmol/L 98-108 4848806734) CO2 TOTAL (test code = 24 mmol/L 23-31 4717332101) AGAP (test code = 2-16 2731195863) BUN (test code = 22 mg/dL 7-23 9687563630) GLUCOSE (test code = 131 mg/dL 70-110 H 9870699651) CREATININE (test code = 1.10 mg/dL 0.6-1.25 0351104557) CALCIUM (test code = 8.1 mg/dL 8.6-10.6 L 1685232279) eGFR Calculation mL/min/1.73m2 (Non-) (test code = 8192246257) eGFR Calculation mL/min/1.73m2 () (test code = 1798282201) SINDY (test code = SINDY) Association of Glomerular Filtration Rate (GFR) and Staging of Kidney Disease* + --+ --+ ------+| GFR (mL/min/1.73 m2) ?| With Kidney Damage ?| ?Without Kidney Damage+ --------+ --------+ +| ?>90 ?| ?Stage one ?| ? Normal ?+ ---+ ---+ -------+| ?60-89 ?| ?Stage two ?| ? Decreased GFR ? + --+ --+ ------+| ?30-59 ?| ?Stage three ?| ? Stage three ? + --+ --+ ------+| ?15-29 ?| ?Stage four ? | ? Stage four ?+ ---+ ---+ -------+| ?<15 (or dialysis) ? ?| ?Stage five ? | ? Stage five ?+ ---+ ---+ -------+ *Each stage assumes the associated GFR level has been in effect for at least three months. ?Stages 1 to 5, with or without kidney disease, indicate chronic kidney disease. Notes: Determination of stages one and two (with eGFR >59mL/min/1.73 m2) requires estimation of kidney damage for at least three months as defined by structural or functional abnormalities of the kidney, manifested by either:Pathological abnormalities or Markers of kidney damage (including abnormalities in the composition of the blood or urine or abnormalities in imaging tests). Lab Interpretation Abnormal (test code = 65050-2) [facility] less than 3 views [id number] 19:20:04 Right total knee arthroplasty postsurgical changes in anatomic alignmentwithout acute fracture. Preliminary Report Dictated by Resident: Altagracia Michaud MD., have reviewed this study and agree with the abovereport.EXAM: XR KNEE <3 VW RIGHT HISTORY: total knee Maintain knee immo bilizer/brace/splint/cast COMPARISON: XR KNEE 3 VW RIGHT, 05/23/2020. FINDINGS: Radiographs of the right knee demonstrate post surgical changes of righttotal knee arthroplasty in anatomic alignment without acute fracture.Expected postsurgical soft tissue swelling, joint effusion with gas, andinfrapatellar surgical drain are noted. [facility], Radiant Results Inft User - 06/13/2020 2:21 PM CDTEXAM: XR KNEE <3 VW RIGHTHISTORY: total knee Maintain knee immobilizer/brace/splint/castCOMPARISON: XR KNEE 3 VW RIGHT, 05/23/2020.FINDINGS: Radiographs of the right knee demonstrate post surgical changes of righttotal knee arthroplasty in anatomic alignment without acute fracture.Expected postsurgical soft tissue swelling, joint effusion with gas, andinfrapatellar surgical drain are noted. IMPRESSIONRight total knee arthroplasty postsurgical changes in anatomic alignmentwithout acute fracture.Preliminary Report Dictated by Resident: Altagracia De MD., have reviewed this study and agree withthe abovereport.[facility] 2020-06-13 18:24:39Fatimah Love MD ? ? 06/13/2020 ?1:25 PM Nerve Block Procedure: Femoral Nerve Block Laterality: RightSurgical Anesthesia: no Start Time: 06/13/2020 9:00 AMEnd Time: 06/13/2020 9:10 AMPost Op Pain Management requested by surgeon per surgical: H&PAnesthesiologist: Fatimah Love MDPerformed by: anesthesiologistPreanesthetic timeout completed prior to procedure: patient identified,IV checked, site marked, risks and benefits discussed, surgical consent, monitors and equipment checked, pre-op evaluation, timeout performedPatient position: supine.Sterile Prep/Drape: YesMonitoring: bl ood pressure, continuous pulse ox and ECGInjection Technique: single-shotNeedle Gauge: 22 GNumber ofAttempts: 1Technique: Negative aspiration, Ultrasound guided and Intermittent aspiration during injectionSensory Effect: AdequateEvents: Patient tolerated procedure well, Negative Aspiration, No symptoms of intraneural or IV injection, Local anesthetic solution visualized around nerve and No paresthesia on incremental injection Medications Given: Regional:Bupiv 0.5% 20 mL [facility]woodIntubation2020-07-20 15:26:59Nathan Pryor CRNA ? ? 06/13/2020 10:28 AMIntubationDate/Time: 06/13/2020 10:27 AMUrgency: elective Airway not difficult General Information and Staff Patient location during procedure: ORResident/CR NA: Nathan Pryor CRNA Indications and Patient ConditionIndications for airway management: anesthesiaSpontaneous ventilation: presentSedation level: deepPreoxygenated: yesPatient position: sniffingMILS maintained throughoutMask difficulty assessment: 1 - vent by maskNo planned trial extubation Final Airway DetailsFinal airway type: endotracheal airway Successful airway: ETTCuffed: yes Successfulintubation technique: direct laryngoscopyEndotracheal tube insertion site: oralBlade: MillerBlade size: #2ETT size (mm): 7.0Cormack-Lehane Classification: grade IIb - view of arytenoids or posterior ofglottis onlyPlacement verified by: chest auscultation and capnometry Measured from: lipsETT to lips (cm): 22Number of attempts at approach: 1Number of other approaches attempted: 0Un[facility] [id number] 14:29:00 Test Item Value Reference Range Interpretation Comments WBC (test code = See_Comment [Automated 6690-2) message] The sy stem which generated this result transmitted reference range : 4.20 - 10.70 10*3/?L. The reference range was not used to interpret this result as normal/abnormal . RBC (test code = See_Comment [Automated 789-8) message] The sy stem which generated this result transmitted reference range : 4.26 - 5.52 10*6/?L. The reference range was not used to interpret this result as normal/abnormal . HGB (test code = 14.8 g/dL 12.2-16.4 718-7) HCT (test code = 42.1 % 38.4-49.3 4544-3) MCV (test code = 89.2 fL 81.7-95.6 787-2) MCH (test code = 31.4 pg 26.1-32.7 785-6) MCHC (test code = 35.2 g/dL 31.2-35 H 786-4) RDW-SD (test code = 45.7 fL 38.5-51.6 55771-5) RDW-CV (test code = 14.0 % 12.1-15.4 788-0) PLT (test code = See_Comment [Automated 777-3) message] The sy stem which generated this result transmitted reference range : 150 - 328 10*3/ ?L. The reference r carmen was not used to interpret this result as normal/abnormal . MPV (test code = 9.9 fL 9.8-13 23219-5) NRBC/100 WBC (test See_Comment [Automat ed code = 4918141503) message] The system which generated this result transmitted reference range : 0.0 - 10.0 /100 WBCs. The refer ence range was not u sed to interpret th is result as normal/abnormal . NRBC x10^3 (test code <0.01 See_Comment [Auto mated = 1489346634) message] The s ystem which generated this result transmitted reference range : 10*3/?L. The reference range was not used to interpret this result as normal/abnormal . GRAN MAT (NEUT) % 43.6 % (test code = 770-8) IMM GRAN % (test code 0.50 % = 2815545312) LYMPH % (test code = 45.2 % 736-9) MONO % (test code = 9.0 % 5905-5) EOS % (test code = 1.2 % 713-8) BASO % (test code = 0.5 % 706-2) GRAN MAT x10^3(ANC) 1.88 10*3/uL 1.99-6.95 L (test code = 5746875749) IMM GRAN x10^3 (test <0.03 0-0.06 code = 1857226837) LYMPH x10^3 (test code 1.95 10*3/uL 1.09-3.23 = 731-0) MONO x10^3 (test code 0.39 10*3/uL 0.36-1.02 = 742-7) EOS x10^3 (test code = 0.05 10*3/uL 0.06-0.53 L 711-2) BASO x10^3 (test code <0.03 0.01-0.09 = 704-7) Lab Interpretation Abnormal (test code = 90448-3) [facility]woodType and Screen - ONCE [id number] 14:06:46 Test Item Value Reference Range Interpretation Comments ABO & RH (test AB Positive Performed at [facility] code = 20) Laboratory Serv [facility] [address] [place], [place] [id number] Free: [phone] A No. [id number] IAT (test code = Negative Performed a t [facility] 1185) Laboratory Serv [facility] [address] [place] [id number] Free: [phone] A No. [id number] [facility]woodXR KNEE 3 VW [id number] 17:50:56 Osteoarthrosis with severe medial compartment narrowing. EXAM: XR KNEE 3 VW RIGHT HISTORY: Pre-Op -Standing knee xray with right lateral Standing knee xray withright lateral COMPARISON: None. FINDINGS: No acute fracture or dislocation is seen. There is compartmentalosteophytosis with medial compartment narrowing and subchondral sclerosis.A small joint effusion is seen. Mild prepatellar and infrapatellar softtissue swelling is noted. [facility], Radiant Results Inft User - 05/23/2020 12:52 PM CDTEXAM:XR KNEE 3 VW RIGHTHISTORY:Pre-Op - Standing knee xray with right lateral Standing knee xray withright lat eralCOMPARISON:None.FINDINGS: No acute fracture or dislocation is seen. There is compartmentalosteophytosis with medial compartment narrowing and subchondral sclerosis.A small joint effusion is seen. Mild prepatellar and infrapatellar softtissue swelling is noted.IMPRESSIONOsteoarthrosis with severe medial compartment narrowing.[facility]
[2023-01-10 08:28] LABS: Absolute Lymphocytes (CBC) 2.3 K/uL (0.7-4.9); Hematocrit 45.2 % (39.6-49.0); MCV 88.1 fL (80-100); MPV 8.1 fL (7.6-11.3); RBC Red Blood Cell Count 5.14 M/uL (4.33-5.43)
[2023-01-10 08:32] LABS: Protime INR 0.91
[2023-01-10 08:48] LABS: Bilirubin Direct 0.2 mg/dL (0-0.2); Bilirubin Total 0.5 mg/dL (0.2-1.0); Magnesium 2.1 mg/dL (1.6-2.4); Potassium 4.1 mmol/L (3.5-5.1); Protein, Total 7.5 g/dL (6.4-8.2)
--- NOTE | 2023-01-10 09:14 | RAD REPORT ---
EXAM DESCRIPTION: RAD - Chest Single View - 01/10/2023 8:42 am CLINICAL HISTORY: SOB Chest pain. COMPARISON: Chest Single View dated 03/15/2021; Chest Single View dated 04/15/2019; Chest Single View dated 08/25/2017; Chest Single View dated 11/12/2016 FINDINGS: Portable technique limits examination quality. The lungs are grossly clear. The heart is normal in size. Tortuous thoracic aorta. No displaced fract ures. IMPRESSION: No acute intrathoracic process suspected.
--- NOTE | 2023-01-10 09:36 | RAD REPORT ---
EXAM DESCRIPTION: CT - Chest For Pe Angio - 01/10/2023 9:21 am CLINICAL HISTORY: Chest pain. chest pain, sob COMPARISON: Chest Single View dated 01/10/2023; Abdomen Pelvis W Contrast dated 04/15/2019; Abdomen Pelvis W Contrast dated 03/15/2021 TECHNIQUE: CT angiogram of the pulmonary arteries was performed with MIP. All CT scans are performed using dose optimization technique as appropriate and may include automated exposure control or mA/KV adjustment according to patient size. FINDINGS: No evidence of pulmonary thromboembolism. No acute aortic finding demonstrated. 10 mm noncalcified nodule right lung base posteriorly. 6 mm noncalcified nodule anterior right middle lobe. 14 mm noncalcified nodule posterior to the left hilum. These nodules appear new since comparat [facility]. Trace pleural fluid, greater on the right. Moderate axial hiatal hernia. No lytic or blastic bone lesions. IMPRESSION: No evidence of pulmonary thromboembolism. Bilateral pulmonary nodules are present, noncalcified. These are likely new nodule since comparative imaging. Recommend follow-up PET-CT assessment. Neoplasia/metastatic disease is certainly possible.
[2023-01-10 09:47] LABS: SARS-COV-2 RT PCR NEGATIVE (NEGATIVE)
--- NOTE | 2023-01-10 11:56 | EDPHYS ---
Physician Documentation [facility] Name: Solis Gagnon Age: 72 yrs Sex: Male : 1950 Arrival Date: 01/10/2023 Time: 07:47 Bed 5 Private MD: ED Physician Wade Schuler HPI: 01/10 08:09 This 72 yrs old Male presents to ER via Ambulatory with complaints of Breathing jmm Difficulty. 08:09 The patient has shortness of breath at rest. Onset: The symptoms/episode began/occurred jmm gradually, 1 week(s) ago. Duration: The symptoms are continuous. This is a 72 year old male with a history of hlp, htn, tia that presents to the ED with complaints of mild substernal chest pain, shortnessof breath beginning approx 1 week ago. Denies fever, leg swelling, hemptysis. . Historical: - Allergies: 08:01 No Known Allergies; jl7 - Home Meds: 08:01 aspirin 81 mg Oral TbEC 1 tab once daily [Active]; clopidogrel 75 mg Oral tab 1 tab jl7 once daily [Active]; losartan-hydrochlorothiazide 50-12.5 mg Oral tab 1 tab once daily [Active]; metoprolol tartrate 50 mg Oral tab 1 tab 2 times per day [Active]; pantoprazole 40 mg Oral TbEC 1 tab once daily [Active]; pravastatin 40 mg Oral tab 1 tab once daily [Active]; - PMHx: 08:01 Hyperlipidemia; Hypertension; TIA; jl7 - Immunization history:: Adult Immunizations up to date, Client reports receiving the 2nd dose of the Covid vaccine, Pneumococcal vaccine is up to date, Flu vaccine is up to date. - Social history:: Smoking status: Patient denies any tobacco usage or history of. ROS: 08:09 Constitutional: Negative for fever, chills, and weight loss, Eyes: Negative for injury, jmm pain, redness, and discharge. 08:09 Cardiovascular: Positive for chest pain. 08:09 Respiratory: Positive for shortness of breath. 08:09 All other systems are negative. Exam: 08:09 Constitutional: This is a well developed, well nourished patient who is awake, alert, jmm and in no acute distress. Head/Face: atraumatic. Eyes: EOMI, no conjunctival erythema appreciated ENT: Moist Mucus Membranes Neck: Trachea midline, Supple Chest/axilla: Normal chest wall appearance and motion. Cardiovascular: Regular rate and rhythm. No edema appreciated Respiratory: Normal respirations, no respiratory distress appreciated Abdomen/GI: Non distended Back: Normal ROM Skin: General appearance color normal 08:09 Musculoskeletal/extremity: ROM: intact in all extremities. 08:09 Skin: Appearance: Color: normal in color. 08:09 Neuro: Motor: is normal. 08:09 Psych: Behavior/mood is pleasant, cooperative. Vital Signs: 07:59 BP 122 / 94; Pulse 64; Resp 17; Temp 98.3(O); Pulse Ox 97% on R/A; Weight 90.26 kg (R); jl7 Height 5 ft. 11 in. (180.34 cm); Pain 0/10; 08:19 BP 134 / 92; Pulse 60; Resp 18; Pulse Ox 95% on R/A; Pain 0/10; ld1 10:17 BP 129 / 85; Pulse 57; Resp 18; Pulse Ox 97% on R/A; Pain 0/10; ld1 12:26 BP 125 / 90; Pulse 63; Resp 15; Pulse Ox 94% ; bp 07:59 Body Mass Index 27.75 (90.26 kg, 180.34 cm) jl7 MDM: 08:12 Patient medically screened. [facility] 09:59 Differential diagnosis: Anxiety Reaction CHF exacerbation, Chronic Obstructive [facility] Pulmonary Disease Myocardial Infarction pneumonia, Pulmonary Embolism Unstable Angina. 11:07 Scoring Tools HEART Score: Total Score = 5. [facility] 11:53 Data reviewed: vital signs, nurses notes, lab test result(s), radiologic studies. [facility] Consideration of Admission/Observation. I considered the following discharge prescriptions or medication management in the emergency department. Independent interpretation of the following test(s) in the Emergency Department X-Ray: My interpretation is no infiltrate. Counseling: I had a detailed discussion with the patient and/or guardian regarding: the historical points, exam findings, and any diagnostic results supporting the discharge/admit diagnosis, lab results, radiology results, the need for outpatient follow up, to return to the emergency department if symptoms worsen or persist or if there are any questions or concerns that arise at home. 01/10 08:09 Order name: Basic Metabolic Panel; Complete Time: 09:05 [facility] 01/10 08:09 Order name: CBC with Diff; Complete Time: 08:33 [facility] 01/10 08:09 Order name: LFT's; Complete Time: 09:05 [facility] 01/10 08:09 Order name: Magnesium; Complete Time: 09:05 [facility] 01/10 08:09 Order name: NT PRO-BNP; Complete Time: 09:05 [facility] 01/10 08:09 Order name: PT-INR; Complete Time: 08:33 [facility] 01/10 08:09 Order name: Troponin HS; Complete Time: 09:05 [facility] 01/10 08:09 Order name: XRAY Chest (1 view); Complete Time: 09:16 [facility] 01/10 08:09 Order name: EKG; Complete Time: 08:10 [facility] 01/10 08:09 Order name: Cardiac monitoring; Complete Time: 08:19 [facility] 01/10 08:09 Order name: EKG - Nurse/Tech; Complete Time: 08:19 [facility] 01/10 08:43 Order name: COVID-19/FLU A+B; Complete Time: 09:51 [facility] 01/10 09:06 Order name: CT Chest For PE Angio; Complete Time: 09:42 [facility] 01/10 10:46 Order name: Troponin High Sensitivity: repeat; Complete Time: 11:44 [facility] 01/10 08:09 Order name: IV Saline Lock; Complete Time: 08:19 [facility] 01/10 08:09 Order name: Labs collected and sent; Complete Time: 08:19 [facility] 01/10 08:09 Order name: O2 Per Protocol; Complete Time: 08:14 [facility] 01/10 08:09 Order name: O2 Sat Monitoring; Complete Time: 08:14 [facility] Administered Medications: No medications were administered Disposition Summary: 01/10/23 11:55 Discharge Ordered Location: Home [facility] Condition: Stable [facility] Diagnosis - Dyspnea [facility] - Chest pain, unspecified [facility] Followup: [facility] - With: Alen Herring MD - When: 2 - 3 days - Reason: Recheck today's complaints, Continuance of care, Re-evaluation by your physician Discharge Instructions: - Discharge Summary Sheet [facility] - Nonspecific Chest Pain, Adult jmm - Shortness of Breath, Adult [facility] Forms: - Medication Reconciliation Form [facility] - Thank You Letter m - Antibiotic Education jmm - Prescription Opioid Use jmm Prescriptions: - Hydroxyzine HCl 25 mg Oral Tablet - take 1 tablet by ORAL route every 6 hours As needed; 30 tablet; Refills: 0, jmm Product Selection Permitted Signatures: Dispatcher [employer] James Espinosa PA PA jmm Leal, Jahala, RN RN jl7
--- NOTE | 2023-01-10 11:56 | ER ---
Nurse's Notes [facility] Name: Solis Gagnon Age: 72 yrs Sex: Male : 1950 Arrival Date: 01/10/2023 Time: 07:47 Bed 5 Private MD: Diagnosis: Dyspnea;Chest pain, unspecified Presentation: 01/10 07:59 Chief complaint: Patient states: SOB x 1 week, denies fever, denies CP. Coronavirus jl7 screen: Vaccine status: Patient reports receiving the 2nd dose of the covid vaccine. shortness of breath. Ebola Screen: No symptoms or risks identified at this time. Initial Sepsis Screen: Does the patient meet any 2 criteria? No. Patient's initial sepsis screen is negative. Does the patient have a suspected source of infection? No. Patient's initial sepsis screen is negative. Risk Assessment: Do you want to hurt yourself or someone else? Patient reports no desire to harm self or others. Onset of symptoms was January 02, 2023. 07:59 Method Of Arrival: Ambulatory [facility] 07:59 Acuity: LALO 2 jl7 Triage Assessment: 08:01 General: Appears in no apparent distress. uncomfortable, Behavior is calm, cooperative, jl7 appropriate for age. Pain: Denies pain. Cardiovascular: Patient's skin is warm and dry. Respiratory: Reports shortness of breath at rest Airway is patent Respiratory effort is even, unlabored, Respiratory pattern is regular, symmetrical, Onset: The symptoms/episode began/occurred x1 week, the patient has mild shortness of breath. Historical: - Allergies: 08:01 No Known Allergies; jl7 - Home Meds: 08:01 aspirin 81 mg Oral TbEC 1 tab once daily [Active]; clopidogrel 75 mg Oral tab 1 tab jl7 once daily [Active]; losartan-hydrochlorothiazide 50-12.5 mg Oral tab 1 tab once daily [Active]; metoprolol tartrate 50 mg Oral tab 1 tab 2 times per day [Active]; pantoprazole 40 mg Oral TbEC 1 tab once daily [Active]; pravastatin 40 mg Oral tab 1 tab once daily [Active]; - PMHx: 08:01 Hyperlipidemia; Hypertension; TIA; jl7 - Immunization history:: Adult Immunizations up to date, Client reports receiving the 2nd dose of the Covid vaccine, Pneumococcal vaccine is up to date, Flu vaccine is up to date. - Social history:: Smoking status: Patient denies any tobacco usage or history of. Screenin:19 [facility] ED Fall Risk Assessment (Adult) History of falling in the last 3 months, ld1 including since admission No falls in past 3 months (0 pts). Abuse screen: Denies threats or abuse. Denies injuries from another. Nutritional screening: No deficits noted. Tuberculosis screening: No symptoms or risk factors identified. Assessment: 08:19 General: Appears in no apparent distress. comfortable, Behavior is calm, cooperative, ld1 appropriate for age. Pain: Denies pain. Neuro: Level of Consciousness is awake, alert, obeys commands, Oriented to person, place, time, situation. Cardiovascular: Capillary refill < 3 seconds Patient's skin is warm and dry. Rhythm is sinus rhythm. Respiratory: Reports shortness of breath at rest Airway is patent Respiratory effort is even, unlabored, Breath sounds are clear bilaterally. GI: Abdomen is round non-distended. : No signs and/or symptoms were reported regarding the genitourinary system. EENT: No signs and/or symptoms were reported regarding the EENT system. Derm: No signs and/or symptoms reported regarding the dermatologic system. Musculoskeletal: No signs and/or symptoms reported regarding the musculoskeletal system. 10:17 Reassessment: Patient appears in no apparent distress at this time. Patient and/or ld1 family updated on plan of care and expected duration. Pain level reassessed. Patient is alert, oriented x 3, equal unlabored respirations, skin warm/dry/pink. 12:26 Reassessment: PT DC HOME AMBULATORY. bp Vital Signs: 07:59 BP 122 / 94; Pulse 64; Resp 17; Temp 98.3(O); Pulse Ox 97% on R/A; Weight 90.26 kg (R); jl7 Height 5 ft. 11 in. (180.34 cm); Pain 0/10; 08:19 BP 134 / 92; Pulse 60; Resp 18; Pulse Ox 95% on R/A; Pain 0/10; ld1 10:17 BP 129 / 85; Pulse 57; Resp 18; Pulse Ox 97% on R/A; Pain 0/10; ld1 12:26 BP 125 / 90; Pulse 63; Resp 15; Pulse Ox 94% ; bp 07:59 Body Mass Index 27.75 (90.26 kg, 180.34 cm) 7 ED Course: 07:47 Patient arrived in ED. rg4 08:01 Triage completed. jl7 08:01 Arm band placed on right wrist. EKG completed in triage. Results shown to MD. [facility] 08:06 James Perales PA is PHCP. [facility] 08:06 Wade Schuler MD is Attending Physician. [facility] 08:13 Rimma Mims, RN is Primary Nurse. ld1 08:19 Patient has correct armband on for positive identification. Placed in gown. Bed in low ld1 position. Call light in reach. Side rails up X2. youth nutritional monitor on. Pulse ox on. NIBP on. Door closed. Noise minimized. Warm blanket given. 08:19 No provider procedures requiring assistance completed. Inserted saline lock: 20 gauge ld1 in right antecubital area, using aseptic technique. Blood collected. 08:44 XRAY Chest (1 view) In Process Unspecified. EDMS 09:23 CT Chest For PE Angio In Process Unspecified. EDMS 11:54 Alen Herring MD is Referral Physician. jmm 12:27 IV discontinued, intact, bleeding controlled, No redness/swelling at site. Pressure bp dressing applied. Administered Medications: No medications were administered Medication: 08:19 VIS not applicable for this client. ld1 Outcome: 11:55 Discharge ordered by . jmm 12:27 Discharged to home ambulatory. bp 12:27 Condition: stable 12:27 Discharge instructions given to patient, Instructed on discharge instructions, follow up and referral plans. medication usage, Demonstrated understanding of instructions, follow-up care, medications, Prescriptions given X 1. 12:28 Patient left the ED. bp Signatures: Dispatcher [employer] EDMS James Perales PA PA jmm Garcia, Rubi rg4 Shirin Nixon RN RN jl7 Foreign Conklin RN RN bp Rimma Mims, RN RN ld1
[2023-01-10 13:08] VITALS: TEMP 98.3
[2023-01-10 13:14] VITALS: BP 125/90; O2SAT 94
--- NOTE | 2023-01-11 16:04 | EKG ---
Test Date: 2023-01-10 Test Time: 08:07:03 Garbage Worker: HENOK MEASUREMENT RESULTS: Intervals: Rate: 59 OH: 170 QRSD: 120 QT: 450 QTc: 445 [place]: P: 40 OH: 170 QRS: -43 T: -12 INTERPRETIVE STATEMENTS: Sinus bradycardia Left axis deviation Incomplete left bundle branch block T wave abnormality, consider lateral ischemia Abnormal ECG Compared to ECG 04/15/2019 12:28:55 Left-axis deviation now present Left bundle-branch block now present T-wave abnormality now present Possible ischemia now present Sinus rhythm no longer present Left ventricular hypertrophy no longer present Electronically Signed On 01-11-23 16:00:52 [employer] by Alen Herring
== END 2023-01-10 12:28 | disposition home or self-care (01) ==
LOC: ER 07:44
DX: R07.89 Other chest pain (principal); R06.00 Dyspnea, unspecified; I10 Essential (primary) hypertension; E78.5 Hyperlipidemia, unspecified; Z86.73 Personal history of transient ischemic attack (TIA), and cerebral infarction without residual deficits; Z79.82 Long term (current) use of aspirin; Z20.822 Contact with and (suspected) exposure to COVID-19
CPT/HCPCS: 93005; 85025; 80048; 36415; 83735; 85610; 80076; 84484 ×2; 83880; 0240U; 71275; 71045; 99284; Q9967

== ENCOUNTER 2024-07-02 08:54 | Emergency (ER) | payer OTHER ==
[2024-07-02 09:45] LABS: Absolute Eosinophils 0.1 K/uL (0-0.5); Absolute Lymphocytes (CBC) 1.8 K/uL (0.7-4.9); Absolute Monocytes 0.4 K/uL (0.1-1.3); Absolute Neutrophil 2.7 K/uL (1.8-8.0); Basophils % 0.2 % (0-1.3); Eosinophils % 1.1 % (0-4.4); Hematocrit 43.8 % (39.6-49.0); Hemoglobin 14.6 g/dL (13.6-17.9); Lymphocytes % 35.9 % (15.3-44.8); MCH 29.9 pg (27.0-35.0); MCHC 33.3 g/dL (32.0-36.0); MCV 89.6 fL (80-100); Monocytes % 8.5 % (3.3-12.3); Neutrophils % 54.3 % (41.7-73.7); Nucleated Red Blood Cells % 0.1 % (0-0); Platelets 164 thou/uL (152-406); RBC Red Blood Cell Count 4.89 M/uL (4.33-5.43); Red Cell Distribution Width 13.5 % (12.1-15.2)
--- NOTE | 2024-07-02 09:53 | RAD REPORT ---
EXAM DESCRIPTION: CT - Ct Stroke Brain Wo Cont - 07/02/2024 9:28 am CLINICAL HISTORY: STROKE ALERT COMPARISON: Head angio dated 08/25/2017; Ct Stroke Brain Wo Cont dated 08/25/2017; Head angio dated 07/02/2024; Neck Angio dated 07/02/2024; Chest For Pe Angio dated 01/10/2023 TECHNIQUE: Noncontrast head CT images were obtained without IV contrast. Multiplanar reformats were generated and reviewed. All CT scans are performed using dose optimization technique as appropriate and may include automated exposure control or mA/KV adjustment according to patient size. FINDINGS: Bilateral supratentorial areas of vasogenic edema and localized mass effect most pronounce d in the right frontal, parietal, and temporal lobes. Mildly hyperdense juxta cortical masses, larges t in the right high parietal lobe measuring 2.6 x 1.7 cm. The findings are more extensive on the righ t. Mild leftward bowing of the septum pellucidum measuring 1-2 mm. Effacement of the right lateral ventr icle trigone. No intracranial hemorrhage or abnormal extra-axial fluid collections. Midline structures are otherwis e unremarkable. Wang-white matter differentiation is otherwise preserved, without evidence of acute infarct. Mastoid air cells and visualized portions of the paranasal sinuses are clear. No acute bony findings. IMPRESSION: Numerous intracranial masses with vasogenic edema as detailed above, concerning for intr acranial metastatic disease. These would be better assessed on contrast enhanced brain MRI. Leftward septum pellucidum bowing, measuring 1-2 mm. Bullae these findings may obscure subtle sequelae of ischemia, no evidence of an acute territorial in farct or intracranial hemorrhage is noted. Small focus of hypoattenuation in the right cerebellar hem isphere, most suggestive of remote ischemia. The findings were communicated to Dr. Trinh on 07/02/2024 at 09:38 hours.
[2024-07-02 09:55] LABS: PT Prothrombin Time 10.8 SECONDS (9.4-12.5); PTT, Activated Partial Thromb 26.4 SECONDS (24.3-36.9); Protime INR 0.96
--- NOTE | 2024-07-02 09:55 | RAD REPORT ---
EXAM DESCRIPTION: CT - Head angio - 07/02/2024 9:29 am CLINICAL HISTORY: code stroke COMPARISON: Ct Stroke Brain Wo Cont dated 07/02/2024; Head angio dated 08/25/2017 TECHNIQUE: Axial CT angiography images of the head was performed with multiplanar and maximum intens ity projection reconstructions. Images performed following intravenous administration of 100mL Isovue 370. All CT scans are performed using dose optimization technique as appropriate and may include automated exposure control or mA/KV adjustment according to patient size. FINDINGS: Chronic intracranial left ICA occlusion with reconstitution of flow at the level of the le ft ICA communicating segment. The findings are stable since 2017. No other evidence of large vessel o cclusion. No evidence of aneurysm or dissection flap is detected. No flow-limiting stenosis or vascul ar malformation identified. Antegrade flow is seen in the vertebral arteries. The vertebral arteries are codominant. The visualized dural venous sinuses are grossly patent. Numerous juxta cortical intracranial masses with adjacent vasogenic edema pattern, more extensive on the right, better described on the accompanying noncontrast head CT. IMPRESSION: Chronic left ICA occlusion with reconstitution of flow at the level of the communicating segment, a stable finding. No other evidence of large vessel occlusion or flow-limiting stenosis. The findings were communicated to Dr. Trinh on 07/02/2024 at 09:38 hours.
--- NOTE | 2024-07-02 10:03 | RAD REPORT ---
EXAM DESCRIPTION: CT - Neck Angio - 07/02/2024 9:29 am CLINICAL HISTORY: stroke alert COMPARISON: No comparisons TECHNIQUE: Axial CT angiography images of the neck was performed with multiplanar and maximum intens ity projection reconstructions. Images performed following intravenous administration of 100mL Isovue 370. All CT scans are performed using dose optimization technique as appropriate and may include automated exposure control or mA/KV adjustment according to patient size. Quantification of carotid stenosis, if any, is performed according to NASCET criteria. FINDINGS: A left aortic arch is identified with normal three vessel configuration of the great vesse ls. No significant flow abnormality is seen of the common carotid bilaterally. Chronic occlusion of the proximal left ICA, proximal 1 cm distal to its origin. The right ICA is paris nt with mild tortuosity, and mild atherosclerotic changes at the bulb, without significant narrowing. Normal flow is seen within both vertebral arteries. Prominent left cervical lymph nodes, largest measuring 1.7 cm in short axis, centered on level 3/4. Moderate degenerative changes of the cervical spine with reversal of lordosis. IMPRESSION: Chronic left proximal ICA occlusion. No other significant flow abnormality of the neck v essels is identified. Prominent left cervical lymph nodes, largest measuring 1.7 cm in short axis, with centered on level 3 /4, concerning for metastatic adenopathy. The findings were communicated to Dr. Trinh on 07/02/2024 at 09:38 hours. CAROTID STENOSIS REFERENCE USING NASCET CRITERIA: % ICA stenosis = (1 - narrowest ICA diameter/diameter of distal cervical ICA) x 100. Mild - <50% stenosis. Moderate - 50-69% stenosis. Severe - 70-94% stenosis. Near occlusion - 95-99% stenosis. Occluded - 100% stenosis.
[2024-07-02 10:09] LABS: Anion Gap 9.3 mEq/L (5.0-15.0); Magnesium 2.2 mg/dL (1.6-2.4); Potassium 4.3 mEq/L (3.5-5.1); Troponin High Sensitivity 7.1 pg/mL (<58.9)
[2024-07-02] MEDS ORDERED: LEVETIRACETAM 500 MG/5 ML VIAL IV ONE (10:28)
[2024-07-02] MEDS ORDERED: NA CHLORIDE 0.9% 100 ML ONE (10:28)
--- NOTE | 2024-07-02 10:32 | RAD REPORT ---
EXAM DESCRIPTION: RADChest Single View07/02/2024 10:18 am CLINICAL HISTORY: stroke tremors COMPARISON: Chest Single View dated 01/10/2023; Chest Single View dated 03/15/2021; Chest Single View dated 04/15/2019; Chest Single View dated 08/25/2017 TECHNIQUE: Portable AP view of the chest. FINDINGS: The lungs are clear. No pneumothorax or effusion. The cardiomediastinal contours are unre markable. IMPRESSION: No acute cardiopulmonary process.
[2024-07-02] MEDS ORDERED: KETOROLAC 30 MG/ML INJ ONE (11:17)
--- NOTE | 2024-07-02 11:42 | EDPHYS ---
Physician Documentation [facility] Name: Solis Gagnon Age: 73 yrs Sex: Male : 1950 Arrival Date: 07/02/2024 Time: 08:54 Bed 8 Private MD: ED Physician Issa Trinh HPI: 07/02 20:34 This 73 yrs old Male presents to ER via EMS with complaints of Tremor - left leg bo1 tremors, Weakness. 10:46 12 lead EKG by EMS - sinus rhythm \\T\\ 58 bpm, left axis dev. IV conduction defect. No bo1 ectopy.. 20:34 Onset: The symptoms/episode began/occurred suddenly. Context: occurred while the bo1 patient was Trying to put on his pants and the left leg started to "shake.". Pt then called 911 as he lives by himself. Associated signs and symptoms: The patient has no apparent associated signs or symptoms, Pertinent negatives: dizziness, headache, near-syncope, double vision, visual field changes. Severity of symptoms: in the emergency department the symptoms have resolved. Patient's baseline: Hx of TIAs... 2007 and 2022. Current symptoms: Currently, the patient is not experiencing any symptoms, the patient feels back to baseline. Pt denies any prior malignancy or cancer. Historical: - Allergies: 09:44 No Known Allergies; ld1 - PMHx: 09:05 Hyperlipidemia; Hypertension; TIA; ar6 - Immunization history:: Adult Immunizations up to date. - Infectious Disease History:: Denies. - Social history:: Smoking status: unknown. ROS: 20:42 Constitutional: Negative for fever, chills, and weight loss, bo1 20:42 MS/extremity: Positive for "shaking" like a tremor and that he could not put on his pants or stand. , Exam: 10:43 ECG was reviewed by the Attending Physician. bo1 20:41 Constitutional: This is a well developed, well nourished patient who is awake, alert, bo1 and in no acute distress. Head/Face: Normocephalic, atraumatic. Eyes: Pupils equal round and reactive to light, extra-ocular motions intact. Lids and lashes normal. Conjunctiva and sclera are non-icteric and not injected. Cornea within normal limits. Periorbital areas with no swelling, redness, or edema. Neck: Trachea midline, no thyromegaly or masses palpated, and no cervical lymphadenopathy. Supple, full range of motion without nuchal rigidity, or vertebral point tenderness. No Meningismus. Cardiovascular: Regular rate and rhythm with a normal S1 and S2. No gallops, murmurs, or rubs. Normal PMI, no JVD. No pulse deficits. Respiratory: Lungs have equal breath sounds bilaterally, clear to auscultation and percussion. No rales, rhonchi or wheezes noted. No increased work of breathing, no retractions or nasal flaring. Abdomen/GI: Soft, non-tender, with normal bowel sounds. No distension or tympany. No guarding or rebound. No evidence of tenderness throughout. Skin: Warm, dry with normal turgor. Normal color with no rashes, no lesions, and no evidence of cellulitis. MS/ Extremity: Pulses equal, no cyanosis. Neurovascular intact. Full, normal range of motion. Neuro: Awake and alert, GCS 15, oriented to person, place, time, and situation. Cranial nerves II-XII grossly intact. Motor strength 5/5 in all extremities. Sensory grossly intact. Cerebellar exam normal. Normal gait. Psych: Awake, alert, with orientation to person, place and time. Behavior, mood, and affect are within normal limits. Vital Signs: 09:02 BP 138 / 104; Pulse 55; Resp 18; Temp 98.2; Pulse Ox 97% on R/A; ar6 09:46 BP 108 / 76; Pulse 72; Resp 18; Pulse Ox 96% on R/A; ld1 11:59 BP 112 / 77; Pulse 70; Resp 17; Pulse Ox 97% on R/A; rs5 NIH Stroke Scale Scores: 09:30 NIHSS Score: 0 ld1 20:41 NIHSS Score: 0 bo1 MDM: 09:03 Patient medically screened. bo1 20:37 Data reviewed: vital signs, lab test result(s), CBC, electrolytes, urinalysis, EKG, bo1 radiologic studies, CT scan, Angio studies. Consideration of Admission/Observation Patient was admitted/placed on observation. Also possible of a transfer to the [facility], which pt has declined. Management of patient was discussed with the following: Neurology - Dr Delores AHUJA (per Dr Estrella) pt can be offered some choices. Pt has decided to go home on Keppra and have an OP followup/MRI and possible diagnostic workup to locate the primary malignancy. ED course: Pt lives alone. No family except in [place]. Pt drives and self manages and wishes to be discharged to home to "take care of matters." Pt understands risks and consequences of his choice and agrees to return if symptoms return.. 07/02 09:04 Order name: Basic Metabolic Panel; Complete Time: 20:26 bo1 07/02 09:04 Order name: CBC with Diff; Complete Time: 10:09 bo1 07/02 09:04 Order name: High Sensitivity Troponin; Complete Time: 20:26 bo1 07/02 09:04 Order name: Magnesium; Complete Time: 20:26 bo1 07/02 09:04 Order name: Protime (+inr); Complete Time: 10:09 bo1 07/02 09:04 Order name: Ptt, Activated; Complete Time: 10:09 bo1 07/02 09:46 Order name: CREATININE WHOLE BLOOD; Complete Time: 10:09 EDMS 07/02 09:04 Order name: CT Stroke Brain w/o Contrast; Complete Time: 10:09 bo1 07/02 09:04 Order name: Stroke CXR 1 View; Complete Time: 20:26 bo1 07/02 09:11 Order name: CT Neck Angio; Complete Time: 10:09 bo1 07/02 09:24 Order name: Head angio; Complete Time: 10:09 EDMS 07/02 09:04 Order name: EKG; Complete Time: 09:05 bo1 07/02 09:04 Order name: Accucheck; Complete Time: 09:09 bo1 07/02 09:04 Order name: Cardiac monitoring; Complete Time: 09:05 bo1 0808 09:04 Order name: EKG - Nurse/Tech; Complete Time: 09:39 bo1 07/02 09:04 Order name: IV Saline Lock; Complete Time: 09:39 bo1 07/02 09:04 Order name: Labs collected and sent; Complete Time: 09:39 bo1 08 09:04 Order name: NPO; Complete Time: 09:05 bo1 07/02 09:04 Order name: O2 Per Protocol; Complete Time: 09:05 bo1 07/02 09:04 Order name: O2 Sat Monitoring; Complete Time: 09:05 bo1 07/02 09:04 Order name: Stroke Swallow Screen; Complete Time: 09:40 bo1 EC:43 Rate is 55 beats/min. Rhythm is regular. QRS [place] is Normal. [place] interval is normal. QRS bo1 interval is normal. QT interval is normal. Q waves are Present in leads I, V1. T waves are Normal. No ST changes noted. Clinical impression: LVH and Sinus bradycardia. Interpreted by me. Reviewed by me. Administered Medications: 10:37 Drug: Keppra IV 1000 mg IV at bolus once Route: IV; Rate: bolus; Site: right ld1 antecubital; 11:04 Follow up: Response: No adverse reaction ar6 11:36 Drug: ambulation trial 1 mg/min PO once Route: PO; ld1 Disposition Summary: 07/02/24 11:41 Discharge Ordered Notes: Location: Home bo1 Problem: new bo1 Symptoms: are unchanged bo1 Condition: Stable bo1 Diagnosis - Tremor, unspecified bo1 - Abnormal brain scan bo1 Followup: bo1 - With: Dario Estrella MD - When: - Reason: Continuance of care Discharge Instructions: - Discharge Summary Sheet bo1 - Metastatic Brain Tumor, Adult bo1 Forms: - Medication Reconciliation Form bo1 - Antibiotic Education bo1 - Prescription Opioid Use bo1 - Patient Portal Instructions bo1 - Leadership Thank You Letter bo1 Prescriptions: - Keppra 500 mg Oral Tablet - take 1 tablet ORAL route every 12 hours; 20 tablet; Refills: 0, Product bo1 Selection Permitted NIH Stroke Scale - NIH Stroke Score Date: 07/02/2024 Time: 09:30 Total Score = 0 10. Dysarthria (speech clarity - read or repeat words) - 0(Normal) 11. Extinction and Inattention (visual/tactile/auditory/spatial/personal) - 0(No abnormality) 1a. Level of Consciousness (LOC) - 0(Alert) 1b. Level of Consciousness (LOC) (Month \\T\\ Age) - 0(Both) 1c. LOC Commands (Open \\T\\ Closes Eyes/Glove Boarder) - 0(Both) 2. Best Gaze (Lateral Gaze Paresis) - 0(Normal) 3. Visual Field Loss - 0(No visual loss) 4. Facial Palsy - 0(Normal) 5a. Left Arm: Motor (10-second hold) - 0(No drift) 5b. Right Arm: Motor (10-second hold) - 0(No drift) 6a. Left Leg: Motor (5-second hold - always test supine) - 0(No drift) 6b. Right Leg: Motor (5-second hold - always test supine) - 0(No drift) 7. Limb Ataxia (finger/nose \\T\\ heel/delgadillo - test with eyes open) - 0(Absent) 8. Sensory Loss (pinprick arms/legs/face) - 0(Normal) 9. Best Language: Aphasia (description/naming/reading) - 0(No aphasia) Initials: ld1 NIH Stroke Scale - NIH Stroke Score Date: 07/02/2024 Time: 20:41 Total Score = 0 10. Dysarthria (speech clarity - read or repeat words) - 0(Normal) 11. Extinction and Inattention (visual/tactile/auditory/spatial/personal) - 0(No abnormality) 1a. Level of Consciousness (LOC) - 0(Alert) 1b. Level of Consciousness (LOC) (Month \\T\\ Age) - 0(Both) 1c. LOC Commands (Open \\T\\ Closes Eyes/Glove Boarder) 2. Best Gaze (Lateral Gaze Paresis) - 0(Normal) 3. Visual Field Loss - 0(No visual loss) 4. Facial Palsy - 0(Normal) 5a. Left Arm: Motor (10-second hold) - 0(No drift) 5b. Right Arm: Motor (10-second hold) - 0(No drift) 6a. Left Leg: Motor (5-second hold - always test supine) - 0(No drift) 6b. Right Leg: Motor (5-second hold - always test supine) - 0(No drift) 7. Limb Ataxia (finger/nose \\T\\ heel/delgadillo - test with eyes open) - 0(Absent) 8. Sensory Loss (pinprick arms/legs/face) - 0(Normal) 9. Best Language: Aphasia (description/naming/reading) - 0(No aphasia) Initials: bo1 Signatures: Dispatcher [employer] EDMS Rimma Arce RN RN ld1 Issa Trinh MD MD bo1 Samantha Raymond RN RN ar6 Corrections: (The following items were deleted from the chart) 09:05 09:04 BASIC METABOLIC PANEL+C.LAB.BRZ ordered. EDMS EDMS 09:05 09:04 CBC+H.LAB.BRZ ordered. EDMS EDMS 09:05 09:04 Troponin High Sensitivity+C.LAB.BRZ ordered. EDMS EDMS 09:05 09:04 MAGNESIUM+C.LAB.BRZ ordered. EDMS EDMS :05 09:04 PROTIME (+INR)+COAG.LAB.BRZ ordered. EDMS EDMS 09:05 09:04 PTT, ACTIVATED+COAG.LAB.BRZ ordered. EDMS EDMS
--- NOTE | 2024-07-02 11:42 | ER ---
Nurse's Notes [facility] Name: Solis Gagnon Age: 73 yrs Sex: Male : 1950 Arrival Date: 07/02/2024 Time: 08:54 Bed 8 Private MD: Diagnosis: Tremor, unspecified;Abnormal brain scan Presentation: 07/02 09:02 Chief complaint: Patient states: tremors, left leg tremors started this morning. ar6 Coronavirus screen: Vaccine status: Patient reports receiving the 2nd dose of the covid vaccine. Patient reports receiving the 1st dose of the Covid vaccine. Client denies travel out of the [place] in the last 14 days. At this time, the client does not indicate any symptoms associated with coronavirus-19. Ebola Screen: Patient negative for fever greater than or equal to 101.5 degrees Fahrenheit, and additional compatible Ebola Virus Disease symptoms Patient denies exposure to infectious person. Patient denies travel to an Ebola-affected area in the 21 days before illness onset. No symptoms or risks identified at this time. Initial Sepsis Screen: Does the patient meet any 2 criteria? No. Patient's initial sepsis screen is negative. Does the patient have a suspected source of infection? No. Patient's initial sepsis screen is negative. Risk Assessment: Do you want to hurt yourself or someone else? Patient reports no desire to harm self or others. Onset of symptoms was July 02, 2024. 09:02 Method Of Arrival: EMS: [facility] ar6 09:02 Acuity: LALO 3 ar6 Triage Assessment: 09:05 General: Appears in no apparent distress. Behavior is calm, cooperative. Pain: Denies ar6 pain. 09:05 EENT: No deficits noted. Neuro: Level of Consciousness is awake, alert, obeys commands, ld1 Oriented to person, place, time, situation, Appropriate for age. Neuro: Reports weakness left leg tremors to left leg. Cardiovascular: Capillary refill < 3 seconds Patient's skin is warm and dry. Rhythm is sinus rhythm. Respiratory: Airway is patent Respiratory effort is even, unlabored. GI: Abdomen is round non-distended. : No signs and/or symptoms were reported regarding the genitourinary system. Derm: No signs and/or symptoms reported regarding the dermatologic system. Musculoskeletal: No signs and/or symptoms reported regarding the musculoskeletal system. Historical: - Allergies: 09:44 No Known Allergies; ld1 - PMHx: 09:05 Hyperlipidemia; Hypertension; TIA; ar6 - Immunization history:: Adult Immunizations up to date. - Infectious Disease History:: Denies. - Social history:: Smoking status: unknown. Screenin:30 VAN Screening: Arm Drift: Patient shows no arm weakness. Patient is VAN negative. ld1 09:30 [facility] ED Fall Risk Assessment (Adult) History of falling in the last 3 months, ld1 including since admission No falls in past 3 months (0 pts) Confusion or Disorientation No (0 pts) Intoxicated or Sedated No (0 pts) Impaired Gait No (0 pts) Mobility Assist Device Used No (0 pt) Altered Elimination No (0 pt) Score/Fall Risk Level 0 - 2 = Low Risk Oriented to surroundings, Maintained a safe environment, Educated pt \T\ family on fall prevention, incl call for assistance when getting out of bed, Assessed \T\ reinforced patient's understanding of fall precautions, Provided non-skid footwear, Hourly rounding (assess needs \T\ fall precautionary measures) done, Used ambulatory aids as needed (educated on \T\ assisted with), Used gait belt as appropriate. Abuse screen: Denies threats or abuse. Denies injuries from another. Nutritional screening: No deficits noted. Tuberculosis screening: No symptoms or risk factors identified. Abena Swallow Protocol Brief Cognitive Screen What is your name? Normal, Where are you right now? Normal, What year is it? Normal. Oral Mechanism Examination Facial Symmetry: Normal, Motion: Normal, Lip Closure: Normal, Oral Mechanism Result: Normal. 3 oz Water Swallow Challenge: Pt able to drink all water without stopping, coughing, choking or throat clearing: Yes Result: PASS MD Notified: Issa Trinh MD. Assessment: 09:06 Reassessment: Patient appears in no apparent distress at this time. No changes from ar6 previously documented assessment. see triage assessment. 10:08 Reassessment: Patient and/or family updated on plan of care and expected duration. Pain rs5 level reassessed. Patient is alert, oriented x 3, equal unlabored respirations, skin warm/dry/pink. 11:01 General: Appears in no apparent distress. comfortable, Behavior is calm, cooperative. rs5 Pain: Denies pain. Neuro: Level of Consciousness is awake, alert, obeys commands, Oriented to person, place, time, situation, Baling Machine Tender are equal bilaterally Moves all extremities. Gait is steady, Speech is normal, Facial symmetry appears normal, Pupils are PERRLA, Intact. Cardiovascular: Patient's skin is warm and dry. Respiratory: Airway is patent Respiratory effort is even, unlabored, Respiratory pattern is regular, symmetrical. GI: : No signs and/or symptoms were reported regarding the genitourinary system. EENT: No signs and/or symptoms were reported regarding the EENT system. Derm: Skin is intact, Skin is pink, warm \T\ dry. Musculoskeletal: Range of motion: intact in all extremities, Denies tremors. 11:58 Reassessment: No changes from previously documented assessment. rs5 Vital Signs: 09:02 BP 138 / 104; Pulse 55; Resp 18; Temp 98.2; Pulse Ox 97% on R/A; ar6 09:46 BP 108 / 76; Pulse 72; Resp 18; Pulse Ox 96% on R/A; ld1 11:59 BP 112 / 77; Pulse 70; Resp 17; Pulse Ox 97% on R/A; rs5 NIH Stroke Scale Scores: 09:30 NIHSS Score: 0 ld1 20:41 NIHSS Score: 0 bo1 ED Course: 09:01 Patient arrived in ED. ar6 09:03 Issa Trinh MD is Attending Physician. bo1 09:05 Triage completed. ar6 09:05 Arm band placed on right wrist. ar6 09:08 Samantha Raymond, RN is Primary Nurse. ar6 09:30 CT Stroke Brain w/o Contrast In Process Unspecified. EDMS 09:30 CT Neck Angio In Process Unspecified. EDMS 09:30 Head angio In Process Unspecified. EDMS 09:30 Patient has correct armband on for positive identification. Placed in gown. Bed in low ld1 position. Call light in reach. Side rails up X2. athletic monitor on. Pulse ox on. NIBP on. Door closed. Noise minimized. Warm blanket given. 09:30 No provider procedures requiring assistance completed. Inserted saline lock: 22 gauge ld1 in left antecubital area, using aseptic technique. Blood collected. Flushed with 10 mL NS. 09:30 Maintain EMS IV. Dressing intact. Good blood return noted. Site clean \T\ dry. Gauge \T\ ld 1 site: 18g RAC. 09:39 Basic Metabolic Panel Sent. ar6 09:39 CBC with Diff Sent. ar6 09:39 High Sensitivity Troponin Sent. ar6 09:39 Magnesium Sent. ar6 09:39 Protime (+inr) Sent. ar6 09:39 Ptt, Activated Sent. ar6 10:20 Stroke CXR 1 View In Process Unspecified. EDMS 11:41 Dario Estrella MD is Referral Physician. bo1 11:59 IV discontinued, intact, bleeding controlled, No redness/swelling at site. Pressure rs5 dressing applied. 12:00 IV discontinued, intact, bleeding controlled, No redness/swelling at site. Pressure rs5 dressing applied. Administered Medications: 10:37 Drug: Keppra IV 1000 mg IV at bolus once Route: IV; Rate: bolus; Site: right ld1 antecubital; 11:04 Follow up: Response: No adverse reaction ar6 11:36 Drug: ambulation trial 1 mg/min PO once Route: PO; ld1 Medication: 12:00 VIS not applicable for this client. rs5 Outcome: 11:41 Discharge ordered by . bo1 11:59 Discharged to home via wheelchair, rs5 11:59 Condition: stable 11:59 Discharge instructions given to patient, family, Instructed on discharge instructions, follow up and referral plans. medication usage, Demonstrated understanding of instructions, follow-up care, medications, Prescriptions given X 1, 12:09 Patient left the ED. rs5 NIH Stroke Scale - NIH Stroke Score Date: 07/02/2024 Time: 09:30 Total Score = 0 10. Dysarthria (speech clarity - read or repeat words) - 0(Normal) 11. Extinction and Inattention (visual/tactile/auditory/spatial/personal) - 0(No abnormality) 1a. Level of Consciousness (LOC) - 0(Alert) 1b. Level of Consciousness (LOC) (Month \T\ Age) - 0(Both) 1c. LOC Commands (Open \T\ Closes Eyes/Line Leader) - 0(Both) 2. Best Gaze (Lateral Gaze Paresis) - 0(Normal) 3. Visual Field Loss - 0(No visual loss) 4. Facial Palsy - 0(Normal) 5a. Left Arm: Motor (10-second hold) - 0(No drift) 5b. Right Arm: Motor (10-second hold) - 0(No drift) 6a. Left Leg: Motor (5-second hold - always test supine) - 0(No drift) 6b. Right Leg: Motor (5-second hold - always test supine) - 0(No drift) 7. Limb Ataxia (finger/nose \T\ heel/delgadillo - test with eyes open) - 0(Absent) 8. Sensory Loss (pinprick arms/legs/face) - 0(Normal) 9. Best Language: Aphasia (description/naming/reading) - 0(No aphasia) Initials: ld1 NIH Stroke Scale - NIH Stroke Score Date: 07/02/2024 Time: 20:41 Total Score = 0 10. Dysarthria (speech clarity - read or repeat words) - 0(Normal) 11. Extinction and Inattention (visual/tactile/auditory/spatial/personal) - 0(No abnormality) 1a. Level of Consciousness (LOC) - 0(Alert) 1b. Level of Consciousness (LOC) (Month \T\ Age) - 0(Both) 1c. LOC Commands (Open \T\ Closes Eyes/Line Leader) 2. Best Gaze (Lateral Gaze Paresis) - 0(Normal) 3. Visual Field Loss - 0(No visual loss) 4. Facial Palsy - 0(Normal) 5a. Left Arm: Motor (10-second hold) - 0(No drift) 5b. Right Arm: Motor (10-second hold) - 0(No drift) 6a. Left Leg: Motor (5-second hold - always test supine) - 0(No drift) 6b. Right Leg: Motor (5-second hold - always test supine) - 0(No drift) 7. Limb Ataxia (finger/nose \T\ heel/delgadillo - test with eyes open) - 0(Absent) 8. Sensory Loss (pinprick arms/legs/face) - 0(Normal) 9. Best Language: Aphasia (description/naming/reading) - 0(No aphasia) Initials: bo1 Signatures: Dispatcher [employer] EDRimma Mccabe RN RN ld1 Scott Whitley RN RN rs5 Issa Trinh MD MD bo1 Samantha Raymond RN RN ar6
[2024-07-02 12:27] VITALS: TEMP 98.2
[2024-07-02 12:30] VITALS: BP 112/77; O2SAT 97
--- NOTE | 2024-07-03 14:10 | EKG ---
Test Date: 2024-07-02 Test Time: 09:34:30 Telecommunications Line Installer: SURINDER MEASUREMENT RESULTS: Intervals: Rate: 55 CT: 184 QRSD: 122 QT: 430 QTc: 411 [place]: P: 80 CT: 184 QRS: -20 T: 21 INTERPRETIVE STATEMENTS: Sinus bradycardia Left ventricular hypertrophy with QRS widening Abnormal ECG Compared to ECG 01/10/2023 08:07:03 Left ventricular hypertrophy now present Left-axis deviation no longer present Left bundle-branch block no longer present T-wave abnormality no longer present Possible ischemia no longer present Electronically Signed On 07-03-24 14:06:01 CDT by Alen Herring
== END 2024-07-02 12:09 | disposition home or self-care (01) ==
LOC: ER 08:54
DX: R25.1 Tremor, unspecified (principal); R94.02 Abnormal brain scan; I10 Essential (primary) hypertension; E78.5 Hyperlipidemia, unspecified; Z86.73 Personal history of transient ischemic attack (TIA), and cerebral infarction without residual deficits
CPT/HCPCS: 93005; 85025; 80048; 36415; 83735; 85610; 82565; 85730; 84484; 70496; 70498; 70450; 71045; 96374; 99285; Q9967; J1953

== ENCOUNTER 2024-09-03 02:53 | Emergency (ER) | payer OTHER ==
[2024-09-03] MEDS ORDERED: DIPHENHYDRAMINE 50 MG/ML VIAL ONE (03:10)
[2024-09-03] MEDS ORDERED: KETOROLAC 30 MG/ML INJ ONE (03:10)
[2024-09-03] MEDS ORDERED: METOCLOPRAMIDE 10 MG/2mL INJ ONE (03:10)
[2024-09-03] MEDS ORDERED: NA CHLORIDE 0.9% 1,000 ML ONE (03:11)
[2024-09-03] MEDS ORDERED: MORPHINE 4 MG/ML SYR ONE (03:11)
[2024-09-03 03:26] LABS: Absolute Lymphocytes (CBC) 1.3 K/uL (0.7-4.9); Absolute Monocytes 0.6 K/uL (0.1-1.3); Basophils % 0.2 % (0-1.3); Eosinophils % 0.3 % (0-4.4); Hemoglobin 15.5 g/dL (13.6-17.9); Lymphocytes % 16.2 % (15.3-44.8); MCH 30.3 pg (27.0-35.0); MCHC 34.5 g/dL (32.0-36.0); MPV 7.6 fL (7.6-11.3); Monocytes % 7.7 % (3.3-12.3); Neutrophils % 75.6 % (41.7-73.7); Nucleated Red Blood Cells % 0.2 % (0-0); Platelets 161 thou/uL (152-406); RBC Red Blood Cell Count 5.12 M/uL (4.33-5.43); Red Cell Distribution Width 14.1 % (12.1-15.2)
[2024-09-03 03:37] LABS: Albumin 3.3 g/dL (3.4-5.0); Albumin/Globulin Ratio 1.2 (1.1-1.8); Anion Gap 9.2 mEq/L (5.0-15.0); Bilirubin Direct 0.2 mg/dL (0-0.2); Bilirubin Indirect, Calculated 0.6 mg/dL (0.2-0.8); Bilirubin Total 0.8 mg/dL (0.2-1.0); Globulin 2.8 g/dL (2.3-3.5); Magnesium 2.2 mg/dL (1.6-2.4); Potassium 4.2 mEq/L (3.5-5.1); Protein, Total 6.1 g/dL (6.4-8.2)
[2024-09-03 03:49] LABS: SARS-CoV-2 Antigen CONTROL BLUE LINE VIS/BG OK; SARS-CoV-2 Antigen Rapid Res Negative (Negative)
--- NOTE | 2024-09-03 04:34 | RAD REPORT ---
EXAM DESCRIPTION: XR CHEST 1 VIEW 09/03/2024 3:36 AM CDT CLINICAL HISTORY: 73 years, Male, Chest pain. COMPARISON: XR Chest 07/02/2024 (report only) and XR Chest 08/05/2024 (image only). FINDINGS: 1 view of the chest (AP portable projection) was obtained. Prior films were compared. There is norm al lung volume. Mediastinum: The cardiomediastinal silhouette appears normal in size and shape. Lungs: No areas of consolidations or masses are identified. Heart: The heart is normal in size. Thoracic aorta: The thoracic aorta demonstrate to be mildly tortuous. Pulmonary vasculature: The pulmonary vasculature is normal in distribution. Pleura: The costophrenic angles demonstrate to be sharp. Osseous structures: The bony structures demonstrate to be within normal limits. Other: External EKG leads within the [id number] limits diagnosis. IMPRESSION: No acute cardiopulmonary disease is seen Electronically signed by: Ayden Garcia MD 09/03/2024 03:47 AM CDT RP Due to temporary technical issues with the PACS/[employer] reporting system, reports are being ilia d by the in-house radiologist without review as a courtesy to ensure prompt reporting the interpreting radiologist is fully responsible for the content of the report. Transcribed Date/Time: 09/03/2024 4:33 AM
--- NOTE | 2024-09-03 06:01 | RAD REPORT ---
CLINICAL HISTORY: Headache. COMPARISON: CTA Head 07/02/2024. TECHNIQUE: CT HEAD WITHOUT IV CONTRAST on 09/03/2024 4:23 AM CDT This exam was performed according to our departmental dose-optimization program, which includes autom ated exposure control, adjustment of the mA and/or kV according to patient size and/or use of iterative reconstruction technique. FINDINGS: There are extensive areas of vasogenic edema within the right frontal, parietal and temporal regions as well as the left frontal and left parietal regions to a lesser degree. There are vague associated soft tissue masses within these regions but these are poorly characterized. Wang-white dif ferentiation is preserved. There is no hydrocephalus. There is no significant volume loss for age. The calvarium is intact. Orbits and globes are unremarkable. There is mild thickening of the right ma xillary sinus. Mastoid air cells are clear. IMPRESSION: No acute intracranial findings. 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 Electronically signed by: Lester Kumar MD 09/03/2024 05:12 AM CDT Due to temporary technical issues with the PACS/[employer] reporting system, reports are being ilia d by the in-house radiologist without review as a courtesy to ensure prompt reporting the interpreting radiologist is fully responsible for the content of the report. Transcribed Date/Time: 09/03/2024 6:01 AM
--- NOTE | 2024-09-03 06:10 | ER ---
Nurse's Notes [facility] Name: Solis Gagnon Age: 73 yrs Sex: Male : 1950 Arrival Date: 09/03/2024 Time: 02:53 Bed 17 Private MD: Diagnosis: Acute headache, metastatic melanoma, cancer associated pain Presentation: 09/03 03:01 Chief complaint: Patient states: headache X10 hours with no relief. recent change in lg3 medications. recent melanoma diagnosis with mets to the lungs and brain. Coronavirus screen: Client denies travel out of the [place] in the last 14 days. At this time, the client does not indicate any symptoms associated with coronavirus-19. Ebola Screen: No symptoms or risks identified at this time. Initial Sepsis Screen: Does the patient meet any 2 criteria? No. Patient's initial sepsis screen is negative. Does the patient have a suspected source of infection? No. Patient's initial sepsis screen is negative. Risk Assessment: Do you want to hurt yourself or someone else? Patient reports no desire to harm self or others. Onset of symptoms was September 02, 2024. 03:01 Method Of Arrival: EMS: [facility] lg3 03:01 Acuity: LALO 3 lg3 03:01 Care prior to arrival: Medication(s) given: Tylenol, 1000 mg. lg3 Triage Assessment: 03:05 General: Appears in no apparent distress. comfortable, Behavior is calm, cooperative. lg3 Pain: Complains of pain in head. EENT: No deficits noted. No signs and/or symptoms were reported regarding the EENT system. Neuro: No deficits noted. Miller Agitation-Sedation Scale (RASS): 0 - Alert and Calm Level of Consciousness is awake, alert, obeys commands, Oriented to person, place, time, situation, Reports headache. Cardiovascular: No deficits noted. Denies chest pain, shortness of breath, Capillary refill < 3 seconds Clubbing of nail beds is absent JVD is absent Patient's skin is warm and dry. Respiratory: No deficits noted. Airway is patent Respiratory effort is even, unlabored, Respiratory pattern is regular, symmetrical. GI: No deficits noted. No signs and/or symptoms were reported involving the gastrointestinal system. : No signs and/or symptoms were reported regarding the genitourinary system. Derm: No deficits noted. No signs and/or symptoms reported regarding the dermatologic system. Skin is intact, is healthy with good turgor, Skin is dry, Skin is normal, Skin temperature is warm. Musculoskeletal: No deficits noted. No signs and/or symptoms reported regarding the musculoskeletal system. Circulation, motion, and sensation intact. Range of motion: intact in all extremities. Historical: - Allergies: 03:05 Codeine; lg3 - Home Meds: 03:05 metoprolol tartrate 50 mg Oral tablet 2 times per day [Active]; B12 Active oral lg3 [Active]; pantoprazole 20 mg oral tablet, delayed release (enteric coated) daily [Active]; aspirin 81 mg Oral capsule daily [Active]; levetiracetam 500 mg oral tablet 2 times per day [Active]; Dexamethasone Oral 2 times per day [Active]; clopidogrel 75 mg oral tablet daily [Active]; losartan-hydrochlorothiazide 50-12.5 mg oral tablet daily [Active]; pravastatin 80 mg oral tablet [Active]; Megestrol Acetate Oral [Active]; memantine oral [Active]; Depakote Oral [Active]; - PMHx: 03:05 Hyperlipidemia; Hypertension; TIA; acid reflux (TIA); high cholesterol (TIA); melanoma lg3 with mets to brain and lung (TIA); - PSHx: 03:05 karla knee replacement (TIA); lg3 - Immunization history:: Adult Immunizations up to date. - Infectious Disease History:: Denies. - Social history:: Smoking status: Patient denies any tobacco usage or history of. Patient/guardian denies using alcohol, street drugs. - Family history:: not pertinent. Screenin:05 [facility] ED Fall Risk Assessment (Adult) History of falling in the last 3 months, br2 including since admission No falls in past 3 months (0 pts) Confusion or Disorientation No (0 pts) Intoxicated or Sedated No (0 pts) Impaired Gait No (0 pts) Mobility Assist Device Used No (0 pt) Altered Elimination No (0 pt) Score/Fall Risk Level 0 - 2 = Low Risk Oriented to surroundings, Maintained a safe environment. Abuse screen: Denies threats or abuse. Denies injuries from another. Nutritional screening: No deficits noted. Tuberculosis screening: No symptoms or risk factors identified. Assessment: 03:05 Reassessment: Patient and/or family updated on plan of care and expected duration. Pain br2 level reassessed. Patient is alert, oriented x 3, equal unlabored respirations, skin warm/dry/pink. Patient states feeling better. HEADACHE FEELS BETTER AFTER TYLENOL GIVEN BY EMS. 02/01. General: Appears in no apparent distress. comfortable, Behavior is calm, cooperative. Pain: Complains of pain in forehead Pain does not radiate. Pain currently is 3 out of 10 on a pain scale. Quality of pain is described as aching. Neuro: Miller Agitation-Sedation Scale (RASS): 0 - Alert and Calm Level of Consciousness is awake, alert, obeys commands, Oriented to person, place, time, Reports headache weakness in forehead. Cardiovascular: Denies chest pain, shortness of breath. Respiratory: Airway is patent. GI: No signs and/or symptoms were reported involving the gastrointestinal system. : No signs and/or symptoms were reported regarding the genitourinary system. 04:00 Reassessment: Patient and/or family updated on plan of care and expected duration. Pain br2 level reassessed. Patient is alert, oriented x 3, equal unlabored respirations, skin warm/dry/pink. Patient states feeling better. Patient states symptoms have improved. 04:24 Reassessment: No changes from previously documented assessment. Patient and/or family br2 updated on plan of care and expected duration. Pain level reassessed. Patient is alert, oriented x 3, equal unlabored respirations, skin warm/dry/pink. RESTING WITH EYES CLOSED. 05:34 Reassessment: No changes from previously documented assessment. Patient and/or family br2 updated on plan of care and expected duration. Pain level reassessed. Patient is alert, oriented x 3, equal unlabored respirations, skin warm/dry/pink. Patient states feeling better. Patient states symptoms have improved. 06:46 Reassessment: No changes from previously documented assessment. Patient and/or family br2 updated on plan of care and expected duration. Pain level reassessed. Patient is alert, oriented x 3, equal unlabored respirations, skin warm/dry/pink. Vital Signs: 03:01 BP 120 / 83; Pulse 97; Resp 17 S; Temp 99.3(O); Pulse Ox 97% on R/A; Weight 85.28 kg lg3 (R); Height 5 ft. 11 in. (R); Pain 4/10; 03:43 BP 127 / 72; Pulse 83; Resp 18 S; Pulse Ox 92% on R/A; br2 04:25 BP 97 / 70; Pulse 81; Resp 18; Pulse Ox 94% ; br2 05:30 BP 127 / 72; Pulse 94; Resp 18 S; Pulse Ox 95% on R/A; br2 05:30 Pain 2/10; br2 06:26 BP 104 / 75; Pulse 82; Resp 13 S; Pulse Ox 94% on R/A; br2 03:01 Body Mass Index 26.22 (85.28 kg, 180.34 cm) lg3 03:01 Pain Scale: Adult lg3 05:30 Pain Scale: Adult br2 Fulda Coma Score: 05:23 Eye Response: spontaneous(4). Motor Response: obeys commands(6). Verbal Response: sp4 oriented(5). Total: 15. 05:25 Eye Response: spontaneous(4). Motor Response: obeys commands(6). Verbal Response: sp4 oriented(5). Total: 15. NIH Stroke Scale Scores: 05:23 NIHSS Score: 0 sp4 ED Course: 03:01 Patient arrived in ED. lg3 03:01 Blaise Campbell MD is Attending Physician. sp4 03:03 Steph Henry, RN is Primary Nurse. br2 03:04 Triage completed. lg3 03:05 Arm band placed on left wrist. lg3 03:05 Patient has correct armband on for positive identification. Bed in low position. Call br2 light in reach. Side rails up X 1. Provided Education on: PLAN OF CARE. 03:07 Inserted saline lock: 20 gauge in left forearm, using aseptic technique. Blood br2 collected. Flushed with 10 mL NS. 03:15 XRAY Chest (1 view) In Process Unspecified. EDMS 03:32 Influenza Screen (a \T\ B) Sent. br2 03:32 SARS RAPID Sent. br2 03:33 Basic Metabolic Panel Sent. br2 03:33 LFT's Sent. br2 03:33 Magnesium Sent. br2 04:46 CT Head Brain wo Cont In Process Unspecified. EDMS 06:21 called ems to transfer pt home. kmf 06:27 No provider procedures requiring assistance completed. IV discontinued, intact, br2 bleeding controlled, No redness/swelling at site. Pressure dressing applied. Administered Medications: 03:32 Drug: Ketorolac IVP 15 mg IVP once Route: IVP; Site: left forearm; br2 04:30 Follow up: Response: No adverse reaction br2 03:32 Drug: metoCLOPramide IVP 10 mg IVP once; over 1 to 2 minutes Route: IVP; Site: left br2 forearm; 04:30 Follow up: Response: No adverse reaction br2 03:34 Drug: morphine IVP or IV 4 mg IVP once over 4 mins Route: IVP; Infused Over: 4 mins; br2 Site: left forearm; 04:30 Follow up: Response: No adverse reaction br2 03:34 Drug: diphenhydrAMINE IVP 25 mg IVP once Route: IVP; Site: left forearm; br2 04:30 Follow up: Response: No adverse reaction br2 03:35 Drug: NS 0.9% IV 1000 ml IV at 125 ml/hr continuous Route: IV; Rate: 125 ml/hr; Site: br2 left forearm; 06:28 Follow up: Response: No adverse reaction; IV Status: Order to discontinue infusion; IV br2 Intake: 375ml Medication: 06:50 VIS not applicable for this client. br2 Intake: 06:28 IV: 375ml; Total: 375ml. br2 Outcome: 03:05 Discharged to home via ambulance, br2 03:05 Condition: improved 03:05 Discharge instructions given to patient, Instructed on discharge instructions, follow up and referral plans. Demonstrated understanding of instructions, follow-up care, medications, Prescriptions given X 1, 06:09 Discharge ordered by MD. joya 06:50 Patient left the ED. br2 NIH Stroke Scale - NIH Stroke Score Date: 09/03/2024 Time: 05:23 Total Score = 0 10. Dysarthria (speech clarity - read or repeat words) - 0(Normal) 11. Extinction and Inattention (visual/tactile/auditory/spatial/personal) - 0(No abnormality) 1a. Level of Consciousness (LOC) - 0(Alert) 1b. Level of Consciousness (LOC) (Month \T\ Age) - 0(Both) 1c. LOC Commands (Open \T\ Closes Eyes/Review Analyst) - 0(Both) 2. Best Gaze (Lateral Gaze Paresis) - 0(Normal) 3. Visual Field Loss - 0(No visual loss) 4. Facial Palsy - 0(Normal) 5a. Left Arm: Motor (10-second hold) - 0(No drift) 5b. Right Arm: Motor (10-second hold) - 0(No drift) 6a. Left Leg: Motor (5-second hold - always test supine) - 0(No drift) 6b. Right Leg: Motor (5-second hold - always test supine) - 0(No drift) 7. Limb Ataxia (finger/nose \T\ heel/delgadillo - test with eyes open) - 0(Absent) 8. Sensory Loss (pinprick arms/legs/face) - 0(Normal) 9. Best Language: Aphasia (description/naming/reading) - 0(No aphasia) Initials: sp4 Signatures: Dispatcher [employer] Jyothi Grubbs, RN RN lg3 Blaise Campbell MD MD sp4 Nicole Burgos [facility] Steph Henry RN RN br2
--- NOTE | 2024-09-03 06:10 | EDPHYS ---
Physician Documentation [facility] Name: Solis Gagnon Age: 73 yrs Sex: Male : 1950 Arrival Date: 09/03/2024 Time: 02:53 Bed 17 Private MD: ED Physician Blaise Campbell HPI: 09/03 03:03 This 73 yrs old Male presents to ER via Unassigned with complaints of Acute sp4 headache . 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 Patient states he is about to begin chemotherapy at the [facility] for his melanoma. Historical: - Allergies: 03:05 Codeine; lg3 - Home Meds: 03:05 metoprolol tartrate 50 mg Oral tablet 2 times per day [Active]; B12 Active oral lg3 [Active]; pantoprazole 20 mg oral tablet, delayed release (enteric coated) daily [Active]; aspirin 81 mg Oral capsule daily [Active]; levetiracetam 500 mg oral tablet 2 times per day [Active]; Dexamethasone Oral 2 times per day [Active]; clopidogrel 75 mg oral tablet daily [Active]; losartan-hydrochlorothiazide 50-12.5 mg oral tablet daily [Active]; pravastatin 80 mg oral tablet [Active]; Megestrol Acetate Oral [Active]; memantine oral [Active]; Depakote Oral [Active]; - PMHx: 03:05 Hyperlipidemia; Hypertension; TIA; acid reflux (TIA); high cholesterol (TIA); melanoma lg3 with mets to brain and lung (TIA); - PSHx: 03:05 karla knee replacement (TIA); lg3 - Immunization history:: Adult Immunizations up to date. - Infectious Disease History:: Denies. - Social history:: Smoking status: Patient denies any tobacco usage or history of. Patient/guardian denies using alcohol, street drugs. - Family history:: not pertinent. ROS: 05:23 Constitutional: Negative for fever, chills, and weight loss, Positive for headaches sp4 05:23 All other systems are negative, Exam: 05:23 Constitutional: This is a well developed, well nourished patient who is awake, alert, sp4 and in no acute distress. Head/Face: Normocephalic, atraumatic. Eyes: Pupils equal round and reactive to light, extra-ocular motions intact. Lids and lashes normal. Conjunctiva and sclera are not injected. Cornea within normal limits. Periorbital areas with no swelling, redness, or edema. ENT: Nares patent. No nasal discharge, no septal abnormalities noted. Tympanic membranes are normal and external auditory canals are clear. Oropharynx with no redness, swelling, or masses, exudates, or evidence of obstruction, uvula midline. Mucous membranes moist. Neck: Trachea midline, no thyromegaly or masses palpated, and no cervical lymphadenopathy. Supple, full range of motion without nuchal rigidity, or vertebral point tenderness. Chest/axilla: Normal chest wall appearance and motion. Nontender with no deformity. No lesions are appreciated. Cardiovascular: Regular rate and rhythm with a normal S1 and S2. No gallops, murmurs, or rubs. Normal PMI, no JVD. No pulse deficits. Respiratory: Lungs have equal breath sounds bilaterally, clear to auscultation and percussion. No rales, rhonchi or wheezes noted. No increased work of breathing, no retractions or nasal flaring. Abdomen/GI: Soft, with normal bowel sounds. No distension or tympany. No guarding or rebound. No evidence of tenderness throughout. Back: No spinal tenderness. No costovertebral tenderness. Skin: Warm, dry with normal turgor. Normal color with no rashes, no lesions, and no evidence of cellulitis. MS/ Extremity: Pulses equal, no cyanosis. Neurovascular intact. Full, normal range of motion. Neuro: Awake and alert, GCS 15, oriented to person, place, time, and situation. Cranial nerves II-XII grossly intact. Motor strength 5/5 in all extremities. Sensory grossly intact. Psych: Awake, alert, with orientation to person, place and time. Behavior, mood, and affect are within normal limits Vital Signs: 03:01 BP 120 / 83; Pulse 97; Resp 17 S; Temp 99.3(O); Pulse Ox 97% on R/A; Weight 85.28 kg lg3 (R); Height 5 ft. 11 in. (R); Pain 4/10; 03:43 BP 127 / 72; Pulse 83; Resp 18 S; Pulse Ox 92% on R/A; br2 04:25 BP 97 / 70; Pulse 81; Resp 18; Pulse Ox 94% ; br2 05:30 BP 127 / 72; Pulse 94; Resp 18 S; Pulse Ox 95% on R/A; br2 05:30 Pain 2/10; br2 06:26 BP 104 / 75; Pulse 82; Resp 13 S; Pulse Ox 94% on R/A; br2 03:01 Body Mass Index 26.22 (85.28 kg, 180.34 cm) lg3 03:01 Pain Scale: Adult lg3 05:30 Pain Scale: Adult br2 NIH Stroke Scale Scores: 05:23 NIHSS Score: 0 sp4 Jose Coma Score: 05:23 Eye Response: spontaneous(4). Motor Response: obeys commands(6). Verbal Response: sp4 oriented(5). Total: 15. 05:25 Eye Response: spontaneous(4). Motor Response: obeys commands(6). Verbal Response: sp4 oriented(5). Total: 15. MDM: 03:02 Patient medically screened. sp4 05:11 ED course: EXAM DESCRIPTION: XR CHEST 1 VIEW 09/03/2024 3:36 AM CDT CLINICAL HISTORY: sp4 73 years, Male, Chest pain. COMPARISON: XR Chest 07/02/2024 (report only) and XR Chest 08/05/2024 (image only). FINDINGS: 1 view of the chest (AP portable projection) was obtained. Prior films were compared. There is normal lung volume. Mediastinum: The cardiomediastinal silhouette appears normal in size and shape. Lungs: No areas of consolidations or masses are identified. Heart: The heart is normal in size. Thoracic aorta: The thoracic aorta demonstrate to be mildly tortuous. Pulmonary vasculature: The pulmonary vasculature is normal in distribution. Pleura: The costophrenic angles demonstrate to be sharp. Osseous structures: The bony structures demonstrate to be within normal limits. Other: External EKG leads within the [id number] limits diagnosis. IMPRESSION: No acute cardiopulmonary disease is seen . 05:19 ED course: CLINICAL HISTORY: Headache. COMPARISON: CTA Head 07/02/2024. TECHNIQUE: CT sp4 HEAD WITHOUT IV CONTRAST on 09/03/2024 4:23 AM CDT This exam was performed according to our departmental dose-optimization program, which includes automated exposure control, adjustment of the mA and/or kV according to patient size and/or use of iterative reconstruction technique. FINDINGS: There are extensive areas of vasogenic edema within the right frontal, parietal and temporal regions as well as the left frontal and left parietal regions to a lesser degree. There are vague associated soft tissue masses within these regions but these are poorly characterized. Wang-white differentiation is preserved. There is no hydrocephalus. There is no significant volume loss for age. The calvarium is intact. Orbits and globes are unremarkable. There is mild thickening of the right maxillary sinus. Mastoid air cells are clear. IMPRESSION: No acute intracranial findings. 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 . 05:25 Differential diagnosis: cluster headache, herpes zoster, migraine, neoplasm, otitis, sp4 uremia, vasomotor headache. Data reviewed: vital signs, nurses notes, EMS record, old medical records, lab test result(s), radiologic studies, CT scan, plain films. Consideration of Admission/Observation Escalation of care including admission/observation considered. ED course: CT revealed - IMPRESSION: No acute intracranial findings. 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 . ED course: Headache has improved. Stable for discharge home with PO PRN Fioricet and Tylenol # 4 PRN . 09/03 03:01 Order name: Basic Metabolic Panel; Complete Time: 04:09/03 03:01 Order name: CBC with Diff; Complete Time: 04:09/03 03:01 Order name: LFT's; Complete Time: 04:09/03 03:01 Order name: Magnesium; Complete Time: 04:09/03 03:02 Order name: SARS RAPID; Complete Time: 04:09/03 03:02 Order name: Influenza Screen (a \T\ B); Complete Time: 04:09/03 03:01 Order name: XRAY Chest (1 view) 09/03 04:23 Order name: CT Head Brain wo Cont 09/03 03:01 Order name: IV Saline Lock; Complete Time: 03:33 09/03 03:01 Order name: Labs collected and sent; Complete Time: 03:09/03 03:01 Order name: O2 Per Protocol; Complete Time: 03:33 sp4 09/03 03:01 Order name: O2 Sat Monitoring; Complete Time: 03:33 sp4 Administered Medications: 03:32 Drug: Ketorolac IVP 15 mg IVP once Route: IVP; Site: left forearm; br2 04:30 Follow up: Response: No adverse reaction br2 03:32 Drug: metoCLOPramide IVP 10 mg IVP once; over 1 to 2 minutes Route: IVP; Site: left br2 forearm; 04:30 Follow up: Response: No adverse reaction br2 03:34 Drug: morphine IVP or IV 4 mg IVP once over 4 mins Route: IVP; Infused Over: 4 mins; br2 Site: left forearm; 04:30 Follow up: Response: No adverse reaction br2 03:34 Drug: diphenhydrAMINE IVP 25 mg IVP once Route: IVP; Site: left forearm; br2 04:30 Follow up: Response: No adverse reaction br2 03:35 Drug: NS 0.9% IV 1000 ml IV at 125 ml/hr continuous Route: IV; Rate: 125 ml/hr; Site: br2 left forearm; 06:28 Follow up: Response: No adverse reaction; IV Status: Order to discontinue infusion; IV br2 Intake: 375ml Disposition Summary: 09/03/24 06:09 Discharge Ordered Notes: Location: Home sp4 Problem: new sp4 Symptoms: have improved sp4 Condition: Stable sp4 Diagnosis - Acute headache, metastatic melanoma, cancer associated pain sp4 Followup: sp4 - With: Private Physician - When: 7 - 10 days - Reason: Recheck today's complaints Discharge Instructions: - Discharge Summary Sheet sp4 - General Headache Without Cause sp4 Forms: - Patient Portal Instructions sp4 Prescriptions: - Fioricet 50-300-40 mg Oral capsule - take 1 capsule ORAL route every 8 hours PRN pain; 30 capsule; Refills: 0, sp4 Product Selection Permitted NIH Stroke Scale - NIH Stroke Score Date: 09/03/2024 Time: 05:23 Total Score = 0 10. Dysarthria (speech clarity - read or repeat words) - 0(Normal) 11. Extinction and Inattention (visual/tactile/auditory/spatial/personal) - 0(No abnormality) 1a. Level of Consciousness (LOC) - 0(Alert) 1b. Level of Consciousness (LOC) (Month \T\ Age) - 0(Both) 1c. LOC Commands (Open \T\ Closes Eyes/Or Nurse Manager) - 0(Both) 2. Best Gaze (Lateral Gaze Paresis) - 0(Normal) 3. Visual Field Loss - 0(No visual loss) 4. Facial Palsy - 0(Normal) 5a. Left Arm: Motor (10-second hold) - 0(No drift) 5b. Right Arm: Motor (10-second hold) - 0(No drift) 6a. Left Leg: Motor (5-second hold - always test supine) - 0(No drift) 6b. Right Leg: Motor (5-second hold - always test supine) - 0(No drift) 7. Limb Ataxia (finger/nose \T\ heel/delgadillo - test with eyes open) - 0(Absent) 8. Sensory Loss (pinprick arms/legs/face) - 0(Normal) 9. Best Language: Aphasia (description/naming/reading) - 0(No aphasia) Initials: sp4 Signatures: Dispatcher [employer] EDMS Jyothi Jiménez, RN RN lg3 Blaise Campbell MD MD sp4 Steph Henry RN RN br2 Corrections: (The following items were deleted from the chart) 03:02 03:02 BASIC METABOLIC PANEL+C.LAB.BRZ ordered. EDMS EDMS 03:02 03:02 CBC+H.LAB.BRZ ordered. EDMS EDMS 03:02 03:02 HEPATIC FUNCTION+C.LAB.BRZ ordered. EDMS EDMS 03:02 03:02 MAGNESIUM+C.LAB.BRZ ordered. EDMS EDMS 04:23 04:23 Head Brain Wo Cont+CT.RAD.BRZ ordered. EDMS EDMS
[2024-09-03 07:24] VITALS: TEMP 99.3
[2024-09-03 07:29] VITALS: BP 104/75; O2SAT 94
== END 2024-09-03 06:50 | disposition home or self-care (01) ==
LOC: ER 02:53
DX: G89.3 Neoplasm related pain (acute) (chronic) (principal); C79.31 Secondary malignant neoplasm of brain; C78.02 Secondary malignant neoplasm of left lung; C43.9 Malignant melanoma of skin, unspecified; Z11.52 Encounter for screening for COVID-19
CPT/HCPCS: 85025; 80048; 36415; 83735; 80076; 87804 ×2; 70450; 71045; 87811; J2765; J1200; J7030

== ENCOUNTER 2024-09-06 19:50 | Emergency (ER) | payer OTHER ==
[2024-09-06] MEDS ORDERED: NA CHLORIDE 0.9% 250 ML ONE (20:18)
[2024-09-06] MEDS ORDERED: PANTOPRAZOLE 40 MG INJ ONE (20:19)
--- NOTE | 2024-09-06 20:30 | ER ---
Nurse's Notes [facility] Name: Solis Gagnon Age: 73 yrs Sex: Male : 1950 Arrival Date: 09/06/2024 Time: 19:50 Bed 3 Private MD: Diagnosis: GI Bleed/ Gastrointestinal hemorrhage, unspecified-upper;Weakness;Dyspnea Presentation: 09/06 20:03 Chief complaint: EMS states: rectal bleeding and shortness of breathe. Patient was here the [facility] Saturday for the same thing. Has hx of brain, lung, and skin cancer. Coronavirus screen: Client denies travel out of the [place] in the last 14 days. At this time, the client does not indicate any symptoms associated with coronavirus-19. Ebola Screen: Patient negative for fever greater than or equal to 101.5 degrees Fahrenheit, and additional compatible Ebola Virus Disease symptoms Patient denies exposure to infectious person. Patient denies travel to an Ebola-affected area in the 21 days before illness onset. No symptoms or risks identified at this time. Initial Sepsis Screen: Does the patient meet any 2 criteria? RR > 20 per min. HR > 90 bpm. Yes Does the patient have a suspected source of infection? No. Patient's initial sepsis screen is negative. If YES to both, name of provider notified: Mario Delgado MD. Risk Assessment: Do you want to hurt yourself or someone else? Patient reports no desire to harm self or others. Onset of symptoms was September 06, 2024. 20:03 Method Of Arrival: EMS: [facility] 20:03 Acuity: LALO 2 cp4 Triage Assessment: 20:06 General: Appears distressed, uncomfortable, Behavior is calm, cooperative, appropriate cp4 for age. Pain: Complains of pain in back and neck Pain currently is 5 out of 10 on a pain scale. EENT: No signs and/or symptoms were reported regarding the EENT system. Neuro: Level of Consciousness is awake, alert, obeys commands, Oriented to person, place, time, situation. Cardiovascular: Patient's skin is warm and dry. Respiratory: Reports shortness of breath at rest Airway is patent Respiratory effort is labored, shallow, Onset: The symptoms/episode began/occurred gradually, the patient has moderate shortness of breath. GI: No signs and/or symptoms were reported involving the gastrointestinal system. : No signs and/or symptoms were reported regarding the genitourinary system. Derm: No signs and/or symptoms reported regarding the dermatologic system. Musculoskeletal: No signs and/or symptoms reported regarding the musculoskeletal system. Historical: - Allergies: 20:06 Codeine; cp4 - Home Meds: 20:06 aspirin 81 mg Oral capsule daily [Active]; B12 Active oral [Active]; clopidogrel 75 mg cp4 Oral tablet daily [Active]; Depakote Oral [Active]; Dexamethasone Oral 2 times per day [Active]; levetiracetam 500 mg Oral tablet 2 times per day [Active]; losartan-hydrochlorothiazide 50-12.5 mg Oral tablet daily [Active]; Megestrol Acetate Oral [Active]; memantine oral [Active]; metoprolol tartrate 50 mg Oral tablet 2 times per day [Active]; pantoprazole 20 mg Oral tablet daily [Active]; pravastatin 80 mg Oral tablet [Active]; - PMHx: 20:06 acid reflux (TIA); High Cholesterol (TIA); Hyperlipidemia; Hypertension; 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 - Infectious Disease History:: Denies. - Social history:: Smoking status: Patient denies any tobacco usage or history of. Screenin:10 [facility] ED Fall Risk Assessment (Adult) History of falling in the last 3 months, cp4 including since admission No falls in past 3 months (0 pts) Confusion or Disorientation No (0 pts) Intoxicated or Sedated No (0 pts) Impaired Gait No (0 pts) Mobility Assist Device Used No (0 pt) Altered Elimination No (0 pt) Score/Fall Risk Level 0 - 2 = Low Risk Oriented to surroundings, Maintained a safe environment, Assessed \T\ reinforced patient's understanding of fall precautions, Hourly rounding (assess needs \T\ fall precautionary measures) done. Abuse screen: Denies threats or abuse. Nutritional screening: No deficits noted. Tuberculosis screening: No symptoms or risk factors identified. Assessment: 20:10 Cardiovascular: Rhythm is sinus tachycardia. Respiratory: Airway is patent Respiratory cp4 effort is labored, shallow. 20:10 Reassessment: No changes from previously documented assessment. cp4 21:00 Reassessment: Patient appears in no apparent distress at this time. Patient and/or cp4 family updated on plan of care and expected duration. Pain level reassessed. Patient is alert, oriented x 3, equal unlabored respirations, skin warm/dry/pink. Respiratory: Breath sounds are clear bilaterally. 22:00 Reassessment: Patient appears in no apparent distress at this time. Patient and/or cp4 family updated on plan of care and expected duration. Pain level reassessed. Patient is alert, oriented x 3, equal unlabored respirations, skin warm/dry/pink. 23:00 Reassessment: Patient appears in no apparent distress at this time. Patient and/or cp4 family updated on plan of care and expected duration. Pain level reassessed. Patient is alert, oriented x 3, equal unlabored respirations, skin warm/dry/pink. 09/07 00:00 Reassessment: Patient appears in no apparent distress at this time. Patient and/or cp4 family updated on plan of care and expected duration. Pain level reassessed. Patient is alert, oriented x 3, equal unlabored respirations, skin warm/dry/pink. 00:40 Reassessment: attempted to call report, spoke with a NICOLETTE Knight and she stated that she bm8 was unaware that she was receiving an outside pt. She needed to check with her super and that she would call back. 01:00 Reassessment: Patient appears in no apparent distress at this time. Patient and/or cp4 family updated on plan of care and expected duration. Pain level reassessed. Patient is alert, oriented x 3, equal unlabored respirations, skin warm/dry/pink. 01:10 Reassessment: Attempted to call report twice. Was told by charge nurse they didn't know cp4 they where getting a patient and to call back later. 01:22 Reassessment: Attempted to call report to a different number. No answer. Reassessment: cp4 Report called to NICOLETTE Camreon. Vital Signs: 09/06 20:03 BP 108 / 76; Pulse 107; Resp 28; Temp 98.5; Pulse Ox 95% on R/A; Weight 85.28 kg; cp4 Height 5 ft. 11 in. ; Pain 5/10; 21:00 BP 119 / 83; Pulse 94; Resp 18; Pulse Ox 99% ; cp4 22:00 BP 122 / 77; Pulse 86; Resp 18; Pulse Ox 100% ; cp4 23:00 BP 123 / 78; Pulse 86; Resp 18; Pulse Ox 98% ; cp4 09/07 00:00 BP 120 / 79; Pulse 81; Resp 18; Pulse Ox 97% ; cp4 01:42 BP 107 / 75; Pulse 80; Resp 18; Pulse Ox 97% ; cp4 01:46 BP 106 / 65; Pulse 80; Resp 18; Pulse Ox 97% ; cp4 09/06 20:03 Body Mass Index 26.22 (85.28 kg, 180.34 cm) cp4 09/06 20:03 Pain Scale: Adult cp4 ED Course: 09/06 19:56 Patient arrived in ED. cp4 19:59 Mario Delgado MD is Attending Physician. [facility] 20:03 Emily Wagner is Primary Nurse. cp4 20:03 EKG done, by ED staff, reviewed by Mario Delgado MD. sa1 20:06 Triage completed. cp4 20:06 Arm band placed on right wrist. Patient placed in an exam room, on a stretcher. cp4 20:10 No provider procedures requiring assistance completed. Maintain EMS IV. Dressing cp4 intact. Good blood return noted. Site clean \T\ dry. Gauge \T\ site: 18 G RAC. Flushed with 10 mL NS IV is patent. 20:10 Bed in low position. Call light in reach. Side rails up X2. cp4 20:11 Inserted saline lock: 20 gauge in left antecubital area, using aseptic technique. Blood sa1 collected. Flushed with 10 mL NS. 20:34 XRAY Chest (1 view) Sent. cp4 20:41 Warm blanket given. sa1 20:58 XRAY Chest (1 view) In Process Unspecified. EDMS 21:06 CT Chest Abdomen Pelvis W/O Contrast In Process Unspecified. EDMS 21:06 CT Head Brain wo Cont In Process Unspecified. EDMS 21:36 Warm blanket given. sa1 22:39 Initiated transfer with Ting Dietz at [facility] \T\[id number]. af3 09/07 00:48 Accepted at [facility] by \T\[id number]. Nurse to nurse number af3 [phone]. 01:47 Patient transferred, IV remains in place. cp4 01:47 Provided Education on: transfer. 4 02:13 Jose with EMS called \T\[id number], Arrived \T\[id number]. af 3 Administered Medications: 09/06 20:30 Drug: Pantoprazole IV 8 mg/hr IV at 25 ml/hr continuous; (Standard dilution is 80 mg in cp4 250 mL NS) Route: IV; Rate: 25 ml/hr; Site: right antecubital; 09/07 01:48 Follow up: Response: No adverse reaction; IV Status: Infusion continued upon transfer cp4 09/06 20:30 Drug: Pantoprazole IVP 80 mg IVP once Route: IVP; Site: right antecubital; cp4 21:00 Follow up: Response: No adverse reaction cp4 20:48 Drug: NS 0.9% IV 1000 ml IV at 1000 ml once; to be given as a bolus over 60 minutes cp4 Route: IV; Rate: 1000 ml; Site: right antecubital; 21:48 Follow up: Response: No adverse reaction; IV Status: Completed infusion cp4 20:48 Drug: Meropenem IV 1 grams IV at per protocol once; (mix in NS 100 mL) Route: IV; Rate: cp4 per protocol; Site: left antecubital; 21:18 Follow up: Response: No adverse reaction; IV Status: Completed infusion cp4 20:48 Drug: NS 0.9% IV 1000 ml IV at 1 bolus Per protocol; to be given as a bolus over 60 cp4 minutes Route: IV; Rate: 1 bolus; Site: left antecubital; 21:48 Follow up: Response: No adverse reaction; IV Status: Completed infusion cp4 20:48 Drug: Solu-CORTEF IVP 100 mg IVP once Route: IVP; Site: left antecubital; cp4 21:19 Follow up: Response: No adverse reaction cp4 21:48 Drug: NS 0.9% IV 1000 ml IV at 125 ml/hr continuous Route: IV; Rate: 125 ml/hr; Site: cp4 right antecubital; 09/07 02:00 Follow up: Response: No adverse reaction; IV Status: Infusion continued upon transfer bm8 09/06 23:35 Drug: Decadron - Dexamethasone IVP 10 mg IVP once Route: IVP; Site: left antecubital; bm8 09/07 00:27 Follow up: Response: No adverse reaction cp4 Medication: 09/06 20:10 VIS not applicable for this client. cp4 Output: 23:52 Urine: 400ml (Voided); Total: 400ml. cp4 Outcome: 20:29 ER care complete, transfer ordered by MD. hammond 09/07 01:47 Transferred by ground EMS to [facility], Transfer form completed. X-rays sent cp4 w/ patient. Condition: stable Instructed on the need for transfer, 02:00 Patient left the ED. bm8 Signatures: Dispatcher [employer] EDMS Mario Delgado MD MD cha Potter, Christina cp4 Prosper Min, RN RN bm8 Sultan Edmond sa1 Kayleen Granados af3
--- NOTE | 2024-09-06 20:30 | EDPHYS ---
Physician Documentation [facility] Name: Solis Gagnon Age: 73 yrs Sex: Male : 1950 Arrival Date: 09/06/2024 Time: 19:50 Bed 3 Private MD: ED Physician Mario Delgado HPI: 09/06 20:24 This 73 yrs old Male presents to ER via EMS with complaints of Rectal manish Bleeding, Shortness Of Breath. 20:24 The patient presents to the emergency department with bleeding from the rectum/anus, manish that is moderate. Onset: The symptoms/episode began/occurred today. Context: the patient has no known special context relating to the rectal area complaint(s). Modifying factors: The symptoms are alleviated by nothing, The symptoms are aggravated by bowel movement, movement, nothing. Associate signs and symptoms: Pertinent positives: wek, sob. The patient has not experienced similar symptoms in the past. Historical: - Allergies: 20:06 Codeine; cp4 - Home Meds: 20:06 aspirin 81 mg Oral capsule daily [Active]; B12 Active oral [Active]; clopidogrel 75 mg cp4 Oral tablet daily [Active]; Depakote Oral [Active]; Dexamethasone Oral 2 times per day [Active]; levetiracetam 500 mg Oral tablet 2 times per day [Active]; losartan-hydrochlorothiazide 50-12.5 mg Oral tablet daily [Active]; Megestrol Acetate Oral [Active]; memantine oral [Active]; metoprolol tartrate 50 mg Oral tablet 2 times per day [Active]; pantoprazole 20 mg Oral tablet daily [Active]; pravastatin 80 mg Oral tablet [Active]; - PMHx: 20:06 acid reflux (TIA); High Cholesterol (TIA); Hyperlipidemia; Hypertension; 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 - Infectious Disease History:: Denies. - Social history:: Smoking status: Patient denies any tobacco usage or history of. ROS: 20:25 Constitutional: Negative for fever, chills, and weight loss, Eyes: Negative for injury, manish pain, redness, and discharge, ENT: Negative for injury, pain, and discharge, Neck: Negative for injury, pain, and swelling, Back: Negative for injury and pain, : Negative for injury, bleeding, discharge, and swelling, MS/Extremity: Negative for injury and deformity, Skin: Negative for injury, rash, and discoloration, Psych: Negative for depression, anxiety, suicide ideation, homicidal ideation, and hallucinations, Allergy/Immunology: Negative for hives, rash, and allergies, Endocrine: Negative for neck swelling, polydipsia, polyuria, polyphagia, and marked weight changes, Hematologic/Lymphatic: Negative for swollen nodes, abnormal bleeding, and unusual bruising, 20:25 Cardiovascular: Positive for palpitations, 20:25 Respiratory: Positive for shortness of breath, 20:25 Abdomen/GI: Positive for nausea, abdominal cramps, anorexia, black/tarry stool, Exam: 20:25 Constitutional: This is a well developed, well nourished patient who is awake, alert, manish and in no acute distress. Head/Face: Normocephalic, atraumatic. Eyes: Pupils equal round and reactive to light, extra-ocular motions intact. Lids and lashes normal. Conjunctiva and sclera are non-icteric and not injected. Cornea within normal limits. Periorbital areas with no swelling, redness, or edema. ENT: Nares patent. No nasal discharge, no septal abnormalities noted. Tympanic membranes are normal and external auditory canals are clear. Oropharynx with no redness, swelling, or masses, exudates, or evidence of obstruction, uvula midline. Mucous membranes moist. Neck: Trachea midline, no thyromegaly or masses palpated, and no cervical lymphadenopathy. Supple, full range of motion without nuchal rigidity, or vertebral point tenderness. No Meningismus. Chest/axilla: Normal chest wall appearance and motion. Nontender with no deformity. No lesions are appreciated. Respiratory: Lungs have equal breath sounds bilaterally, clear to auscultation and percussion. No rales, rhonchi or wheezes noted. No increased work of breathing, no retractions or nasal flaring. Back: No spinal tenderness. No costovertebral tenderness. Full range of motion. Male : Normal genitalia with no discharge or lesions. Skin: Warm, dry with normal turgor. Normal color with no rashes, no lesions, and no evidence of cellulitis. MS/ Extremity: Pulses equal, no cyanosis. Neurovascular intact. Full, normal range of motion. Psych: Awake, alert, with orientation to person, place and time. Behavior, mood, and affect are within normal limits. 20:25 Cardiovascular: Rate: tachycardic, actual rate is 107 bpm, Rhythm: regular, Pulses: Pulses are 4+ in bilateral radial, brachial, femoral, popliteal, posterior tibial and and dorsalis pedis arteries.. Heart sounds: normal, normal S1and S2, no S3 or S4, no murmur, no rub, no gallop, Edema: is not appreciated, JVD: is not appreciated, 20:58 ECG was reviewed by the Attending Physician. [facility] Vital Signs: 20:03 BP 108 / 76; Pulse 107; Resp 28; Temp 98.5; Pulse Ox 95% on R/A; Weight 85.28 kg; cp4 Height 5 ft. 11 in. ; Pain 5/10; 21:00 BP 119 / 83; Pulse 94; Resp 18; Pulse Ox 99% ; cp4 22:00 BP 122 / 77; Pulse 86; Resp 18; Pulse Ox 100% ; cp4 23:00 BP 123 / 78; Pulse 86; Resp 18; Pulse Ox 98% ; 4 09/07 00:00 BP 120 / 79; Pulse 81; Resp 18; Pulse Ox 97% ; cp4 01:42 BP 107 / 75; Pulse 80; Resp 18; Pulse Ox 97% ; cp4 01:46 BP 106 / 65; Pulse 80; Resp 18; Pulse Ox 97% ; 4 09/06 20:03 Body Mass Index 26.22 (85.28 kg, 180.34 cm) [facility] 09/06 20:03 Pain Scale: Adult 4 MDM: 09/06 19:59 Patient medically screened. [facility] 20:55 Antibiotic administration: merrem. Differential diagnosis: Chronic Obstructive manish Pulmonary Disease hemorrhoids, fissure, Myocardial Infarction pneumonia, Pneumothorax pulmonary edema, Pulmonary Embolism reactive airway disease, Sepsis Unstable Angina. Differential Diagnosis altered mental status, sepsis, flu. Immunization status: Pneumococcal vaccine: within last 5 years. Influenza vaccine: within last 5 years. Data reviewed: vital signs, nurses notes, EMS record, lab test result(s), EKG, radiologic studies, CT scan, plain films. Consideration of Admission/Observation Escalation of care including admission/observation considered. I considered the following discharge prescriptions or medication management in the emergency department Medications were administered in the Emergency Department. See MAR. Independent interpretation of the following test(s) in the Emergency Department EKG: See my EKG interpretation above. Test considered but Not performed: Ultrasound no abd usg. Care significantly affected by the following chronic conditions: Hypertension, Obesity, Cancer, gerd, tia. 09/06 20:22 Order name: Basic Metabolic Panel; Complete Time: 21:16 [facility] 09/06 20:22 Order name: CBC with Diff; Complete Time: 21:16 [facility] 09/06 20:22 Order name: LFT's; Complete Time: 21:16 [facility] 09/06 20:22 Order name: Magnesium; Complete Time: 21:16 [facility] 09/06 20:22 Order name: NT PRO-BNP; Complete Time: 21:16 [facility] 09/06 20:22 Order name: PT-INR; Complete Time: 21:16 [facility] 09/06 20:22 Order name: Troponin HS; Complete Time: 21:16 [facility] 09/06 20:22 Order name: Lipase; Complete Time: 21:16 [facility] 09/06 20:22 Order name: Lactate w/ 2H reflex if indic.; Complete Time: 21:16 [facility] 09/06 20:22 Order name: Blood Culture Adult (2) [facility] 09/06 20:23 Order name: SARS RAPID; Complete Time: 21:16 [facility] 09/06 20:23 Order name: Flu; Complete Time: 21:16 [facility] 09/06 20:24 Order name: Depakote; Complete Time: 23:25 [facility] 09/06 20:22 Order name: XRAY Chest (1 view); Complete Time: 23:25 [facility] 09/06 20:22 Order name: CT Chest Abdomen Pelvis W/O Contrast; Complete Time: 23:25 [facility] 09/06 20:22 Order name: CT Head Brain wo Cont; Complete Time: 23:25 [facility] 09/06 20:22 Order name: EKG; Complete Time: 20:22 [facility] 09/06 20:22 Order name: Cardiac monitoring; Complete Time: 20:34 [facility] 09/06 20:22 Order name: EKG - Nurse/Tech; Complete Time: 20:34 [facility] 09/06 20:22 Order name: IV Saline Lock; Complete Time: 20:34 [facility] 09/06 20:22 Order name: Labs collected and sent; Complete Time: 20:34 [facility] 09/06 20:22 Order name: O2 Per Protocol; Complete Time: 20:34 [facility] 09/06 20:22 Order name: O2 Sat Monitoring; Complete Time: : [facility] 09/06 20:23 Order name: IV Saline Lock - Large Bore; Complete Time: 20:34 [facility] EC:58 Rate is 106 beats/min. Rhythm is regular. QRS [place] is Normal. LA interval is normal. manish QRS interval is normal. QT interval is normal. No Q waves. T waves are Normal. No ST changes noted. Clinical impression: Sinus tachycardia and No evidence of ischemia. Interpreted by me. Reviewed by me. Administered Medications: 20:30 Drug: Pantoprazole IV 8 mg/hr IV at 25 ml/hr continuous; (Standard dilution is 80 mg in cp4 250 mL NS) Route: IV; Rate: 25 ml/hr; Site: right antecubital; 09/07 01:48 Follow up: Response: No adverse reaction; IV Status: Infusion continued upon transfer [facility] 09/06 20:30 Drug: Pantoprazole IVP 80 mg IVP once Route: IVP; Site: right antecubital; cp4 21:00 Follow up: Response: No adverse reaction cp4 20:48 Drug: NS 0.9% IV 1000 ml IV at 1000 ml once; to be given as a bolus over 60 minutes cp4 Route: IV; Rate: 1000 ml; Site: right antecubital; 21:48 Follow up: Response: No adverse reaction; IV Status: Completed infusion cp4 20:48 Drug: Meropenem IV 1 grams IV at per protocol once; (mix in NS 100 mL) Route: IV; Rate: cp4 per protocol; Site: left antecubital; 21:18 Follow up: Response: No adverse reaction; IV Status: Completed infusion cp4 20:48 Drug: NS 0.9% IV 1000 ml IV at 1 bolus Per protocol; to be given as a bolus over 60 cp4 minutes Route: IV; Rate: 1 bolus; Site: left antecubital; 21:48 Follow up: Response: No adverse reaction; IV Status: Completed infusion cp4 20:48 Drug: Solu-CORTEF IVP 100 mg IVP once Route: IVP; Site: left antecubital; cp4 21:19 Follow up: Response: No adverse reaction cp4 21:48 Drug: NS 0.9% IV 1000 ml IV at 125 ml/hr continuous Route: IV; Rate: 125 ml/hr; Site: cp4 right antecubital; 09/07 02:00 Follow up: Response: No adverse reaction; IV Status: Infusion continued upon transfer bm8 09/06 23:35 Drug: Decadron - Dexamethasone IVP 10 mg IVP once Route: IVP; Site: left antecubital; bm8 09/07 00:27 Follow up: Response: No adverse reaction cp4 Disposition Summary: 09/06/24 20:29 Transfer Ordered Notes: Transfer Location: [facility] manish Reason: Higher level of care manish Condition: Fair manish Problem: new manish Symptoms: have improved manish Accepting Physician: to [facility](09/07/24 02:00) bm8 Diagnosis - GI Bleed/ Gastrointestinal hemorrhage, unspecified - upper manish - Weakness manish - Dyspnea manish Forms: - Medication Reconciliation Form manish - SBAR form manish Signatures: Dispatcher [employer] EDMS Mario Delgado MD MD cha Potter, Christina cp4 Prosper Min, RN RN bm8 Corrections: (The following items were deleted from the chart) 09/06 20:22 20:22 BASIC METABOLIC PANEL+C.LAB.BRZ ordered. EDMS EDMS 20:22 20:22 CBC+H.LAB.BRZ ordered. EDMS EDMS 20:22 20:22 HEPATIC FUNCTION+C.LAB.BRZ ordered. EDMS EDMS 20:22 20:22 MAGNESIUM+C.LAB.BRZ ordered. EDMS EDMS 20:22 20:22 PROBNP+C.LAB.BRZ ordered. EDMS EDMS 20:22 20:22 PROTIME (+INR)+COAG.LAB.BRZ ordered. EDMS EDMS 20:22 20:22 Troponin High Sensitivity+C.LAB.BRZ ordered. EDMS EDMS 20:22 20:22 LIPASE+C.LAB.BRZ ordered. EDMS EDMS 20:22 20:22 Urinalysis+U.LAB.BRZ ordered. EDMS EDMS 20:22 20:22 LACTATE+C.LAB.BRZ ordered. EDMS EDMS 20:22 20:22 BLOOD CULTURE*+BA.LAB.BRZ ordered. EDMS EDMS 09/07 02:00 10/13 20:29 [address] [facility] bm8
[2024-09-06 20:37] LABS: Absolute Lymphocytes (CBC) 1.4 K/uL (0.7-4.9); Absolute Monocytes 0.6 K/uL (0.1-1.3); Absolute Neutrophil 4.5 K/uL (1.8-8.0); Basophils % 0.1 % (0-1.3); Eosinophils % 0.7 % (0-4.4); Hematocrit 37.7 % (39.6-49.0); Hemoglobin 12.6 g/dL (13.6-17.9); MCH 29.4 pg (27.0-35.0); MCHC 33.4 g/dL (32.0-36.0); MCV 88.1 fL (80-100); MPV 7.8 fL (7.6-11.3); Monocytes % 8.9 % (3.3-12.3); Neutrophils % 69.3 % (41.7-73.7); Platelets 166 thou/uL (152-406); RBC Red Blood Cell Count 4.27 M/uL (4.33-5.43); Red Cell Distribution Width 13.9 % (12.1-15.2)
[2024-09-06] MEDS ORDERED: HYDROCORTISONE SUC 100 MG INJ ONE (20:37)
[2024-09-06] MEDS ORDERED: Meropenem 1000 MG/VIAL IV ONE (20:37)
[2024-09-06] MEDS ORDERED: NA CHLORIDE 0.9% 100 ML ONE (20:38)
[2024-09-06] MEDS ORDERED: NA CHLORIDE 0.9% 3,000 ML ONE (20:38)
[2024-09-06] MEDS ORDERED: WATER FOR INJ,STERILE 10 ML ONE (20:39)
[2024-09-06 20:47] LABS: PT Prothrombin Time 11.3 SECONDS (9.4-12.5); Protime INR 1.01
[2024-09-06 20:51] LABS: SARS-CoV-2 Antigen CONTROL BLUE LINE VIS/BG OK; SARS-CoV-2 Antigen Rapid Res Negative (Negative)
[2024-09-06 20:57] LABS: ALT/SGPT 22 U/L (16-61); AST/SGOT 14 U/L (15-37); Albumin/Globulin Ratio 1.2 (1.1-1.8); Alkaline Phosphatase 36 U/L (45-117); Anion Gap 9.6 mEq/L (5.0-15.0); BUN Blood Urea Nitrogen 36 mg/dL (7-18); Bicarbonate 26 mEq/L (21-32); Bilirubin Direct < 0.2 mg/dL (0-0.2); Bilirubin Indirect, Calculated 0.2 mg/dL (0.2-0.8); Bilirubin Total 0.4 mg/dL (0.2-1.0); Globulin 2.5 g/dL (2.3-3.5); Glomerular Filtration Rate 65 ml/min (=/>90); Glucose Level 141 mg/dL (74-106); Lipase 29 U/L (13-75); Magnesium 2.1 mg/dL (1.6-2.4); NT PRO-BNP 226 pg/mL (<125); Potassium 3.6 mEq/L (3.5-5.1); Protein, Total 5.5 g/dL (6.4-8.2); Sodium Level 136 mEq/L (136-145); Troponin High Sensitivity 42.9 pg/mL (<58.9)
--- NOTE | 2024-09-06 21:34 | RAD REPORT ---
EXAM: CT brain without contrast HISTORY: Headache COMPARISON: September 03, 2024 TECHNIQUE: Multiple contiguous axial images were obtained and a CT of the brain without contrast.. Sagittal and coronal reconstruction performed. Automated exposure control, adjustment of the mA and/or kV according to patient size, and/or iterative reconstruction. Unless otherwise specified, incidental f indings do not require dedicated imaging follow-u FINDINGS: Bilateral cerebral masses with surrounding vasogenic edema without significant change. No significant shift of midline structures. An intracranial bleed is not seen Ventricles are normal caliber No extra-axial fluid collection noted Small right cerebellar infarction. No fluid within the visualized sinuses or mastoids noted. IMPRESSION: Stable bilateral cerebral masses with surrounding vasogenic edema.
--- NOTE | 2024-09-06 21:48 | RAD REPORT ---
EXAM: CT CHEST, ABDOMEN AND PELVIS WITHOUT CONTRAST CLINICAL INDICATION: Chest and abdominal pain. Cough TECHNIQUE: CT chest, abdomen and pelvis was performed, without IV contrast, as per department protoco l. Axial, sagittal and coronal reconstructions were obtained. One or more of the following dose reduction techniques were used: Automated exposure control, adjustment of the mA and/or kV according to the patient size, and/or iterative reconstruction. Unless otherwise specified, incidental findings do not require dedicated imaging follow-up. The lack of IV and oral contrast limits evaluation of the mediastinum, ranjith, vessels, organs and carmina l. COMPARISON: 2020 CT chest FINDINGS: Multiple, bilateral pulmonary nodules. Largest lies within the left lower lobe measuring 2.5 cm. 1 cm lymph node has developed within the anterior mediastinum. No hilar lymphadenopathy seen. 3.7 cm right supraclavicular mass. 2.2 cm left lower neck lymph node No pleural effusion. No pericardial effusion. Liver, spleen, pancreas, and adrenals appear grossly normal. Several renal cysts. Several additional renal masses bilaterally which do not represent simple cysts. Small to moderate hiatal hernia. 1.7 cm soft tissue mass has developed lateral to the left kidney There is no evidence of diverticulitis. No bowel obstruction. Small inguinal hernias IMPRESSION: Multiple, bilateral pulmonary nodules consistent with metastases Supraclavicular, left lower neck and anterior mediastinal lymphadenopathy likely neoplastic 1.7 cm soft tissue mass lateral to left kidney likely neoplastic Multiple renal masses do not represent simple cysts. These could be neoplastic or benign complex cyst s
--- NOTE | 2024-09-06 21:53 | RAD REPORT ---
Procedure: Chest Single View HISTORY: Chest pain COMPARISON: September 03, 2024 FINDINGS: Multiple, bilateral pulmonary nodules without significant change No significant pleural effusion noted. The heart is borderline enlarged
[2024-09-06] MEDS ORDERED: dexAMETHasone 10 MG/ML VIAL ONE (23:30)
[2024-09-07 06:44] VITALS: TEMP 98.5
[2024-09-07 06:49] VITALS: O2SAT 97
[2024-09-07 06:52] VITALS: BP 106/65
--- NOTE | 2024-09-10 12:08 | EKG ---
Test Date: 2024-09-06 Test Time: 19:59:21 Accounts Specialist: MEASUREMENT RESULTS: Intervals: Rate: 106 PA: 154 QRSD: 112 QT: 346 QTc: 459 [place]: P: 91 PA: 154 QRS: -63 T: 83 INTERPRETIVE STATEMENTS: Sinus tachycardia Left anterior fascicular block Abnormal ECG Compared to ECG 07/02/2024 09:34:30 Left anterior fascicular block now present Sinus bradycardia no longer present Left ventricular hypertrophy no longer present Electronically Signed On 09-10-24 11:57:28 CDT by Elier Angela
== END 2024-09-07 02:00 | disposition short-term general hospital (02) ==
LOC: ER 19:50
DX: K92.2 Gastrointestinal hemorrhage, unspecified (principal); R53.1 Weakness; R06.00 Dyspnea, unspecified; I10 Essential (primary) hypertension; C43.9 Malignant melanoma of skin, unspecified; C79.31 Secondary malignant neoplasm of brain; C78.00 Secondary malignant neoplasm of unspecified lung; Z79.82 Long term (current) use of aspirin; Z11.52 Encounter for screening for COVID-19
CPT/HCPCS: 93005; 87040 ×2; 85025; 80048; 36415; 83735; 85610; 80076; 80164; 83605; 84484; 83690; 83880; 87804 ×2; 70450; 71250; 74176; 71045; 87811; J2470; J1100; J2185; J1720; J7050; J7030; 99285